=== PATIENT | male | born 1955 | race Caucasian/White ===

== ENCOUNTER 2016-12-12 14:03 | Emergency (ER) | payer OTHER ==
[~2016-12-12] VITALS: Ht 172.7 cm; Wt 72.0 kg
[~2016-12-12 14:03] MED LIST: ASPI325T PO; CARV6.25 PO; CLOP75 PO; FOLI1 PO; PROT40TA PO; THIA100T PO; ZOCO40TA PO
[2016-12-12 14:08] VITALS: BP 151/93; PULSE 89; RESP 18; TEMP 97.6; O2SAT 99
--- NOTE | 2016-12-12 15:09 | RADHPO ---
EXAM DATE/TIME: 12/12/2016 14:51 [facility] COMPARISON: No previous studies available for comparison. INDICATIONS : Patient jumped into a swimming pool that was too shallow and jammed his heel into the bottom of it. MEDICAL HISTORY : Peripheral vascular disease SURGICAL HISTORY : None. ENCOUNTER: Initial ACUITY: 4 - 6 days PAIN SCORE: 8/10 LOCATION: Left Lateral heel. FINDINGS: Three view examination of the left foot demonstrates no soft tissue swelling, dislocation, or fractur e. The tarsal bones appear intact. The interphalangeal and metatarsophalangeal joints are intact. The calcaneus is intact. Bony mineralization is normal. CONCLUSION: Unremarkable examination of the left foot. Boni Messer MD on December 12, 2016 at 15:06 Board Certified Radiologist. This report was verified electronically.
--- NOTE | 2016-12-12 15:27 | PD ---
HPI Chief Complaint: Injury Time Seen by Provider: 14:25 Travel History International Travel<30 days: No Contact w/Intl Traveler<30days: No Traveled to known affect area: No History of Present Illness HPI 61-year-old male presents to the emergency room for evaluation of left lateral heel pain after jumping into a pool 5 days ago. Patient states he jumped straight in and struck his foot on the bottom of the pool. He has had pain since. Pain has not worsened or improved over time. He has been applying ice for 15 minutes at a time every 2-3 hours and taking ibuprofen with mild relief in symptoms. Denies paresthesias. Denies back pain. He has been ambulatory since onset of symptoms but has to walk on his toes to avoid pain. PFSH Past Medical History Cancer: No Cardiovascular Problems: Yes (PAD) High Cholesterol: Yes Chest Pain: Yes Deep Vein Thrombosis: Yes Endocrine: No Genitourinary: No Immune Disorder: No Musculoskeletal: No Neurologic: No Psychiatric: No Reproductive: No Respiratory: Yes Tetanus Vaccination: > 5 Years Influenza Vaccination: No Past Surgical History Abdominal Surgery: Yes (APPENDECTOMY, HEMMOROIDECTOMY) Appendectomy: Yes Other Surgery: Yes (Hemorrhoidectomy ) Social History Alcohol Use: Yes (6-8 beers daily) Tobacco Use: Yes (1 PPD) Substance Use: No Allergies-Medications (Allergen,Severity, Reaction): Coded Allergies: Ceclor (Verified Allergy, Unknown, Doesn't remember , 12/12/16) Reported Meds & Prescriptions Reported Meds & Active Scripts Active No Active Prescriptions or Reported Medications Review of Systems Except as stated in HPI: all other systems reviewed are Neg Physical Exam Narrative GENERAL: Well-nourished, well-developed male in no acute distress. Afebrile. Ambulatory with a limp. SKIN: Warm and dry. No significant erythema or ecchymosis. HEAD: Normocephalic. EYES: No scleral icterus. No injection or drainage. NECK: Supple, trachea midline. No JVD or lymphadenopathy. CARDIOVASCULAR: Regular rate and rhythm without murmurs, gallops, or rubs. RESPIRATORY: Breath sounds equal bilaterally. No accessory muscle use. MUSCULOSKELETAL: No cyanosis. Mild edema of the left foot. Full range of motion of left foot. 1+ dorsalis pedis pulses. Less than 2 second capillary refill distally. Tenderness to palpation of the left lateral heel. No tenderness to palpation of the knee. BACK: Nontender without obvious deformity. No CVA tenderness. Data Data Last Documented VS Vital Signs Date Time Temp Pulse Resp B/P Pulse Ox O2 Delivery O2 Flow Rate FiO2 12/12/16 14:08 97.6 89 18 151/93 99 Orders Foot, Complete ([id number]) (12/12/16 ) [facility] Medical Decision Making Medical Screen Exam Complete: Yes Emergency Medical Condition: Yes Medical Record Reviewed: Yes Differential Diagnosis Contusion versus fracture versus sprain versus strain Narrative Course 61-year-old male presents to the emergency room for evaluation of left heel pain after jumping into a pool and hitting his foot on the bottom 5 days ago. Physical exam reveals mild edema of the left foot without erythema or ecchymosis. 1+ dorsalis pedis pulse. Patient denies paresthesias. No back pain or midline tenderness of the spine. X-ray shows no acute bony abnormality. Patient has been ambulatory since onset of symptoms. Likely deep contusion. Patient discharged with orthopedic instructions and told to follow up with a primary care physician/primary health organisation manager or return for worsening symptoms. He understands and agrees to plan. Diagnosis Primary Impression: Contusion of left heel Qualified Code: S90.32XA - Contusion of left heel, initial encounter Referrals: Yarn Skeins Examiner Primary Care Physician Patient Instructions: Foot Contusion (ED), General Instructions Additional Instructions: Rest and drink plenty of fluids. Take ibuprofen with food as directed, as needed for pain. Apply ice to the affected area for 20 minutes at a time, as needed for pain and swelling. Follow-up with a primary care physician. Return to the emergency room for worsening symptoms. Scripts No Active Prescriptions or Reported Meds Disposition: 01 DISCHARGE HOME Condition: Stable Keila Zimmerman December 12, 2016 15:27
== END 2016-12-12 15:40 | disposition home or self-care (01) ==
LOC: PHEFT 14:03
DX: S90.32XA Contusion of left foot, initial encounter (principal); E78.00 Pure hypercholesterolemia, unspecified; Z86.718 Personal history of other venous thrombosis and embolism; F17.210 Nicotine dependence, cigarettes, uncomplicated; W16.522A Jumping or diving into swimming pool striking bottom causing other injury, initial encounter; Y93.11 Activity, swimming; Y92.9 Unspecified place or not applicable; Y99.8 Other external cause status
CPT/HCPCS: 73630; 99283

== ENCOUNTER → 2017-03-05 | Outpatient (CLI) | payer OTHER ==
[~2017-03-05] MED LIST changes: +B COTAB3 PO; -CLOP75 PO; -FOLI1 PO; +FOLI1TAB6 PO; +PLAV75TA29 PO; -PROT40TA PO; +SIMV10TA PO; -THIA100T PO; +VITA100T54 PO; -ZOCO40TA PO
[2017-03-05 13:03] LABS: AUTOMATED NEUTROPHIL # 2.5 TH/MM3 (1.8-7.7); BASOPHIL # 0.1 TH/MM3 (0-0.2); BASOPHIL % 1.5 % (0.0-2.0); EOSINOPHIL # 0.1 TH/MM3 (0-0.4); EOSINOPHIL % 2.9 % (0.0-4.0); HEMATOCRIT 41.9 % (39.0-51.0); HEMO FLAGS DIFF FINAL; LYMPHOCYTE # 1.3 TH/MM3 (1.0-4.8); MEAN CELL VOLUME 104.8 FL (80.0-100.0); MEAN CORPUSCULAR HEMOGLOBIN 36.9 PG (27.0-34.0); MEAN CORPUSCULAR HGB CONC 35.2 % (32.0-36.0); MONO % 14.5 % (0.0-8.0); NEUT % 54.1 % (16.0-70.0); PLATELET COUNT 161 TH/MM3 (150-450); RED CELL DISTRIBUTION WIDTH 13.9 % (11.6-17.2); WHITE BLOOD COUNT 4.7 TH/MM3 (4.0-11.0)
[2017-03-05 13:41] LABS: ALKALINE PHOSPHATASE 89 U/L (45-117); ALT (GPT) 64 U/L (12-78); HDL CHOLESTEROL 57.5 MG/DL (40.0-60.0); LDL CHOLESTEROL 92 MG/DL (0-99); TOTAL BILIRUBIN ADULT 0.8 MG/DL (0.2-1.0)
[2017-03-05 13:47] LABS: ANION GAP 8 MEQ/L (5-15); AST (GOT) 107 U/L (15-37); BICARBONATE 24.6 MEQ/L (21.0-32.0); BLOOD UREA NITROGEN 7 MG/DL (7-18); CHLORIDE 94 MEQ/L (98-107); GLOMERULAR FILTRATION RATE 95 ML/MIN (>89); GLUCOSE,FASTING 75 MG/DL (74-99); POTASSIUM 4.3 MEQ/L (3.5-5.1); SODIUM (NA) 127 MEQ/L (136-145)
== END ==
LOC: PLAB 10:18
PROVIDERS: ATTEND Family Medicine
DX: E78.5 Hyperlipidemia, unspecified (principal); F10.10 Alcohol abuse, uncomplicated
CPT/HCPCS: 36415; 80053; 80061; 84443; 85025

== ENCOUNTER → 2017-03-10 | Outpatient (CLI) | payer OTHER ==
[~2017-03-10] MED LIST changes: +IOHEXOL 350 MG/ML 10 ML VIAL (for RAD DIAG) IV ONE
--- NOTE | 2017-03-10 10:44 | RADRPT ---
EXAM DATE/TIME: 03/10/2017 09:23 [facility] COMPARISON: CTA RUNOFF W 3D RECON, January 08, 2016, 13:12. INDICATIONS : Abdominal pain. MEDICAL HISTORY : Hypercholesterolemia. Deep venous thrombosis. Peripheral vascular disease. SURGICAL HISTORY : Appendectomy. Hemorrhoidectomy. ENCOUNTER: Initial ACUITY: 1 month PAIN SCORE: 0/10 LOCATION: Abdomen. MEASUREMENTS: LIVER: 14.5 cm length COMMON DUCT: 5 mm RIGHT KIDNEY: 11.3 x 5.1 x 4.9 cm LEFT KIDNEY: 10.4 x 6.7 x 5.5 cm SPLEEN: 10.3 cm length AORTA: 1.9cm maximal FINDINGS: LIVER: Mild increase echotexture without focal lesion or ductal dilatation. COMMON DUCT: No intraluminal mass or stone visualized. GALLBLADDER: Contains no stones, demonstrates no wall thickening or pericholecystic fluid. PANCREAS: Pancreas is not well-visualized due to bowel gas. Visualized portions are within normal limits. RIGHT KIDNEY: No hydronephrosis, stone or mass. LEFT KIDNEY: No hydronephrosis, stone or mass. SPLEEN: No focal lesion. AORTA: Non aneurysmal. There is severe atherosclerotic disease. IVC: Within normal limits. CONCLUSION: 1. No acute finding is identified to explain the abdominal pain. 2. Possible mild hepatic steatosis. 3. Severe atherosclerotic disease of the aorta. Boni Sylvester MD on March 10, 2017 at 10:40 Board Certified Radiologist. This report was verified electronically.
--- NOTE | 2017-03-10 14:38 | RADRPT ---
EXAM DATE/TIME: 03/10/2017 10:15 [facility] COMPARISON: CTA RUNOFF W 3D RECON, January 08, 2016, 13:12. INDICATIONS : Peripheral vascular disease. IV CONTRAST: 100 cc Omnipaque 350 (iohexol) IV RADIATION DOSE: 2.17 CTDIvol (mGy) MEDICAL HISTORY : Cardiovascular disease. SURGICAL HISTORY : None. ENCOUNTER: Initial ACUITY: 1 day PAIN SCALE: 5/10 LOCATION: Bilateral lower legs TECHNIQUE: Volumetric scanning was performed using a multi-row detector CT scanner. The data was post processed with a variety of visualization algorithms including full volume maximum intensity projection, multi -planar sliding thin slab reformation, curved planar reformation, and surface rendering techniques. Using automated exposure control and adjustment of the mA and/or kV according to patient size, radiat ion dose was kept as low as reasonably achievable to obtain optimal diagnostic quality images. DICO M format image data is available electronically for review and comparison. FINDINGS: AORTA: Diffuse atherosclerotic calcifications without significant flow-limiting stenosis or aneurysm. VISCERAL ARTERIES: Moderate stenosis at the celiac origin secondary to mixed plaque. Mild SMA origin stenosis. LATA appea rs occluded at the origin but reconstitutes to near the origin. Single grossly patent bilateral renal arteries. RIGHT LEG: INFLOW: Moderate stenosis of the right common iliac artery distally secondary to calcified plaque. Extra sanam c artery is patent. Redemonstration of occlusion of the right mid to distal common femoral artery. OUTFLOW: Reconstitution of the proximal profunda via collaterals. SFA is occluded throughout its course. There is reconstitution of the above-knee popliteal artery via profunda collaterals. The above-knee poplit eal artery is heavily calcified and likely focally occluded just above the level of the knee joint. B elow knee popliteal artery is calcified but patent. RUNOFF: There is three-vessel runoff with moderate calcified plaque involving the proximal trifurcation vesse ls. LEFT LEG: INFLOW: No significant iliac inflow stenosis. Internal iliac artery is occluded. Heavily calcified common fem oral artery with severe stenosis distally. OUTFLOW: Profunda is patent. Heavily calcified SFA with tandem moderate to severe stenoses in the proximal to mid thigh and occlusion in the distal thigh. Reconstitution of the above-knee popliteal artery via co llaterals. Tandem moderate stenoses of the above-knee popliteal artery. Below knee popliteal artery i s patent. RUNOFF: Three-vessel runoff to the foot with moderate calcified plaque involving the proximal trifurcation ve ssels. GENERAL FINDINGS: Visualized lung bases are clear. Evaluation of the abdominal viscera is limited due to arterial phase technique. Liver, spleen, adrenal glands, gallbladder, and pancreas are grossly unremarkable. Kidney s demonstrate symmetrical enhancement without evidence for radiopaque renal calculi or hydronephrosis . No significant renal mass. The bowel appears unremarkable without evidence for obstruction. No sign ificant free fluid or drainable fluid collection. Bladder is mildly distended but otherwise unremarkable. Prostate and seminal vesicles are within norm al limits. CONCLUSION: 1. Redemonstration of moderate distal right common iliac artery stenosis. Patient would benefit from inflow intervention. 2. 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 3. Redemonstration of severe distal left common femoral artery stenosis with diffusely diseased SFA o ccluded in the distal thigh with reconstitution of the left above-knee popliteal artery. 4. Three-vessel runoff with moderate proximal trifurcation disease bilaterally. Romaine Diehl MD on March 10, 2017 at 13:46 Board Certified Radiologist. This report was verified electronically.
== END ==
LOC: HRAD 08:52
PROVIDERS: ATTEND Family Medicine
DX: I73.9 Peripheral vascular disease, unspecified (principal)
CPT/HCPCS: 75635; 76700; Q9967

== ENCOUNTER → 2017-03-26 | Outpatient (CLI) | payer OTHER ==
[~2017-03-26] MED LIST changes: -IOHEXOL 350 MG/ML 10 ML VIAL (for RAD DIAG) IV ONE
--- NOTE | 2017-03-26 16:02 | ECHRPT ---
Indication: Cardiac murmur, unspecified CONCLUSIONS The left ventricular systolic function is low normal with an estimated ejection fraction in the rang e of 50- 55%. Mild concentric left ventricular hypertrophy. Normal left ventricular size. There are findings consistent with hypertrophic cardiomyopathy. Mild mitral valve regurgitation. There is trace tricuspid valve regurgitation. The estimated pulmonary arterial pressure is 19 mmHg. BP: / HR: Rhythm: Sinus MEASUREMENTS (Male / Female) Normal Values Technical Quality:Fair 2D ECHO LV Diastolic Diameter PLAX 4.2 cm 4.2 - 5.9 / 3.9 - 5.3 cm LV Systolic Diameter PLAX 3.3 cm IVS Diastolic Thickness 1.3 cm 0.6 - 1.0 / 0.6 - 0.9 cm LVPW Diastolic Thickness 1.0 cm 0.6 - 1.0 / 0.6 - 0.9 cm LV Relative Wall Thickness 0.5 LVOT Diameter 2.2 cm M-MODE Aortic Root Diameter MM 3.1 cm LA Systolic Diameter MM 3.1 cm LA Ao Ratio MM 1.0 AV Cusp Separation MM 1.6 cm DOPPLER AV Peak Velocity 202.0 cm/s AV Peak Gradient 16.3 mmHg AI Peak Velocity 416.0 cm/s AI Peak Gradient 69.2 mmHg AI Pressure Half Time 448.7 ms LVOT Peak Velocity 138.0 cm/s LVOT Peak Gradient 7.6 mmHg AV Area Cont Eq pk 2.6 cm MR Peak Velocity 536.0 cm/s MR Peak Gradient 114.9 mmHg Mitral E Point Velocity 207.0 cm/s Mitral A Point Velocity 174.0 cm/s Mitral E to A Ratio 1.2 LV E' Lateral Velocity 6.0 cm/s Mitral E to LV E' Lateral Ratio 34.3 LV E' Septal Velocity 5.5 cm/s Mitral E to LV E' Septal Ratio 37.6 TR Peak Velocity 186.0 cm/s TR Peak Gradient 13.8 mmHg PV Peak Velocity 89.6 cm/s PV Peak Gradient 3.2 mmHg FINDINGS LEFT VENTRICLE The left ventricular systolic function is low normal with an estimated ejection fraction in the rang e of 50- 55%. Mild concentric left ventricular hypertrophy. Normal left ventricular size. There are findings consistent with hypertrophic cardiomyopathy. MITRAL VALVE Mild mitral valve regurgitation. TRICUSPID VALVE There is trace tricuspid valve regurgitation. The estimated pulmonary arterial pressure is 19 mmHg. Linden Palacios MD (Electronically Signed) Final Date:26 March 2017 16:01
== END ==
LOC: HECH 08:46
PROVIDERS: ATTEND Nurse Practitioner Family
DX: R01.1 Cardiac murmur, unspecified (principal)
CPT/HCPCS: 93306

== ENCOUNTER → 2017-04-17 | Outpatient (CLI) | payer OTHER ==
[2017-04-17 10:45] LABS: HEMATOCRIT 36.9 % (39.0-51.0); MEAN CELL VOLUME 104.8 FL (80.0-100.0); MEAN CORPUSCULAR HEMOGLOBIN 37.5 PG (27.0-34.0); MEAN CORPUSCULAR HGB CONC 35.8 % (32.0-36.0); PLATELET COUNT 186 TH/MM3 (150-450); RED BLOOD COUNT 3.53 MIL/MM3 (4.50-5.90); RED CELL DISTRIBUTION WIDTH 13.2 % (11.6-17.2); REVIEW FLAG FINAL; WHITE BLOOD COUNT 4.6 TH/MM3 (4.0-11.0)
[2017-04-17 10:48] LABS: BLOOD, URINE NEG (NEG); COMMENT (UR) CULT NOT INDICATED; CULTURE IF INDICATED CULT NOT INDICATED; GLUCOSE,URINE NEG (NEG); KETONE, URINE NEG (NEG); MUCUS URINE FEW /lpf (OCC); NITRITE,URINE NEG (NEG); PH, URINE 6.5 (5.0-8.5); URINE COLOR YELLOW (YELLW/STRAW)
[2017-04-17 11:00] LABS: BICARBONATE 26.8 MEQ/L (21.0-32.0); POTASSIUM 4.1 MEQ/L (3.5-5.1)
--- NOTE | 2017-04-17 12:55 | RADRPT ---
EXAM DATE/TIME: 04/17/2017 10:54 [facility] COMPARISON: CT PULMONARY ANGIOGRAM, February 01, 2016, 9:54. CHEST SINGLE AP, January 31, 2016, 13:45. INDICATIONS : Evaluate for pneumonia, pneumothorax or communicable disease. Pre-op for Angiogram. MEDICAL HISTORY : Hypertension. Smoker. SURGICAL HISTORY : None. ENCOUNTER: Initial ACUITY: 1 day PAIN SCORE: 0/10 LOCATION: Bilateral chest FINDINGS: The lungs are clear without infiltrate, nodule, or mass. There is no appreciable pleural effusion fo r technique. Heart and mediastinum are unremarkable. Nipple shadows are seen bilaterally. CONCLUSION: No acute cardiopulmonary disease. Rosette Hart MD on April 17, 2017 at 12:53 Board Certified Radiologist. This report was verified electronically.
--- NOTE | 2017-04-22 22:09 | EKG ---
Date Performed: 04/17/2017 Time Performed: 10:37:59 PTAGE: 62 years EKG: SINUS BRADYCARDIA POSSIBLE LEFT ATRIAL ENLARGEMENT BORDERLINE ECG NO PREVIOUS TRACING Compared to the previous tracing rate slower DOCTOR: Umberto Coronel Interpretating Date/Time 04/22/2017 22:08:41
== END ==
LOC: CPRE 09:48
PROVIDERS: ATTEND Surgery
DX: Z01.810 Encounter for preprocedural cardiovascular examination (principal); Z01.811 Encounter for preprocedural respiratory examination; Z01.812 Encounter for preprocedural laboratory examination; I73.9 Peripheral vascular disease, unspecified; R94.31 Abnormal electrocardiogram [ECG] [EKG]
CPT/HCPCS: 36415; 71020; 80048; 81001; 85027; 85610; 93005

== ENCOUNTER 2017-04-21 10:00 | Inpatient (IN) | payer OTHER ==
[~2017-04-21] VITALS: Ht 172.7 cm; Wt 68.5 kg
[~2017-04-21 10:00] MED LIST changes: -B COTAB3 PO
[2017-05-11] VITALS (11 sets, daily range): BP systolic 134–197; BP diastolic 71–81; PULSE 65–89; RESP 18–20; TEMP 97.7–98.3; O2SAT 91–96
[2017-05-11] MEDS ORDERED: POVIDONE IODINE 5% (ANTISEPSIS KIT) 4 APPLICATIONS EACH NARE PRN (06:30)
[2017-05-11] MEDS ORDERED: METOPROLOL TARTRATE 25 MG TAB PO PRN (06:30)
[2017-05-11] MEDS ORDERED: SODIUM CHLORID 0.9% 500 ML IV PRN (06:30)
[2017-05-11] MEDS ORDERED: INSULIN HUMAN REGULAR 1,000 UNITS/10 ML VIAL SQ PRN (06:30)
[2017-05-11] MEDS ORDERED: LACTATED RINGER'S 1000 ML IV PRN (06:30)
[2017-05-11] MEDS ORDERED: CHLORHEXIDINE GLUCONATE 2 % 1 PACK (2 CLOTHS) TOPICAL PRN (06:30)
--- NOTE | 2017-05-11 06:39 | PD.VS.PN ---
Pre-operative Note Pre-operative diagnosis: PAD, L LE claudication Planned procedure: LEFT groin reconstruction, angiogram and endovascular intervention of LEFT LE Interval History: Pt has been feeling well since I saw him in clinic. Specifically, no F/C/N/V or other change in medical condition that would delay surgery Labs: Hct 37 plt 186 INR 1.0 cr 0.8 Blood: T&S Imaging: CTA reviewed; LE angio to be done in OR Orders: NPO Vanc 1g IV OCTOR (ceclor allergy) Post-operative destination: PACU then CPCU Operative site marked: Yes Consent: Informed consent has been obtained from Avinash Powell. I have explained the procedure in detail and discussed the risks, benefits, and potential complications. All questions have been answered. Luan Smith MD May 11, 2017 06:39
[2017-05-11] MEDS ORDERED: CARVEDILOL 6.25 MG TAB PO SCH (07:00)
[2017-05-11] MEDS ORDERED: ACETAMINOPHEN 1000 MG/100 ML 100 ML IV ONE (07:21)
[2017-05-11] MEDS ORDERED: DEXMEDETOMIDINE HCL 200 MCG/2 ML VIAL ONE (07:22)
[2017-05-11] MEDS ORDERED: BUPIVACAINE HCL PF 0.5% 30 ML VIAL ONE (08:30)
[2017-05-11] MEDS ORDERED: THROMBIN (TOPICAL) 20,000 UNIT SPRAY KIT ONE (08:30)
[2017-05-11] MEDS ORDERED: HEPARIN-NS/PF INJ 500 ML ONE (08:30)
[2017-05-11] MEDS ORDERED: VANCOMYCIN HCL 1000 MG VIAL ONE (08:30)
[2017-05-11] MEDS ORDERED: PROTAMINE SULFATE 50 MG/5 ML VIAL ONE (08:31)
[2017-05-11] MEDS ORDERED: HEPARIN SODIUM - IV 10,000 UNITS/10 ML VIAL ONE (08:31)
--- NOTE | 2017-05-11 09:12 | HHI.PR ---
Immediate Post Op Note Procedure Date: May 11, 2017 Pre Op Diagnosis: PAD, L LE claudication Post Op Diagnosis: PAD, L LE claudication Surgeon: Luna Smith Marketing Manager(s): Caroline Owens Procedure: L GENERATOR ASSEMBLER TEA w patch angioplasty Findings: high grade calcific stenosis L GENERATOR ASSEMBLER Additional Information: + PT Doppler signal at conclusion of case Complications: none Specimen(s) removed: L GENERATOR ASSEMBLER plaque - not for path Estimated blood loss: 75mL Anesthesia: General Drains: None Fluids: 2350mL IVF Urinary Output (mLs): 950 Patient to: PACU Patient Condition: Good Implant/Devices: SEE IMPLANT LOG (if applicable) Date/Time of Procedure: SEE SURGICAL CARE RECORD Luan Smith MD May 11, 2017 09:12
[2017-05-11] MEDS ORDERED: *morphine SULFATE 8 MG/ML PERIprocedure ONLY ONE (10:40)
[2017-05-11] MEDS ORDERED: DO NOT ADM ANY ANTICOAGULANT DRUGS PRN (10:45)
[2017-05-11] MEDS ORDERED: SODIUM CHLOR 0.9% 250 ML INJ 250 ML IV ONE (12:00)
[2017-05-11] MEDS ORDERED: NEOSTIGMINE 3 MG/3 ML SYR IV ONE (12:00)
[2017-05-11] MEDS ORDERED: LIDOCAINE HCL 1% PF 5 ML AMPULE OTHER ONE (12:00)
[2017-05-11] MEDS ORDERED: ePHEDrine/NS 25 MG/5 ML SYR IV ONE (12:00)
[2017-05-11] MEDS ORDERED: ROCURONIUM INJ 50 MG/5 ML SYRINGE IV PUSH ONE (12:00)
[2017-05-11] MEDS ORDERED: PHENYLEPH/NS 1000 MCG/10 ML SYR IV ONE (12:00)
[2017-05-11] MEDS ORDERED: PROPOFOL 200 MG/20 ML AMP IV ONE (12:00)
[2017-05-11] MEDS ORDERED: GLYCOPYRROLATE 1 MG/5 ML SYRINGE IV PUSH ONE (12:00)
[2017-05-11] MEDS ORDERED: NORMOSOL R INJ 2,000 ML IV ONE (12:00)
--- NOTE | 2017-05-11 13:55 | PD.VS.PN ---
Subjective POD #: 0 Procedure(s): L LAST REMODELER REPAIRER TEA w patch angioplasty Subjective/Hospital Course Pt w/o complaints Provena wound vac in place (L groin) w/o hematoma or swelling LE warm w/ motor intact Objective Vitals/I&O Date Time Temp Pulse Resp B/P (MAP) Pulse Ox O2 Delivery O2 Flow Rate FiO2 05/11/17 10:45 15 05/11/17 10:45 70 15 123/59 (80) 94 Nasal Cannula 2 05/11/17 10:30 72 15 117/60 (79) 93 Nasal Cannula 2 05/11/17 10:15 74 15 115/61 (79) 92 Nasal Cannula 2 05/11/17 10:00 77 15 109/53 (71) 100 Nasal Cannula 3 05/11/17 09:50 98.3 75 20 102/60 (74) 99 Nasal Cannula 3 05/11/17 06:41 98.1 97 18 207/93 (131) 98 05/11/17 05/11/17 05/11/17 07:00 15:00 23:00 Intake Total 2350 ml Output Total 1025 ml Balance 1325 ml Exam: GENERAL: A&OX3,NAD,GCS15 Warm and dry R/L + DP/PT heard via Doppler LE warm w/ motor intact Provena wound vac intact to L groin w/o swelling or hematoma Assessment and Plan Assessment: (1) PVD (peripheral vascular disease) Status: Acute Plan Pt s/p L LAST REMODELER REPAIRER TEA w patch angioplasty Doing well Pain controlled Plan Pt admitted Continue pain control Vidhya TORRES [facility] Discharge Planning 4-5 days Vidhya Paul May 11, 2017 13:55
[2017-05-11] MEDS: ONDANSETRON HCL 4 MG/2 ML VIAL IV PUSH PRN (19:37)
[2017-05-11] MEDS: CARVEDILOL 6.25 MG TAB PO SCH (19:49)
[2017-05-11] MEDS: ATORVASTATIN 40 MG TAB PO SCH (20:54)
[2017-05-11] MEDS: DOCUSATE SODIUM 100 MG CAP PO SCH (20:54)
[2017-05-12] VITALS (25 sets, daily range): BP systolic 132–164; BP diastolic 59–83; PULSE 64–108; RESP 18–22; TEMP 97.4–98.2; O2SAT 92–98
[2017-05-12 03:12] LABS: HEMATOCRIT 35.3 % (39.0-51.0); MEAN CELL VOLUME 104.6 FL (80.0-100.0); MEAN CORPUSCULAR HEMOGLOBIN 37.9 PG (27.0-34.0); PLATELET COUNT 132 TH/MM3 (150-450); RED BLOOD COUNT 3.37 MIL/MM3 (4.50-5.90); RED CELL DISTRIBUTION WIDTH 12.9 % (11.6-17.2); WHITE BLOOD COUNT 8.3 TH/MM3 (4.0-11.0)
[2017-05-12 03:17] LABS: MEAN CORPUSCULAR HGB CONC 36.3 % (32.0-36.0); REVIEW FLAG FINAL
[2017-05-12 03:33] LABS: BICARBONATE 29.9 MEQ/L (21.0-32.0); POTASSIUM 3.9 MEQ/L (3.5-5.1)
[2017-05-12] MEDS: MORPHINE SULFATE 4 MG/ML INJ IV PUSH PRN ×4 (05:24→22:07)
[2017-05-12] MEDS: HYDROmorphone HCL 2 MG TAB PO PRN ×2 (08:03→14:14)
[2017-05-12] MEDS: DOCUSATE SODIUM 100 MG CAP PO SCH ×2 (08:05→20:29)
[2017-05-12] MEDS: ASPIRIN 81 MG CHEW TAB PO SCH (08:05)
[2017-05-12] MEDS: THIAMINE HCL 100 MG TAB PO SCH (08:05)
[2017-05-12] MEDS: ENOXAPARIN SODIUM 30 MG/0.3 ML SYRINGE SQ SCH (08:06)
[2017-05-12] MEDS: FOLIC ACID 1 MG TAB PO SCH (08:06)
[2017-05-12] MEDS: CARVEDILOL 6.25 MG TAB PO SCH ×2 (08:06→20:29)
--- NOTE | 2017-05-12 09:07 | MP ---
cc: LUAN SMITH MD DATE OF SURGERY 05/11/2017 PREOPERATIVE DIAGNOSIS Peripheral arterial occlusive disease, left lower extremity claudication. POSTOPERATIVE DIAGNOSIS Peripheral arterial occlusive disease, left lower extremity claudication. PROCEDURE Left common femoral artery endarterectomy and patch angioplasty. MEDICATIONS Luan Smith MD ANESTHESIA General INDICATIONS Mr. Powell is a 61-year gentleman with bilateral lower extremity claudication, left worse than right. He was taken to the operating room for groin reconstruction. DESCRIPTION OF THE PROCEDURE Informed consent obtained from the patient. He was taken to the operating room, placed supine on the operating table and appropriate time-out was taken to ensure the patient's identity, operative site and planned procedure. Administration of one gram of vancomycin was initiated prior to the skin incision and will be discontinued after a single preoperative dose. Vancomycin was chosen because of the patient's penicillin derivative allergy. Everyone in the room agreed with the time-out and we proceeded. He was prepped from his nipples to his toes. A vertical incision made in the patient's left groin, carried down through the subcutaneous tissues with electrocautery. The external iliac artery, common femoral artery, superficial femoral artery and deep femoris artery were all dissected free. The patient was systemically heparinized. Proximal control of the external iliac artery, distal control of the proximal, superficial, femoral and profunda femoris arteries were obtained with profunda clamps. A longitudinal arteriotomy was made with an 11 blade, extended with Nowata scissors. The artery was endarterectomized without difficulty extending down to the superficial femoral artery. Bovine pericardial patch was brought up on the field and sewn on using a running 5-0 Prolene suture. At the completion, it was flushed and made hemostatic. There was a nice pulse in the profunda and SFA and a Doppler signal in the foot. The wound was irrigated. The heparin reversed with protamine and the wound was closed with 2-0 Polysorb, 3-0 Polysorb and 4-0 Monocryl. Sponge and needle counts at the end of the case. I was present, scrubbed and performed the entire procedure. MD MEIR Brian/MARE /8:36 PM 8:59 AM
--- NOTE | 2017-05-12 10:14 | PD.VS.PN ---
Subjective POD #: 1 Procedure(s): L COPIER AND PRINTER FIELD TECHNICIAN TEA w patch angioplasty Subjective/Hospital Course [age]febrile 62/M Pt ambulates w/ PT Pt c/o L groin incisional pain Provena wound vac in place (L groin) w/o hematoma or swelling LE warm w/ motor intact Objective Vitals/I&O Date Time Temp Pulse Resp B/P (MAP) Pulse Ox O2 Delivery O2 Flow Rate FiO2 05/12/17 09:37 20 05/12/17 07:00 68 05/12/17 07:00 97.4 72 22 151/67 (95) 98 05/12/17 06:01 70 05/12/17 05:47 81 05/12/17 04:18 81 05/12/17 03:42 98.1 79 18 160/66 (97) 96 05/12/17 03:42 73 05/12/17 02:03 70 05/12/17 01:58 69 05/12/17 00:05 67 05/11/17 23:08 71 05/11/17 23:08 97.9 76 20 167/72 (103) 94 05/11/17 22:12 68 05/11/17 21:32 71 05/11/17 20:20 67 05/11/17 19:55 89 05/11/17 19:55 98.3 86 18 197/81 (119) 95 05/11/17 18:00 74 05/11/17 17:00 70 05/11/17 16:00 74 05/11/17 15:03 97.7 65 19 134/71 (92) 96 05/11/17 15:00 79 05/11/17 14:25 88 91 05/11/17 13:45 97.6 68 16 134/66 (88) 96 Room Air 05/11/17 13:00 69 16 136/65 (88) 96 Room Air 05/11/17 12:00 66 16 128/62 (84) 98 Nasal Cannula 2 05/11/17 11:00 97.6 75 16 120/60 (80) 95 Nasal Cannula 2 05/11/17 10:45 15 05/11/17 10:45 70 15 123/59 (80) 94 Nasal Cannula 2 05/11/17 10:30 72 15 117/60 (79) 93 Nasal Cannula 2 05/11/17 10:15 74 15 115/61 (79) 92 Nasal Cannula 2 05/12/17 05/12/17 05/12/17 07:00 15:00 23:00 Intake Total 720 ml Output Total 425 ml Balance 295 ml Exam: GENERAL: A&OX3,GCS15,NAD SKIN: Warm and dry LE warm w/ motor intact Provena wound vac in place (L groin) w/o hematoma or swelling CARDIOVASCULAR: Regular rate and rhythm without murmurs, gallops, or rubs. RESPIRATORY: Bilat audible expiratory wheezing noted/ No accessory muscle use. GASTROINTESTINAL: Abdomen soft, non-tender, nondistended. MUSCULOSKELETAL: No cyanosis, or edema. R DP/PT with phasic signals L biphasic DP/PT Laboratory Laboratory Tests Test 05/12/17 02:43 White Blood Count 8.3 Red Blood Count 3.37 Hemoglobin 12.8 Hematocrit 35.3 Mean Corpuscular Volume 104.6 Mean Corpuscular Hemoglobin 37.9 Mean Corpuscular Hemoglobin Concent 36.3 Red Cell Distribution Width 12.9 Platelet Count 132 Mean Platelet Volume 7.1 Blood Urea Nitrogen 5 Creatinine 0.78 Random Glucose 102 Calcium Level 7.6 Sodium Level 132 Potassium Level 3.9 Chloride Level 96 Carbon Dioxide Level 29.9 Anion Gap 6 Estimat Glomerular Filtration Rate 101 Assessment and Plan Assessment: (1) PVD (peripheral vascular disease) Status: Acute Plan Pt s/p L COPIER AND PRINTER FIELD TECHNICIAN TEA w patch angioplasty, POD 1 Doing well Pain controlled Plan D/C [place]onan D/D MIVF Continue pain control PT/OOB PRN neb tx ordered Vidhya TORRES [facility] [phone] Discharge Planning 2-3 days Vidhya Paul May 12, 2017 10:13
[2017-05-12] MEDS: ONDANSETRON HCL 4 MG/2 ML VIAL IV PUSH PRN (20:26)
[2017-05-12] MEDS: ATORVASTATIN 40 MG TAB PO SCH (20:28)
[2017-05-13] VITALS (26 sets, daily range): BP systolic 124–180; BP diastolic 58–79; PULSE 67–107; RESP 18–20; TEMP 97.1–98.4; O2SAT 93–100
--- NOTE | 2017-05-13 06:40 | PD.VS.PN ---
Subjective POD #: 2 Procedure(s): L DIRECT CARE PROVIDER TEA w patch angioplasty Subjective/Hospital Course Pt with nausea and emesis overnight no abdominal pain except lying down, but reportedly had this pre-operatively groin pain controlled got OOB on his own good UOP Objective Vitals/I&O Date Time Temp Pulse Resp B/P (MAP) Pulse Ox O2 Delivery O2 Flow Rate FiO2 05/13/17 05:10 86 05/13/17 04:10 85 05/13/17 03:40 97.9 92 18 153/73 (99) 93 05/13/17 03:40 87 05/13/17 02:29 92 05/13/17 01:23 107 05/13/17 00:07 95 05/12/17 23:33 98.0 101 18 164/83 (110) 93 05/12/17 23:32 97 05/12/17 22:00 108 05/12/17 21:00 94 05/12/17 20:20 88 05/12/17 19:20 98.2 107 20 160/81 (107) 92 05/12/17 19:20 78 05/12/17 18:09 19 05/12/17 18:00 94 05/12/17 17:00 72 05/12/17 16:00 80 05/12/17 15:14 20 05/12/17 15:00 97.8 82 20 142/65 (90) 97 05/12/17 15:00 75 05/12/17 14:00 68 05/12/17 13:00 70 05/12/17 12:00 73 05/12/17 11:00 85 05/12/17 11:00 78 20 132/59 (83) 97 05/12/17 10:00 64 05/12/17 09:00 78 05/12/17 08:00 76 05/12/17 07:00 68 05/12/17 07:00 97.4 72 22 151/67 (95) 98 05/13/17 05/13/17 05/13/17 07:00 15:00 23:00 Intake Total 240 ml Output Total 550 ml Balance -310 ml Exam: abdomen tympanetic, distended but nontender L groin VAC in place, no hematoma Assessment and Plan Assessment: (1) PVD (peripheral vascular disease) Status: Acute Plan Pt s/p L DIRECT CARE PROVIDER TEA w patch angioplasty, POD 1 Pain controlled, persistent nausea 1. Likely post-op ileus but will check KUB, BMP, LFTs 2. Phenergan prn as Zofran not working well 3. Liq as tolerated 4. OOB ad mckenzie Discharge Planning 2-3 days, when able to tolerate po better Luan Smith MD May 13, 2017 06:40
[2017-05-13] MEDS: THIAMINE HCL 100 MG TAB PO SCH (08:10)
[2017-05-13] MEDS: CLOPIDOGREL 75 MG TAB PO SCH (08:10)
[2017-05-13] MEDS: DOCUSATE SODIUM 100 MG CAP PO SCH ×2 (08:10→20:29)
[2017-05-13] MEDS: ASPIRIN 81 MG CHEW TAB PO SCH (08:10)
[2017-05-13] MEDS: CARVEDILOL 6.25 MG TAB PO SCH ×2 (08:10→20:28)
[2017-05-13] MEDS: FOLIC ACID 1 MG TAB PO SCH (08:10)
[2017-05-13] MEDS: ENOXAPARIN SODIUM 30 MG/0.3 ML SYRINGE SQ SCH (08:11)
[2017-05-13] MEDS: PROMETHAZINE HCL 25 MG TAB PO PRN ×3 (08:24→23:07)
--- NOTE | 2017-05-13 08:32 | RADRPT ---
EXAM DATE/TIME: 05/13/2017 07:58 [place] COMPARISON: No previous studies available for comparison. INDICATIONS : Rule out ileus. MEDICAL HISTORY : Hypercholesterolemia. Deep venous thrombosis. Peripheral vascular disease SURGICAL HISTORY : Appendectomy. Hemorrhoidectomy ENCOUNTER: Initial ACUITY: 1 day PAIN SCORE: 7/10 LOCATION: Bilateral Abdomen FINDINGS: Supine view of the abdomen was performed. The abdominal bowel gas pattern is normal. No abnormal ma sses, calcifications, or organomegaly is seen. There is multilevel degenerative change throughout th e spine. CONCLUSION: 1. No evidence of obstruction. Landon Escudero MD on May 13, 2017 at 8:30 Board Certified Radiologist. This report was verified electronically.
[2017-05-13] MEDS: RESP: ALBUTEROL 2.5 MG/IPRATROPIUM 0.5 MG NEB (PRN) NEB (08:36)
[2017-05-13] MEDS: MORPHINE SULFATE 4 MG/ML INJ IV PUSH PRN ×3 (09:53→19:38)
[2017-05-13] MEDS: HYDROmorphone HCL 2 MG TAB PO PRN ×3 (12:31→23:06)
[2017-05-13 14:35] LABS: INDIRECT BILIRUBIN 0.7 MG/DL (0.0-0.8); TOTAL BILIRUBIN ADULT 1.3 MG/DL (0.2-1.0)
--- NOTE | 2017-05-13 14:42 | PD.VS.PN ---
Subjective Subjective/Hospital Course Pt s/p unwitnessed fall Pt reported he was transferring from chair to bed and lost his balance and slid from the edge of the bed to the floor Pt denies weakness/Dizziness/CP/SOB NO LOC noted Pt stated he did not hit his head Pt w/o complaints Objective Vitals/I&O Date Time Temp Pulse Resp B/P (MAP) Pulse Ox O2 Delivery O2 Flow Rate FiO2 05/13/17 14:05 70 05/13/17 14:00 18 05/13/17 13:30 68 05/13/17 13:30 97.9 75 19 124/58 (80) 98 05/13/17 12:00 76 05/13/17 11:00 80 05/13/17 11:00 97.1 78 20 159/70 (99) 96 05/13/17 10:04 107 05/13/17 10:00 19 05/13/17 09:54 19 05/13/17 09:00 94 05/13/17 08:00 89 05/13/17 07:15 98.1 87 20 166/77 (106) 100 05/13/17 07:00 90 05/13/17 06:44 96 05/13/17 05:10 86 05/13/17 04:10 85 05/13/17 03:40 97.9 92 18 153/73 (99) 93 05/13/17 03:40 87 05/13/17 02:29 92 05/13/17 01:23 107 05/13/17 00:07 95 05/12/17 23:33 98.0 101 18 164/83 (110) 93 05/12/17 23:32 97 05/12/17 22:00 108 05/12/17 21:00 94 05/12/17 20:20 88 05/12/17 19:20 98.2 107 20 160/81 (107) 92 05/12/17 19:20 78 05/12/17 18:00 94 05/12/17 17:00 72 05/12/17 16:00 80 05/12/17 15:00 97.8 82 20 142/65 (90) 97 05/12/17 15:00 75 05/13/17 05/13/17 05/13/17 07:00 15:00 23:00 Intake Total 240 ml Output Total 550 ml Balance -310 ml Physical Exam GENERAL: A&OX3,GCS15,NAD SKIN: Warm and dry L groin w/ provena wound vac intact-No hematoma/swelling CARDIOVASCULAR: +S1,S2 RESPIRATORY: BS CTA/No accessory muscle use. GASTROINTESTINAL: Abdomen with improved distention since am/+ BS Biphasic R/L DP/PT LE warm w/ motor intact Pt w/o pain to back/hips Pt denies pain Laboratory Laboratory Tests Test 05/13/17 13:15 Imaging Last 48 hours Impressions Abdomen X-Ray 05/13/17 0000 Signed Impressions: Service Date/Time: Saturday, May 13, 2017 07:58 - CONCLUSION: 1. No evidence of obstruction. Landon Escudero MD Assessment and Plan Assessment: (1) PVD (peripheral vascular disease) Status: Acute Plan Pt s/p L DANCE HALL HOSTESS TEA w patch angioplasty, POD 1 Pt s/p unwitnessed fall NO LOC/dizziness/CP/SOB/Pain Pt w/o complaints No musculoskeletal/neurological deficits upon assessment Plan Pt w/o complaints post fall Continue to monitor Pt was instructed to call for assistance when transferring Pt w/ improved nausea/abdominal distention Vidhya TORRES [facility]/[employer] [phone] Discharge Planning 2-3 days, when able to tolerate po better Vidhya Paul May 13, 2017 14:42
[2017-05-13] MEDS: ATORVASTATIN 40 MG TAB PO SCH (20:28)
[2017-05-14] VITALS (28 sets, daily range): BP systolic 138–182; BP diastolic 63–81; PULSE 64–89; RESP 18–22; TEMP 97.7–98.4; O2SAT 95–99
[2017-05-14] MEDS: RESP: ALBUTEROL 2.5 MG/IPRATROPIUM 0.5 MG NEB (PRN) NEB (08:37)
[2017-05-14] MEDS: HYDROmorphone HCL 2 MG TAB PO PRN ×3 (09:25→20:49)
[2017-05-14] MEDS: CLOPIDOGREL 75 MG TAB PO SCH (09:26)
[2017-05-14] MEDS: FOLIC ACID 1 MG TAB PO SCH (09:26)
[2017-05-14] MEDS: ASPIRIN 81 MG CHEW TAB PO SCH (09:26)
[2017-05-14] MEDS: ENOXAPARIN SODIUM 30 MG/0.3 ML SYRINGE SQ SCH (09:26)
[2017-05-14] MEDS: THIAMINE HCL 100 MG TAB PO SCH (09:27)
[2017-05-14] MEDS: CARVEDILOL 6.25 MG TAB PO SCH ×2 (09:27→20:49)
[2017-05-14] MEDS: DOCUSATE SODIUM 100 MG CAP PO SCH ×2 (09:27→20:49)
--- NOTE | 2017-05-14 10:15 | PD.VS.PN ---
Subjective POD #: 3 Procedure(s): L INSULATION BOARD COATER OPERATOR TEA w patch angioplasty Subjective/Hospital Course Pt in bed alert in nad GCS 15 + flatulence Abdomen distended Pt denies nausea/vomiting/abdominal persaud Pain controlled Provena wound vac to L groin intact w/o swelling/hematoma Objective Vitals/I&O Date Time Temp Pulse Resp B/P (MAP) Pulse Ox O2 Delivery O2 Flow Rate FiO2 05/14/17 09:31 83 05/14/17 08:21 97.9 80 20 157/70 (99) 99 05/14/17 08:21 75 05/14/17 07:22 87 05/14/17 06:07 76 05/14/17 05:09 78 05/14/17 04:23 74 05/14/17 03:27 98.4 81 18 138/66 (90) 95 05/14/17 03:26 79 05/14/17 02:17 75 05/14/17 01:02 81 05/14/17 00:07 76 05/14/17 00:07 17 05/13/17 23:52 98.4 91 18 150/73 (98) 97 05/13/17 23:52 83 05/13/17 22:09 83 05/13/17 21:00 67 05/13/17 20:31 18 05/13/17 20:00 76 05/13/17 19:46 98.4 88 18 180/79 (112) 97 05/13/17 19:30 78 05/13/17 18:01 78 05/13/17 17:00 75 05/13/17 16:00 71 05/13/17 15:00 85 05/13/17 15:00 97.9 77 19 150/68 (95) 98 05/13/17 14:05 70 05/13/17 13:30 68 05/13/17 13:30 97.9 75 19 124/58 (80) 98 05/13/17 12:00 76 05/13/17 11:00 80 05/13/17 11:00 97.1 78 20 159/70 (99) 96 05/14/17 05/14/17 05/14/17 07:00 15:00 23:00 Intake Total 240 ml Output Total 200 ml Balance 40 ml Exam: SKIN: Warm and dry L groin w/ provena wound vac intact-No hematoma/swelling CARDIOVASCULAR: +S1,S2 RESPIRATORY: Upper lobes clear/ lower lobes with expiratory wheezes/No accessory muscle use. GASTROINTESTINAL: Abdomen with slight distention-tympanic /+ BS/Non tender Biphasic R/L DP/PT LE warm w/ motor intact Pt w/o pain to back/hips Pt denies pain Laboratory Laboratory Tests Test 05/13/17 13:15 Blood Urea Nitrogen 8 Creatinine 1.05 Random Glucose 121 Total Protein 7.5 Albumin 3.1 Calcium Level 8.5 Alkaline Phosphatase 77 Aspartate Amino Transf (AST/SGOT) 36 Alanine Aminotransferase (ALT/SGPT) 24 Total Bilirubin 1.3 Direct Bilirubin 0.6 Sodium Level 129 Potassium Level 4.0 Chloride Level 92 Carbon Dioxide Level 28.0 Anion Gap 9 Estimat Glomerular Filtration Rate 71 Indirect Bilirubin 0.7 Assessment and Plan Assessment: (1) PVD (peripheral vascular disease) Status: Acute Plan Pt s/p L INSULATION BOARD COATER OPERATOR TEA w patch angioplasty, POD 3 No musculoskeletal/neurological deficits upon assessment Pt doing well this am, no reports of LE discomfort/abdominal pain/nausea/ vomiting Plan Ordered Gas X for symptom relief Continue/encourage PT/OOB/ambulation Right groin wound vac to be removed tomorrow am Pt was instructed to call for assistance when transferring D/C Planning Vidhya TORRES [facility] [phone] Discharge Planning Potentially tomorrow afternoon if able to tolerate po better Vidhya Paul May 14, 2017 10:15
[2017-05-14] MEDS ORDERED: SIMETHICONE 80 MG CHEWABLE TAB CHEW ONE (11:00)
[2017-05-14] MEDS: ATORVASTATIN 40 MG TAB PO SCH (20:50)
[2017-05-15] VITALS (22 sets, daily range): BP systolic 150–194; BP diastolic 67–79; PULSE 58–85; RESP 18–20; TEMP 97.5–98.1; O2SAT 85–98
[2017-05-15] MEDS: HYDROmorphone HCL 2 MG TAB PO PRN ×3 (01:00→09:07)
[2017-05-15] MEDS: CARVEDILOL 6.25 MG TAB PO SCH (08:45)
[2017-05-15] MEDS: CLOPIDOGREL 75 MG TAB PO SCH (08:45)
[2017-05-15] MEDS: ASPIRIN 81 MG CHEW TAB PO SCH (08:45)
[2017-05-15] MEDS: THIAMINE HCL 100 MG TAB PO SCH (08:45)
[2017-05-15] MEDS: FOLIC ACID 1 MG TAB PO SCH (08:45)
[2017-05-15] MEDS: DOCUSATE SODIUM 100 MG CAP PO SCH (08:45)
[2017-05-15] MEDS: ENOXAPARIN SODIUM 30 MG/0.3 ML SYRINGE SQ SCH (08:46)
[2017-05-15] MEDS ORDERED: SIMETHICONE 80 MG CHEWABLE TAB CHEW ONE (11:00)
--- NOTE | 2017-05-15 17:31 | PD.VS.DC ---
Discharge Summary Admission Date: May 11, 2017 at 06:02 Discharge Date: May 15, 2017 Admission Diagnosis: (1) PVD (peripheral vascular disease) Discharge Diagnosis: (1) PVD (peripheral vascular disease) ICD Codes: I73.9 - Peripheral vascular disease, unspecified Diagnosis: Principal Status: Acute Brief History from admission 62 yo male w/ L > R LE claudication. Procedure(s): L WHITE SUGAR PAN TANK OPERATOR TEA w patch angioplasty Significant Findings Laboratory Tests Test 05/13/17 13:15 Random Glucose 121 MG/DL (74-106) Albumin 3.1 GM/DL (3.4-5.0) Total Bilirubin 1.3 MG/DL (0.2-1.0) Direct Bilirubin 0.6 MG/DL (0.0-0.2) Sodium Level 129 MEQ/L (136-145) Chloride Level 92 MEQ/L (98-107) Estimat Glomerular Filtration Rate 71 ML/MIN (>89) Hospital Course: Pt was admitted post-operatively. He had abdominal distension that was nonobstructive and resolved within a day. He was ambulating and his groin wound looked good at d/c. Discharge Condition: Good Discharge Disposition: Discharge Home Any questions or concerns: Call [facility] Heart and Vascular Surgery at [facility] [phone] Luan Smith MD May 15, 2017 17:31
--- NOTE | 2017-05-15 17:32 | PD.VS.DC ---
Discharge Summary Admission Date: May 11, 2017 at 06:02 Discharge Date: May 15, 2017 Admission Diagnosis: (1) PVD (peripheral vascular disease) Discharge Diagnosis: (1) PVD (peripheral vascular disease) ICD Codes: I73.9 - Peripheral vascular disease, unspecified Status: Acute Brief History from admission Hx of worsening L LE claudication Procedure(s): L SLIDE MACHINE TENDER TEA w patch angioplasty Significant Findings Laboratory Tests Test 05/13/17 13:15 Random Glucose 121 MG/DL (74-106) Albumin 3.1 GM/DL (3.4-5.0) Total Bilirubin 1.3 MG/DL (0.2-1.0) Direct Bilirubin 0.6 MG/DL (0.0-0.2) Sodium Level 129 MEQ/L (136-145) Chloride Level 92 MEQ/L (98-107) Estimat Glomerular Filtration Rate 71 ML/MIN (>89) Hospital Course: Hx of worsening L LE claudication Pt s/p L SLIDE MACHINE TENDER TEA w patch angioplasty Pt w/o complications Pt d/c to home will f/u in 2w Allergies Coded Allergies Type Severity Reaction Last Updated Verified cefaclor Allergy Unknown Doesn't remember 04/10/17 No Recent Impressions Abdomen X-Ray 05/13/17 0000 Signed Impressions: Service Date/Time: Saturday, May 13, 2017 07:58 - CONCLUSION: 1. No evidence of obstruction. Landon Escudero MD 05/13/17 05/13/17 05/14/17 05/14/17 05/15/17 05/15/17 06:00 18:00 06:00 18:00 06:00 18:00 Intake Total 240 ml 930 ml 240 ml 720 ml 240 ml Output Total 550 ml 150 ml 200 ml 250 ml 350 ml Balance -310 ml 780 ml 40 ml 470 ml -110 ml Intake Oral 240 ml 930 ml 240 ml 720 ml 240 ml Output Urine Total 300 ml 150 ml 200 ml 250 ml 350 ml Emesis 250 ml Laboratory Tests Test 05/13/17 13:15 Blood Urea Nitrogen 8 MG/DL Creatinine 1.05 MG/DL Random Glucose 121 MG/DL Total Protein 7.5 GM/DL Albumin 3.1 GM/DL Calcium Level 8.5 MG/DL Alkaline Phosphatase 77 U/L Aspartate Amino Transf (AST/SGOT) 36 U/L Alanine Aminotransferase (ALT/SGPT) 24 U/L Total Bilirubin 1.3 MG/DL Direct Bilirubin 0.6 MG/DL Sodium Level 129 MEQ/L Potassium Level 4.0 MEQ/L Chloride Level 92 MEQ/L Carbon Dioxide Level 28.0 MEQ/L Anion Gap 9 MEQ/L Estimat Glomerular Filtration Rate 71 ML/MIN Indirect Bilirubin 0.7 MG/DL Orders Procedure Category Date Status Time Abdomen, Kub Only RADDIAG 05/13/17 Resulted Basic Metabolic Panel LAB 05/13/17 Complete (Bmp) 06:36 Hepatic Functional LAB 05/13/17 Complete Panel 06:36 Promethazine MED 05/13/17 In Process (Phenergan) 06:45 Simethicone Chew MED 05/14/17 Complete (Mylicon Chew) 11:00 Simethicone Chew MED 05/15/17 Complete (Mylicon Chew) 11:00 Attending Discharge DISCHARGE 05/15/17 Transmitted Order Vital Signs Date Time Temp Pulse Resp B/P (MAP) Pulse Ox O2 Delivery O2 Flow Rate FiO2 05/15/17 15:30 97.8 74 18 194/79 (117) 98 05/15/17 13:01 66 05/15/17 12:01 70 05/15/17 11:15 98.1 69 18 150/67 (94) 97 05/15/17 11:00 63 05/15/17 10:00 62 05/15/17 09:00 76 05/15/17 08:30 97.5 85 18 162/73 (102) 85 05/15/17 08:00 60 05/15/17 07:00 58 05/15/17 06:09 72 05/15/17 05:00 70 05/15/17 04:06 67 05/15/17 04:00 97.9 67 20 164/74 (104) 95 05/15/17 03:00 67 05/15/17 02:02 66 05/15/17 01:00 71 05/15/17 00:00 65 05/15/17 00:00 97.8 75 20 167/76 (106) 95 05/14/17 23:00 75 05/14/17 22:00 72 05/14/17 21:00 74 05/14/17 20:00 98.1 85 20 150/70 (96) 95 05/14/17 20:00 82 05/14/17 19:00 85 05/14/17 18:08 85 05/14/17 17:37 68 05/14/17 17:10 141/63 (89) 05/14/17 16:30 97.7 79 22 182/81 (114) 97 05/14/17 16:21 77 05/14/17 15:27 75 05/14/17 14:14 76 05/14/17 13:08 83 05/14/17 12:04 66 05/14/17 11:58 97.9 79 20 151/67 (95) 98 05/14/17 11:10 64 05/14/17 10:05 89 05/14/17 09:31 83 05/14/17 08:21 97.9 80 20 157/70 (99) 99 05/14/17 08:21 75 05/14/17 07:22 87 05/14/17 06:07 76 05/14/17 05:09 78 05/14/17 04:23 74 05/14/17 03:27 98.4 81 18 138/66 (90) 95 05/14/17 03:26 79 05/14/17 02:17 75 05/14/17 01:02 81 05/14/17 00:07 76 05/14/17 00:07 17 05/13/17 23:52 98.4 91 18 150/73 (98) 97 05/13/17 23:52 83 05/13/17 22:09 83 05/13/17 21:00 67 05/13/17 20:31 18 05/13/17 20:00 76 05/13/17 19:46 98.4 88 18 180/79 (112) 97 05/13/17 19:30 78 05/13/17 18:01 78 05/13/17 17:00 75 05/13/17 16:00 71 05/13/17 15:00 85 05/13/17 15:00 97.9 77 19 150/68 (95) 98 05/13/17 14:05 70 05/13/17 13:30 68 05/13/17 13:30 97.9 75 19 124/58 (80) 98 05/13/17 12:00 76 05/13/17 11:00 80 05/13/17 11:00 97.1 78 20 159/70 (99) 96 05/13/17 10:04 107 05/13/17 09:54 19 05/13/17 09:00 94 05/13/17 08:00 89 05/13/17 07:15 98.1 87 20 166/77 (106) 100 05/13/17 07:00 90 05/13/17 06:44 96 05/13/17 05:10 86 05/13/17 04:10 85 05/13/17 03:40 97.9 92 18 153/73 (99) 93 05/13/17 03:40 87 05/13/17 02:29 92 05/13/17 01:23 107 05/13/17 00:07 95 05/12/17 23:33 98.0 101 18 164/83 (110) 93 05/12/17 23:32 97 05/12/17 22:00 108 05/12/17 21:00 94 05/12/17 20:20 88 05/12/17 19:20 98.2 107 20 160/81 (107) 92 05/12/17 19:20 78 05/12/17 18:00 94 Discharge Condition: Good Discharge Disposition: Discharge Home Discharge Instructions: Leave incision to Left groin open to air Call the office to report any new onset redness,drainage,swelling F/U in 2W with an TRACY May shower tomorrow am NO tub baths until incision is fully healed Daily walking regimen recommended (as tolerated) Vidhya TORRES [facility]/[place] [phone] Any questions or concerns: Call [facility] Heart and Vascular Surgery at [facility] [phone] Vidhya Paul May 15, 2017 17:32
== END 2017-05-15 18:55 | disposition home or self-care (01) | DRG 254 ==
LOC: HSDI 05-11 06:02 → HCPC 05-11 14:10
PROVIDERS: ADMIT Surgery; ATTEND Surgery
PROC: 04UL0KZ Supplement Left Femoral Artery with Nonautologous Tissue Substitute, Open Approach (ICD-10-PCS; 2017-05-11)
PROC: 04CL0ZZ Extirpation of Matter from Left Femoral Artery, Open Approach (ICD-10-PCS; principal; 2017-05-11 07:32)
DX: I70.213 Atherosclerosis of native arteries of extremities with intermittent claudication, bilateral legs (principal); E78.5 Hyperlipidemia, unspecified; F17.210 Nicotine dependence, cigarettes, uncomplicated; Z86.718 Personal history of other venous thrombosis and embolism; W19.XXXA Unspecified fall, initial encounter
CPT/HCPCS: 74000; 80048; 80076; 85027; 86850; 86900; 86901; 94150; 94640; 94664; C1768; J0131; J1644; J1650; J2270; J2370; J2405; J2710; J2720; J3010; J3370; J7050; J7120; Q0169

== ENCOUNTER 2017-06-22 10:08 | Day surgery (SDC) | payer OTHER ==
[~2017-06-22] VITALS: Ht 172.7 cm; Wt 72.6 kg
[~2017-06-22 10:08] MED LIST changes: +ASPI-183 PO; -ASPI325T PO
[2017-06-22] MEDS ORDERED: IOHEXOL 350 MG/ML 100 ML BTL (for Cath Lab) OTHER ONE (10:09)
[2017-06-22 10:53] VITALS: BP 186/83; PULSE 74; RESP 18; TEMP 97.8; O2SAT 96
[2017-06-22] MEDS ORDERED: SODIUM BICARBONATE 100 MEQ in D5W 1000 ML IV SCH (11:00)
[2017-06-22 11:22] LABS: AUTOMATED NEUTROPHIL # 4.5 TH/MM3 (1.8-7.7); BASOPHIL # 0.1 TH/MM3 (0-0.2); BASOPHIL % 1.8 % (0.0-2.0); EOSINOPHIL # 0.1 TH/MM3 (0-0.4); EOSINOPHIL % 1.2 % (0.0-4.0); HEMATOCRIT 35.3 % (39.0-51.0); LYMPH % 20.4 % (9.0-44.0); LYMPHOCYTE # 1.4 TH/MM3 (1.0-4.8); MEAN CORPUSCULAR HEMOGLOBIN 37.9 PG (27.0-34.0); MONO % 11.9 % (0.0-8.0); NEUT % 64.7 % (16.0-70.0); PLATELET COUNT 208 TH/MM3 (150-450); RED BLOOD COUNT 3.36 MIL/MM3 (4.50-5.90); RED CELL DISTRIBUTION WIDTH 13.7 % (11.6-17.2)
--- NOTE | 2017-06-22 11:23 | PD.VS.PN ---
Pre-operative Note Pre-operative diagnosis: PAD, L>R LE claudication Planned procedure: Aortogram w/ L LE angiogram and possible intervention Interval History: Pt has L>R leg claudication but no rest pain, no tissue loss. no other change in medical history that would preclude OR. Labs: Laboratory Results Test 06/22/17 10:47 Blood: none needed Imaging: will make Orders: NPO Post-operative destination: DOCU Operative site marked: Yes Consent: Informed consent has been obtained from Avinash Powell. I have explained the procedure in detail and discussed the risks, benefits, and potential complications. All questions have been answered. Luan Smith MD Jun 22, 2017 11:23
[2017-06-22 11:39] LABS: HEMO FLAGS AUTO DIFF; MEAN CORPUSCULAR HGB CONC 36.1 % (32.0-36.0)
[2017-06-22] MEDS ORDERED: HEPARIN-NS/PF INJ 1,000 ML ONE (11:55)
[2017-06-22] MEDS ORDERED: MIDAZOLAM HCL 2 MG/2 ML VIAL ONE ×2 (11:56→12:08)
[2017-06-22] MEDS ORDERED: HEPARIN SODIUM - IV 10,000 UNITS/10 ML VIAL ONE (12:20)
[2017-06-22 12:24] LABS: BICARBONATE 27.1 MEQ/L (21.0-32.0); POTASSIUM 4.3 MEQ/L (3.5-5.1)
[2017-06-22 12:36] LABS: SCAN/DIFF AUTO DIFF CONFIRMED
--- NOTE | 2017-06-22 13:18 | HHI.PR ---
Immediate Post Op Note Procedure Date: Jun 22, 2017 Pre Op Diagnosis: B LE claudication Post Op Diagnosis: same Surgeon: Luan Smith Animal Shelter Supervisor(s): none Procedure: 1. Aortogram w/ B LE angiogram 2. L SFA orbital atherectomy and CRYSTALLOGRAPHER/stent ([id number]) 3. R BUILDING MAINTENANCE CUSTODIAN angioseal Findings: 1. SFA occlusion, successful atherectomy and CRYSTALLOGRAPHER/stent 2. R distal BUILDING MAINTENANCE CUSTODIAN occlusion and SFA occlusion - will need R groin reconstruction and angiogram/endo intervention Complications: none Estimated blood loss: 10mL Anesthesia: MAC Drains: None Patient to: Other (DOCU) Patient Condition: Good Implant/Devices: SEE IMPLANT LOG (if applicable) Date/Time of Procedure: SEE SURGICAL CARE RECORD Luan Smith MD Jun 22, 2017 13:18
--- NOTE | 2017-06-22 13:24 | CATHPROC ---
[facility] HIS Report Study Information Study Number Admission Scheduled Start Study Start [id number] Jun 22 2017 10:08AM 06/22/2017 Jun 22 2017 11:39AM [place] Service Cath Endovascular Study Admit Source Facility Department Other [facility] - Attending Pathologist Physician and Clinical Staff Initial MD Smith, Luan Tapper Operator Mildred Dennis,RN Recorder Shola Mera,RT(R) Scrub Pancho Yusuf,RT(R) Procedures Performed Procedure Location (Site) Vessel Name Abdominal Angiogram Abd Aorta (A3) Aorta Periph stent SFA (left) Femoral Art SPORTS MEDICINE SPECIALIST SFA (left) Femoral Art Wire insertion Fem Art (right) Femoral Art Equipment Time Dressing Machine Operator Description Size Mfg Part Number Used/Scraped [id number] 12:11 ANGIO-DYNAMICS OMNI FLUSH 65CM CATHETER FR 4 Used *[id number] 12:13 ANGIO-DYNAMICS OMNI FLUSH 65CM CATHETER FR 5 Used *[id number] DBP- CARDIOVASCULAR CATHETER, STEALTH CLASSIC 12:39 [id number] Used SYSTEMS INC. 1.50MM *[id number] CARDIOVASCULAR VPR-[id number] 12:35 WIRE, FIRM (VIPER) 335 Used SYSTEMS INC. *[id number] INTRODUCER SET, 12:11 COOK INC. FR 5 [id number] *[id number] Used MICROPUNCTURE, STIFFENED CXI-4.0-35-135- 12:22 COOK/NURY CATHETER, FR4 CXI SUPPORT FR 4 Used P-NS-0 *[id number] SHEATH, FR6 MARK 1 FLEXOR [id number] 12:22 COOK/NURY FR 6 Used 55CM *[id number] WIRE, GUIDE APPROACH SUPERVISOR TUMBLERS [id number] 12:23 COOK/NURY 300CM Used MICROWIRE *[id number] WIRE, ACEVEDO CURVED GUIDE 12:22 COOK/NURY 260CM [id number] Used 260CM WIRE, STORQ STANDARD MOD J [id number] 12:22 CORDIS/ NURY 300CM Used 300CM *[id number] 12:27 DAIG/[facility]. [facility] MEDICAL ANGIOSEAL, FR6 VIP FR 6 Used *[id number] ENDOVASCULAR LZL33-40-185- 13:01 STENT, EVERFLEX 6 X 200 120CM 6 X 200 Used COMPANY 120 BALLOON, ADMIRAL EXTREME 5 [id number] 12:49 [employer]EC [employer] 130CM Used X 300 130CM *[id number] BALLOON, ADMIRAL EXTREME 5 X [id number] 13:03 [employer] TECHNOLOGIES 130CM Used 200 130CM *[id number] 12:11 MEDLINE IND[employer] PACK, CCL CUSTOM * Used *[id number] 12:11 FOCUS Trainr MEDICAL PRESSURE TUBING 48" 48" [id number] Used PSI-6F- 12:27 FOCUS Trainr MEDICAL SHEATH, FR6.5 PRELUDE 11CM FR 6.5 038ACT Used *[id number] 12:11 NAMIC TUBING, HIGH PRESSURE 20" 20" Used *[id number] 12:11 NYCOMED OMNIPAQUE, 300 MG, 150ML 150ML [id number] Used 12:11 NYCOMED OMNIPAQUE, 300 MG, 50ML 50ML [id number] Used [id number] 12:11 [employer] BLANKET,WARM AIR CCL * Used *[id number] 12:12 TERUMO MEDICAL SHEATH, FR5 TERUMO (10CM) FR 5 Used *[id number] 12:17 TERUMO MEDICAL/NURY CATHETER, FR5 ANGLED 100CM FR 5 [id number] *[id number] Used WIRE, ANGLED GLIDE .035 [id number] 12:11 TERUMO MEDICAL/NURY 260CM Used 260CM *[id number] Equipment Model, Serial, Lot Number and Expiration Data Description Model Number Serial Number Lot Number Expiration Date ANGIOSEAL, FR6 VIP [id number] 03-09-2018 CATHETER, FR4 CXI SUPPORT [id number] 04-20-2020 SHEATH, FR6 MARK 1 FLEXOR [id number] 02-05-2020 55CM STENT, EVERFLEX 6 X 200 120CM [id number] 09-05-2019 WIRE, GUIDE APPROACH SUPERVISOR TUMBLERS [id number] 08-21-2021 MICROWIRE WIRE, CURTIS CURVED GUIDE [id number] 05-26-2022 260CM Medication Medication Total Dose (Bolus/Oral) Medication Total Dosage/Unit 1% XYLOCAINE 10 mL FENTANYL 150 mcg HEPARIN 8000 units PLAVIX 600 mg VERSED 4 mg Medications (Bolus/Oral) Medication Time Given Dosage/Unit Administered By Reason 06/22/2017 12:09:39 1% XYLOCAINE 10 mL Luan Smith PM Patient arrived on 10 mL 1% XYLOCAINE given by Luan Smith in Right Groin via Subcutaneous. Ordere d by Luan Smith. 06/22/2017 12:19:34 VERSED 2 mg Mildred Dennis PM 2 mg VERSED given in lab by Mildred Dennis RN via Peripheral IV. Ordered by Luan Smith. 06/22/2017 12:20:56 FENTANYL 50 mcg Mildred Dennis PM 50 mcg FENTANYL given in lab by Mildred Dennis RN via Peripheral IV. Ordered by Luan Smith. 06/22/2017 12:21:24 HEPARIN 5000 units Mildred Dennis PM Patient arrived on 5000 units HEPARIN given by Mildred Dennis RN in Left Antecubital via Peripheral IV. Ordered by Luan Smith. 06/22/2017 12:22:42 VERSED 1 mg Mildred Dennis PM 1 mg VERSED given in lab by Mildred Dennis RN in Left Antecubital via Peripheral IV. Ordered by Luan Horta. 06/22/2017 12:23:55 FENTANYL 50 mcg Mildred Dennis PM 50 mcg FENTANYL given in lab by Mildred Dennis RN via Peripheral IV. Ordered by Luan Smith. 06/22/2017 12:24:08 HEPARIN 3000 units Mildred Dennis PM Patient arrived on 3000 units HEPARIN given by Mildred Dennis RN via Peripheral IV. Ordered by Luan Pathak. 06/22/2017 12:45:15 VERSED 1 mg Mildred Dennis PM Patient arrived on 1 mg VERSED given by Mildred Dennis RN via Peripheral IV. Ordered by Ej Smith 06/22/2017 12:46:35 FENTANYL 50 mcg Mildred Dennis PM Patient arrived on 50 mcg FENTANYL given by Mildred Dennis RN via Peripheral IV. Ordered by Luan Smith. PLAVIX 06/22/2017 1:20:00 PM 600 mg Mildred Dennis 600 mg PLAVIX given in lab by Mildred Dennis RN via Oral. Ordered by Luan Smith. Medication (Drip) Medication Time Given Dosage/Unit Concentration/Unit Diluent (ml) Solution CLINDAMYCIN 06/22/2017 1:06:30 PM 900 mg 900 mg CLINDAMYCIN given in lab by Mildred Dennis RN. Ordered by Luan Smith. 06/22/2017 12:04:42 IV Solutions 0 mL (IV) 500 NaCl .9 PM Patient arrived on IV Solutions given by Luan Smith in Left Antecubital via Peripheral IV. Pump/D rip Flow = 20 ml/hr using NaCl .9. Ordered by Luan Smith. SODIUM BICARBONATE 06/22/2017 12:05:12 18.75 mL/hr 150 1000 NaCl .9 DRIP PM Patient arrived on 18.75 mL/hr SODIUM BICARBONATE DRIP given by Luan Smith in Left Antecubital vi a Peripheral IV. Pump/Drip Flow = 125 ml/hr using NaCl .9 with a concentration of 150 in 1000 ml. Ordered by Luan Smith. Initial Case Assessment Cardiovascular HR Rhythm NIBP Chest Pain 85 sr 165/79 0 Edema Present Skin color Skin None Normal Warm Dry Circulatory - Right Pulses Femoral 3 Scale (0,1,2,3,4,d) Scale (0,1,2,3,4,d) Neurological State Oriented to time-place- Alert Moves all extremities person Respiration - General Respiration Rate SpO2 (%) O2 (lpm) (B/min) 18 100 0 Chronological Log Time Study Chronological Log 11:56:29 Patient arrived via Bed. 11:56:30 Patient Name, D.O.B, / Armband Verified By R.N. 11:56:31 Consent signed by the physician and the patient and verified by the Attending Pathologist staff. 11:56:32 Pre-op and post- op instructions given; patient acknowledges understanding of instructions. Vitals capture started with the following parameters, Patient=Adult, Interval=3 min, Initial Pr vexkwi=515 mmHg, 12:02:52 Deflation Rate=5 mmHg, Cuff placed on Right Arm 12:03:01 Patient has been NPO for More than 6Hrs. 12:03:03 Skin Breakdown-left groin surgical wound 12:03:28 HR=83 bpm, TFMH=570/83 mmhg, SpO2=99.0 %, Resp=17 B/min, Ford=2 12:03:42 A # 20 IV was noted in the Antecubital (left). Grade = 0 Patient arrived on IV Solutions given by Luan Smith in Left Antecubital via Peripheral IV. Pump/Drip Flow = 20 ml/hr 12:04:42 using NaCl .9. Ordered by Luan Smith. Patient arrived on 18.75 mL/hr SODIUM BICARBONATE DRIP given by Luan Smith in Left Antecubi roderick via Peripheral 12:05:12 IV. Pump/Drip Flow = 125 ml/hr using NaCl .9 with a concentration of 150 in 1000 ml. Ordered by Luan Smith. 12:05:39 History and physical on the chart or being dictated. Assessment: Initial Case, HR=85 BPM, Rhythm=sr, EDAD=858/79 mmhg, Chest Pain=0, Edema=None, Col or=Normal, Skin = Warm, Dry 12:05:41 Right Pulses: Femoral=3 Neurological: State=Alert, Ox3, BARROSO Respiration: Resp=18 B/min, GeU2=933 %, O2=0 lpm 12:05:44 Reference ECG taken 12:06:36 Right groin prepped with 2% chlorhexidine, and draped after a 3 min. waiting time. 12:07:07 HR=84 bpm, VFWG=303/79 mmhg, SpO2=95.0 %, Resp=21 B/min, Ford=2 Time Out. Correct patient, correct procedure, correct physician, power injector loaded with shan lomax with surgical team 12:09:01 present. Time Out Concurred by MD and individual staff in procedure. Loaded by Mariely Dennis rn, ve rified by Pancho Yusuf. 12:09:34 HR=81 bpm, JCYM=855/74 mmhg, SpO2=91.0 %, Resp=23 B/min, Ford=2 12:09:37 Case Start Patient arrived on 10 mL 1% XYLOCAINE given by Luan Smith in Right Groin via Subcutaneous. Ordered by Luis, 12:09:39 uLan. 12:10:18 Access site was Right Femoral Artery. A INTRODUCER SET, MICROPUNCTURE, STIFFENED FR 5 was advanced into the Fem Art (right) using the 12:11:09 Percutaneous technique. A SHEATH, FR5 TERUMO (10CM) FR 5 was exchanged in the Fem Art (right). This was necessary in or luis to 12:11:29 accomodate a larger catheter. A OMNI FLUSH 65CM CATHETER FR 5 was advanced over a wire. OMNIPAQUE, 300 MG, 150ML 150ML was us ed for 12:12:21 injections. 12:12:30 HR=75 bpm, DZAO=463/66 mmhg, SpO2=95.0 %, Resp=16 B/min, Ford=2 12:15:19 Through a OMNI FLUSH 65CM CATHETER FR 5, The Abdominal Aorta was injected with 10 cc's of c ontrast. 12:15:27 HR=74 bpm, YYFM=455/83 mmhg, XlG7=576.0 %, Resp=12 B/min, Ford=2 12:15:35 Through a OMNI FLUSH 65CM CATHETER FR 5, The Abdominal Aorta was injected with 10 cc's of c ontrast. 12:16:05 A WIRE, ANGLED GLIDE .035 260CM 260CM was inserted via Fem Art (right). 12:16:40 Catheter was removed A CATHETER, FR5 ANGLED 100CM FR 5 was advanced over a wire. OMNIPAQUE, 300 MG, 150ML 150ML was used for 12:16:44 injections. 12:17:28 Wire removed 12:18:54 Manual Injections down left leg through 5 lebanese glide catheter. 12:19:10 HR=81 bpm, BEQP=337/74 mmhg, SpO2=98.0 %, Resp=22 B/min, Ford=2 12:19:34 2 mg VERSED given in lab by Mildred Dennis RN via Peripheral IV. Ordered by Ray Smith 12:20:56 50 mcg FENTANYL given in lab by Mildred Dennis, KARAN via Peripheral IV. Ordered by Giselle Smith. Patient arrived on 5000 units HEPARIN given by Mildred Dennis RN in Left Antecubital via Nury pheral IV. Ordered by 12:21:24 Luan Smith. 12:21:31 HR=81 bpm, YZMF=845/74 mmhg, SpO2=98.0 %, Resp=23 B/min, Ford=2 12:22:42 1 mg VERSED given in lab by Mildred Dennis, KARAN in Left Antecubital via Peripheral IV. Orde red by Luan Smith. 12:22:50 A WIRE, STORQ STANDARD MOD J 300CM 300CM was inserted via Fem Art (right). A SHEATH, FR6 MARK 1 FLEXOR 55CM FR 6 was exchanged in the Fem Art (right). This was necessary in order to 12:23:05 accomodate a larger catheter. 12:23:55 50 mcg FENTANYL given in lab by Mildred Dennis RN via Peripheral IV. Ordered by Giselle Smith. 12:24:08 Patient arrived on 3000 units HEPARIN given by Mildred Dennis RN via Peripheral IV. Order ed by Luan Smith. 12:24:31 HR=80 bpm, JXGD=748/73 mmhg, SpO2=99.0 %, Resp=21 B/min, Ford=2 A CATHETER, FR4 CXI SUPPORT FR 4 was advanced over a wire. OMNIPAQUE, 300 MG, 150ML 150ML was u sed for 12:25:52 injections. 12:27:14 The previous wire was exchanged for a WIRE, GUIDE APPROACH SUPERVISOR TUMBLERS MICROWIRE 300CM. 12:27:32 HR=77 bpm, BOQA=635/73 mmhg, SpO2=97.0 %, Resp=21 B/min, Ford=2 12:30:32 HR=74 bpm, UQDX=862/63 mmhg, SpO2=98.0 %, Resp=14 B/min, Ford=2 12:33:30 HR=76 bpm, LNLU=512/67 mmhg, SpO2=98.0 %, Resp=17 B/min, Ford=2 12:34:22 The previous wire was exchanged for a WIRE, FIRM (VIPER) 335. 12:35:08 Catheter was removed 12:36:30 HR=77 bpm, QZQC=852/68 mmhg, SpO2=99.0 %, Resp=18 B/min, Ford=2 12:39:13 An CATHETER, STEALTH CLASSIC 1.50MM catheter was inserted into the SFA (left). 12:39:28 HR=76 bpm, QHLI=769/68 mmhg, SpO2=99.0 %, Resp=12 B/min, Ford=2 12:39:39 1.5mm CSI catheter in use in left SFA/POP 12:43:10 HR=84 bpm, RBHR=867/73 mmhg, LbP2=947.0 %, Resp=14 B/min, Ford=2 12:45:15 Patient arrived on 1 mg VERSED given by Mildred Dennis RN via Peripheral IV. Ordered by Luan Salomon. 12:46:14 HR=85 bpm, CODZ=816/87 mmhg, DpG3=007.0 %, Resp=17 B/min 12:46:35 Patient arrived on 50 mcg FENTANYL given by Mildred Dennis, KARAN via Peripheral IV. Ordered by Luan Smith. 12:47:23 Catheter was removed 12:47:47 A BALLOON, ADMIRAL EXTREME 5 X 300 130CM 130CM was inserted over WIRE, FIRM (nParioER) 335 via the SFA (left). 12:48:37 HR=82 bpm, PEVN=352/88 mmhg, VeG3=417.0 %, Resp=13 B/min, Ford=2 12:49:47 In the SFA (left) a BALLOON, ADMIRAL EXTREME 5 X 300 130CM 130CM was inflated to 6 atms for 120 seconds. 12:51:42 HR=80 bpm, YOEK=231/76 mmhg, SpO2=94.0 %, Resp=16 B/min, Ford=2 12:52:50 In the SFA (left) a BALLOON, ADMIRAL EXTREME 5 X 300 130CM 130CM was inflated to 6 atms for 180 seconds. 12:54:38 HR=79 bpm, EPJC=278/69 mmhg, SpO2=92.0 %, Resp=15 B/min, Ford=2 12:57:36 HR=80 bpm, OPYE=209/70 mmhg, SpO2=94.0 %, Resp=15 B/min, Ford=2 12:59:51 In the SFA (left) a BALLOON, ADMIRAL EXTREME 5 X 300 130CM 130CM was inflated to 6 atms for 180 seconds. 12:59:54 Balloon Removed. 13:00:36 HR=77 bpm, CUBM=386/74 mmhg, SpO2=95.0 %, Resp=12 B/min, Ford=2 13:01:03 A STENT, EVERFLEX 6 X 200 120CM 6 X 200 was advanced through a catheter over a WIRE, FIRM ( VIPER) 335. A STENT, EVERFLEX 6 X 200 120CM 6 X 200 was deployed at ~YENIFER~ atmospheres for ~SECONDS~ seconds in the SFA 13:02:29 (left). Self Expanding stent deployed. 13:02:53 Delivery device removed 13:03:04 A BALLOON, ADMIRAL EXTREME 5 X 200 130CM 130CM was inserted over WIRE, FIRM (VIPER) 335 via the SFA (left). 13:03:33 In the SFA (left) a BALLOON, ADMIRAL EXTREME 5 X 200 130CM 130CM was inflated to 8 atms for 15 seconds. 13:03:39 HR=78 bpm, QDOQ=730/67 mmhg, SpO2=95.0 %, Resp=14 B/min, Ford=2 13:05:26 Balloon Removed. A SHEATH, FR6.5 PRELUDE 11CM FR 6.5 was exchanged in the Fem Art (right). This was necessary in order to achieve 13:06:19 vascular hemostasis. 13:06:30 900 mg CLINDAMYCIN given in lab by Mildred Dennis RN. Ordered by Luan Smith. 13:06:57 Manual injections down right leg through 6 lebanese sheath right fem. artery 13:07:20 HR=83 bpm, NNVS=843/89 mmhg, SpO2=96.0 %, Resp=6 B/min, Ford=2 13:08:13 Activated Clotting Time Drawn 13:09:39 HR=56 bpm, KRST=982/94 mmhg, SpO2=95.0 %, Resp=26 B/min, Ford=2 13:11:07 ANGIOSEAL, FR6 VIP FR 6 placement in the Fem Art (right) 13:13:18 HR=81 bpm, LYXY=732/81 mmhg, SpO2=98.0 %, Resp=20 B/min, Ford=2 13:15:04 Catheter(s) removed without difficulty 13:15:08 Case End 13:15:10 Sterile dressing applied to site 13:15:11 No case complications noted. 13:15:13 Cine recording checked. 13:15:17 Bedside Report will be given. 13:15:20 Contrast Scanned 13:15:40 HR=75 bpm, VBFS=627/77 mmhg, SpO2=91.0 %, Resp=16 B/min, Ford=2 13:18:42 Vitals capture stopped. 13:20:00 600 mg PLAVIX given in lab by Mildred Dennis RN via Oral. Ordered by Luan Smith. 13:21:54 Patient moved to stretcher End Study - Contrast Media Used In Study Contrast Total Opened (mL) Total Used (mL) Total Wasted (mL) Omnipaque 105 105 0 End Study - Radiation Exposure Fluoro Time (minutes) 22.4 End Study - Patient Disposition Complications Transferred To No Telemetry Bed
[2017-06-22] MEDS ORDERED: CLOPIDOGREL 75 MG TAB PO ONE (13:30)
[2017-06-22] MEDS ORDERED: MIDAZOLAM HCL 2 MG/2 ML VIAL IV ONE ×3 (13:45→14:00)
[2017-06-22] MEDS ORDERED: CLINDAMYCIN INJ 900 MG in SODIUM CHLORIDE 0.9% INJ 100 ML IV ONE (14:00)
[2017-06-22] MEDS ORDERED: CLOPIDOGREL 300 MG TAB PO ONE (14:00)
[2017-06-22] MEDS ORDERED: HEPARIN SODIUM - IV 10,000 UNITS/10 ML VIAL IV ONE ×2 (14:00)
--- NOTE | 2017-06-23 08:11 | MP ---
cc: DARIUSZ SMITH MD DATE OF SURGERY 06/22/2017 PREOPERATIVE DIAGNOSIS Bilateral lower exam claudication POSTOPERATIVE DIAGNOSIS Bilateral lower exam claudication PROCEDURE 1. Aortogram and bilateral lower extremity angiograms 2. Left SFA orbital atherectomy. 3. Left SFA angioplasty and stent with a 5 x 300, 6 x 200 stent. 4. Right common femoral artery Angio-Seal. ATTENDING SURGEON Dariusz Smith MD ANESTHESIA Local with sedation INDICATION Mr. Powell is a 62-year gentleman with bilateral lower extremity claudication. He has failed exercise therapy and has had a left groin reconstruction in the past. He is taken to the operating room for angiographic evaluation and potential treatment. There is no prior cath based imaging available for my review. DESCRIPTION OF THE PROCEDURE Informed consent was obtained from the patient. He was taken to the operating room, placed supine on the operating table and an appropriate time-out was taken to ensure the patient's identity, operative site and planned procedure. The administration of 900 mg of Clindamycin was completed prior to stent implantation and everyone in the room agreed with the time-out and we proceeded. His bilateral groins were prepped and draped. The right groin was anesthetized with 1% lidocaine. A 21 gauge micropuncture needle was used to access the right common femoral artery. This was exchanged using Seldinger technique with a micropuncture sheath through which a 0.035 Glidewire was introduced and the micropuncture sheath was exchanged for a 5-Angolan sheath. A VCF catheter was placed over the wire into the sheath and the aortogram and pelvic arteriograms obtained. The Glidewire was introduced and navigated down to the left common femoral artery. The VCF catheter was advanced over this and a left lower extremity arteriogram was obtained. The patient was systemically heparinized with 5000 units of IV heparin and approximately 20 minutes later 3000 additional units were administered. A STORQ wire was advanced into the SFA and the VCF and 5-Angolan sheath removed and a 6-Angolan 55 cm Bahman sheath was introduced and a CXI catheter was placed over the wire into the sheath and the CXI and STORQ were navigated down to the mid SFA. The STORQ was exchanged for a OUTBOARD MOTOR ASSEMBLER and we attempted to cross the occlusion with a OUTBOARD MOTOR ASSEMBLER wire, but were unsuccessful. We were able to reach a subintimal plane using a Glidewire and using the Glidewire and CXI catheter, we were able to navigate into the distal SFA true lumen in the popliteal artery and sac. The catheter was advanced over this and an angiogram was obtained which confirmed a true lumen access. A Viper wire was then introduced and the entire SFA was atherectomized using an oval atherectomy device and post-dilated with a 5-mm balloon. At the completion, angiogram showed a residual stenosis distally and this was treated with a 6 x 200 stent which was postdilated to 5 mm. The completion angiogram showed excellent result without any recoil or extravasation. No flow-limiting dissection and no embolic complications. The wire, catheter, and sheath were removed and a short 6-Angolan sheath was introduced and a right lower extremity arteriograms was obtained through the sheath. The wire was reintroduced and the sheath was removed and the groin was closed with Angio-Seal. The were no complications. I was present and scrubbed for the entire procedure. INTERPRETATION The patient has a patent infrarenal aorta, patent common iliac arteries, a very diminutive left hypogastric artery and a patent left external artery. The right hypogastric artery is patent as is the common iliac and external iliac arteries. The left common femoral artery is patent. The profunda are patent. The SFA has diffuse disease, with an occlusion at the distal SFA and popliteal reconstitution with three-vessel runoff. After atherectomy, angioplasty there is a residual stenosis distally and what appears to be a flow-limiting dissection that was treated effectively with a self-expanding stent. After stent and stent deployment, there is no flow-limiting dissection. 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 The SFA reconstitutes via profunda collaterals and the distal SFA. The popliteal artery is patent. MD MEIR Brian/MARE /4:05 PM /8:05 AM
[2017-06-23] MEDS ORDERED: CLOPIDOGREL 75 MG TAB PO SCH (09:00)
== END 2017-06-22 16:19 | disposition home or self-care (01) ==
LOC: HDOC 10:08 → HDIC 10:09 → HDOC 16:19
PROVIDERS: ATTEND Surgery
DX: I73.9 Peripheral vascular disease, unspecified (principal); Z01.818 Encounter for other preprocedural examination
CPT/HCPCS: 37227; 75625; 75716; 80048; 85025; 99152; 99153; C1714; C1725; C1751; C1760; C1769; C1876; C1887; C1893; G0269; J1644; J2250; J3010; J7070; Q9967

== ENCOUNTER 2017-12-23 19:34 | Inpatient (IN) | payer OTHER ==
[2017-12-23] VITALS (17 sets, daily range): BP systolic 81–178; BP diastolic 41–101; PULSE 50–110; RESP 14–26; TEMP 95–97.3; O2SAT 89–100
[~2017-12-23] VITALS: Ht 182.9 cm; Wt 82.1 kg
[~2017-12-23 19:34] MED LIST changes: -FOLI1TAB6 PO
[2017-12-23] MEDS: DOPamine 800 MG/500 ML INJ 500 ML IV PRN (19:48)
[2017-12-23] MEDS ORDERED: PROPOFOL 1000 MG/100 ML INJ 100 ML IV PRN (20:00)
[2017-12-23] MEDS ORDERED: VANCOMYCIN INJ 1,000 MG in SODIUM CHLOR 0.9% 250 ML INJ 250 ML IV ONE (20:00)
[2017-12-23] MEDS ORDERED: PIPERACIL-TAZO 4.5 GM PREMIX 100 ML IV ONE (20:00)
--- NOTE | 2017-12-23 20:02 | PD ---
HPI . resp distress failure Chief Complaint: Respiratory Distress Time Seen by Provider: 19:49 Travel History International Travel<30 days: No Contact w/Intl Traveler<30days: No Traveled to known affect area: No History of Present Illness HPI pt is in Resp distress on arrival to ER pt call to EMS for SOB and then he rapidly declined on EMS transport he is being bagged and he is awake but not speaking . Pt is not focusing but eyes open and staring straight ahead and no response to sternal rub, Immediately intubated and he has brief asystole then CPR started and then EPI , and 2 HCO3 and heart regained spontaneous rhythm -->US bedside shows contractility and bp rebounds to 167 SBP and 100% Saturation on 100% intubated .. Pt HPI and ROS unable to obtain due to critical unresponsive state PFSH Past Medical History Heart Rhythm Problems: No Cancer: No Cardiovascular Problems: Yes (PAD, HEART CATH NO STENT) High Cholesterol: Yes Chest Pain: No Congestive Heart Failure: No Diabetes: No Deep Vein Thrombosis: Yes Endocrine: No Gastrointestinal Disorders: No Glaucoma: No Genitourinary: No Hepatitis: No Hiatal Hernia: No Hypertension: Yes Immune Disorder: No Musculoskeletal: No Neurologic: No Psychiatric: No Reproductive: No Respiratory: No Integumentary: No Thyroid Disease: No Past Surgical History Abdominal Surgery: Yes (APPENDECTOMY, HEMMOROIDECTOMY) Appendectomy: Yes Body Medical Devices: NONE Other Surgery: Yes (Hemorrhoidectomy ) Social History Alcohol Use: Yes (6-8 beers daily) Tobacco Use: Yes (1 PPD) Substance Use: No Allergies-Medications (Allergen,Severity, Reaction): Coded Allergies: cefaclor (Unverified Allergy, Unknown, Doesn't remember , 04/10/17) Reported Meds & Prescriptions Reported Meds & Active Scripts Active Coreg (Carvedilol) 6.25 Mg Tab 6.25 Mg PO BID Vitamin B-1 (Thiamine HCl) 100 Mg Tab 100 Mg PO DAILY Simvastatin 10 Mg Tab 10 Mg PO DAILY Aspirin 325 Mg Tab 325 Mg PO DAILY Plavix (Clopidogrel Bisulfate) 75 Mg Tab 75 Mg PO DAILY Review of Systems ROS Limitations: Clinical Condition, Unresponsive Physical Exam Narrative GENERAL: Patient is obtunded staring but unresponsive eyes are open however does not react to sternal rub SKIN: He is ashen cool skin severely diaphoretic HEAD: Atraumatic. Normocephalic. EYES: Pupils equal and round. No scleral icterus. No injection or drainage. Pupils equal staring straight ahead ENT: No nasal bleeding or discharge. Mucous membranes pink and moist. Poor dentition NECK: Trachea midline. No JVD. No obvious JVD CARDIOVASCULAR: Regular rate and rhythm. Bradycardic to asystole cardiac arrest then Epi bicarb and return of spontaneous Cardiac activty and normal BP RESPIRATORY:. Patient in obvious respiratory distress. Patient has BVM is trying to aerate him however he is desaturating , appears to be in severe respiratory distress on arrival resp failure to cardiac arrest brief 1 minute , then cpr and epi HCO3 and retuen of HR GASTROINTESTINAL: Abdomen soft, non-tender, nondistended. Hepatic and splenic margins not palpable. MUSCULOSKELETAL: Extremities without clubbing, cyanosis, or edema. No obvious deformities. NEUROLOGICAL: Obtunded unresponsive however his eyes are open. No obvious focal deficit Data Data Last Documented VS Orders Orders Complete Blood Count With Diff (12/23/17 19:49) Comprehensive Metabolic Panel (12/23/17 19:49) Ckmb (Isoenzyme) Profile (12/23/17 19:49) Lipase (12/23/17 19:49) Urinalysis - C+S If Indicated (12/23/17 19:49) Chest, Single Ap (12/23/17 19:49) Drug Screen, Random Urine (12/23/17 19:49) Alcohol (Ethanol) (12/23/17 19:49) Salicylates (Aspirin) (12/23/17 19:49) Tylenol (Acetaminophen) (12/23/17 19:49) Vancomycin Inj (Vancomycin Inj) (12/23/17 20:00) Piperacil-Tazo 4.5 Gm Premix (Zosyn 4.5 (12/23/17 20:00) Urinary Catheter Management LETITIA.Q8H (12/23/17 19:50) Propofol 1000 Mg/100 Ml Inj (Diprivan 10 (12/23/17 20:00) Lactic Acid (12/23/17 19:57) Restraints Non-Violent LETITIA.Q3H (12/23/17 20:17) Insert Ng Tube (12/23/17 20:17) Dopamine 800 Mg/500 Ml Inj (Dopamine 800 (12/23/17 20:30) Terbutaline Inj (Brethine Inj) (12/23/17 20:30) B-Type Natriuretic Peptide (12/23/17 20:22) Troponin I (12/23/17 20:05) Fentanyl Drip (Fentanyl Drip) (12/23/17 20:45) Midazolam 50 Mg/50 Ml Inj (Versed Inj) (12/23/17 21:00) Sodium Chlor 0.9% 1000 Ml Inj (Ns 1000 M (12/23/17 21:15) Sodium Chlor 0.9% 1000 Ml Inj (Ns 1000 M (12/23/17 21:15) Sodium Chlor 0.9% 1000 Ml Inj (Ns 1000 M (12/23/17 21:15) Arterial Blood Gas (Abg) (12/23/17 ) Ct Brain W/O Iv Contrast(Rout) (12/23/17 ) Blood Culture (12/23/17 21:21) Sputum Culture And Gram Stain (12/23/17 21:21) Legionella Urinary Antigen (12/23/17 21:21) Urinary Catheter Management LETITIA.Q8H (12/23/17 21:21) Pneumococcal Urinary Antigen (12/23/17 21:21) Fentanyl Drip (Fentanyl Drip) (12/23/17 21:25) Midazolam 50 Mg/50 Ml Inj (Versed Inj) (12/23/17 21:26) Electrocardiogram (12/23/17 20:09) Chest, Single Ap (12/23/17 ) Coag Profile (12/23/17 21:58) CKMB (12/23/17 21:15) CKMB% (12/23/17 21:15) Troponin I (12/24/17 03:00) Troponin I (12/24/17 09:00) Troponin I (12/24/17 15:00) Furosemide Inj (Lasix Inj) (12/23/17 22:15) Furosemide Inj (Lasix Inj) (12/23/17 22:15) Admit Order (Ed Use Only) (12/23/17 23:08) Labs Laboratory Tests Test 12/23/17 20:00 12/23/17 20:05 12/23/17 21:15 12/23/17 21:37 Urine Color YELLOW Urine Turbidity HAZY Urine pH 5.5 Urine Specific Cecil 1.019 Urine Protein 30 mg/dL Urine Glucose (UA) NEG mg/dL Urine Ketones NEG mg/dL Urine Occult Blood MOD Urine Nitrite NEG Urine Bilirubin NEG Urine Urobilinogen 2.0 MG/DL Urine Leukocyte Esterase TRACE Urine RBC 30 /hpf Urine WBC 3 /hpf Urine Bacteria OCC /hpf Urine Hyaline Casts 2 /lpf Urine Mucus FEW /lpf Microscopic Urinalysis Comment CULT NOT INDICATED Urine Opiates Screen NEG Urine Barbiturates Screen NEG Urine Amphetamines Screen NEG Urine Benzodiazepines Screen NEG Urine Cocaine Screen NEG Urine Cannabinoids Screen NEG B-Type Natriuretic Peptide 370 PG/ML White Blood Count 12.3 TH/MM3 Red Blood Count 3.03 MIL/MM3 Hemoglobin 11.3 GM/DL Hematocrit 31.9 % Mean Corpuscular Volume 105.5 FL Mean Corpuscular Hemoglobin 37.2 PG Mean Corpuscular Hemoglobin Concent 35.3 % Red Cell Distribution Width 13.3 % Platelet Count 162 TH/MM3 Mean Platelet Volume 8.0 FL Neutrophils (%) (Auto) 83.8 % Lymphocytes (%) (Auto) 10.0 % Monocytes (%) (Auto) 4.3 % Eosinophils (%) (Auto) 1.1 % Basophils (%) (Auto) 0.8 % Neutrophils # (Auto) 10.3 TH/MM3 Lymphocytes # (Auto) 1.2 TH/MM3 Monocytes # (Auto) 0.5 TH/MM3 Eosinophils # (Auto) 0.1 TH/MM3 Basophils # (Auto) 0.1 TH/MM3 CBC Comment DIFF FINAL Differential Comment Blood Urea Nitrogen 6 MG/DL Creatinine 0.80 MG/DL Random Glucose 143 MG/DL Total Protein 5.3 GM/DL Albumin 2.3 GM/DL Calcium Level 6.5 MG/DL Alkaline Phosphatase 59 U/L Aspartate Amino Transf (AST/SGOT) 101 U/L Alanine Aminotransferase (ALT/SGPT) 34 U/L Total Bilirubin 1.3 MG/DL Sodium Level 131 MEQ/L Potassium Level 5.1 MEQ/L Chloride Level 100 MEQ/L Carbon Dioxide Level 18.7 MEQ/L Anion Gap 12 MEQ/L Estimat Glomerular Filtration Rate 98 ML/MIN Lactic Acid Level 3.4 mmol/L Protein Corrected Calcium 7.4 MG/DL Total Creatine Kinase 117 U/L Creatine Kinase MB 2.0 NG/ML Troponin I 0.09 NG/ML Lipase 26 U/L Salicylates Level LESS THAN 1.7 MG/DL Acetaminophen Level LESS THAN 2.0 MCG/ML Ethyl Alcohol Level LESS THAN 3 MG/DL Blood Gas Puncture Site RT RADIAL Blood Gas Patient Temperature 98.6 Blood Gas HCO3 21 mmol/L Blood Gas Base Excess -7.1 mmol/L Blood Gas Oxygen Saturation 74 % Arterial Blood pH 7.15 Arterial Blood Partial Pressure CO2 62 mmHg Arterial Blood Partial Pressure O2 58 mmHG Arterial Blood Oxygen Content 12.4 Vol % Arterial Blood Carboxyhemoglobin 1.5 % Arterial Blood Methemoglobin 0.7 % Blood Gas Hemoglobin 11.9 G/DL Oxygen Delivery Device VENTILATOR Blood Gas Ventilator Setting VAC/18/550/+10 Blood Gas Inspired Oxygen 100 % Test 12/23/17 22:44 Troponin I 0.11 NG/ML MDM Medical Decision Making Medical Screen Exam Complete: Yes Emergency Medical Condition: Yes Medical Record Reviewed: Yes Differential Diagnosis Differential diagnosis includes pneumonia versus PE versus CHF versus COPD versus tension pneumothorax patient comes in rapid deteriorating respiratory distress Narrative Course On arrival patient is being BVM by the paramedics who say that he was short of breath on arrival and then became unresponsive and he is deciding the R BVM and oxygenate him he is unresponsive yet his eyes are open when I sternal rub him he sat is unable to be detected we immediately set up to intubate him and RSI is used 802 patient is a brief episode where from the anoxia he has a brief asystole epi to bicarbs he returns to sinus rhythm BP is 167 systolic O2 sat is 100% he is on the ventilator empiric antibiotics are given Zosyn and Vanco a liter fluid lactic acid is sent as well as H&H chest x-ray shows a right infiltrate admitted to the ICU critical care time 30 minutes, I suspect he has had an [place] that leads to pump failure and flash pulmonary edema , but his BP is so low that I need to fluid resusitate with NS boluses , He is intubated by this MD and after fluid resusitation he needs Lasix to move urine throught his renal system as he has put out no urine even after 3 liters. Then he is desuatrating inspite of pressure support on the ventilator and PEEP of 10. He has a leak and it seems that the cuff on ET tube is broken , I reintubate him and then he has a good seal and saturation returns to 100% and he is sedated and paralyzed to help his lungs not resists the ventilator as he is in severe respiratory failure. Admit Dr Drummond ICU Critical Care Narrative Critical care of this patient is 60 minutes of critical care time Procedures Procedure Narrative Intubation RSI and direct visualization of cords with first attmpt passing of tube, placed on vent with PEEP of 5 and 100% fio2 16 BPM then switched to pressure support. RE-intubation due to leak of ET cuff fractured,, Propofol 50 mg and vecuronium 10 mg given and ET 8.0 passed without complications direct visualization and now pt saturation at 100% Diagnosis Primary Impression: Respiratory arrest Additional Impression: Cardiac arrest Admitting Information Admitting Physician Requests: Admit Sergio Rocha MD December 23, 2017 20:02
[2017-12-23] MEDS ORDERED: TERBUTALINE INJ 1 MG/ML AMP SQ PRN ×2 (20:30→23:30)
--- NOTE | 2017-12-23 20:34 | RADRPT ---
EXAM DATE/TIME: 12/23/2017 19:56 [facility] COMPARISON: CHEST SINGLE AP, January 31, 2016, 13:45. INDICATIONS : Post intubation. MEDICAL HISTORY : None. SURGICAL HISTORY : None. ENCOUNTER: Initial ACUITY: 1 day PAIN SCORE: Non-responsive. LOCATION: Bilateral chest FINDINGS: The ET tube tip is seen at the thoracic inlet at the level of the clavicles 10 cm above the brittanie. T he NG tube tip is in the distal esophagus. The heart size is normal. The lungs are show diffuse mixed interstitial and alveolar density. There is a mild right pleural effusion. CONCLUSION: 1. ET tube and some high position at the thoracic inlet region 10 cm above the brittanie. 2. NG tube tip at the distal esophagus. This should be advanced. 3. Diffuse consolidation likely related to edema. 4. Mild right pleural effusion. Boni Obregon MD on December 23, 2017 at 20:30 Board Certified Radiologist. This report was verified electronically.
[2017-12-23 20:42] LABS: BACTERIA, URINE OCC /hpf; BILIRUBIN, URINE NEG (NEG); BLOOD, URINE MOD (NEG); GLUCOSE,URINE NEG (NEG); HYALINE CAST, URINE 2 /lpf (RARE); KETONE, URINE NEG (NEG); MUCUS URINE FEW /lpf (OCC); NITRITE,URINE NEG (NEG); PH, URINE 5.5 (5.0-8.5); URINE COLOR YELLOW (YELLW/STRAW); URINE LEUKOCYTE ESTERASE TRACE (NEG)
[2017-12-23] MEDS ORDERED: fentaNYL DRIP 250 ML IV PRN (20:45)
[2017-12-23] MEDS ORDERED: SODIUM CHLOR 0.9% 1000 ML INJ 1,000 ML IV ONE ×3 (21:15)
[2017-12-23] MEDS ORDERED: fentaNYL DRIP 250 ML ONE (21:25)
[2017-12-23] MEDS ORDERED: MIDAZOLAM 50 MG/50 ML INJ 50 ML IV ONE (21:26)
[2017-12-23 21:29] LABS: AUTOMATED NEUTROPHIL # 10.3 TH/MM3 (1.8-7.7); BASOPHIL # 0.1 TH/MM3 (0-0.2); BASOPHIL % 0.8 % (0.0-2.0); EOSINOPHIL # 0.1 TH/MM3 (0-0.4); EOSINOPHIL % 1.1 % (0.0-4.0); HEMATOCRIT 31.9 % (39.0-51.0); HEMOGLOBIN 11.3 GM/DL (13.0-17.0); LYMPHOCYTE # 1.2 TH/MM3 (1.0-4.8); MEAN CELL VOLUME 105.5 FL (80.0-100.0); MEAN CORPUSCULAR HEMOGLOBIN 37.2 PG (27.0-34.0); MEAN CORPUSCULAR HGB CONC 35.3 % (32.0-36.0); MONO % 4.3 % (0.0-8.0); MONOCYTE # 0.5 TH/MM3 (0-0.9); NEUT % 83.8 % (16.0-70.0); PLATELET COUNT 162 TH/MM3 (150-450); RED BLOOD COUNT 3.03 MIL/MM3 (4.50-5.90); RED CELL DISTRIBUTION WIDTH 13.3 % (11.6-17.2); WHITE BLOOD COUNT 12.3 TH/MM3 (4.0-11.0)
[2017-12-23] MEDS: MIDAZOLAM 50 MG/50 ML INJ 50 ML IV PRN (21:36)
[2017-12-23 21:54] LABS: ACETAMINOPHEN LESS THAN 2.0 MCG/ML (10.0-30.0); ALBUMIN 2.3 GM/DL (3.4-5.0); ALKALINE PHOSPHATASE 59 U/L (45-117); ALT (GPT) 34 U/L (12-78); AST (GOT) 101 U/L (15-37); BICARBONATE 18.7 MEQ/L (21.0-32.0); BLOOD UREA NITROGEN 6 MG/DL (7-18); CALCIUM 6.5 MG/DL (8.5-10.1); CHLORIDE 100 MEQ/L (98-107); GLOMERULAR FILTRATION RATE 98 ML/MIN (>89); GLUCOSE,RANDOM 143 MG/DL (74-106); SODIUM (NA) 131 MEQ/L (136-145); TOTAL BILIRUBIN ADULT 1.3 MG/DL (0.2-1.0); TOTAL PROTEIN 5.3 GM/DL (6.4-8.2); TROPONIN I 0.09 NG/ML (0.02-0.05)
[2017-12-23 21:59] LABS: CALCIUM-PROTEIN CORRECTED 7.4 MG/DL (8.5-10.1)
[2017-12-23] MEDS ORDERED: FUROSEMIDE 20 MG/2 ML VIAL IV PUSH ONE ×2 (22:15)
--- NOTE | 2017-12-23 22:28 | RADRPT ---
EXAM DATE/TIME: 12/23/2017 22:04 [facility] COMPARISON: CHEST SINGLE AP, December 23, 2017, 19:56. INDICATIONS : Post procedure. MEDICAL HISTORY : None. SURGICAL HISTORY : None. ENCOUNTER: Initial ACUITY: 1 day PAIN SCORE: Non-responsive. LOCATION: Bilateral chest FINDINGS: The ET tube is at the thoracic inlet region 10 cm from the brittanie. The NG tube tip is directed off th e inferior aspect of the image. The GE junction was not included on the image. The NG tube has been a dvanced since the prior chest x-ray. The heart size is normal. No pneumothorax is seen. No central line is seen. There is increased densit y seen throughout the lungs especially the bases. This is accentuated secondary to the expiratory anna ure of the image. CONCLUSION: 1. No pneumothorax is seen. 2. Diffuse consolidation likely related to edema. Increased density at the lung bases is accentuated secondary to the expiratory nature of the image. 3. The NG tube has been advanced. The tip was not included on the image. Boni Obregon MD on December 23, 2017 at 22:23 Board Certified Radiologist. This report was verified electronically.
[2017-12-23] MEDS ORDERED: NOREPINEPHRINE-DEXTROSE DRIP 250 ML IV PRN (23:30)
[2017-12-23] MEDS ORDERED: CALCIUM CHLORIDE INJ 1 GM in SODIUM CHLORIDE 0.9% INJ 100 ML IV ONE (23:30)
[2017-12-23] MEDS ORDERED: ETOMIDATE 20 MG/10 ML VIAL IV PUSH ONE (23:45)
[2017-12-23] MEDS ORDERED: VECURONIUM BROMIDE 10 MG VIAL IV PUSH ONE (23:45)
[2017-12-23] MEDS ORDERED: SUCCINYLCHOLINE CHLORIDE 100 MG/5 ML SYRINGE IV PUSH ONE ×2 (23:45)
[2017-12-23] MEDS ORDERED: PROPOFOL 1000 MG/100 ML BTL IV ONE (23:45)
[2017-12-23] MEDS ORDERED: NOREPINEPHRINE 4 MG/4 ML AMP ONE (23:47)
--- NOTE | 2017-12-23 23:57 | PD.PROCEDR ---
Procedure Note Procedure DATE: 12/23/17 CENTRAL LINE PLACEMENT: Right internal jugular vein. INDICATION: Central venous access CONSENT Procedure was performed emergently as patient is in profound shock and in need of central venous access. DESCRIPTION OF THE PROCEDURE The patient was placed in supine position, mild Trendelenburg. The skin was cleansed with Chloraprep 4. Additional barrier precautions included large sterile drape, sterile gloves, sterile gown, face mask, and hat. 1 % lidocaine was used for local anesthesia. Under direct ultrasound guidance and on single attempt, the vein was accessed with an introducer needle. The guide wire was advanced and the tract was dilated. The wire was kinked during dilation and so placed angiocath and then removed wire and placed a new wire which was confirmed to be in IJ by ultrasound. The tract was dilated. Using Seldinger technique a 7 [place]ian 20 cm antimicrobial coated triple-lumen catheter was advanced to a depth of 17 centimeters. The guide wire was removed. All ports had good return of dark venous blood and flushed easily with saline. The central line was secured with 2.0 silk as a Stat-lock would not remain in place due to diaphoresis. A sterile dressing with antibiotic disc was applied. ESTIMATED BLOOD LOSS: Minimal COMPLICATIONS: No apparent complications. STAT chest x-ray is pending. Germania Drummond MD December 23, 2017 23:57
[2017-12-24] VITALS (29 sets, daily range): BP systolic 94–147; BP diastolic 54–74; PULSE 77–112; RESP 16–17; TEMP 94.6–98.9; O2SAT 92–100
[2017-12-24] MEDS ORDERED: MIDAZOLAM HCL 2 MG/2 ML VIAL IV PUSH PRN
[2017-12-24] MEDS ORDERED: LACTULOSE SYRUP 20 GM/30 ML CUP PO PRN
[2017-12-24] MEDS ORDERED: METOCLOPRAMIDE HCL 10 MG/2 ML VIAL IV PUSH PRN
[2017-12-24] MEDS ORDERED: NURSING INFORMATION XX SCH
[2017-12-24] MEDS ORDERED: SENNOSIDES 8.6 MG TAB PO PRN
[2017-12-24] MEDS ORDERED: MAGNESIUM HYDROXIDE SUSP 30 ML CUP PO PRN
[2017-12-24] MEDS ORDERED: RESP: ALBUTEROL 2.5 MG/3 ML NEB (PRN) INH
[2017-12-24] MEDS ORDERED: SODIUM CHLORIDE 0.9% FLUSH 10 ML FLUSH IV FLUSH PRN
[2017-12-24] MEDS ORDERED: RESP: ALBUTEROL 2.5 MG/IPRATROPIUM 0.5 MG NEB (PRN) INH
[2017-12-24] MEDS ORDERED: ACETAMINOPHEN 325 MG TAB PO PRN
[2017-12-24] MEDS ORDERED: CHLORHEXIDINE GLUCONATE 2 % 1 PACK (2 CLOTHS) TOP PRN
[2017-12-24] MEDS ORDERED: BISACODYL 10 MG SUPP RECTAL PRN
--- NOTE | 2017-12-24 00:04 | RADRPT ---
EXAM DATE/TIME: 12/23/2017 23:37 [facility] COMPARISON: CHEST SINGLE AP, December 23, 2017, 22:04. INDICATIONS : Re-intubation and right internal jugular central line placement. MEDICAL HISTORY : None. SURGICAL HISTORY : None. ENCOUNTER: Subsequent ACUITY: 1 day PAIN SCORE: Non-responsive. LOCATION: Bilateral chest FINDINGS: A single portal frontal view of the chest shows an endotracheal tube with the tip 3 cm proximal to ca ksenia. Right internal joint range central venous line with the tip in the region of the superior vena cava. No pneumothorax. Bilateral predominant basilar pulmonary infiltrates with small effusions. Slig htly more pronounced on the right. Heart is normal in size. CONCLUSION: 1. Endotracheal tube and central line in good position without pneumothorax. 2. Largely unchanged bilateral pleural effusions and bibasilar infiltrates. Raji Matos Jr., MD on December 24, 2017 at 0:01 Board Certified Radiologist. This report was verified electronically.
[2017-12-24] MEDS ORDERED: Vancomycin Consult Pharmacy 1 EA OTHER SCH (00:15)
--- NOTE | 2017-12-24 00:49 | HHI.HP ---
[facility] Service Critical Care Medicine Primary Care Physician Sheyla Mayer MD Admission Diagnosis Resp failure CHF Diagnosis: Travel History International Travel<30 Days: No Contact w/Intl Traveler <30 Da: No Traveled to Known Affected Are: No History of Present Illness Patient is unable to provide history because he is intubated. History was obtained by discussion with his daughter and information relayed by the emergency department physician. 62-year-old male with past medical history of hypertension, hyperlipidemia, peripheral arterial disease, daily alcohol use, tobacco abuse. Patient's daughter states that for the last 1-1/2 weeks he has been complaining of orthopnea and has had difficulty sleeping at night because of this; waking up with severe SOB. She states he is also intermittently complained of non- pleuritic left-sided chest pain which he attributed to the fact that he had fallen on his left side a couple of weeks ago. He has had a lot of coughing but to her knowledge it has been nonproductive. He has had generalized weakness over the last couple of days and this morning he was "out of it". He has not been aware of any fever. He has had contact with his grandson who tested positive for influenza A 3 days ago on 12/21. This evening he was in the bathroom and his daughter heard him groaning and seemed to be in respiratory distress and indicated that she needed to call [facility]AC. He was initially responsive but upon arrival to the ED he was unresponsive, staring straight ahead, being bagged by EVAC.. He became bradycardic. He underwent RSI with etomidate and succinylcholine and was intubated. During intubation he went into asystole. He was given epinephrine 1 mg and 2 amps of sodium bicarbonate in addition to CPR. His heart rate then came up into the 160s. He was started on dopamine due to hypotension and is currently running at 20 mcg/kg/ min. ABG demonstrated acute hypercapnic and hypoxic respiratory failure with pH 7.15/PCO2 of 62/PaO2 of 58/bicarb 21. Chest x-ray demonstrates bibasilar opacities. White blood cell count is 12. He is hypothermic. He received empiric vancomycin and Zosyn in the emergency department and Lasix 40 mg IV. He was started on propofol and fentanyl drips. Propofol was subsequently discontinued and he was started on a Versed drip and given vecuronium to facilitate vent synchrony and oxygenation.. Initial post intubation chest x-ray demonstrated ET tube and NG tube in high position. These were reportedly advanced but remained in high position.. Patient then had notable cuff leak and sats were in the 70s. He was reintubated by the emergency department physician. I have placed right IJ central venous line. Follow-up chest x-ray demonstrates satisfactory position of endotracheal tube and right IJ. The OG has been removed and will be replaced. Noonan has been placed but he has been anuric for the last 3.5 hours in the ED. Review of Systems ROS Limitations: Intubated, Altered Mental Status Past Family Social History Allergies: Coded Allergies: cefaclor (Unverified Allergy, Unknown, Doesn't remember , 04/10/17) Past Medical History Hypertension Hyperlipidemia Peripheral arterial disease Alcohol abuse Tobacco abuse Hemorrhoids Past Surgical History Hemorrhoidectomy Appendectomy Aortogram and bilateral lower extremity angiogram 06/22/17, Left SFA atherectomy, Left SFA angioplasty and stent (Dr. Smith) Reported Medications Plavix 75 mg p.o. daily Simvastatin 10 mg p.o. daily Coreg 6.25 mill grams p.o. twice daily Aspirin 325 mill grams p.o. daily Thiamine 100 mill grams p.o. daily Family History No family history of PE/DVT Father of stroke at age 66. Daughter reports no family history of coronary artery disease Social History Drinks 6-8 beers daily since he was a teenager Smokes 2 packs of cigarettes per day since he was a teenager No IV drug use or illicit drug use He is not . His sister and daughter are present in the ED waiting room. He has 1 adult daughter. Reportedly he has no advanced directives Physical Exam Vital Signs Vital Signs Date Time Temp Pulse Resp B/P (MAP) Pulse Ox O2 Delivery O2 Flow Rate FiO2 12/24/17 00:22 106 16 115/54 (74) 96 Ventilator 100 12/24/17 00:01 108 16 94/66 (75) 96 Ventilator 100 12/23/17 23:31 98 16 91/56 (68) 89 Ventilator 100 12/23/17 23:25 102 16 99/57 (71) 90 Ventilator 100 12/23/17 23:16 104 16 113/58 (76) 89 Ventilator 100 12/23/17 23:11 105 16 91/58 (69) 91 Ventilator 100 12/23/17 23:00 95.0 110 16 89/57 (68) 90 Ventilator 100 18 22:52 105 18 84/52 (63) 90 Ventilator 100 18 22:40 100 18 21:56 101 26 90/41 (57) 89 Ventilator 100 18 21:52 103 26 121/49 (73) 94 Ventilator 100 18 21:45 100 /18 21:40 70 19 113/51 (71) 94 Ventilator 100 18 21:23 80 22 156/82 (106) 89 Ventilator 100 12/23/17 20:51 96.8 104 18 100/58 (72) 100 Ventilator 18 20:45 88 18 93/59 (70) 98 Ventilator 100 18 20:40 104 16 129/68 (88) 100 Ventilator 100 12/23/17 20:30 97.3 94 19 81/51 (61) 100 Ventilator 100 12/23/17 20:28 107 69/40 18 20:06 95.4 98 19 172/101 (124) 100 Ventilator 100 12/23/17 19:59 100 18 19:51 98 18 164/72 (102) 100 15.00 12/23/17 19:48 112 164/72 12/23/17 19:41 93 100 18 19:41 50 14 178/74 (108) Physical Exam GENERAL: Ill appearing male who is orotracheally intubated with ashen appearance and diaphoresis. SKIN: Peripherally cool, diaphoretic. HEAD: Atraumatic. Normocephalic. EYES: Pupils are round, 5 mm and nonreactive. ENT: No nasal bleeding or discharge. Mucous membranes pink and moist. NECK: Trachea midline. No JVD. CARDIOVASCULAR: Tachycardic, regular, sinus tachycardia with rate in the 110s in the ED. 3 out of 6 systolic murmur left apex. RESPIRATORY: Orotracheally intubated, coarse breath sounds bilaterally, diminished bibasilar, rales left base. No wheeze per GASTROINTESTINAL: Abdomen soft, non-tender, nondistended. Bowel sounds hypoactive. : Noonan in place with minimal light padmaja in the tubing only. MUSCULOSKELETAL: Extremities without clubbing, cyanosis. No peripheral edema. No palpable cords. NEUROLOGICAL:He has received vecuronium prior to my evaluation. Pupils appeared fixed and dilated, No eye opening, no cough, no gag, no motor response. He was later reevaluated after recovery from paralytic. He has facial grimace. Pupil still appear dilated but are sluggishly reactive and he has +corneal reflexes, + cough, + gag, and is withdrawing bilateral upper extremities to central and peripheral noxious stimuli. No clonus. He requires ongoing sedation due to hypoxemia and vent dyssynchrony. Laboratory Laboratory Tests Test 12/23/17 20:00 12/23/17 20:05 12/23/17 21:15 12/23/17 21:37 Urine Color YELLOW Urine Turbidity HAZY Urine pH 5.5 Urine Specific [place] 1.019 Urine Protein 30 Urine Glucose (UA) NEG Urine Ketones NEG Urine Occult Blood MOD Urine Nitrite NEG Urine Bilirubin NEG Urine Urobilinogen 2.0 Urine Leukocyte Esterase TRACE Urine RBC 30 Urine WBC 3 Urine Bacteria OCC Urine Hyaline Casts 2 Urine Mucus FEW Microscopic Urinalysis Comment CULT NOT INDICATED Urine Opiates Screen NEG Urine Barbiturates Screen NEG Urine Amphetamines Screen NEG Urine Benzodiazepines Screen NEG Urine Cocaine Screen NEG Urine Cannabinoids Screen NEG B-Type Natriuretic Peptide 370 White Blood Count 12.3 Red Blood Count 3.03 Hemoglobin 11.3 Hematocrit 31.9 Mean Corpuscular Volume 105.5 Mean Corpuscular Hemoglobin 37.2 Mean Corpuscular Hemoglobin Concent 35.3 Red Cell Distribution Width 13.3 Platelet Count 162 Mean Platelet Volume 8.0 Neutrophils (%) (Auto) 83.8 Lymphocytes (%) (Auto) 10.0 Monocytes (%) (Auto) 4.3 Eosinophils (%) (Auto) 1.1 Basophils (%) (Auto) 0.8 Neutrophils # (Auto) 10.3 Lymphocytes # (Auto) 1.2 Monocytes # (Auto) 0.5 Eosinophils # (Auto) 0.1 Basophils # (Auto) 0.1 CBC Comment DIFF FINAL Differential Comment Blood Urea Nitrogen 6 Creatinine 0.80 Random Glucose 143 Total Protein 5.3 Albumin 2.3 Calcium Level 6.5 Alkaline Phosphatase 59 Aspartate Amino Transf (AST/SGOT) 101 Alanine Aminotransferase (ALT/SGPT) 34 Total Bilirubin 1.3 Sodium Level 131 Potassium Level 5.1 Chloride Level 100 Carbon Dioxide Level 18.7 Anion Gap 12 Estimat Glomerular Filtration Rate 98 Lactic Acid Level 3.4 Protein Corrected Calcium 7.4 Total Creatine Kinase 117 Creatine Kinase MB 2.0 Troponin I 0.09 Lipase 26 Salicylates Level LESS THAN 1.7 Acetaminophen Level LESS THAN 2.0 Ethyl Alcohol Level LESS THAN 3 Blood Gas Puncture Site RT RADIAL Blood Gas Patient Temperature 98.6 Blood Gas HCO3 21 Blood Gas Base Excess -7.1 Blood Gas Oxygen Saturation 74 Arterial Blood pH 7.15 Arterial Blood Partial Pressure CO2 62 Arterial Blood Partial Pressure O2 58 Arterial Blood Oxygen Content 12.4 Arterial Blood Carboxyhemoglobin 1.5 Arterial Blood Methemoglobin 0.7 Blood Gas Hemoglobin 11.9 Oxygen Delivery Device VENTILATOR Blood Gas Ventilator Setting VAC/18/550/+10 Blood Gas Inspired Oxygen 100 Test 12/23/17 22:44 Troponin I 0.11 Date/Time Source Procedure Growth Status 12/23/17 22:22 Blood Peripheral Aerobic Blood Culture Pending Received 12/23/17 22:22 Blood Peripheral Anaerobic Blood Culture Pending Received 12/23/17 23:36 Sputum Endotracheal Gram Stain Pending Received 12/23/17 23:36 Sputum Endotracheal Sputum Culture Pending Received 12/23/17 20:00 Urine Catheterized Urine Legionella Antigen Pending Received 12/23/17 20:00 Urine Catheterized Urine Streptococcus pneumoniae Antigen (M Pending Received Result Diagram: 12/23/17211412/23/172114 Septic Shock Reassessment Septic shock perfusion: reassessment completed Caprini VTE Risk Assessment Caprini VTE Risk Assessment: Mod/High Risk (score >= 2) Caprini Risk Assessment Model Point Value = 1 Point Value = 2 Point Value = 3 Point Value = 5 Age 41-60 Minor surgery BMI > 25 kg/m2 Swollen legs Varicose veins or History of unexplained or recurrent spontaneous Oral contraceptives or hormone replacement Sepsis (< 1 month) Serious lung disease, including pneumonia (< 1 month) Abnormal pulmonary function Acute myocardial infarction Congestive heart failure (< 1 month) History of inflammatory bowel disease Medical patient at bed rest Age 61-74 Arthroscopic surgery Major open surgery (> 45 min) Laparoscopic surgery (> 45 min) Malignancy Confined to bed (> 72 hours) Immobilizing plaster cast Central venous access Age >= 75 History of VTE Family history of VTE Factor V Leiden Prothrombin [id number] Lupus anticoagulant Anticardiolipin antibodies Elevated serum homocysteine Heparin-induced thrombocytopenia Other congenital or acquired thrombophilia Stroke (< 1 month) Elective arthroplasty Hip, pelvis, or leg fracture Acute spinal cord injury (< 1 month) Prophylaxis Regimen Total Risk Factor Score Risk Level Prophylaxis Regimen 0-1 Low Early ambulation 2 Moderate Order ONE of the following: *Sequential Compression Device (SCD) *Heparin 5000 units SQ BID 3-4 Higher Order ONE of the following medications: *Heparin 5000 units SQ TID *Enoxaparin/Lovenox 40 mg SQ daily (WT < 150 kg, CrCl > 30 mL/min) *Enoxaparin/Lovenox 30 mg SQ daily (WT < 150 kg, CrCl > 10-29 mL/min) *Enoxaparin/Lovenox 30 mg SQ BID (WT < 150 kg, CrCl > 30 mL/min) AND/OR *Sequential Compression Device (SCD) 5 or more Highest Order ONE of the following medications: *Heparin 5000 units SQ TID (Preferred with Epidurals) *Enoxaparin/Lovenox 40 mg SQ daily (WT < 150 kg, CrCl > 30 mL/min) *Enoxaparin/Lovenox 30 mg SQ daily (WT < 150 kg, CrCl > 10-29 mL/min) *Enoxaparin/Lovenox 30 mg SQ BID (WT < 150 kg, CrCl > 30 mL/min) AND *Sequential Compression Device (SCD) Assessment and Plan Problem List: (1) Asystole ICD Code: I46.9 - Cardiac arrest, cause unspecified Status: Acute (2) NSTEMI (non-ST elevated myocardial infarction) ICD Code: I21.4 - Non-ST elevation (NSTEMI) myocardial infarction Status: Acute (3) Respiratory failure with hypoxia and hypercapnia ICD Code: J96.91 - Respiratory failure, unspecified with hypoxia; J96.92 - Respiratory failure, unspecified with hypercapnia Status: Acute (4) Pleural effusion ICD Code: J90 - Pleural effusion, not elsewhere classified Status: Acute (5) Tobacco abuse ICD Code: Z72.0 - Tobacco use Status: Chronic (6) ETOH abuse ICD Code: F10.10 - Alcohol abuse, uncomplicated Status: Chronic (7) Pulmonary edema ICD Code: J81.1 - Chronic pulmonary edema Status: Acute (8) Shock ICD Code: R57.9 - Shock, unspecified Status: Acute (9) Macrocytic anemia ICD Code: D53.9 - Nutritional anemia, unspecified (10) Hypocalcemia ICD Code: E83.51 - Hypocalcemia (11) Lactic acid acidosis ICD Code: E87.2 - Acidosis Assessment and Plan NEURO: Acute encephalopathy Initially neuro assessment challenging because patient was requiring high level of sedation and then paralytic for vent synchrony and oxygenation. CT brain obtained and showed no acute abnormality. He is hypercapnic which may also contribute to mental status change. Follow-up neurologic assessment was improved and he was moving all extremities and had intact brainstem reflexes. Based on neurologic improvement and ongoing resuscitation of profound shock with possible septic component, do not feel that induced therapeutic hypothermia is in his best interest. EtOH abuse Fentanyl and Versed for sedation, transition off versed and to propofol when hemodynamics will allow. Monitor for evidence of EtOH withdrawal Thiamine/folic acid/mvi supplementation. RESP: Acute hypoxemic and hypercapnic respiratory failure Bilateral pleural effusion now s/p R pigtail chest tube. Pulmonary edema COPD Tobacco abuse Required reintubation in the ED due to cuff leak, appears ETT was in high position despite efforts to reposition. F/u CXR and CT confirms satisfactory ETT position. Changed to Pressure control ventilation with PEEP 12 to facilitate recruitment in setting of profound hypoxemia. Drain R pleural effusion in effort to ameliorate hypoxemia. CXR with what appears to be pulmonary edema, cardiogenic vs noncardiogenic. Broad spectrum antibiotics and tamiflu as per below given known exposure to Influenza A. 8 Macanese chest tube placed in R pleural space with 1300 straw colored pleural fluid return with pleural fluid studies and cultures sent. Oxygenation now improving and FIO2 weaned from 100% to 50%. Duoneb q4 hours. Albuterol q2 hours prn wheezing. CV: NSTEMI Asystolic cardiac arrest Shock Essential HTN at baseline Peripheral arterial disease Hyperlipidemia Suspected asystolic cardiac arrest was secondary to respiratory etiology with respiratory acidemia. Limited bedside Echo performed on dopamine 20 mcg/kg/min demonstrates decompressed RV. The LVEF grossly appears ~45%-50% with decreased contractility of apex ?Takotsubo. Received 3 L NS bolus in the ED and then Lasix but remained anuric with poor peripheral perfusion. CVP is 8 with PEEP of 12 and collapsed RV so appears patient needs volume resuscitation. Given additional 1 L NS bolus and then will remain on MIVF at 50/hr. Follow lactic acid for clearance. On dopamine 20 mcg/ kg/min, will transition to levophed to maintain MAP >65. Stress dose hydrocortisone, add vasopressin if needed. EKG sinus rhythm 95, hyperacute T waves in V3 and V4 with ST dep V4-V5. Followup EKG. Troponin 0.09, followed serial troponins. ASA 300 mg pr, continue plavix 75 daily. Heparin drip ordered after CT brain reported negative and R chest tube inserted. Troponin continued uptrend to 25. Cardiology consulted. Echo 03/26/17 - EF 50-55%, mild LVH, finding c/w hypertrophic cardiomyopathy. Stress 02/01/16 suspected mild inferior lateral ischemia. Cardiac catheterization 02/01/16 - normal coronaries. 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 GI: NPO Insert OGT and place to LIWS FEN/RENAL: NICKO...definition based on Oliguria Oliguric upon arrival. Noonan in place, monitor I/O and electrolytes. Now lactic acid cleared and he is making some urine. Hypocalcemia Received calcium chloride 1 gram IV. Check serum phos and magnesium. ID: Possible Viral vs Atypical pneumonia Known exposure to close household contact with confirmed Influenza A. Will check Influenza screen but would empirically treat with Tamiflu 75 po bid now ( adjust if needed based on followup renal function) Will cover for superimposed bacterial pneumonia with Zosyn, vancomycin and levaquin. Send blood culture, sputum culture, urine Legionella antigen, urine pneumococcal antigen. HEME: Chronic macrocytic anemia likely secondary to EtOH abuse. Vitamin supplementation as per above. Monitor CBC ENDO: Acute stress hyperglycemia Monitor bedside glucose every 6 hours. Administer low-dose insulin sliding scale as indicated. Hydrocortisone 50 mg IV every 6 hours as per above. PROPH: Heparin drip will provide DVT prophylaxis. Famotidine 10 mg IV q12 hours for stress ulcer prophylaxis. ACCESS: RIJ CVL placed 12/23 #2. Left radial art line placed 12/24 #1 I updated patient's daughter, Andra Sow and his sister in the ED. Later contacted daughter for consent for chest tube and provided further update regarding CT brain and chest. Patient reportedly has no living will. He is not . He has 1 adult daughter, Andra who is willing to serve as his healthcare proxy. Patient is currently not capacitated for medical decision- making. Andra states that he is full code. Patient is critically ill with profound hypoxemia and shock requiring resuscitation, vasopressor management and titration, ventilator management and pigtail chest tube to facilitate oxygenation. He is critically ill and at high risk for further decompensation or . Critical care time 90 minutes exclusive of separately billable procedures. Germania Drummond MD December 24, 2017 00:49
[2017-12-24] MEDS: LEVOFLOXACIN 750 MG PREMIX INJ 150 ML IV SCH (01:00)
[2017-12-24] MEDS: OSELTAMIVIR PHOSPHATE 30 MG/5 ML ORAL SYRINGE OG-TUBE SCH ×2 (01:00→22:13)
--- NOTE | 2017-12-24 01:18 | RADRPT ---
EXAM DATE/TIME: 12/24/2017 00:39 [facility] COMPARISON: No previous studies available for comparison. INDICATIONS : Altered mental status. Patient found unresponsive. RADIATION DOSE: 66.34 CTDIvol (mGy) MEDICAL HISTORY : Hypertension. Deep venous thrombosis. SURGICAL HISTORY : None. ENCOUNTER: Initial ACUITY: 1 day PAIN SCALE: Non-responsive LOCATION: cranial TECHNIQUE: Multiple contiguous axial images were obtained of the head. Using automated exposure control and adj ustment of the mA and/or kV according to patient size, radiation dose was kept as low as reasonably a chievable to obtain optimal diagnostic quality images. DICOM format image data is available electro nically for review and comparison. FINDINGS: CEREBRUM: The ventricles are normal for age. No evidence of midline shift, mass lesion, hemorrhage or acute in farction. No extra-axial fluid collections are seen. POSTERIOR FOSSA: The cerebellum and brainstem are intact. The 4th ventricle is midline. The cerebellopontine angle i s unremarkable. EXTRACRANIAL: The visualized portion of the orbits is intact. SKULL: The calvaria is intact. No evidence of skull fracture. CONCLUSION: No acute disease. Raji Matos Jr., MD on December 24, 2017 at 1:14 Board Certified Radiologist. This report was verified electronically.
--- NOTE | 2017-12-24 01:20 | RADRPT ---
EXAM DATE/TIME: 12/24/2017 00:39 [facility] COMPARISON: No previous studies available for comparison. INDICATIONS : Respiratory distress. RADIATION DOSE: 14.70 CTDIvol (mGy) MEDICAL HISTORY : Hypertension. Deep venous thrombosis. SURGICAL HISTORY : None. ENCOUNTER: Initial ACUITY: 1 day PAIN SCALE: Non-responsive LOCATION: chest TECHNIQUE: Volumetric scanning of the chest was performed. Using automated exposure control and adjustment of t he mA and/or kV according to patient size, radiation dose was kept as low as reasonably achievable to obtain optimal diagnostic quality images. DICOM format image data is available electronically for r eview and comparison. Follow-up recommendations for detected pulmonary nodules are based at a minimum on nodule size and pa tient risk factors according to Fleischner Society Guidelines. FINDINGS: LUNGS: Passive atelectasis involving the lower lobes bilaterally. Diffuse bilateral pulmonary consolidations throughout both lungs. PLEURAE: Bilateral medium sized pleural effusions posteriorly layering. MEDIASTINUM: The heart is normal in size. Tiny pericardial effusion. Coronary artery atherosclerotic calcification s. AXILLAE: Within normal limits. No lymphadenopathy. MUSCULOSKELETAL: Within normal limits for patient age. MISCELLANEOUS: The visualized upper abdominal organs demonstrate no acute abnormality. CONCLUSION: 1. Moderate-sized bilateral pleural effusions. 2. Diffuse bilateral pulmonary infiltrates. This may relate to pulmonary edema. 3. Coronary artery atherosclerotic calcifications. Raji Matos Jr., MD on December 24, 2017 at 1:15 Board Certified Radiologist. This report was verified electronically.
[2017-12-24] MEDS ORDERED: ASPIRIN 300 MG SUPP RECTAL ONE (01:45)
[2017-12-24 02:20] LABS: INTERNATIONAL NORMALIZED RATIO 1.2 RATIO; PROTHROMBIN TIME - PATIENT 12.2 SEC (9.8-11.6)
[2017-12-24] MEDS: VANCOMYCIN INJ 1,500 MG in SODIUM CHLORID 0.9% 500 ML INJ 500 ML IV SCH ×2 (03:00→15:59)
--- NOTE | 2017-12-24 03:38 | PD.PROCEDR ---
Procedure Note Procedure DATE: 12/24/17 PROCEDURE: Left radial arterial catheter placement INDICATION: Shock DETAILS OF PROCEDURE The patient was placed in supine position. Angel test was performed and demonstrated satisfactory collateral perfusion. The skin was cleansed with Chloraprep x3. Additional barrier precautions included sterile towel, sterile gloves, sterile gown, face mask, and hat. Under direct ultrasound guidnce and on the first attempt, the artery was accessed with an Arrow radial artery catheter kit.. The guide wire was advanced. Using Seldinger technique 20 gauge arterial catheter was advanced over the wire. The needle and guide wire were removed. The catheter was connected to a transducer line and flushed with saline. The video monitor displayed normal arterial wave forms. The catheter was secured with 2-0 silk. A sterile dressing with antibiotic disc was applied. ESTIMATED BLOOD LOSS: minimal COMPLICATIONS: None Germania Drummond MD December 24, 2017 03:38
[2017-12-24] MEDS: RESP: ALBUTEROL 2.5 MG/IPRATROPIUM 0.5 MG NEB (SCH) NEB ×5 (04:00→19:31)
[2017-12-24] MEDS: CHLORHEXIDINE GLUCONATE 2 % 1 PACK (2 CLOTHS) TOP SCH (04:00)
[2017-12-24 04:31] LABS: AUTOMATED NEUTROPHIL # 11.2 TH/MM3 (1.8-7.7); BASOPHIL # 0.1 TH/MM3 (0-0.2); BASOPHIL % 0.4 % (0.0-2.0); EOSINOPHIL % 0.2 % (0.0-4.0); HEMATOCRIT 34.5 % (39.0-51.0); HEMOGLOBIN 12.6 GM/DL (13.0-17.0); LYMPH % 6.5 % (9.0-44.0); LYMPHOCYTE # 0.9 TH/MM3 (1.0-4.8); MEAN CELL VOLUME 103.4 FL (80.0-100.0); MEAN CORPUSCULAR HEMOGLOBIN 37.9 PG (27.0-34.0); MEAN PLATELET VOLUME 7.6 FL (7.0-11.0); MONO % 8.6 % (0.0-8.0); MONOCYTE # 1.1 TH/MM3 (0-0.9); NEUT % 84.3 % (16.0-70.0); PLATELET COUNT 161 TH/MM3 (150-450); RED BLOOD COUNT 3.34 MIL/MM3 (4.50-5.90); RED CELL DISTRIBUTION WIDTH 13.3 % (11.6-17.2); WHITE BLOOD COUNT 13.3 TH/MM3 (4.0-11.0)
[2017-12-24 04:36] LABS: MEAN CORPUSCULAR HGB CONC 36.6 % (32.0-36.0)
[2017-12-24] MEDS ORDERED: SODIUM CHLOR 0.9% 1000 ML INJ 1,000 ML IV ONE (04:45)
[2017-12-24 04:48] LABS: ALBUMIN 2.8 GM/DL (3.4-5.0); BICARBONATE 22.9 MEQ/L (21.0-32.0); CALCIUM 7.1 MG/DL (8.5-10.1); CALCIUM-PROTEIN CORRECTED 7.6 MG/DL (8.5-10.1); CREATININE 0.96 MG/DL (0.60-1.30); TOTAL BILIRUBIN ADULT 1.5 MG/DL (0.2-1.0); TOTAL PROTEIN 6.1 GM/DL (6.4-8.2)
[2017-12-24] MEDS ORDERED: CALCIUM CHLORIDE 10% SOLN 1 GRAM/10 ML SYR IV ONE (05:00)
[2017-12-24] MEDS ORDERED: SODIUM BICARBONATE 8.4% INJ 50 MEQ/50 ML SYR IV ONE (05:00)
[2017-12-24] MEDS ORDERED: DOPamine 800 MG/500 ML INJ 500 ML IV ONE (05:00)
[2017-12-24] MEDS ORDERED: EPINEPHrine HCL (1:10,000) 1 MG/10 ML SYRINGE IV ONE (05:00)
[2017-12-24] MEDS ORDERED: HEPARIN SODIUM - IV 10,000 UNITS/10 ML VIAL IV ONE (05:15)
--- NOTE | 2017-12-24 05:16 | PD.PROCEDR ---
Procedure Note Procedure Procedure: Right pigtail chest tube placement Indication: R pleural effusion and severe hypoxia Details of procedure: Informed consent was obtained from the patient's daughter after discussion of risks, benefits, alternatives. The patient was positioned upright.. The lateral chest wall was cleaned with ChloraPrep twice. Regional sterile drapes were applied. 1% lidocaine was used for local anesthesia and injected into the subcutaneous and deep muscle tissues. Ultrasound was used to visualize pleural fluid and an introducer needle was advanced above ~8th rib and straw colored pleural fluid was aspirated. Wire was advanced. A 2 mm skin incision was made with a scalpel blade. The 8 Uzbek pleural catheter was advanced over wire. The wire was removed. There was return of straw colored pleural fluid and 20 cc was collected for pleural studies. The chest tube was secured with 2.0 silk suture and then Stay-fix. The chest tube was connected to a Pleur-evac drainage system with intermittent 1+ air leak. There was return of 1100 of straw colored output from chest tube. Estimated blood loss: <5 mL. Complications: None. Stat chest x-ray demonstrates no PTX. Germania Drummond MD December 24, 2017 05:16
--- NOTE | 2017-12-24 05:29 | RADRPT ---
EXAM DATE/TIME: 12/24/2017 04:51 [facility] COMPARISON: CHEST SINGLE AP, December 23, 2017, 23:37. INDICATIONS : Chest tube placement, right. MEDICAL HISTORY : None. SURGICAL HISTORY : None. ENCOUNTER: Subsequent ACUITY: 2 days PAIN SCORE: Non-responsive. LOCATION: Right chest FINDINGS: There is been interval placement of a subpulmonic chest tube on the right. No effusion seen on the cu rrent study. Improving bilateral pulmonary infiltrates which are predominantly in the bases. Heart is at the upper limits of normal in terms of size. Tip of the endotracheal tube 3 cm from the brittanie. T ip of the nasogastric tube in the lower thoracic esophagus. Right-sided central line. No pneumothorax . CONCLUSION: 1. Placement of a subpulmonic chest tube on the right without residual effusion. 2. Improving bilateral pulmonary infiltrates. Raji Matos Jr., MD on December 24, 2017 at 5:27 Board Certified Radiologist. This report was verified electronically.
[2017-12-24] MEDS: DOPamine 800 MG/500 ML INJ 500 ML IV PRN (06:33)
[2017-12-24 06:34] LABS: TOTAL PROTEIN,PLEURAL FLUID 2.8 GM/DL
[2017-12-24] MEDS: VASOPRESSIN INJ 40 UNITS in DEXTROSE 5% IN WATER 100ML INJ 98 ML IV SCH ×4 (06:45→21:04)
[2017-12-24] MEDS: HYDROCORTISONE SOD SUCCINATE 100 MG VIAL IV PUSH SCH ×3 (06:45→17:54)
[2017-12-24 07:00] LABS: PLEURAL FLUID HISTIOCYTES 3 %; PLEURAL FLUID LYMPHS 63 %; PLEURAL FLUID MONOS 16 %; PLEURAL FLUID POLYS (SEGS) 18 %; PLEURAL FLUID RBC 1854 /MM3 (0-0); PLEURAL FLUID WBC 416 /MM3 (0-10)
[2017-12-24] MEDS: PIPERACIL-TAZO 4.5 GM PREMIX 100 ML IV SCH ×3 (08:00→20:28)
[2017-12-24] MEDS: CHLORHEXIDINE 0.12% (ORAL KIT) 15 ML CUP MT SCH ×2 (08:00→20:30)
[2017-12-24] MEDS: NOREPINEPHRINE-DEXTROSE DRIP 250 ML IV PRN ×2 (08:30→22:43)
[2017-12-24] MEDS: FAMOTIDINE 20 MG/2 ML VIAL IV PUSH SCH ×2 (09:00→20:29)
[2017-12-24] MEDS: SODIUM CHLORIDE 0.9% FLUSH 10 ML FLUSH IV FLUSH SCH ×2 (09:00→20:29)
[2017-12-24] MEDS: MULTIVITAMIN TAB OG-TUBE SCH (09:00)
[2017-12-24] MEDS: DOCUSATE SODIUM 50 MG/SENNA 8.6 MG TAB PO SCH ×2 (09:00→20:29)
[2017-12-24] MEDS: THIAMINE INJ 100 MG in SODIUM CHLORIDE 0.9% INJ 100 ML IV SCH (09:00)
[2017-12-24] MEDS ORDERED: GLUCAGON 1 MG/ML VIAL OTHER PRN (09:15)
[2017-12-24] MEDS ORDERED: DEXTROSE 50% IN WATER 50 ML VIAL(D50) IV PUSH PRN (09:15)
[2017-12-24] MEDS: INSULIN ASPART SUPPLEMENTAL SCALE SQ SCH ×3 (09:15→18:44)
--- NOTE | 2017-12-24 10:34 | MB ---
cc: Dominick Wilson MD DATE: 12/24/2017 REASON FOR CONSULTATION: Non-ST elevation myocardial infarction, congestive heart failure, respiratory failure, cardiac arrest. HISTORY OF PRESENT ILLNESS: History is currently unobtainable from the patient who is intubated and sedated. History is obtained from medical records, as well as his family members, who are at bedside. He is a 62-year-old white male with a history of peripheral vascular disease, coronary artery disease, hypertension, hyperlipidemia, who, for the past few days, has been having intermittent episodes of left-sided chest discomfort, particularly at night. In the last few days, he has also had progressively worsening shortness of breath, orthopnea, paroxysmal nocturnal dyspnea. On the evening of admission, the patient was in severe respiratory distress and asked his granddaughter to call emergency services. On arrival, he was initially responsive but became unresponsive, necessitating intubation. During intubation, he developed asystole, responsive to epinephrine. Since that time, he has had troubles with hypotension, necessitating dopamine pressor support. Chest x-rays and chest CT suggest significant pulmonary edema, and he is status post right chest tube placement for drainage of the right pleural effusion. PAST MEDICAL HISTORY: 1. Peripheral vascular disease, status post left common femoral endarterectomy and patch angioplasty, 05/12/2017, status post left superficial femoral artery orbital atherectomy and stent, 06/22/2017. 2. Coronary artery disease with cardiac catheterization, 02/04/2016, showing normal left main, 30% mid LAD, 60% proximal left circumflex, 40% mid left circumflex, 50% proximal first obtuse marginal, totally occluded but collateralized proximal right coronary. Ejection fraction at that time was normal. 3. Hyperlipidemia. 4. Hypertension. PAST SURGICAL HISTORY: 1. Hemorrhoidectomy. 2. Appendectomy. 3. Left common femoral endarterectomy, 05/12/2017. CARDIAC MEDICATIONS AT HOME: Coreg 6.25 mg b.i.d., simvastatin 10 mg at bedtime, Plavix 75 mg daily, aspirin 325 mg daily. ALLERGIES: CECLOR. FAMILY HISTORY: Noncontributory. Apparently, the patient's father sustained a stroke at age 66. SOCIAL HISTORY: The patient smokes about 2 packs of cigarettes per day. He also drinks up to 8 beers per day. REVIEW OF SYSTEMS: Currently unobtainable. PHYSICAL EXAMINATION: VITAL SIGNS: Blood pressure 124/66 with a pulse of 95, respirations 18. GENERAL: He is a well-developed, well-nourished white male, currently intubated and sedated. NECK: Jugular venous pressure is hard to assess. Carotid pulses are 2+ bilaterally without definite bruit. CHEST: Reveals clear lung mccormick anteriorly. CARDIAC: He has a regular rhythm and rate with a grade I-II/ systolic ejection murmur heard at the right upper sternal. The S2 heart sound is normal. No gallop is audible. ABDOMEN: He has a soft abdomen. Bowel sounds are present. There is no definite hepatosplenomegaly. EXTREMITIES: Reveals no clubbing, cyanosis or edema. LABORATORY AND DIAGNOSTIC DATA: EKG from 12/23/2017, shows sinus rhythm, nonspecific intraventricular conduction delay, nonspecific inferior ST and T-wave abnormalities. Chest CT shows diffuse bilateral pulmonary infiltrates and moderate sized bilateral pleural effusions. Laboratory data includes potassium 3.6, BUN 9, creatinine 0.96. Troponin 25.5. AST 244, ALT 55. INR 1.2. WBC 13.3, hemoglobin 12.6, platelets 161. IMPRESSION: Acute non-ST elevation myocardial infarction, acute respiratory failure due to congestive heart failure in this 62-year-old white male with a history of peripheral vascular disease, coronary artery disease, hypertension, tobacco and alcohol abuse. At this time, he remains on mechanical ventilation. The patient also has had difficulties with hypotension, necessitating pressor support. Echocardiogram is pending. The patient is status post right chest tube placement with effective drainage of his right pleural effusion. RECOMMENDATIONS: 1. Await his 2D echo. 2. Continue ventilatory and pressor support. 3. Eventually, after extubation and stabilization of his pulmonary status, recommend cardiac catheterization. 4. Heparin drip and continue aspirin/Plavix. MD HUSSAIN Rajan/EVELIN , 10:10 AM , 10:33 AM [facility]
[2017-12-24] MEDS: HEPARIN-D5W 25,000 U/250 ML 250 ML IV PRN (10:44)
[2017-12-24 11:01] LABS: HEMATOCRIT 34.5 % (39.0-51.0); HEMOGLOBIN 12.6 GM/DL (13.0-17.0); MEAN CORPUSCULAR HEMOGLOBIN 37.9 PG (27.0-34.0); MEAN PLATELET VOLUME 7.5 FL (7.0-11.0); PLATELET COUNT 163 TH/MM3 (150-450); RED BLOOD COUNT 3.32 MIL/MM3 (4.50-5.90); RED CELL DISTRIBUTION WIDTH 13.4 % (11.6-17.2); WHITE BLOOD COUNT 13.2 TH/MM3 (4.0-11.0)
[2017-12-24 11:02] LABS: MEAN CORPUSCULAR HGB CONC 36.4 % (32.0-36.0)
[2017-12-24 11:12] LABS: INTERNATIONAL NORMALIZED RATIO 1.2 RATIO; PROTHROMBIN TIME - PATIENT 11.7 SEC (9.8-11.6)
[2017-12-24] MEDS: MIDAZOLAM 50 MG/50 ML INJ 50 ML IV PRN (11:18)
[2017-12-24] MEDS: SODIUM CHLOR 0.9% 1000 ML INJ 1,000 ML IV SCH (11:19)
[2017-12-24 11:31] LABS: LACTIC ACID SEPSIS PROTOCOL 2.1 mmol/L (0.4-2.0)
[2017-12-24 11:40] LABS: MAGNESIUM 1.5 MG/DL (1.5-2.5); PHOSPHORUS 2.8 MG/DL (2.5-4.9)
--- NOTE | 2017-12-24 12:35 | HHI.CCPN ---
Subjective Remarks/Hospital Course Patient is unable to provide history because he is intubated. History was obtained by discussion with his daughter and information relayed by the emergency department physician. 62-year-old male with past medical history of hypertension, hyperlipidemia, peripheral arterial disease, daily alcohol use, tobacco abuse. Patient's daughter states that for the last 1-1/2 weeks he has been complaining of orthopnea and has had difficulty sleeping at night because of this; waking up with severe SOB. She states he is also intermittently complained of non- pleuritic left-sided chest pain which he attributed to the fact that he had fallen on his left side a couple of weeks ago. He has had a lot of coughing but to her knowledge it has been nonproductive. He has had generalized weakness over the last couple of days and this morning he was "out of it". He has not been aware of any fever. He has had contact with his grandson who tested positive for influenza A 3 days ago on 12/21. This evening he was in the bathroom and his daughter heard him groaning and seemed to be in respiratory distress and indicated that she needed to call [facility]. He was initially responsive but upon arrival to the ED he was unresponsive, staring straight ahead, being bagged by [facility].. He became bradycardic. He underwent RSI with etomidate and succinylcholine and was intubated. During intubation he went into asystole. He was given epinephrine 1 mg and 2 amps of sodium bicarbonate in addition to CPR. His heart rate then came up into the 160s. He was started on dopamine due to hypotension and is currently running at 20 mcg/kg/ min. ABG demonstrated acute hypercapnic and hypoxic respiratory failure with pH 7.15/PCO2 of 62/PaO2 of 58/bicarb 21. Chest x-ray demonstrates bibasilar opacities. White blood cell count is 12. He is hypothermic. He received empiric vancomycin and Zosyn in the emergency department and Lasix 40 mg IV. He was started on propofol and fentanyl drips. Propofol was subsequently discontinued and he was started on a Versed drip and given vecuronium to facilitate vent synchrony and oxygenation.. Initial post intubation chest x-ray demonstrated ET tube and NG tube in high position. These were reportedly advanced but remained in high position.. Patient then had notable cuff leak and sats were in the 70s. He was reintubated by the emergency department physician. I have placed right IJ central venous line. Follow-up chest x-ray demonstrates satisfactory position of endotracheal tube and right IJ. The OG has been removed and will be replaced. Noonan has been placed but he has been anuric for the last 3.5 hours in the ED. SUBJ 12/24: Patient reevaluated multiple times as he remains critical on multiple pressors. Currently on Levophed at 12 mcg/min, dopamine at 10 mcg/kg/ min and vasopressin at 0.04 units. FiO2 currently at 60% with PEEP of 12 I will attempt weaning PEEP due to persistent hypotension. IV heparin started for troponin elevation to 25.5. Aspirin 81 mg daily started. Cardiology consulted. I will also start Flowtrack monitoring and maintenance IV fluids. Starting to make some urine Objective Vital Signs Date Time Temp Pulse Resp B/P (MAP) Pulse Ox O2 Delivery O2 Flow Rate FiO2 12/24/17 11:26 93 65 12/24/17 08:30 97 122/66 12/24/17 07:00 97.9 17 12/24/17 00:22 Ventilator 12/23/17 19:51 15.00 Intake and Output 12/24/17 12/24/17 12/25/17 08:00 16:00 00:00 Intake Total 1658 ml Output Total 1850 ml Balance -192 ml Result Diagram: 12/24/17 1030 12/24/17 0330 Other Results Microbiology Date/Time Source Procedure Growth Status 12/24/17 04:50 Nasal Aspirate Influenza Types A,B Antigen (VIOLET) - Final NEGATIVE FOR FLU A AND B ANTIGEN.... Complete 12/23/17 20:00 Urine Catheterized Urine Legionella Antigen - Final PRESUMPTIVE NEGATIVE FOR LEGIONELLA P... Complete 12/23/17 20:00 Urine Catheterized Urine Streptococcus pneumoniae Antigen (M - Final PRESUMPTIVE NEGATIVE FOR STREPTOCOCCU... Complete Laboratory Tests Test 12/23/17 21:37 12/24/17 00:20 12/24/17 07:06 Blood Gas Puncture Site RT RADIAL RT BRACHIAL ART LINE Blood Gas Patient Temperature 98.6 98.6 98.6 Blood Gas HCO3 21 mmol/L (22-26) 22 mmol/L (22-26) 22 mmol/L (22-26) Blood Gas Base Excess -7.1 mmol/L (-2-2) -4.8 mmol/L (-2-2) -2.7 mmol/L (-2-2) Blood Gas Oxygen Saturation 74 % (90-100) 85 % (90-100) 86 % (90-100) Arterial Blood pH 7.15 (7.380-7.420) 7.23 (7.380-7.420) 7.37 (7.380-7.420) Arterial Blood Partial Pressure CO2 62 mmHg (38-42) 53 mmHg (38-42) 39 mmHg (38-42) Arterial Blood Partial Pressure O2 58 mmHG (61-120) 67 mmHG (61-120) 61 mmHg (61-120) Arterial Blood Oxygen Content 12.4 Vol % (12.0-20.0) 16.1 Vol % (12.0-20.0) 14.8 Vol % (12.0-20.0) Arterial Blood Carboxyhemoglobin 1.5 % (0-4) 1.5 % (0-4) 1.4 % (0-4) Arterial Blood Methemoglobin 0.7 % (0-2) 0.6 % (0-2) 1.3 % (0-2) Blood Gas Hemoglobin 11.9 G/DL (12.0-16.0) 13.5 G/DL (12.0-16.0) 12.2 G/DL (12.0-16.0) Oxygen Delivery Device VENTILATOR VENT VENTILATOR Blood Gas Ventilator Setting VAC/18/550/+10 PC/AC PC/AC IP22/RATE16 Blood Gas Inspired Oxygen 100 % 100 % 60 % Objective Remarks GENERAL: Ill appearing male who is orotracheally intubated critically ill on 3 pressors SKIN: Peripherally cool, diaphoretic. HEAD: Atraumatic. Normocephalic. EYES: Pupils are round, 5 mm ENT: No nasal bleeding or discharge. orotracheally intubated NECK: Trachea midline. No JVD. CARDIOVASCULAR: Tachycardic, regular, sinus tachycardia with rate in the 110s in the ED. 3 out of 6 systolic murmur left apex. Currently on Levophed, dopamine and vasopressin RESPIRATORY: Orotracheally intubated, coarse breath sounds bilaterally, diminished bibasilar, rales left base. No wheeze per GASTROINTESTINAL: Abdomen soft, non-tender, nondistended. Bowel sounds hypoactive. : Noonan in place with minimal light padmaja in the tubing only. MUSCULOSKELETAL: Extremities without clubbing, cyanosis. NEUROLOGICAL: Pupil still appear dilated but are sluggishly reactive and he has +corneal reflexes, + cough, + gag, He requires ongoing sedation due to hypoxemia and vent dyssynchrony. On sedation hold patient does open eyes moves all extremities do not follow commands A/P Problem List: (1) Asystole ICD Code: I46.9 - Cardiac arrest, cause unspecified Status: Acute (2) NSTEMI (non-ST elevated myocardial infarction) ICD Code: I21.4 - Non-ST elevation (NSTEMI) myocardial infarction Status: Acute (3) Respiratory failure with hypoxia and hypercapnia ICD Code: J96.91 - Respiratory failure, unspecified with hypoxia; J96.92 - Respiratory failure, unspecified with hypercapnia Status: Acute (4) Pleural effusion ICD Code: J90 - Pleural effusion, not elsewhere classified Status: Acute (5) Tobacco abuse ICD Code: Z72.0 - Tobacco use Status: Chronic (6) ETOH abuse ICD Code: F10.10 - Alcohol abuse, uncomplicated Status: Chronic (7) Pulmonary edema ICD Code: J81.1 - Chronic pulmonary edema Status: Acute (8) Shock ICD Code: R57.9 - Shock, unspecified Status: Acute (9) Macrocytic anemia ICD Code: D53.9 - Nutritional anemia, unspecified (10) Hypocalcemia ICD Code: E83.51 - Hypocalcemia (11) Lactic acid acidosis ICD Code: E87.2 - Acidosis Assessment and Plan NEURO: Acute encephalopathy On sedation hold patient moves all extremities opens eyes did not follow commands Deemed not a candidate for induced therapeutic hypothermia due to neuro improvement, and severe hemodynamic instability EtOH abuse Fentanyl and Versed for sedation, wean as tolerated Monitor for evidence of EtOH withdrawal Thiamine/folic acid/mvi supplementation. RESP: Acute hypoxemic and hypercapnic respiratory failure Bilateral pleural effusion s/p R pigtail chest tube. Pulmonary edema COPD Tobacco abuse Required reintubation in the ED due to cuff leak, appears ETT was in high position despite efforts to reposition. F/u CXR and CT confirms satisfactory ETT position. Changed to Pressure control ventilation with PEEP 12 to facilitate recruitment in setting of profound hypoxemia, wean PEEP to 10. CXR with what appears to be pulmonary edema, cardiogenic vs noncardiogenic. Broad spectrum antibiotics and tamiflu as per below given known exposure to Influenza A. 8 [place] chest tube placed in R pleural space with 1300 straw colored pleural fluid return with pleural fluid studies and cultures sent. Oxygenation improved from admission now at 60% PEEP of 12 wean PEEP to 10. Duoneb q4 hours. Albuterol q2 hours prn wheezing. CV: NSTEMI Asystolic cardiac arrest Cardiogenic shock Essential HTN at baseline Peripheral arterial disease Hyperlipidemia Asystolic cardiac arrest could be secondary to respiratory acidosis, versus non- ST elevation MS Limited bedside Echo performed by Dr. Drummond on dopamine 20 mcg/kg/min demonstrates decompressed RV. The LVEF grossly appears ~45%-50% with decreased contractility of apex Received 3 L NS bolus in the ED and then Lasix but remained anuric with poor peripheral perfusion. CVP is 8 with PEEP of 12 and collapsed RV so appears patient needs volume resuscitation. Given additional 1 L NS bolus and then will remain on MIVF at 50/hr. Follow lactic acid for clearance. On dopamine 10 mcg/kg/min, Levophed 12 mcg/min, vasopressin 0.04 international units to maintain MAP >65. Stress dose hydrocortisone EKG sinus rhythm 95, hyperacute T waves in V3 and V4 with ST dep V4-V5. Followup EKG did not show any ST elevations. Troponin 0.09, followed serial troponins, elevated to 25.5 ASA 81 mg daily, continue plavix 75 daily. Heparin drip started after r chest tube inserted. Cardiology consulted. Echo 03/26/17 - EF 50-55%, mild LVH, finding c/w hypertrophic cardiomyopathy. Stress 02/01/16 suspected mild inferior lateral ischemia. Cardiac catheterization 02/01/16 - normal coronaries. 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 GI: NPO Insert OGT and place to LIWS Start tube feeds once hemodynamically more stable FEN/RENAL: NICKO Oliguric upon arrival. Noonan in place, monitor I/O and electrolytes. Now lactic acid cleared and he is making some urine. Hypocalcemia Received calcium chloride 1 gram IV. Follow serial labs ID: Possible Viral vs Atypical pneumonia Known exposure to close household contact with confirmed Influenza A. Influenza screen negative but continue Tamiflu 75 po bid now (adjust if needed based on followup renal function) Cover for superimposed bacterial pneumonia with Zosyn, vancomycin and Levaquin. F/U blood culture, sputum culture, urine Legionella antigen, urine pneumococcal antigen. HEME: Chronic macrocytic anemia likely secondary to EtOH abuse. Vitamin supplementation as per above. Monitor CBC ENDO: Acute stress hyperglycemia Monitor bedside glucose every 6 hours. Administer low-dose insulin sliding scale as indicated. Hydrocortisone 50 mg IV every 6 hours as per above. PROPH: Heparin drip will provide DVT prophylaxis. Famotidine 10 mg IV q12 hours for stress ulcer prophylaxis. ACCESS: RIJ CVL placed 12/23 #2. Left radial art line placed 12/[address] #[address] Drummond updated patient's daughter, Andra Sow and his sister in the ED. Later contacted daughter for consent for chest tube and provided further update regarding CT brain and chest. Patient reportedly has no living will. He is not . He has 1 adult daughter, Andra who is willing to serve as his healthcare proxy. Patient is currently not capacitated for medical decision -making. Andra states that he is full code. I have again updated patient's daughter, Andra Sow and his sister Kaylyn again at the bedside Patient is critically ill with profound hypoxemia and shock requiring resuscitation, vasopressor management and titration, ventilator management`. He is critically ill and at high risk for further decompensation or . Additional critical care time 38 minutes exclusive of separately billable procedures. Tiffany Plata MD December 24, 2017 12:35
--- NOTE | 2017-12-24 16:37 | ECHRPT ---
Indication: sob CONCLUSIONS Normal left ventricular size. No definite wall motion abnormalities. Wall thickness is normal. The left ventricular systolic function is low normal with an estimated ejection fraction of 50%. Moderate mitral valve regurgitation. Possible diastolic doming of the anterior mitral leaflet with no Doppler evidence for significant mitral stenosis. Mild aortic valve regurgitation. There is mild tricuspid valve regurgitation. The estimated pulmonary arterial pressure is 45 mmHg. BP: 122 / 66 HR: 97 Rhythm: MEASUREMENTS (Male / Female) Normal Values Technical Quality:Good 2D ECHO LV Diastolic Diameter PLAX 5.3 cm 4.2 - 5.9 / 3.9 - 5.3 cm LV Systolic Diameter PLAX 3.9 cm IVS Diastolic Thickness 0.8 cm 0.6 - 1.0 / 0.6 - 0.9 cm LVPW Diastolic Thickness 1.1 cm 0.6 - 1.0 / 0.6 - 0.9 cm LV Relative Wall Thickness 0.4 RV Internal Dim ED PLAX 2.1 cm M-MODE Aortic Root Diameter MM 3.0 cm LA Systolic Diameter MM 4.0 cm LA Ao Ratio MM 1.3 AV Cusp Separation MM 1.3 cm DOPPLER AI Peak Velocity 357.5 cm/s AI Peak Gradient 51.1 mmHg AI Pressure Half Time 248.5 ms MV Peak Velocity 273.0 cm/s MV Peak Gradient 29.8 mmHg MV Mean Velocity 166.0 cm/s MV Mean Gradient 13.0 mmHg MV Area PHT 2.2 cm TR Peak Velocity 297.0 cm/s TR Peak Gradient 35.3 mmHg Right Atrial Pressure 10.0 mmHg Pulmonary Artery Systolic Pressu 45.3 mmHg Right Ventricular Systolic Press 45.3 mmHg FINDINGS LEFT VENTRICLE Normal left ventricular size. No definite wall motion abnormalities. Wall thickness is normal. The left ventricular systolic function is low normal with an estimated ejection fraction of 50%. RIGHT VENTRICLE Normal right ventricular size and systolic function. LEFT ATRIUM The left atrial size is normal. RIGHT ATRIUM The right atrial size is normal. ATRIAL SEPTUM Normal atrial septal thickness without atrial level shunting by limited color doppler interrogation. AORTA The aortic root and proximal ascending aorta are not well visualized. MITRAL VALVE Moderate mitral valve regurgitation. Possible diastolic doming of the anterior mitral leaflet with no Doppler evidence for significant mitral stenosis. AORTIC VALVE Mild aortic valve regurgitation. TRICUSPID VALVE There is mild tricuspid valve regurgitation. The estimated pulmonary arterial pressure is 45 mmHg. PULMONARY VALVE No pulmonary valve regurgitation or stenosis. VESSELS The inferior vena cava is dilated. PERICARDIUM No pericardial effusion. Dominick Wilson MD (Electronically Signed) Final Date:24 Dec 2017 16:36
[2017-12-24] MEDS: ASPIRIN 81 MG CHEW TAB CHEW SCH (17:54)
[2017-12-24] MEDS: CLOPIDOGREL 75 MG TAB PO SCH (17:54)
[2017-12-24] MEDS: FOLIC ACID 1 MG TAB OG-TUBE SCH (17:54)
[2017-12-24 18:13] LABS: TROPONIN I GREATER THAN 40.00 NG/ML (0.02-0.05)
[2017-12-24] MEDS ORDERED: PROPOFOL 1000 MG/100 ML INJ 100 ML IV PRN (21:30)
[2017-12-25] VITALS (18 sets, daily range): BP systolic 100–164; BP diastolic 51–101; PULSE 70–116; RESP 14–22; TEMP 98.9–99.5; O2SAT 92–100
[2017-12-25] MEDS: HYDROCORTISONE SOD SUCCINATE 100 MG VIAL IV PUSH SCH ×5 (00:06→23:53)
[2017-12-25] MEDS: INSULIN ASPART SUPPLEMENTAL SCALE SQ SCH ×5 (00:08→23:54)
[2017-12-25] MEDS: LEVOFLOXACIN 750 MG PREMIX INJ 150 ML IV SCH ×2 (00:08→23:55)
[2017-12-25] MEDS: RESP: ALBUTEROL 2.5 MG/IPRATROPIUM 0.5 MG NEB (SCH) NEB ×6 (00:33→20:05)
[2017-12-25] MEDS: PIPERACIL-TAZO 4.5 GM PREMIX 100 ML IV SCH ×4 (01:27→21:08)
[2017-12-25] MEDS ORDERED: PHARMACY ORDERED LAB ONE (02:45)
[2017-12-25] MEDS: VANCOMYCIN INJ 1,500 MG in SODIUM CHLORID 0.9% 500 ML INJ 500 ML IV SCH (02:56)
[2017-12-25] MEDS: SODIUM CHLOR 0.9% 1000 ML INJ 1,000 ML IV SCH ×2 (03:56→22:36)
[2017-12-25] MEDS: CHLORHEXIDINE GLUCONATE 2 % 1 PACK (2 CLOTHS) TOP SCH (04:00)
[2017-12-25] MEDS: DOPamine 800 MG/500 ML INJ 500 ML IV PRN (04:55)
[2017-12-25 05:18] LABS: AUTOMATED NEUTROPHIL # 14.1 TH/MM3 (1.8-7.7); BASOPHIL % 0.2 % (0.0-2.0); HEMATOCRIT 32.5 % (39.0-51.0); LYMPHOCYTE # 0.5 TH/MM3 (1.0-4.8); MEAN CELL VOLUME 103.2 FL (80.0-100.0); MEAN CORPUSCULAR HEMOGLOBIN 38.1 PG (27.0-34.0); MEAN PLATELET VOLUME 8.1 FL (7.0-11.0); MONO % 9.6 % (0.0-8.0); MONOCYTE # 1.6 TH/MM3 (0-0.9); NEUT % 87.2 % (16.0-70.0); PLATELET COUNT 139 TH/MM3 (150-450); RED BLOOD COUNT 3.15 MIL/MM3 (4.50-5.90); RED CELL DISTRIBUTION WIDTH 13.5 % (11.6-17.2); WHITE BLOOD COUNT 16.2 TH/MM3 (4.0-11.0)
[2017-12-25 05:28] LABS: MEAN CORPUSCULAR HGB CONC 36.9 % (32.0-36.0)
[2017-12-25] MEDS: fentaNYL DRIP 250 ML IV PRN ×2 (05:42→15:50)
[2017-12-25] MEDS: NOREPINEPHRINE-DEXTROSE DRIP 250 ML IV PRN ×2 (05:44→14:09)
[2017-12-25 05:45] LABS: ALBUMIN 2.3 GM/DL (3.4-5.0); BICARBONATE 19.8 MEQ/L (21.0-32.0); CALCIUM 7.4 MG/DL (8.5-10.1); CREATININE 2.05 MG/DL (0.60-1.30); MAGNESIUM 1.7 MG/DL (1.5-2.5)
[2017-12-25 05:50] LABS: CALCIUM-PROTEIN CORRECTED 8.1 MG/DL (8.5-10.1); PHOSPHORUS 3.5 MG/DL (2.5-4.9); TOTAL BILIRUBIN ADULT 1.4 MG/DL (0.2-1.0); TOTAL PROTEIN 5.9 GM/DL (6.4-8.2)
[2017-12-25] MEDS: THIAMINE INJ 100 MG in SODIUM CHLORIDE 0.9% INJ 100 ML IV SCH (07:54)
[2017-12-25] MEDS: OSELTAMIVIR PHOSPHATE 30 MG/5 ML ORAL SYRINGE OG-TUBE SCH ×2 (07:54→21:07)
[2017-12-25] MEDS: CLOPIDOGREL 75 MG TAB PO SCH (07:55)
[2017-12-25] MEDS: FAMOTIDINE 20 MG/2 ML VIAL IV PUSH SCH ×2 (07:55→21:05)
[2017-12-25] MEDS: ASPIRIN 81 MG CHEW TAB CHEW SCH (07:55)
[2017-12-25] MEDS: MULTIVITAMIN TAB OG-TUBE SCH (07:55)
[2017-12-25] MEDS: FOLIC ACID 1 MG TAB OG-TUBE SCH (07:55)
[2017-12-25] MEDS: DOCUSATE SODIUM 50 MG/SENNA 8.6 MG TAB PO SCH ×2 (07:55→21:00)
[2017-12-25] MEDS: CHLORHEXIDINE 0.12% (ORAL KIT) 15 ML CUP MT SCH ×2 (07:56→20:00)
[2017-12-25] MEDS: SODIUM CHLORIDE 0.9% FLUSH 10 ML FLUSH IV FLUSH SCH ×2 (07:56→21:05)
--- NOTE | 2017-12-25 08:18 | PD.CARD.PN ---
Subjective Subjective Remarks Intubated. Sedated. Objective Medications Item Value Date Time Aspirin 81 mg 12/24/17 1230 (Aspirin Chew) DAILY/CHEW 12/25/17 0755 Clopidogrel 75 mg 12/24/17 0915 Bisulfate DAILY/PO 12/25/17 0755 (Plavix) Norepinephrine 250 ml @ 7.5 mls/hr 12/24/17 0630 Bitartrate TITRATE PRN/IV 12/25/17 0544 Heparin Sodium/ 250 ml @ 9 mls/hr 12/24/17 0515 Dextrose TITRATE PRN/IV 12/24/17 1044 Vasopressin 40 100 ml @ 6 mls/hr 12/23/17 2329 units/Dextrose .[id number]/IV 12/24/17 2104 Dopamine HCl/ 500 ml @ 0 mls/hr 12/23/17 2030 Dextrose TITRATE PRN/IV 12/25/17 0455 Current Medications Medications (Trade) Dose Ordered Sig/Ghada Route Start Time Stop Time Status Last Admin Dopamine HCl/ Dextrose 500 ml @ 0 mls/hr TITRATE PRN IV 12/23/17 20:30 12/25/17 04:55 (Brethine Inj) 1 mg UNSCH PRN SQ 12/23/17 23:30 Vasopressin 40 units/Dextrose 100 ml @ 6 mls/hr [id number] IV 12/23/17 23:29 12/24/17 21:04 (SoluCORTEF INJ) 50 mg Q6HR IV PUSH 12/24/17 00:00 12/25/17 05:38 (NS Flush) 2 ml UNSCH PRN IV FLUSH 12/24/17 00:00 (NS Flush) 2 ml BID IV FLUSH 12/24/17 09:00 12/25/17 07:56 (Tylenol) 650 mg Q6H PRN PO 12/24/17 00:00 (fentaNYL INJ) 50 mcg Q1H PRN IV PUSH 12/24/17 00:00 (Pepcid Inj) 10 mg Q12HR IV PUSH 12/24/17 09:00 12/25/17 07:55 (Versed Inj) 2 mg Q15M PRN IV PUSH 12/24/17 00:00 (Reglan Inj) 5 mg Q6H PRN IV PUSH 12/24/17 00:00 (Albuterol Neb) 2.5 mg Q2HR NEB PRN INH 12/24/17 00:00 ([facility] [place] [facility]) 1 [id number] XX 12/24/17 00:00 (Chlorhexidine 2% Cloth) 3 pack Taper DAILY@04 TOP 12/24/17 04:00 12/20/18 03:59 12/25/17 04:00 (Chlorhexidine 2% Cloth) 3 pack UNSCH PRN TOP 12/24/17 00:00 (Nury-Colace) 1 tab BID PO 12/24/17 09:00 12/25/17 07:55 (Milk Of Magnesia Liq) 30 ml Q12H PRN PO 12/24/17 00:00 (Senokot) 17.2 mg Q12H PRN PO 12/24/17 00:00 (Dulcolax Supp) 10 mg DAILY PRN RECTAL 12/24/17 00:00 (Lactulose Liq) 30 ml DAILY PRN PO 12/24/17 00:00 Levofloxacin/ Dextrose 150 ml @ 100 mls/hr Q24H IV 12/24/17 01:00 12/25/17 00:08 Pharmacy Profile Note 0 ml @ 0 mls/hr UNSCH OTHER 12/24/17 00:15 Piperacillin Sod/ Tazobactam Sod 100 ml @ 200 mls/hr Q6H IV 12/24/17 02:00 12/25/17 07:55 Thiamine HCl 100 mg/Sodium Chloride 101 ml @ 101 mls/hr DAILY IV 12/24/17 09:00 12/25/17 07:54 (Peridex 0.12% Liq) 15 ml BID@08,20 MT 12/24/17 08:00 12/25/17 07:56 Vancomycin HCl 1500 mg/Sodium Chloride 515 ml @ 250 mls/hr Q12H IV 12/24/17 03:00 12/25/17 02:56 (Tamiflu Liq) 75 mg BID OG-TUBE 12/24/17 01:00 12/25/17 07:54 (Folate) 1 mg DAILY OG-TUBE 12/24/17 09:00 12/25/17 07:55 (Theragran) 1 tab DAILY OG-TUBE 12/24/17 09:00 12/25/17 07:55 (Duoneb Neb) 1 ampule Q4HR NEB NEB 12/24/17 04:00 12/25/17 07:21 Heparin Sodium/ Dextrose 250 ml @ 9 mls/hr TITRATE PRN IV 12/24/17 05:15 12/24/17 10:44 Norepinephrine Bitartrate 250 ml @ 7.5 mls/hr TITRATE PRN IV 12/24/17 06:30 12/25/17 05:44 Sodium Chloride 1,000 ml @ 50 mls/hr Q20H IV 12/24/17 07:30 12/25/17 03:56 (D50w (Vial) Inj) 50 ml UNSCH PRN IV PUSH 12/24/17 09:15 (Glucagon Inj) 1 mg UNSCH PRN OTHER 12/24/17 09:15 (NovoLOG SUPPLEMENTAL SCALE) 1 Q6HR SQ 12/24/17 09:15 12/25/17 00:08 (Plavix) 75 mg DAILY PO 12/24/17 09:15 12/25/17 07:55 (Aspirin Chew) 81 mg DAILY CHEW 12/24/17 12:30 12/25/17 07:55 Fentanyl Citrate 250 ml @ 5 mls/hr TITRATE PRN IV 12/24/17 21:30 12/25/17 05:42 Midazolam HCl 50 ml @ 2 mls/hr TITRATE PRN IV 12/24/17 21:30 Propofol 100 ml @ 2.4 mls/hr TITRATE PRN IV 12/24/17 21:30 Vital Signs / I&O Vital Signs Date Time Temp Pulse Resp B/P (MAP) Pulse Ox O2 Delivery O2 Flow Rate FiO2 12/25/17 07:21 99 80 12/25/17 06:15 109 136/77 12/25/17 06:15 109 136/77 12/25/17 06:15 109 128/68 12/25/17 06:00 107 12/25/17 06:00 96 154/72 (99) 12/25/17 05:44 103 133/73 12/25/17 04:55 100 147/84 12/25/17 04:00 116 12/25/17 04:00 93 12/25/17 04:00 70 12/25/17 04:00 98.9 116 22 142/101 (115) 100 157/77 (103) 12/25/17 03:23 98 80 5/18/18 02:00 93 5/18/18 00:34 94 80 5/18/18 00:00 70 5/18/18 00:00 94 5/18/18 00:00 99.3 94 14 150/74 94 164/76 5/17/18 23:15 100 161/79 517/18 22:43 101 151/70 517/18 22:00 77 17/18 21:24 92 80 17/18 21:04 96 145/70 517/18 21:03 96 145/69 17/18 20:00 97 17/18 20:00 98.9 97 16 147/68 (94) 92 135/71 (92) 12/24/18 20:00 97 135/71 17/18 20:00 70 17/18 19:28 92 70 17/18 18:00 96 137/66 (89) 17/18 18:00 96 112/70 17/18 18:00 94 17/18 16:17 94 70 17/18 16:00 60 17/18 16:00 95 12/24/18 15:00 100.6 96 16 141/66 (91) 95 128/62 (84) 17/18 14:00 95 17/18 12:00 60 17/18 12:00 95 17/18 11:26 93 65 517/18 11:00 98.8 97 140/66 (90) 92 106/64 (78) 12/24/18 10:00 95 17/18 08:30 97 122/66 517/18 08:13 96 124/66 (85) I/O 517/18 5/17/18 5/17/18 5/18/18 5/18/18 5/18/18 07:00 15:00 23:00 07:00 15:00 23:00 Intake Total 1658 ml 2250 ml 3013.8 ml Output Total 1850 ml 850 ml 500 ml Balance -192 ml 1400 ml 2513.8 ml Intake IV Total 1658 ml 2050 ml 2813.8 ml Other 200 ml 200 ml Output Urine Total 600 ml 400 ml 250 ml Chest Tube Drainage Total 1250 ml 450 ml 250 ml # Bowel Movements 0 Physical Exam GENERAL: Well developed, well nourished. Intubated. Sedated. HEENT: Jugular venous pressure is normal. CHEST: Lungs clear to auscultation anteriorly. CARDIAC: Regular rate and rhythm without S3, S4. II/ holosystolic murmur apex. ABDOMEN: Soft, nontender, no hepatosplenomegaly. Bowel sounds present. EXTREMITIES: No clubbing, cyanosis, or edema. Laboratory Laboratory Tests Test 12/24/17 10:30 12/24/17 15:44 12/24/17 17:45 12/25/17 00:00 White Blood Count 13.2 TH/MM3 Red Blood Count 3.32 MIL/MM3 Hemoglobin 12.6 GM/DL Hematocrit 34.5 % Mean Corpuscular Volume 104.0 FL Mean Corpuscular Hemoglobin 37.9 PG Mean Corpuscular Hemoglobin Concent 36.4 % Red Cell Distribution Width 13.4 % Platelet Count 163 TH/MM3 Mean Platelet Volume 7.5 FL Prothrombin Time 11.7 SEC Prothromb Time International Ratio 1.2 RATIO Activated Partial Thromboplast Time 25.9 SEC 78.7 SEC 57.0 SEC Lactic Acid Level 2.1 mmol/L 3.2 mmol/L Phosphorus Level 2.8 MG/DL Magnesium Level 1.5 MG/DL Ammonia 40 MCMOL/L Troponin I GREATER THAN 40.00 NG/ML GREATER THAN 40.00 NG/ML Lactate Dehydrogenase 1163 U/L Test 12/25/17 02:30 12/25/17 04:00 12/25/17 06:00 Vancomycin Level Trough 30.3 MCG/ML White Blood Count 16.2 TH/MM3 Red Blood Count 3.15 MIL/MM3 Hemoglobin 12.0 GM/DL Hematocrit 32.5 % Mean Corpuscular Volume 103.2 FL Mean Corpuscular Hemoglobin 38.1 PG Mean Corpuscular Hemoglobin Concent 36.9 % Red Cell Distribution Width 13.5 % Platelet Count 139 TH/MM3 Mean Platelet Volume 8.1 FL Neutrophils (%) (Auto) 87.2 % Lymphocytes (%) (Auto) 3.0 % Monocytes (%) (Auto) 9.6 % Eosinophils (%) (Auto) 0.0 % Basophils (%) (Auto) 0.2 % Neutrophils # (Auto) 14.1 TH/MM3 Lymphocytes # (Auto) 0.5 TH/MM3 Monocytes # (Auto) 1.6 TH/MM3 Eosinophils # (Auto) 0.0 TH/MM3 Basophils # (Auto) 0.0 TH/MM3 CBC Comment AUTO DIFF Blood Urea Nitrogen 18 MG/DL Creatinine 2.05 MG/DL Random Glucose 140 MG/DL Total Protein 5.9 GM/DL Albumin 2.3 GM/DL Calcium Level 7.4 MG/DL Phosphorus Level 3.5 MG/DL Magnesium Level 1.7 MG/DL Alkaline Phosphatase 54 U/L Aspartate Amino Transf (AST/SGOT) 571 U/L Alanine Aminotransferase (ALT/SGPT) 85 U/L Total Bilirubin 1.4 MG/DL Sodium Level 129 MEQ/L Potassium Level 4.3 MEQ/L Chloride Level 98 MEQ/L Carbon Dioxide Level 19.8 MEQ/L Anion Gap 11 MEQ/L Estimat Glomerular Filtration Rate 33 ML/MIN Protein Corrected Calcium 8.1 MG/DL Activated Partial Thromboplast Time 56.5 SEC Assessment and Plan Problem List: (1) NSTEMI (non-ST elevated myocardial infarction) ICD Codes: I21.4 - Non-ST elevation (NSTEMI) myocardial infarction Status: Acute Plan: Ongoing hypotension, necessitating pressor support. Suspect hypotension more noncardiac in etiology. EF low normal, ~50%, by echo. Cardiac enzymes consistent with NSTEMI. Creatinine increased this morning. REC continue aspirin, Plavix, heparin drip continue to try weaning ventilatory and pressor support cath once respiratory status stable, infections mostly cleared, and creatinine at baseline check lipid profile Dr. Carr to see PRN over the weekend Code Status full code Dominick Wilson MD December 25, 2017 08:18
[2017-12-25 08:29] LABS: BANDS 5 % (0-6); LYMPHOCYTES 4 % (9-44); MONOCYTES 4 % (0-8); MYELOCYTES 1 % (0-0); NEUTROPHIL # MANUAL DIFF 14.9 TH/MM3 (1.8-7.7); POLYS (SEG NEUTROPHILS) 86 % (16-70)
[2017-12-25 08:32] LABS: SPHEROCYTES OCC (NORMAL)
[2017-12-25] MEDS: MIDAZOLAM 50 MG/50 ML INJ 50 ML IV PRN ×2 (10:02→16:40)
--- NOTE | 2017-12-25 11:51 | EKG ---
Date Performed: 12/24/2017 Time Performed: 05:03:08 PTAGE: 62 years EKG: Sinus tachycardia. Possible inferior infarct - age undetermined Lateral ST-T changes are no nspecific Abnormal ECG NO PREVIOUS TRACING DOCTOR: Chris Haynes Interpretating Date/Time 12/25/2017 11:48:12
--- NOTE | 2017-12-25 11:58 | EKG ---
Date Performed: 12/23/2017 Time Performed: 20:09:25 PTAGE: 62 years EKG: Sinus rhythm NONSPECIFIC ST & T-WAVE ABNORMALITY BORDERLINE ECG PREVIOUS TRACING : 04/17/2017 10.37 DOCTOR: Chris Haynes Interpretating Date/Time 12/25/2017 11:51:34
[2017-12-25] MEDS: VASOPRESSIN INJ 40 UNITS in DEXTROSE 5% IN WATER 100ML INJ 98 ML IV SCH ×2 (15:50)
--- NOTE | 2017-12-25 16:51 | HHI.CCPN ---
Subjective Remarks/Hospital Course Patient is unable to provide history because he is intubated. History was obtained by discussion with his daughter and information relayed by the emergency department physician. 62-year-old male with past medical history of hypertension, hyperlipidemia, peripheral arterial disease, daily alcohol use, tobacco abuse. Patient's daughter states that for the last 1-1/2 weeks he has been complaining of orthopnea and has had difficulty sleeping at night because of this; waking up with severe SOB. She states he is also intermittently complained of non- pleuritic left-sided chest pain which he attributed to the fact that he had fallen on his left side a couple of weeks ago. He has had a lot of coughing but to her knowledge it has been nonproductive. He has had generalized weakness over the last couple of days and this morning he was "out of it". He has not been aware of any fever. He has had contact with his grandson who tested positive for influenza A 3 days ago on 12/21. This evening he was in the bathroom and his daughter heard him groaning and seemed to be in respiratory distress and indicated that she needed to call [facility]. He was initially responsive but upon arrival to the ED he was unresponsive, staring straight ahead, being bagged by EVAC.. He became bradycardic. He underwent RSI with etomidate and succinylcholine and was intubated. During intubation he went into asystole. He was given epinephrine 1 mg and 2 amps of sodium bicarbonate in addition to CPR. His heart rate then came up into the 160s. He was started on dopamine due to hypotension and is currently running at 20 mcg/kg/ min. ABG demonstrated acute hypercapnic and hypoxic respiratory failure with pH 7.15/PCO2 of 62/PaO2 of 58/bicarb 21. Chest x-ray demonstrates bibasilar opacities. White blood cell count is 12. He is hypothermic. He received empiric vancomycin and Zosyn in the emergency department and Lasix 40 mg IV. He was started on propofol and fentanyl drips. Propofol was subsequently discontinued and he was started on a Versed drip and given vecuronium to facilitate vent synchrony and oxygenation.. Initial post intubation chest x-ray demonstrated ET tube and NG tube in high position. These were reportedly advanced but remained in high position.. Patient then had notable cuff leak and sats were in the 70s. He was reintubated by the emergency department physician. I have placed right IJ central venous line. Follow-up chest x-ray demonstrates satisfactory position of endotracheal tube and right IJ. The OG has been removed and will be replaced. Noonan has been placed but he has been anuric for the last 3.5 hours in the ED. SUBJECTIVE: 12/24: Patient reevaluated multiple times as he remains critical on multiple pressors. Currently on Levophed at 12 mcg/min, dopamine at 10 mcg/kg/min and vasopressin at 0.04 units. FiO2 currently at 60% with PEEP of 12 I will attempt weaning PEEP due to persistent hypotension. IV heparin started for troponin elevation to 25.5. Aspirin 81 mg daily started. Cardiology consulted. I will also start Flowtrack monitoring and maintenance IV fluids. Starting to make some urine. 12/25: Afebrile .urine output slightly increased, however creatinine continues to increase. Nephrology consulted, renal ultrasound pending. The patient continues on vasopressor support, 30 at output trending 3.5, cardiac index 1.7. Patient continues to have persistent leukocytosis blood cultures negative growth today ID has been consulted.PEEP continues at 10 okay to maintain O2 saturation of 92% Objective Vital Signs Date Time Temp Pulse Resp B/P (MAP) Pulse Ox O2 Delivery O2 Flow Rate FiO2 12/25/17 16:39 70 89/44 12/25/17 16:00 80 12/25/17 15:00 92 12/25/17 12:00 99.5 16 12/24/17 00:22 Ventilator 12/23/17 19:51 15.00 Intake and Output 12/25/17 12/25/17 12/26/17 08:00 16:00 00:00 Intake Total 3013.8 ml 813 ml 42 ml Output Total 500 ml Balance 2513.8 ml 813 ml 42 ml Result Diagram: 12/25/17 0400 12/25/17 0400 Other Results Microbiology Date/Time Source Procedure Growth Status 12/24/17 04:50 Nasal Aspirate Influenza Types A,B Antigen (VIOLET) - Final NEGATIVE FOR FLU A AND B ANTIGEN.... Complete 12/23/17 23:36 Sputum Endotracheal Gram Stain - Final Complete 12/23/17 23:36 Sputum Endotracheal Sputum Culture - Final HEAVY GROWTH NORMAL RESPIRATORY DUNCAN Complete 12/23/17 20:00 Urine Catheterized Urine Legionella Antigen - Final PRESUMPTIVE NEGATIVE FOR LEGIONELLA P... Complete 12/23/17 20:00 Urine Catheterized Urine Streptococcus pneumoniae Antigen (M - Final PRESUMPTIVE NEGATIVE FOR STREPTOCOCCU... Complete Objective Remarks GENERAL: Ill appearing male who is orotracheally intubated critically ill on 3 pressors SKIN: Peripherally cool, diaphoretic. HEAD: Atraumatic. Normocephalic. EYES: Pupils are round, 5 mm ENT: No nasal bleeding or discharge. orotracheally intubated NECK: Trachea midline. No JVD. CARDIOVASCULAR: Tachycardic, regular, sinus tachycardia with rate in the 110s in the ED. 3 out of 6 systolic murmur left apex. Currently on Levophed, dopamine and vasopressin RESPIRATORY: Orotracheally intubated, coarse breath sounds bilaterally, diminished bibasilar, rales left base. No wheeze per GASTROINTESTINAL: Abdomen soft, non-tender, nondistended. Bowel sounds hypoactive. : Noonan in place with minimal light padmaja in the tubing only. MUSCULOSKELETAL: Extremities without clubbing, cyanosis. NEUROLOGICAL: Pupil still appear dilated but are sluggishly reactive and he has +corneal reflexes, + cough, + gag, He requires ongoing sedation due to hypoxemia and vent dyssynchrony. On sedation hold patient does open eyes moves all extremities do not follow commands A/P Problem List: (1) Asystole ICD Code: I46.9 - Cardiac arrest, cause unspecified Status: Acute (2) NSTEMI (non-ST elevated myocardial infarction) ICD Code: I21.4 - Non-ST elevation (NSTEMI) myocardial infarction Status: Acute (3) Respiratory failure with hypoxia and hypercapnia ICD Code: J96.91 - Respiratory failure, unspecified with hypoxia; J96.92 - Respiratory failure, unspecified with hypercapnia Status: Acute (4) Pleural effusion ICD Code: J90 - Pleural effusion, not elsewhere classified Status: Acute (5) Tobacco abuse ICD Code: Z72.0 - Tobacco use Status: Chronic (6) ETOH abuse ICD Code: F10.10 - Alcohol abuse, uncomplicated Status: Chronic (7) Pulmonary edema ICD Code: J81.1 - Chronic pulmonary edema Status: Acute (8) Shock ICD Code: R57.9 - Shock, unspecified Status: Acute (9) Macrocytic anemia ICD Code: D53.9 - Nutritional anemia, unspecified (10) Hypocalcemia ICD Code: E83.51 - Hypocalcemia (11) Lactic acid acidosis ICD Code: E87.2 - Acidosis Assessment and Plan NEURO: Acute encephalopathy On sedation hold patient moves all extremities opens eyes did not follow commands Deemed not a candidate for induced therapeutic hypothermia due to neuro improvement, and severe hemodynamic instability EtOH abuse Fentanyl and Versed for sedation, wean as tolerated Monitor for evidence of EtOH withdrawal Thiamine/folic acid/mvi supplementation Seizure precautions RESP: Acute hypoxemic and hypercapnic respiratory failure Bilateral pleural effusion s/p R pigtail chest tube. Pulmonary edema COPD Tobacco abuse Changed to Pressure control ventilation with PEEP 12 to facilitate recruitment in setting of profound hypoxemia, weaned PEEP to 10 on 12/25 CXR with what appears to be pulmonary edema, cardiogenic vs noncardiogenic. Broad spectrum antibiotics and tamiflu as per below given known exposure to Influenza A. 8 [place] chest tube placed in R pleural space with 1300 straw colored pleural fluid return with pleural fluid studies and cultures sent. Oxygenation improved from admission now at 75% PEEP of 12 wean PEEP to 10. Duoneb q4 hours. Albuterol q2 hours prn wheezing. Ventilator bundle CV: NSTEMI Asystolic cardiac arrest Cardiogenic shock Essential HTN at baseline Peripheral arterial disease Hyperlipidemia Asystolic cardiac arrest could be secondary to respiratory acidosis, versus non- ST elevation MA Limited bedside Echo performed by Dr. Drummond on dopamine 20 mcg/kg/min demonstrates decompressed RV. The LVEF grossly appears ~45%-50% with decreased contractility of apex Received 3 L NS bolus in the ED and then Lasix but remained anuric with poor peripheral perfusion. CVP is 8 with PEEP of 12 and collapsed RV so appears patient needs volume resuscitation. Given additional 1 L NS bolus and then will remain on MIVF at 50/hr. Follow lactic acid for clearance. On dopamine 10 mcg/kg/min, Levophed 12 mcg/min, vasopressin 0.04 international units to maintain MAP >65. Stress dose hydrocortisone EKG sinus rhythm 95, hyperacute T waves in V3 and V4 with ST dep V4-V5. Followup EKG did not show any ST elevations. Troponin 0.09, followed serial troponins, elevated to 25.5 ASA 81 mg daily, continue plavix 75 daily. Heparin drip started after r chest tube inserted. Cardiology consulted. Echo 03/26/17 - EF 50-55%, mild LVH, finding c/w hypertrophic cardiomyopathy. Stress 02/01/16 suspected mild inferior lateral ischemia. Cardiac catheterization 02/01/16 - normal coronaries. Prior cath by Dr Coronel, daughter states he is not followed by vascular nurse outpatient Hemodynamically significant PE appears unlikely and risk of IV contrast is significant at this time in the setting of anuria. GI: NPO OGT continue LIWS Start tube feeds once hemodynamically more stable, and less vasopressor support FEN/RENAL: NICKO Oliguric upon arrival. Noonan in place, monitor I/O and electrolytes. Now lactic acid cleared and he is making some urine. Hypocalcemia Received calcium chloride 1 gram IV. Follow serial labs ID: Possible Viral vs Atypical pneumonia Known exposure to close household contact with confirmed Influenza A. Influenza screen negative but continue Tamiflu 75 po bid now (adjust if needed based on followup renal function) Cover for superimposed bacterial pneumonia with Zosyn, vancomycin and Levaquin. F/U blood culture, sputum culture, urine Legionella antigen, urine pneumococcal antigen. Consult ID-appreciate recommendations HEME: Chronic macrocytic anemia likely secondary to EtOH abuse. Vitamin supplementation as per above. Monitor CBC ENDO: Acute stress hyperglycemia Monitor bedside glucose every 6 hours. Administer low-dose insulin sliding scale as indicated. Hydrocortisone 50 mg IV every 6 hours as per above. PROPH: Heparin drip will provide DVT prophylaxis. Famotidine 10 mg IV q12 hours for stress ulcer prophylaxis. ACCESS: RIJ CVL placed 12/23 #3. Left radial art line placed 12/24 #2 Patient is critically ill with profound hypoxemia and shock requiring resuscitation, vasopressor management and titration, ventilator management`. He is critically ill and at high risk for further decompensation or . my billing statement This patient remains critically ill with one or more organ systems which are or may become a threat to life. I have spent in excess of 31 minutes discontinuously in the care and management of this patient. This time is exclusive of procedures, and includes, but is not limited to, evaluation of the patient, review of the medical record, discussions with family, consultants, nursing staff, or respiratory therapy, and documentation in the medical record. Physician Elisabeth Felton MD December 25, 2017 16:51
--- NOTE | 2017-12-25 18:13 | RADRPT ---
EXAM DATE/TIME: 12/25/2017 17:32 [facility] COMPARISON: CT THORAX W/O CONTRAST, December 24, 2017, 0:39. INDICATIONS : Increased BUN/Creatnine. MEDICAL HISTORY : Hypertension. Hypercholesterolemia. Claudication. Hyperlipidemia. Deep vein thrombosis. SURGICAL HISTORY : Appendectomy. Hemmoroidectomy. ENCOUNTER: Initial ACUITY: 1 day PAIN SCORE: Nonresponsive. LOCATION: Bilateral flank MEASUREMENTS: RIGHT KIDNEY: 9.4 x 4.9 x 4.3 cm LEFT KIDNEY: 10.3 x 4.6 x 5.5 cm FINDINGS: RIGHT KIDNEY: Renal cortex is normal in thickness and echotexture. No hydronephrosis, stone, or mass. LEFT KIDNEY: Renal cortex is normal in thickness and echotexture. No hydronephrosis, stone, or mass. BLADDER: The bladder is decompressed by a Noonan catheter. CONCLUSION: Negative renal ultrasound examination. Boni Obregon MD on December 25, 2017 at 18:10 Board Certified Radiologist. This report was verified electronically.
[2017-12-25] MEDS: HEPARIN-D5W 25,000 U/250 ML 250 ML IV PRN (18:27)
[2017-12-26] VITALS (21 sets, daily range): BP systolic 87–124; BP diastolic 48–79; PULSE 69–98; RESP 16; TEMP 98.1; O2SAT 93–100
[2017-12-26] MEDS: RESP: ALBUTEROL 2.5 MG/IPRATROPIUM 0.5 MG NEB (SCH) NEB ×7 (00:13→23:42)
[2017-12-26] MEDS: PIPERACIL-TAZO 4.5 GM PREMIX 100 ML IV SCH ×3 (01:10→13:48)
[2017-12-26] MEDS: VASOPRESSIN INJ 40 UNITS in DEXTROSE 5% IN WATER 100ML INJ 98 ML IV SCH ×4 (01:29→10:59)
[2017-12-26] MEDS: fentaNYL DRIP 250 ML IV PRN ×2 (01:29→12:01)
[2017-12-26 03:14] LABS: AUTOMATED NEUTROPHIL # 12.7 TH/MM3 (1.8-7.7); BASOPHIL # 0.1 TH/MM3 (0-0.2); BASOPHIL % 0.5 % (0.0-2.0); HEMATOCRIT 30.8 % (39.0-51.0); HEMOGLOBIN 11.2 GM/DL (13.0-17.0); LYMPHOCYTE # 0.4 TH/MM3 (1.0-4.8); MEAN CELL VOLUME 103.3 FL (80.0-100.0); MEAN CORPUSCULAR HEMOGLOBIN 37.5 PG (27.0-34.0); MEAN PLATELET VOLUME 8.1 FL (7.0-11.0); MONO % 9.5 % (0.0-8.0); MONOCYTE # 1.4 TH/MM3 (0-0.9); PLATELET COUNT 115 TH/MM3 (150-450); RED BLOOD COUNT 2.98 MIL/MM3 (4.50-5.90); RED CELL DISTRIBUTION WIDTH 13.3 % (11.6-17.2); WHITE BLOOD COUNT 14.6 TH/MM3 (4.0-11.0)
--- NOTE | 2017-12-26 03:21 | RADRPT ---
EXAM DATE/TIME: 12/26/2017 02:56 [facility] COMPARISON: CHEST SINGLE AP, December 24, 2017, 4:51. INDICATIONS : Shortness of breath, possible pulmonary disease. MEDICAL HISTORY : Hypertension. Hypercholesterolemia. Hyperlipidemia DVT SURGICAL HISTORY : Hemorrhoidectomy. Appendectomy. ENCOUNTER: Subsequent ACUITY: 4 - 6 days PAIN SCORE: Non-responsive. LOCATION: Bilateral chest FINDINGS: Endotracheal tube in good position. NG enters stomach. Right central line in superior vena cava. Smal l caliber right chest tube without pneumothorax. Bilateral mostly basilar airspace disease, left grea ter than right. CONCLUSION: 1. Left basilar airspace disease slightly increased from December 24. Small caliber right chest tube witho ut pneumothorax. Endotracheal tube and nasogastric tube and right central line in good position. Rian Mccarty MD on December 26, 2017 at 3:18 Board Certified Radiologist. This report was verified electronically.
[2017-12-26 03:25] LABS: MEAN CORPUSCULAR HGB CONC 36.3 % (32.0-36.0)
[2017-12-26 03:57] LABS: ALBUMIN 2.1 GM/DL (3.4-5.0); BICARBONATE 17.6 MEQ/L (21.0-32.0); CALCIUM 7.2 MG/DL (8.5-10.1); CALCIUM-PROTEIN CORRECTED 7.9 MG/DL (8.5-10.1); CHOLESTEROL/ HDL RATIO 2.99 RATIO; CREATININE 2.64 MG/DL (0.60-1.30); HDL CHOLESTEROL 29.4 MG/DL (40.0-60.0); MAGNESIUM 1.6 MG/DL (1.5-2.5); PHOSPHORUS 3.5 MG/DL (2.5-4.9); RANDOM VANCOMYCIN 34.6 COMMENT; TOTAL BILIRUBIN ADULT 1.2 MG/DL (0.2-1.0); TOTAL PROTEIN 5.8 GM/DL (6.4-8.2)
[2017-12-26] MEDS: CHLORHEXIDINE GLUCONATE 2 % 1 PACK (2 CLOTHS) TOP SCH (04:00)
[2017-12-26] MEDS: MIDAZOLAM 50 MG/50 ML INJ 50 ML IV PRN ×2 (04:09→19:07)
[2017-12-26] MEDS: INSULIN ASPART SUPPLEMENTAL SCALE SQ SCH ×3 (05:47→18:00)
[2017-12-26] MEDS: HYDROCORTISONE SOD SUCCINATE 100 MG VIAL IV PUSH SCH ×4 (05:50→23:59)
[2017-12-26] MEDS: THIAMINE INJ 100 MG in SODIUM CHLORIDE 0.9% INJ 100 ML IV SCH (08:26)
[2017-12-26] MEDS: MULTIVITAMIN TAB OG-TUBE SCH (08:26)
[2017-12-26] MEDS: OSELTAMIVIR PHOSPHATE 30 MG/5 ML ORAL SYRINGE OG-TUBE SCH ×2 (08:26→21:29)
[2017-12-26] MEDS: DOCUSATE SODIUM 50 MG/SENNA 8.6 MG TAB PO SCH ×2 (08:26→21:26)
[2017-12-26] MEDS: ASPIRIN 81 MG CHEW TAB CHEW SCH (08:26)
[2017-12-26] MEDS: CLOPIDOGREL 75 MG TAB PO SCH (08:26)
[2017-12-26] MEDS: FOLIC ACID 1 MG TAB OG-TUBE SCH (08:27)
[2017-12-26] MEDS: SODIUM CHLORIDE 0.9% FLUSH 10 ML FLUSH IV FLUSH SCH ×2 (08:27→21:30)
[2017-12-26] MEDS: CHLORHEXIDINE 0.12% (ORAL KIT) 15 ML CUP MT SCH ×2 (08:28→21:29)
[2017-12-26] MEDS: FAMOTIDINE 20 MG/2 ML VIAL IV PUSH SCH (08:30)
--- NOTE | 2017-12-26 12:24 | MB ---
cc: Faustino Pete MD DATE: 12/26/2017 REASON FOR CONSULTATION: Acute renal failure management. HISTORY OF PRESENT ILLNESS: This is a 62-year-old male with a history of hypertension, dyslipidemia, peripheral arterial disease and heavy alcohol use. The patient apparently presented after he had left-sided chest pains and confusion. He was apparently found to be in respiratory distress with EVAC. He came to the hospital here and was intubated and developed an asystole cardiac event. He was resuscitated and the patient remains intubated at this time on multiple pressors. He is being followed with critical care. The patient overnight has had ongoing pressor support with some ongoing urine output with 600 mL of urine output in the last 24 hours. Regarding his renal function, his creatinine was 0.8 on admission and over the last 2 days, the creatinine was elevated from 2.0 to 2.6 now. At this time, the patient remains intubated on multiple pressors in the ICU. He is being treated for possible infection with Zosyn as well as vancomycin with a white count of 14.6. Nephrology was consulted for further evaluation of renal failure. REVIEW OF SYSTEMS: Unobtainable, as the patient is intubated and sedated. PAST MEDICAL HISTORY: Includes hypertension, dyslipidemia, PAD, alcohol abuse, tobacco use, and hemorrhoids. ALLERGIES: INCLUDE CEFACLOR ALLERGY. PAST SURGICAL HISTORY: Includes hemorrhoidectomy, appendectomy, aortogram and bilateral lower extremity angiogram with left SFA arthrectomy and left SFA angioplasty and stent. MEDICATIONS AT HOME: 1. Included Plavix. 2. Simvastatin. 3. Coreg. 4. Aspirin 5. Thiamine. FAMILY HISTORY: No family history of PE or DVT. Father at age 66 with a CVA. SOCIAL HISTORY: The patient apparently drinks 6-8 beers daily, smokes 2 packs of cigarettes per day. No IV use of drugs. The patient lived at home prior to admission. PHYSICAL EXAMINATION: GENERAL: At the time of evaluation, the patient is intubated. NECK: Soft, supple. CARDIAC: Regular rate and rhythm. PULMONARY: Lungs with decreased breath sounds at bases. Coarse rhonchi. ABDOMEN: Soft, nontender, and nondistended. EXTREMITIES: No edema. Cool extremities peripherally. LABORATORY FINDINGS: White count 14.6, hemoglobin 11.2, hematocrit 30.8 with a platelet count of 115. Sodium 129, potassium 3.6, chloride 97, bicarbonate 17.6, BUN 27, creatinine 2.6, glucose of 134. Urinalysis with 30 protein, moderate occult blood, trace leukocyte esterase, 2 hyaline cast. No urinary eosinophils noted. ASSESSMENT AND PLAN: 1. Acute kidney injury. The patient had a creatinine of 0.8 at time of admission. This is risen to a level of 2.6 now. He has made 600 mL of urine output over the last 24 hours. At this point, the patient has apparent acute kidney injury with possible acute tubular necrosis secondary to cardiac arrest and asystole. He continues on pressor support at this time. I recommend to wean pressors as tolerated. Continue with aggressive medical management. No indication for any hemodialysis at this point as it is encouraging that he is making some urine output. Continue to closely monitor. We will check fractional excretion of sodium to assess for any acute tubular necrosis versus prerenal component. At this time, continue with supportive care. Closely monitor. The patient is on maintenance fluids at 50 mL per hour otherwise. 2. Acidosis. The patient with bicarbonate level of 17. The patient is currently on normal saline at 50 mL per hour. We will change this to sodium bicarbonate drip at 50 mL per hour. Continue to closely monitor volume status at this point. 3. Hyponatremia. The patient has serum sodium level of 129. This is slightly decreased from normal secondary to volume overload in the setting of sepsis and cardiac resuscitation. Continue to closely monitor at this time. 4. History of heavy alcohol abuse. Continue to closely monitor. The patient is on sedation. Monitor for any withdrawals. 5. Respiratory failure. The patient remains intubated at this point. Follow with critical care team. No need for any diuretics at this point; however, may consider future diuresis as the patient further stabilizes as needed. 6. Hypocalcemia. This was corrected and given IV calcium. Continue to closely monitor. 7. Cardiac arrest and non-ST elevation myocardial infarction. The patient is being followed up with cardiology. Consideration is for cardiac catheterization when stable. Of note, avoid any contrast for now as possible in setting of NICKO. MD PAULINE ParnellP/JERSEY , 11:37 AM , 12:23 PM RADHA
[2017-12-26] MEDS: SODIUM BICARBONATE 8.4% INJ 150 MEQ in DEXTROSE 5% IN WATE 1000ML INJ 1,000 ML IV SCH ×2 (13:48)
--- NOTE | 2017-12-26 13:57 | HHI.CCPN ---
Subjective Remarks/Hospital Course Patient is unable to provide history because he is intubated. History was obtained by discussion with his daughter and information relayed by the emergency department physician. 62-year-old male with past medical history of hypertension, hyperlipidemia, peripheral arterial disease, daily alcohol use, tobacco abuse. Patient's daughter states that for the last 1-1/2 weeks he has been complaining of orthopnea and has had difficulty sleeping at night because of this; waking up with severe SOB. She states he is also intermittently complained of non- pleuritic left-sided chest pain which he attributed to the fact that he had fallen on his left side a couple of weeks ago. He has had a lot of coughing but to her knowledge it has been nonproductive. He has had generalized weakness over the last couple of days and this morning he was "out of it". He has not been aware of any fever. He has had contact with his grandson who tested positive for influenza A 3 days ago on 12/21. This evening he was in the bathroom and his daughter heard him groaning and seemed to be in respiratory distress and indicated that she needed to call EVAC. He was initially responsive but upon arrival to the ED he was unresponsive, staring straight ahead, being bagged by EVAC.. He became bradycardic. He underwent RSI with etomidate and succinylcholine and was intubated. During intubation he went into asystole. He was given epinephrine 1 mg and 2 amps of sodium bicarbonate in addition to CPR. His heart rate then came up into the 160s. He was started on dopamine due to hypotension and is currently running at 20 mcg/kg/ min. ABG demonstrated acute hypercapnic and hypoxic respiratory failure with pH 7.15/PCO2 of 62/PaO2 of 58/bicarb 21. Chest x-ray demonstrates bibasilar opacities. White blood cell count is 12. He is hypothermic. He received empiric vancomycin and Zosyn in the emergency department and Lasix 40 mg IV. He was started on propofol and fentanyl drips. Propofol was subsequently discontinued and he was started on a Versed drip and given vecuronium to facilitate vent synchrony and oxygenation.. Initial post intubation chest x-ray demonstrated ET tube and NG tube in high position. These were reportedly advanced but remained in high position.. Patient then had notable cuff leak and sats were in the 70s. He was reintubated by the emergency department physician. I have placed right IJ central venous line. Follow-up chest x-ray demonstrates satisfactory position of endotracheal tube and right IJ. The OG has been removed and will be replaced. Noonan has been placed but he has been anuric for the last 3.5 hours in the ED. SUBJECTIVE: 12/24: Patient reevaluated multiple times as he remains critical on multiple pressors. Currently on Levophed at 12 mcg/min, dopamine at 10 mcg/kg/min and vasopressin at 0.04 units. FiO2 currently at 60% with PEEP of 12 I will attempt weaning PEEP due to persistent hypotension. IV heparin started for troponin elevation to 25.5. Aspirin 81 mg daily started. Cardiology consulted. I will also start Flowtrack monitoring and maintenance IV fluids. Starting to make some urine. 12/25: Afebrile urine output slightly increased, however creatinine continues to increase. Nephrology consulted, renal ultrasound pending. The patient continues on vasopressor support, 30 at output trending 3.5, cardiac index 1.7. Patient continues to have persistent leukocytosis blood cultures negative growth today ID has been consulted.PEEP continues at 10 okay to maintain O2 saturation of 92% 12/26: The patient has been weaned off levo fed currently remains on dopamine and vasopressin. Nephrology following no plans for dialysis at this time. WBC downtrending Objective Vital Signs Date Time Temp Pulse Resp B/P (MAP) Pulse Ox O2 Delivery O2 Flow Rate FiO2 12/26/17 12:17 100 55 12/26/17 10:59 84 97/60 12/26/17 04:00 97.5 16 12/24/17 00:22 Ventilator 12/23/17 19:51 15.00 Intake and Output 12/26/17 12/26/17 12/27/17 08:00 16:00 00:00 Intake Total 550 ml 299 ml Output Total 610 ml Balance -60 ml 299 ml Result Diagram: 12/26/17 0300 12/26/17 0300 Other Results Microbiology Date/Time Source Procedure Growth Status 12/24/17 04:50 Nasal Aspirate Influenza Types A,B Antigen (VIOLET) - Final NEGATIVE FOR FLU A AND B ANTIGEN.... Complete 12/23/17 23:36 Sputum Endotracheal Gram Stain - Final Complete 12/23/17 23:36 Sputum Endotracheal Sputum Culture - Final HEAVY GROWTH NORMAL RESPIRATORY DUNCAN Complete 12/23/17 20:00 Urine Catheterized Urine Legionella Antigen - Final PRESUMPTIVE NEGATIVE FOR LEGIONELLA P... Complete 12/23/17 20:00 Urine Catheterized Urine Streptococcus pneumoniae Antigen (M - Final PRESUMPTIVE NEGATIVE FOR STREPTOCOCCU... Complete Imaging Last Impressions Chest X-Ray 12/26/17 0600 Signed Impressions: Service Date/Time: Tuesday, December 26, 2017 02:56 - CONCLUSION: 1. Left basilar airspace disease slightly increased from December 24. Small caliber right chest tube without pneumothorax. Endotracheal tube and nasogastric tube and right central line in good position. Rian Mccarty MD Renal Ultrasound 12/25/17 0000 Signed Impressions: Service Date/Time: Monday, December 25, 2017 17:32 - CONCLUSION: Negative renal ultrasound examination. Boni Obregon MD Head CT 12/23/17 0000 Signed Impressions: Service Date/Time: December 00:39 - CONCLUSION: No acute disease. Raji Matos Jr., MD Chest CT 12/23/17 0000 Signed Impressions: Service Date/Time: December 00:39 - CONCLUSION: 1. Moderate-sized bilateral pleural effusions. 2. Diffuse bilateral pulmonary infiltrates. This may relate to pulmonary edema. 3. Coronary artery atherosclerotic calcifications. Raji Matos Jr., MD Objective Remarks GENERAL: Ill appearing male who is orotracheally intubated critically ill on 2 vasopressors SKIN: Peripherally cool, diaphoretic. HEAD: Atraumatic. Normocephalic. EYES: Pupils are round, 5 mm ENT: No nasal bleeding or discharge. orotracheally intubated NECK: Trachea midline. No JVD. CARDIOVASCULAR: Tachycardic, regular, sinus tachycardia with rate in the 110s in the ED. 3 out of 6 systolic murmur left apex. Currently on Levophed, dopamine and vasopressin RESPIRATORY: Orotracheally intubated, coarse breath sounds bilaterally, diminished bibasilar, rales left base. No wheeze per GASTROINTESTINAL: Abdomen soft, non-tender, nondistended. Bowel sounds hypoactive. : Noonan in place with minimal light padmaja in the tubing only. MUSCULOSKELETAL: Extremities without clubbing, cyanosis. NEUROLOGICAL: Pupil still appear dilated but are sluggishly reactive and he has +corneal reflexes, + cough, + gag, He requires ongoing sedation due to hypoxemia and vent dyssynchrony. On sedation hold patient does open eyes moves all extremities does not follow commands A/P Problem List: (1) Asystole ICD Code: I46.9 - Cardiac arrest, cause unspecified Status: Acute (2) NSTEMI (non-ST elevated myocardial infarction) ICD Code: I21.4 - Non-ST elevation (NSTEMI) myocardial infarction Status: Acute (3) Respiratory failure with hypoxia and hypercapnia ICD Code: J96.91 - Respiratory failure, unspecified with hypoxia; J96.92 - Respiratory failure, unspecified with hypercapnia Status: Acute (4) Pleural effusion ICD Code: J90 - Pleural effusion, not elsewhere classified Status: Acute (5) Tobacco abuse ICD Code: Z72.0 - Tobacco use Status: Chronic (6) ETOH abuse ICD Code: F10.10 - Alcohol abuse, uncomplicated Status: Chronic (7) Pulmonary edema ICD Code: J81.1 - Chronic pulmonary edema Status: Acute (8) Shock ICD Code: R57.9 - Shock, unspecified Status: Acute (9) Macrocytic anemia ICD Code: D53.9 - Nutritional anemia, unspecified (10) Hypocalcemia ICD Code: E83.51 - Hypocalcemia (11) Lactic acid acidosis ICD Code: E87.2 - Acidosis Assessment and Plan NEURO: Acute encephalopathy On sedation hold patient moves all extremities opens eyes did not follow commands Deemed not a candidate for induced therapeutic hypothermia due to neuro improvement, and severe hemodynamic instability EtOH abuse Fentanyl and Versed for sedation, wean as tolerated Monitor for evidence of EtOH withdrawal Thiamine/folic acid/mvi supplementation Seizure precautions RESP: Acute hypoxemic and hypercapnic respiratory failure Bilateral pleural effusion s/p R pigtail chest tube. Pulmonary edema COPD Tobacco abuse Changed to Pressure control ventilation with PEEP 12 to facilitate recruitment in setting of profound hypoxemia, weaned PEEP to 10 on 12/25 CXR with what appears to be pulmonary edema, cardiogenic vs noncardiogenic. Broad spectrum antibiotics and tamiflu as per below given known exposure to Influenza A. 8 Estonian chest tube placed in R pleural space Oxygenation improved from admission now at 75% PEEP of 12 wean PEEP to 10. Duoneb q4 hours. Albuterol q2 hours prn wheezing. Ventilator bundle CV: NSTEMI Asystolic cardiac arrest Cardiogenic shock Essential HTN at baseline Peripheral arterial disease Hyperlipidemia Asystolic cardiac arrest could be secondary to respiratory acidosis, versus non- ST elevation VT Limited bedside Echo performed by Dr. Drummond on dopamine 20 mcg/kg/min demonstrates decompressed RV. The LVEF grossly appears ~45%-50% with decreased contractility of apex Received 3 L NS bolus in the ED and then Lasix but remained anuric with poor peripheral perfusion. CVP is 8 with PEEP of 12 and collapsed RV so appears patient needs volume resuscitation. Given additional 1 L NS bolus and then will remain on MIVF at 50/hr. Follow lactic acid for clearance. On dopamine 10 mcg/kg/min, Levophed 12 mcg/min, vasopressin 0.04 international units to maintain MAP >65. Stress dose hydrocortisone EKG sinus rhythm 95, hyperacute T waves in V3 and V4 with ST dep V4-V5. Followup EKG did not show any ST elevations. Troponin 0.09, followed serial troponins, elevated to 25.5 ASA 81 mg daily, continue plavix 75 daily. Heparin drip started after r chest tube inserted. Cardiology consulted. Echo 03/26/17 - EF 50-55%, mild LVH, finding c/w hypertrophic cardiomyopathy. Stress 02/01/16 suspected mild inferior lateral ischemia. Cardiac catheterization 02/01/16 - normal coronaries. Prior cath by Dr Coronel, daughter states he is not followed by veterinary medical officer outpatient Hemodynamically significant PE appears unlikely and risk of IV contrast is significant at this time in the setting of anuria. GI: NPO OGT continue LIWS Dietary consult to initiate tube feeds FEN/RENAL: NICKO Oliguric upon arrival. Noonan in place, monitor I/O and electrolytes. Now lactic acid cleared and he is making some urine. Hypocalcemia Received calcium chloride 1 gram IV. Follow serial labs ID: Possible Viral vs Atypical pneumonia Known exposure to close household contact with confirmed Influenza A. Influenza screen negative but continue Tamiflu 75 po bid now (adjust if needed based on followup renal function) Cover for superimposed bacterial pneumonia with Zosyn, vancomycin and Levaquin. F/U blood culture, sputum culture, urine Legionella antigen, urine pneumococcal antigen. Consult ID-following HEME: Chronic macrocytic anemia likely secondary to EtOH abuse. Vitamin supplementation as per above. Monitor CBC ENDO: Acute stress hyperglycemia Monitor bedside glucose every 6 hours. Administer low-dose insulin sliding scale as indicated. Hydrocortisone 50 mg IV every 6 hours as per above. PROPH: Heparin drip will provide DVT prophylaxis. Famotidine 10 mg IV q12 hours for stress ulcer prophylaxis. ACCESS: RIJ CVL placed 12/23 #4. Left radial art line placed 12/24 #3 Patient is critically ill with profound hypoxemia and shock requiring resuscitation, vasopressor management and titration, ventilator management`. He is critically ill and at high risk for further decompensation or . my billing statement This patient remains critically ill with one or more organ systems which are or may become a threat to life. I have spent in excess of 30 minutes discontinuously in the care and management of this patient. This time is exclusive of procedures, and includes, but is not limited to, evaluation of the patient, review of the medical record, discussions with family, consultants, nursing staff, or respiratory therapy, and documentation in the medical record. Physician Elisabeth Felton MD December 26, 2017 13:57
[2017-12-26] MEDS: DOPamine 800 MG/500 ML INJ 500 ML IV PRN (14:54)
--- NOTE | 2017-12-26 18:03 | RADRPT ---
EXAM DATE/TIME: 12/26/2017 17:45 [facility] COMPARISON: CHEST SINGLE AP, December 26, 2017, 2:56. INDICATIONS : Respiratory distress. MEDICAL HISTORY : Hypertension. Hypercholesterolemia. Hyperlipidemia DVT SURGICAL HISTORY : Appendectomy. ENCOUNTER: Subsequent ACUITY: 1 week PAIN SCORE: Non-responsive. LOCATION: Bilateral chest FINDINGS: A single view of the chest demonstrates cardiomegaly. Bilateral airspace disease greater in the left lung. Cardiomegaly. Endotracheal tube, nasogastric tube and right jugular central line stable positio n. Osseous structures are intact. CONCLUSION: Worsening airspace disease predominantly in the left lung. Dominic Murphy MD on December 26, 2017 at 18:00 Board Certified Radiologist. This report was verified electronically.
[2017-12-26 19:27] LABS: CREATININE, RANDOM URINE 100.8 MG/DL
[2017-12-26] MEDS ORDERED: PIPERACIL-TAZO 3.375 GM PREMIX 50 ML IV SCH (20:00)
--- NOTE | 2017-12-26 20:42 | PD.ID.CON ---
History of Present Illness Service ID Consult Requested By Dr Trejo Reason for Consult leukocytosis Primary Care Physician Sheyla Mayer MD Diagnoses: History of Present Illness Patient is unable to provide history because he is intubated. History was obtained from chart review 62 male with history of hypertension, hyperlipidemia, peripheral arterial disease, daily alcohol use, tobacco abuse. Presented 3 days ago sp cardiac arres For the last 1-1/2 weeks he has been complaining of orthopnea and has had difficulty sleeping at night because of this; waking up with severe SOB, non- pleuritic left-sided chest pain and non productive cough, generalized weakness Sick contact with his grandson who tested positive for influenza A 3 days ago on 12/21. He deterioratea and [facility] was called. Pt was intubated in field . an went into cardiac arest during intubation Successfully rescucitated W/u showed leukocytosis, hypothermia on presentation, later briefly low grade fever Flu negative, so is leg/pneumococcal antigens, sputum with nl resp kristen, BC NGTD S/p CT p[lacement, negative clx Weaned down, but still remains on rpessors Remains on vent On broad spectrum abx Nephrology following no plans for dialysis at this time. WBC downtrending Worsening remal fnx. Review of Systems ROS Limitations: Clinical Condition, Intubated, Altered Mental Status, Unresponsive Past Family Social History Allergies: Coded Allergies: cefaclor (Unverified Allergy, Unknown, Doesn't remember , 04/10/17) Past Medical History Hypertension Hyperlipidemia Peripheral arterial disease Alcohol abuse Tobacco abuse Hemorrhoids Past Surgical History Hemorrhoidectomy Appendectomy Aortogram and bilateral lower extremity angiogram 06/22/17, Left SFA atherectomy, Left SFA angioplasty and stent (Dr. Smith) Active Ordered Medications Medications where reviewed in EMR Antibiotics Include: levaquine zosyn vancomycin - stopped . Level is 34 today tamiflyu Family History No family history of PE/DVT Father of stroke at age 66. Daughter reports no family history of coronary artery disease Social History Drinks 6-8 beers daily since he was a teenager Smokes 2 packs of cigarettes per day since he was a teenager No IV drug use or illicit drug use He is not . His sister and daughter are present in the ED waiting room. He has 1 adult daughter. Reportedly he has no advanced directives Physical Exam Vital Signs Vital Signs Date Time Temp Pulse Resp B/P (MAP) Pulse Ox O2 Delivery O2 Flow Rate FiO2 12/26/17 20:12 95 55 12/26/17 18:12 95 55 12/26/17 18:00 95 117/79 (92) 105/69 (81) 12/26/17 18:00 95 12/26/17 17:41 98 55 12/26/17 16:00 90 12/26/17 16:00 94 12/26/17 16:00 97.3 94 16 124/74 (91) 99 115/72 (86) 12/26/17 14:54 95 110/69 12/26/17 14:00 82 12/26/17 12:17 100 55 12/26/17 12:00 86 12/26/17 12:00 97.7 86 16 87/60 (69) 100 92/62 (72) 12/26/17 12:00 90 12/26/17 10:59 84 97/60 12/26/17 10:00 83 12/26/17 08:47 84 99/63 12/26/17 08:00 90 12/26/17 08:00 85 12/26/17 08:00 98.2 86 16 105/74 (84) 98 91/61 (71) 12/26/17 07:56 99 65 12/26/17 06:00 84 95/58 (70) 110/67 (81) 12/26/17 06:00 82 12/26/17 04:00 97.5 85 16 110/67 (81) 98 97/58 (71) 12/26/17 04:00 90 12/26/17 04:00 84 12/26/17 03:55 99 90 12/26/17 03:26 84 107/59 12/26/17 02:50 95 100 12/26/17 02:00 98 12/26/17 01:53 66 77/41 12/26/17 01:45 71 114/53 12/26/17 00:13 93 60 12/26/17 00:00 70 12/26/17 00:00 98.1 69 16 103/48 (66) 98 89/55 (66) 12/26/17 00:00 80 12/25/17 22:00 70 12/25/17 21:40 67 95/54 12/25/17 20:45 71 108/54 Physical Exam CONSTITUTIONAL/GENERAL: This is an adequately nourished patient, in no apparent distress. TUBES/LINES/DRAINS: SKIN: No jaundice, rashes, or lesions. Skin temperature appropriate. Not diaphoretic. HEAD: Atraumatic. Normocephalic. EYES: Pupils equal and round and reactive. Extraocular motions intact. No scleral icterus. No injection or drainage. Fundi not examined. ENT: Hearing not assessed. Nose without bleeding or purulent drainage. Throat without visible erythema, exudates, masses, or lesions. NECK: Trachea midline. Supple, nontender. No palpable thyroid enlargement or nodularity. CARDIOVASCULAR: Regular rate and rhythm without murmurs, gallops, or rubs. No JVD. Peripheral pulses BUE symmetric. Pedal pulses non palpable, but dopplerable RESPIRATORY/CHEST: Symmetric, unlabored respirations. Clear to auscultation. Breath sounds equal bilaterally. No wheezes, rales, or rhonchi. CT in place R side with serosan drainage GASTROINTESTINAL: Abdomen soft, non-tender, nondistended. No hepato-splenomegaly , or palpable masses. No guarding. Bowel sounds present. GENITOURINARY: Without palpable bladder distension. Noonan catheter in place. MUSCULOSKELETAL: Extremities without clubbing, Feet with prominent cyanosis,cold to touch. Refill delayed but present No edema. No joint tenderness or effusion noted. No calf tenderness. + feet mottling LYMPHATICS: No palpable cervical or supraclavicular adenopathy. NEUROLOGICAL:sedfated. Unreposnsivce PSYCHIATRIC: unable to assess Laboratory Laboratory Tests Test 12/26/17 03:00 12/26/17 16:40 White Blood Count 14.6 Red Blood Count 2.98 Hemoglobin 11.2 Hematocrit 30.8 Mean Corpuscular Volume 103.3 Mean Corpuscular Hemoglobin 37.5 Mean Corpuscular Hemoglobin Concent 36.3 Red Cell Distribution Width 13.3 Platelet Count 115 Mean Platelet Volume 8.1 Neutrophils (%) (Auto) 87.0 Lymphocytes (%) (Auto) 3.0 Monocytes (%) (Auto) 9.5 Eosinophils (%) (Auto) 0.0 Basophils (%) (Auto) 0.5 Neutrophils # (Auto) 12.7 Lymphocytes # (Auto) 0.4 Monocytes # (Auto) 1.4 Eosinophils # (Auto) 0.0 Basophils # (Auto) 0.1 CBC Comment AUTO DIFF Differential Comment AUTO DIFF CONFIRMED Platelet Estimate LOW Platelet Morphology Comment NORMAL Activated Partial Thromboplast Time 48.8 Blood Urea Nitrogen 27 Creatinine 2.64 Random Glucose 134 Total Protein 5.8 Albumin 2.1 Calcium Level 7.2 Phosphorus Level 3.5 Magnesium Level 1.6 Alkaline Phosphatase 44 Aspartate Amino Transf (AST/SGOT) 251 Alanine Aminotransferase (ALT/SGPT) 63 Total Bilirubin 1.2 Sodium Level 129 Potassium Level 3.6 Chloride Level 97 Carbon Dioxide Level 17.6 Anion Gap 14 Estimat Glomerular Filtration Rate 25 Lactic Acid Level 2.7 Protein Corrected Calcium 7.9 Triglycerides Level 72 Cholesterol Level 88 LDL Cholesterol 44 HDL Cholesterol 29.4 Cholesterol/HDL Ratio 2.99 Random Vancomycin Level 34.6 Urine Random Creatinine 100.8 Urine Random Sodium 8 Date/Time Source Procedure Growth Status 12/23/17 22:22 Blood Peripheral Aerobic Blood Culture - Preliminary NO GROWTH IN 3 DAYS Resulted 12/23/17 22:22 Blood Peripheral Anaerobic Blood Culture - Preliminary NO GROWTH IN 3 DAYS Resulted 12/24/17 05:00 Fluid Pleural Fluid Fungal Smear - Final NO FUNGAL ELEMENTS SEEN. Resulted 12/24/17 05:00 Fluid Pleural Fluid Fungal Culture Pending Resulted 12/24/17 04:50 Nasal Aspirate Influenza Types A,B Antigen (VIOLET) - Final NEGATIVE FOR FLU A AND B ANTIGEN.... Complete 12/23/17 20:00 Urine Catheterized Urine Legionella Antigen - Final PRESUMPTIVE NEGATIVE FOR LEGIONELLA P... Complete 12/23/17 20:00 Urine Catheterized Urine Streptococcus pneumoniae Antigen (M - Final PRESUMPTIVE NEGATIVE FOR STREPTOCOCCU... Complete Result Diagram: 12/26/17 0300 12/26/17 0300 Imaging Last Impressions Chest X-Ray 12/26/17 0600 Signed Impressions: Service Date/Time: Tuesday, December 26, 2017 02:56 - CONCLUSION: 1. Left basilar airspace disease slightly increased from December 24. Small caliber right chest tube without pneumothorax. Endotracheal tube and nasogastric tube and right central line in good position. Rian Mccarty MD Renal Ultrasound 12/25/17 0000 Signed Impressions: Service Date/Time: Monday, December 25, 2017 17:32 - CONCLUSION: Negative renal ultrasound examination. Boni Obregon MD Head CT 12/23/17 0000 Signed Impressions: Service Date/Time: December 00:39 - CONCLUSION: No acute disease. Raji Matos Jr., MD Chest CT 12/23/17 0000 Signed Impressions: Service Date/Time: December 00:39 - CONCLUSION: 1. Moderate-sized bilateral pleural effusions. 2. Diffuse bilateral pulmonary infiltrates. This may relate to pulmonary edema. 3. Coronary artery atherosclerotic calcifications. Raji Matos Jr., MD Assessment and Plan Assessment and Plan B/L PNA, clx negative confirmed known flu exposure R pleural effusion sp CT placement Sp cardiac arrest Hemodynaically unstable, on pressors Acute VDRF Leukocytosis: improving - probaly 2/2 PNA ARF -Adjust abx REC's: cont zosyn dc vanco change levaquine to azithro resp panel cont tamifl=u Discussed Condition With Payton Mcclendon MD December 26, 2017 20:42
[2017-12-26] MEDS: FAMOTIDINE 20 MG TAB PO SCH (21:26)
[2017-12-26] MEDS: AZITHROMYCIN INJ 500 MG in SODIUM CHLOR 0.9% 250 ML INJ 250 ML IV SCH (21:57)
[2017-12-26] MEDS: PIPERACIL-TAZO 2.25 GM PREMIX 50 ML IV SCH (21:58)
[2017-12-27] VITALS (23 sets, daily range): BP systolic 91–130; BP diastolic 55–85; PULSE 91–105; RESP 13–18; TEMP 98.4–98.7; O2SAT 92–97
[2017-12-27] MEDS: PIPERACIL-TAZO 2.25 GM PREMIX 50 ML IV SCH ×4 (03:34→21:07)
[2017-12-27] MEDS: CHLORHEXIDINE GLUCONATE 2 % 1 PACK (2 CLOTHS) TOP SCH (03:35)
[2017-12-27] MEDS: RESP: ALBUTEROL 2.5 MG/IPRATROPIUM 0.5 MG NEB (SCH) NEB ×5 (04:00→19:54)
[2017-12-27] MEDS: fentaNYL DRIP 250 ML IV PRN ×2 (04:45→22:18)
[2017-12-27 05:01] LABS: BICARBONATE 19.3 MEQ/L (21.0-32.0); CALCIUM 6.7 MG/DL (8.5-10.1); CREATININE 3.1 MG/DL (0.60-1.30); MAGNESIUM 1.8 MG/DL (1.5-2.5); PHOSPHORUS 6.6 MG/DL (2.5-4.9); RANDOM VANCOMYCIN 23.4 COMMENT; TOTAL PROTEIN 5.9 GM/DL (6.4-8.2)
[2017-12-27] MEDS: HYDROCORTISONE SOD SUCCINATE 100 MG VIAL IV PUSH SCH ×4 (05:04→23:38)
[2017-12-27] MEDS: INSULIN ASPART SUPPLEMENTAL SCALE SQ SCH ×5 (06:00→23:37)
[2017-12-27] MEDS: VASOPRESSIN INJ 40 UNITS in DEXTROSE 5% IN WATER 100ML INJ 98 ML IV SCH ×2 (06:08)
[2017-12-27 06:36] LABS: CALCIUM-PROTEIN CORRECTED 7.3 MG/DL (8.5-10.1)
[2017-12-27 06:37] LABS: AUTOMATED NEUTROPHIL # 14.1 TH/MM3 (1.8-7.7); BASOPHIL % 0.1 % (0.0-2.0); HEMATOCRIT 31.4 % (39.0-51.0); HEMOGLOBIN 11.2 GM/DL (13.0-17.0); LYMPH % 1.9 % (9.0-44.0); LYMPHOCYTE # 0.3 TH/MM3 (1.0-4.8); MEAN CELL VOLUME 104.8 FL (80.0-100.0); MEAN CORPUSCULAR HEMOGLOBIN 37.4 PG (27.0-34.0); MEAN CORPUSCULAR HGB CONC 35.7 % (32.0-36.0); MEAN PLATELET VOLUME 8.2 FL (7.0-11.0); MONOCYTE # 1.3 TH/MM3 (0-0.9); PLATELET COUNT 138 TH/MM3 (150-450); RED BLOOD COUNT 2.99 MIL/MM3 (4.50-5.90); RED CELL DISTRIBUTION WIDTH 13.2 % (11.6-17.2); WHITE BLOOD COUNT 15.7 TH/MM3 (4.0-11.0)
[2017-12-27] MEDS: CHLORHEXIDINE 0.12% (ORAL KIT) 15 ML CUP MT SCH ×2 (08:31→20:41)
[2017-12-27] MEDS: DOCUSATE SODIUM 50 MG/SENNA 8.6 MG TAB PO SCH ×2 (08:31→20:42)
[2017-12-27] MEDS: FAMOTIDINE 20 MG TAB PO SCH ×2 (08:31→20:42)
[2017-12-27] MEDS: MULTIVITAMIN TAB OG-TUBE SCH (08:31)
[2017-12-27] MEDS: CLOPIDOGREL 75 MG TAB PO SCH (08:31)
[2017-12-27] MEDS: SODIUM CHLORIDE 0.9% FLUSH 10 ML FLUSH IV FLUSH SCH ×2 (08:31→21:04)
[2017-12-27] MEDS: ASPIRIN 81 MG CHEW TAB CHEW SCH (08:31)
[2017-12-27] MEDS: THIAMINE INJ 100 MG in SODIUM CHLORIDE 0.9% INJ 100 ML IV SCH (08:31)
[2017-12-27] MEDS: OSELTAMIVIR PHOSPHATE 30 MG/5 ML ORAL SYRINGE OG-TUBE SCH ×2 (08:47→20:42)
[2017-12-27] MEDS: FOLIC ACID 1 MG TAB OG-TUBE SCH (08:47)
[2017-12-27] MEDS: DOPamine 800 MG/500 ML INJ 500 ML IV PRN (09:10)
[2017-12-27] MEDS: HEPARIN-D5W 25,000 U/250 ML 250 ML IV PRN (09:12)
--- NOTE | 2017-12-27 11:34 | HHI.NPPN ---
Subjective Additional Remarks Remains intubated, sedated Objective Data Data Vital Signs Date Time Temp Pulse Resp B/P (MAP) Pulse Ox O2 Delivery O2 Flow Rate FiO2 12/27/17 09:10 100 94/56 12/27/17 07:53 93 65 12/27/17 06:08 103 100/60 12/27/17 06:00 102 12/27/17 06:00 104 117/75 (89) 100/60 (73) 12/27/17 04:09 97 65 12/27/17 04:00 65 12/27/17 04:00 103 12/27/17 04:00 98.5 103 13 117/75 (89) 96 100/62 (75) 12/27/17 02:00 105 12/27/17 00:00 65 12/27/17 00:00 104 12/27/17 00:00 98.4 104 16 130/85 (100) 96 109/70 (83) 12/26/17 23:42 94 65 12/26/17 23:00 111 74/58 12/26/17 22:45 104 67/50 12/26/17 22:30 102 86/65 12/26/17 22:00 92 12/26/17 20:12 95 55 12/26/17 20:00 86 12/26/17 20:00 98.1 86 16 111/56 (74) 95 96/65 (75) 12/26/17 20:00 55 12/26/17 18:12 95 55 12/26/17 18:00 95 117/79 (92) 105/69 (81) 12/26/17 18:00 95 12/26/17 17:41 98 55 12/26/17 16:00 90 12/26/17 16:00 94 12/26/17 16:00 97.3 94 16 124/74 (91) 99 115/72 (86) 12/26/17 14:54 95 110/69 12/26/17 14:00 82 12/26/17 12:17 100 55 12/26/17 12:00 86 12/26/17 12:00 97.7 86 16 87/60 (69) 100 92/62 (72) 12/26/17 12:00 90 -: 12/27/17 0410 12/27/17 0410 Physical Exam General Appearance: No Acute Distress Neck Neck Exam: Neck Supple Pulmonary Resp Exam: Decreased Bases, Diminished Breath Sounds Cardiology CV Exam: Regular Gastrointestinal/Abdomen GI Exam: Soft, Non-Tender Genitourinary Exam: Clear Urine Musculoskeletal MS Exam: Joints Intact Integumentary Skin Exam: Dry, Intact, Cool Neurologic Neuro Exam: Sedated Assessment/Plan Problem List: (1) NICKO (acute kidney injury) ICD Codes: N17.9 - Acute kidney failure, unspecified Plan: Creatinine of 0.8 at time of admission. History of etoh abuse and tobacco use. NICKO with apparent ATN post cardiac arrest and asystole. Continues on pressors. Creatinine 2.6 -3.1 today 500cc UOP/ 24 hours No need for HD at this point, K+ 4.3 However if little improvement in the next 24-48 hours, may require HD. FeNa 0.2% - likely pre-renal appearance due to pressors and vasoconstriction. Continues with IVFs - will increase IVFs to 75cc/hour. Continue to closely monitor UOP and volume status 500cc UOP/24 hours - continue to monitor. (2) NSTEMI (non-ST elevated myocardial infarction) ICD Codes: I21.4 - Non-ST elevation (NSTEMI) myocardial infarction Status: Acute Plan: Cardiac arrest and non-ST elevation myocardial infarction. The patient is being followed up with cardiology. Consideration is for cardiac catheterization when stable. Of note, avoid any contrast for now as possible in setting of NICKO. (3) Respiratory failure with hypoxia and hypercapnia ICD Codes: J96.91 - Respiratory failure, unspecified with hypoxia; J96.92 - Respiratory failure, unspecified with hypercapnia Status: Acute Plan: The patient remains intubated at this point Follow with critical care team. (4) Metabolic acidosis ICD Codes: E87.2 - Acidosis Plan: will continue with HCO3 in IVFs - improving Faustino Pete MD December 27, 2017 11:34
[2017-12-27] MEDS: SODIUM BICARBONATE 8.4% INJ 150 MEQ in DEXTROSE 5% IN WATE 1000ML INJ 1,000 ML IV SCH ×2 (13:16)
[2017-12-27] MEDS: MIDAZOLAM 50 MG/50 ML INJ 50 ML IV PRN (13:21)
--- NOTE | 2017-12-27 14:26 | HHI.IDPN ---
Subjective Subjective Remarks not doing well hypothermic, on bear hugger sedated intubated Antibiotics azithro zosyn vbanco - stoppped Allergies: Coded Allergies: cefaclor (Unverified Allergy, Unknown, Doesn't remember , 04/10/17) Objective . Vital Signs Date Time Temp Pulse Resp B/P (MAP) Pulse Ox O2 Delivery O2 Flow Rate FiO2 12/27/17 12:33 93 60 12/27/17 09:10 100 94/56 12/27/17 07:53 93 65 12/27/17 06:08 103 100/60 12/27/17 06:00 102 12/27/17 06:00 104 117/75 (89) 100/60 (73) 12/27/17 04:09 97 65 12/27/17 04:00 65 12/27/17 04:00 103 12/27/17 04:00 98.5 103 13 117/75 (89) 96 100/62 (75) 12/27/17 02:00 105 12/27/17 00:00 65 12/27/17 00:00 104 12/27/17 00:00 98.4 104 16 130/85 (100) 96 109/70 (83) 12/26/17 23:42 94 65 12/26/17 23:00 111 74/58 12/26/17 22:45 104 67/50 12/26/17 22:30 102 86/65 12/26/17 22:00 92 12/26/17 20:12 95 55 12/26/17 20:00 86 12/26/17 20:00 98.1 86 16 111/56 (74) 95 96/65 (75) 12/26/17 20:00 55 12/26/17 18:12 95 55 12/26/17 18:00 95 117/79 (92) 105/69 (81) 12/26/17 18:00 95 12/26/17 17:41 98 55 12/26/17 16:00 90 12/26/17 16:00 94 12/26/17 16:00 97.3 94 16 124/74 (91) 99 115/72 (86) 12/26/17 14:54 95 110/69 . Laboratory Tests Test 12/26/17 03:00 12/27/17 04:10 White Blood Count 14.6 TH/MM3 15.7 TH/MM3 Red Blood Count 2.98 MIL/MM3 2.99 MIL/MM3 Hemoglobin 11.2 GM/DL 11.2 GM/DL Hematocrit 30.8 % 31.4 % Mean Corpuscular Volume 103.3 FL 104.8 FL Mean Corpuscular Hemoglobin 37.5 PG 37.4 PG Mean Corpuscular Hemoglobin Concent 36.3 % 35.7 % Red Cell Distribution Width 13.3 % 13.2 % Platelet Count 115 TH/MM3 138 TH/MM3 Mean Platelet Volume 8.1 FL 8.2 FL Neutrophils (%) (Auto) 87.0 % 90.0 % Lymphocytes (%) (Auto) 3.0 % 1.9 % Monocytes (%) (Auto) 9.5 % 8.0 % Eosinophils (%) (Auto) 0.0 % 0.0 % Basophils (%) (Auto) 0.5 % 0.1 % Neutrophils # (Auto) 12.7 TH/MM3 14.1 TH/MM3 Lymphocytes # (Auto) 0.4 TH/MM3 0.3 TH/MM3 Monocytes # (Auto) 1.4 TH/MM3 1.3 TH/MM3 Eosinophils # (Auto) 0.0 TH/MM3 0.0 TH/MM3 Basophils # (Auto) 0.1 TH/MM3 0.0 TH/MM3 CBC Comment AUTO DIFF AUTO DIFF Differential Comment AUTO DIFF CONFIRMED AUTO DIFF CONFIRMED Platelet Estimate LOW Platelet Morphology Comment NORMAL Laboratory Tests Test 12/26/17 03:00 12/27/17 04:10 Blood Urea Nitrogen 27 MG/DL 39 MG/DL Creatinine 2.64 MG/DL 3.10 MG/DL Random Glucose 134 MG/DL 133 MG/DL Total Protein 5.8 GM/DL 5.9 GM/DL Albumin 2.1 GM/DL 2.0 GM/DL Calcium Level 7.2 MG/DL 6.7 MG/DL Phosphorus Level 3.5 MG/DL 6.6 MG/DL Magnesium Level 1.6 MG/DL 1.8 MG/DL Alkaline Phosphatase 44 U/L 48 U/L Aspartate Amino Transf (AST/SGOT) 251 U/L 137 U/L Alanine Aminotransferase (ALT/SGPT) 63 U/L 59 U/L Total Bilirubin 1.2 MG/DL 1.0 MG/DL Sodium Level 129 MEQ/L 127 MEQ/L Potassium Level 3.6 MEQ/L 4.3 MEQ/L Chloride Level 97 MEQ/L 92 MEQ/L Carbon Dioxide Level 17.6 MEQ/L 19.3 MEQ/L Anion Gap 14 MEQ/L 16 MEQ/L Estimat Glomerular Filtration Rate 25 ML/MIN 20 ML/MIN Lactic Acid Level 2.7 mmol/L 1.4 mmol/L Protein Corrected Calcium 7.9 MG/DL 7.3 MG/DL Triglycerides Level 72 MG/DL Cholesterol Level 88 MG/DL LDL Cholesterol 44 MG/DL HDL Cholesterol 29.4 MG/DL Cholesterol/HDL Ratio 2.99 RATIO B-Type Natriuretic Peptide 1223 PG/ML Imaging Last Impressions Chest X-Ray 12/26/17 0600 Signed Impressions: Service Date/Time: Tuesday, December 26, 2017 02:56 - CONCLUSION: 1. Left basilar airspace disease slightly increased from December 24. Small caliber right chest tube without pneumothorax. Endotracheal tube and nasogastric tube and right central line in good position. Rian Mccarty MD Renal Ultrasound 12/25/17 0000 Signed Impressions: Service Date/Time: Monday, December 25, 2017 17:32 - CONCLUSION: Negative renal ultrasound examination. Boni Obregon MD Head CT 12/23/17 0000 Signed Impressions: Service Date/Time: December 00:39 - CONCLUSION: No acute disease. Raji Matos Jr., MD Chest CT 12/23/17 0000 Signed Impressions: Service Date/Time: December 00:39 - CONCLUSION: 1. Moderate-sized bilateral pleural effusions. 2. Diffuse bilateral pulmonary infiltrates. This may relate to pulmonary edema. 3. Coronary artery atherosclerotic calcifications. Raji Matos Jr., MD Physical Exam CONSTITUTIONAL/GENERAL: This is an adequately nourished patient, in no apparent distress. TUBES/LINES/DRAINS: SKIN: No jaundice, rashes, or lesions. Skin temperature appropriate. Not diaphoretic. EYES: Pupils equal and round and reactive. Extraocular motions intact. No scleral icterus. No injection or drainage. Fundi not examined. CARDIOVASCULAR: Regular rate and rhythm without murmurs, gallops, or rubs. No JVD. Peripheral pulses BUE symmetric. Pedal pulses non palpable, but dopplerable RESPIRATORY/CHEST: Symmetric, unlabored respirations. Clear to auscultation. Breath sounds equal bilaterally. No wheezes, rales, or rhonchi. CT in place R side with serosan drainage GASTROINTESTINAL: Abdomen soft, non-tender, nondistended. No hepato-splenomegaly , or palpable masses. No guarding. Bowel sounds present. GENITOURINARY: Without palpable bladder distension. Noonan catheter in place. MUSCULOSKELETAL: Extremities without clubbing, Feet with prominent cyanosis,cold to touch. Refill delayed but present No edema. No joint tenderness or effusion noted. No calf tenderness. + feet mottling LYMPHATICS: No palpable cervical or supraclavicular adenopathy. NEUROLOGICAL: Unreposnsivce PSYCHIATRIC: unable to assess Assessment & Plan Remarks B/L PNA, clx negative confirmed known flu exposure, resp panel negative R pleural effusion sp CT placement Sp cardiac arrest Hemodynaically unstable, on pressors Acute VDRF Leukocytosis: improving - probaly 2/2 PNA ARF -Adjust abx REC's: cont zosyn cont azithro rTSH dc tamifl=u after 5 days completed Payton Quintero MD December 27, 2017 14:26
[2017-12-27] MEDS ORDERED: FUROSEMIDE 100 MG/10 ML VIAL IV PUSH ONE (17:45)
[2017-12-27] MEDS: FUROSEMIDE INJ 100 MG in SODIUM CHLORIDE 0.9% INJ 90 ML IV SCH ×2 (18:28→23:29)
--- NOTE | 2017-12-27 18:52 | HHI.CCPN ---
Subjective Remarks/Hospital Course Patient is unable to provide history because he is intubated. History was obtained by discussion with his daughter and information relayed by the emergency department physician. 62-year-old male with past medical history of hypertension, hyperlipidemia, peripheral arterial disease, daily alcohol use, tobacco abuse. Patient's daughter states that for the last 1-1/2 weeks he has been complaining of orthopnea and has had difficulty sleeping at night because of this; waking up with severe SOB. She states he is also intermittently complained of non- pleuritic left-sided chest pain which he attributed to the fact that he had fallen on his left side a couple of weeks ago. He has had a lot of coughing but to her knowledge it has been nonproductive. He has had generalized weakness over the last couple of days and this morning he was "out of it". He has not been aware of any fever. He has had contact with his grandson who tested positive for influenza A 3 days ago on 12/21. This evening he was in the bathroom and his daughter heard him groaning and seemed to be in respiratory distress and indicated that she needed to call [facility]. He was initially responsive but upon arrival to the ED he was unresponsive, staring straight ahead, being bagged by [facility].. He became bradycardic. He underwent RSI with etomidate and succinylcholine and was intubated. During intubation he went into asystole. He was given epinephrine 1 mg and 2 amps of sodium bicarbonate in addition to CPR. His heart rate then came up into the 160s. He was started on dopamine due to hypotension and is currently running at 20 mcg/kg/ min. ABG demonstrated acute hypercapnic and hypoxic respiratory failure with pH 7.15/PCO2 of 62/PaO2 of 58/bicarb 21. Chest x-ray demonstrates bibasilar opacities. White blood cell count is 12. He is hypothermic. He received empiric vancomycin and Zosyn in the emergency department and Lasix 40 mg IV. He was started on propofol and fentanyl drips. Propofol was subsequently discontinued and he was started on a Versed drip and given vecuronium to facilitate vent synchrony and oxygenation.. Initial post intubation chest x-ray demonstrated ET tube and NG tube in high position. These were reportedly advanced but remained in high position.. Patient then had notable cuff leak and sats were in the 70s. He was reintubated by the emergency department physician. I have placed right IJ central venous line. Follow-up chest x-ray demonstrates satisfactory position of endotracheal tube and right IJ. The OG has been removed and will be replaced. Noonan has been placed but he has been anuric for the last 3.5 hours in the ED. SUBJECTIVE: 12/24: Patient reevaluated multiple times as he remains critical on multiple pressors. Currently on Levophed at 12 mcg/min, dopamine at 10 mcg/kg/min and vasopressin at 0.04 units. FiO2 currently at 60% with PEEP of 12 I will attempt weaning PEEP due to persistent hypotension. IV heparin started for troponin elevation to 25.5. Aspirin 81 mg daily started. Cardiology consulted. I will also start Flowtrack monitoring and maintenance IV fluids. Starting to make some urine. 12/25: Afebrile urine output slightly increased, however creatinine continues to increase. Nephrology consulted, renal ultrasound pending. The patient continues on vasopressor support, 30 at output trending 3.5, cardiac index 1.7. Patient continues to have persistent leukocytosis blood cultures negative growth today ID has been consulted.PEEP continues at 10 okay to maintain O2 saturation of 92% 12/26: The patient has been weaned off levo fed currently remains on dopamine and vasopressin. Nephrology following no plans for dialysis at this time. WBC downtrending 12/27: encephalopathy persists. NICKO persists. severely volume overloaded with elevated BNP. on vasopressors. left chest with pleural effusion, largest area ~ 3cm around 6th intercostal space. fio2 remains elevated. Objective Vital Signs Date Time Temp Pulse Resp B/P (MAP) Pulse Ox O2 Delivery O2 Flow Rate FiO2 12/27/17 18:00 96 103/65 (78) 108/62 (77) 12/27/17 16:00 60 12/27/17 16:00 98.1 18 93 12/24/17 00:22 Ventilator 12/23/17 19:51 15.00 Intake and Output 12/27/17 12/27/17 12/28/17 08:00 16:00 00:00 Intake Total 1605 ml 293 ml Output Total 450 ml 850 ml Balance 1155 ml -557 ml Result Diagram: 12/27/17 0410 12/27/17 0410 Imaging Last Impressions Chest X-Ray 12/26/17 0600 Signed Impressions: Service Date/Time: Tuesday, December 26, 2017 02:56 - CONCLUSION: 1. Left basilar airspace disease slightly increased from December 24. Small caliber right chest tube without pneumothorax. Endotracheal tube and nasogastric tube and right central line in good position. Rian Mccarty MD Renal Ultrasound 12/25/17 0000 Signed Impressions: Service Date/Time: Monday, December 25, 2017 17:32 - CONCLUSION: Negative renal ultrasound examination. Boni Obregon MD Head CT 12/23/17 0000 Signed Impressions: Service Date/Time: December 00:39 - CONCLUSION: No acute disease. Raji Matos Jr., MD Chest CT 12/23/17 0000 Signed Impressions: Service Date/Time: December 00:39 - CONCLUSION: 1. Moderate-sized bilateral pleural effusions. 2. Diffuse bilateral pulmonary infiltrates. This may relate to pulmonary edema. 3. Coronary artery atherosclerotic calcifications. Raji Matos Jr., MD Objective Remarks GENERAL: Ill appearing male who is orotracheally intubated critically ill on vasopressors SKIN: Peripherally cool, diaphoretic. HEAD: Atraumatic. Normocephalic. EYES: Pupils are round, 5 mm ENT: No nasal bleeding or discharge. orotracheally intubated NECK: Trachea midline. No JVD. CARDIOVASCULAR: Tachycardic, regular, sinus tachycardia. RESPIRATORY: Orotracheally intubated, coarse breath sounds bilaterally. left chest tube with serous output, to suction. fio2 60% GASTROINTESTINAL: Abdomen soft, non-tender, nondistended. : Noonan in place with minimal light padmaja in the tubing only. MUSCULOSKELETAL: Extremities without clubbing, cyanosis. NEUROLOGICAL: Pupil still appear dilated but are sluggishly reactive and he has +corneal reflexes, + cough, + gag, He requires ongoing sedation due to hypoxemia and vent dyssynchrony. On sedation hold patient does open eyes moves all extremities does not follow commands A/P Problem List: (1) Asystole ICD Code: I46.9 - Cardiac arrest, cause unspecified Status: Acute (2) NSTEMI (non-ST elevated myocardial infarction) ICD Code: I21.4 - Non-ST elevation (NSTEMI) myocardial infarction Status: Acute (3) Respiratory failure with hypoxia and hypercapnia ICD Code: J96.91 - Respiratory failure, unspecified with hypoxia; J96.92 - Respiratory failure, unspecified with hypercapnia Status: Acute (4) Pleural effusion ICD Code: J90 - Pleural effusion, not elsewhere classified Status: Acute (5) Tobacco abuse ICD Code: Z72.0 - Tobacco use Status: Chronic (6) ETOH abuse ICD Code: F10.10 - Alcohol abuse, uncomplicated Status: Chronic (7) Pulmonary edema ICD Code: J81.1 - Chronic pulmonary edema Status: Acute (8) Shock ICD Code: R57.9 - Shock, unspecified Status: Acute (9) Macrocytic anemia ICD Code: D53.9 - Nutritional anemia, unspecified (10) Hypocalcemia ICD Code: E83.51 - Hypocalcemia (11) Lactic acid acidosis ICD Code: E87.2 - Acidosis Assessment and Plan Assessment: 62yM s/p PEA arrest with ongoing encephalopathy, hypoxic respiratory failure, NICKO, and acute CHF (systolic) exacerbation. will likely need pigtail chest tube on left in addition given persistent respiratory failure. also volume overloaded with severely elevated BNP. hold heparin and plan for pigtail tomorrow. start forced diuresis despite NICKO for severe CHF exacerbation. remains critically ill- unlikely to have favorable outcome. family wishes aggressive goals. NEURO: Acute Hypoxic Ischemic Encephalopathy On sedation hold patient moves all extremities opens eyes did not follow commands Deemed not a candidate for induced therapeutic hypothermia due to neuro improvement, and severe hemodynamic instability EtOH abuse Fentanyl and Versed for sedation, wean as tolerated Monitor for evidence of EtOH withdrawal Thiamine/folic acid/mvi supplementation Seizure precautions RESP: Acute hypoxemic and hypercapnic respiratory failure Bilateral pleural effusion s/p R pigtail chest tube. Pulmonary edema COPD Tobacco abuse hold SBTs given persistent hypoxemia. CXR with what appears to be pulmonary edema, cardiogenic. Broad spectrum antibiotics and tamiflu as per below given known exposure to Influenza A: d/c tamiflu given > 5 days of therapy. 8 Amharic chest tube placed in R pleural space Duoneb q4 hours. Albuterol q2 hours prn wheezing. Ventilator bundle CV: NSTEMI Asystolic cardiac arrest Cardiogenic shock Essential HTN at baseline Peripheral arterial disease Hyperlipidemia Asystolic cardiac arrest could be secondary to respiratory acidosis, versus non- ST elevation SD Limited bedside Echo performed by Dr. Drummond on dopamine 20 mcg/kg/min demonstrates decompressed RV. The LVEF grossly appears ~45%-50% with decreased contractility of apex Received 3 L NS bolus in the ED and then Lasix but remained anuric with poor peripheral perfusion. CVP is 8 with PEEP of 12 and collapsed RV so appears patient needs volume resuscitation. Given additional 1 L NS bolus and then will remain on MIVF at 50/hr. Follow lactic acid for clearance. On dopamine 10 mcg/kg/min, Levophed 12 mcg/min, vasopressin 0.04 international units to maintain MAP >65. Stress dose hydrocortisone EKG sinus rhythm 95, hyperacute T waves in V3 and V4 with ST dep V4-V5. Followup EKG did not show any ST elevations. Troponin 0.09, followed serial troponins, elevated to 25.5 ASA 81 mg daily, continue plavix 75 daily. Heparin drip started after r chest tube inserted. Cardiology consulted. Echo 03/26/17 - EF 50-55%, mild LVH, finding c/w hypertrophic cardiomyopathy. Stress 02/01/16 suspected mild inferior lateral ischemia. Cardiac catheterization 02/01/16 - normal coronaries. 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 GI: tube feeds FEN/RENAL: NICKO Oliguric upon arrival. Noonan in place, monitor I/O and electrolytes. Now lactic acid cleared and he is making some urine. NICKO persists. Hypocalcemia Received calcium chloride 1 gram IV. Follow serial labs Severe acute intravascular volume overload Acute CHF Exacerbation, systolic type start lasix drip (100mg bolus, 20mg/hr) serial bmps. ID: Possible Viral vs Atypical pneumonia Known exposure to close household contact with confirmed Influenza A. Influenza screen negative. finished full 5 day course of tamiflu. Cover for superimposed bacterial pneumonia with Zosyn, vancomycin and Levaquin. F/U blood culture, sputum culture, urine Legionella antigen, urine pneumococcal antigen. Consult ID-following HEME: Chronic macrocytic anemia likely secondary to EtOH abuse. Vitamin supplementation as per above. Monitor CBC ENDO: Acute stress hyperglycemia Monitor bedside glucose every 6 hours. Administer low-dose insulin sliding scale as indicated. Hydrocortisone 50 mg IV every 6 hours as per above. PROPH: Heparin drip will provide DVT prophylaxis. Famotidine 10 mg IV q12 hours for stress ulcer prophylaxis. ACCESS: RIJ CVL placed 12/23 #5. Left radial art line placed 12/24 #4 Patient is critically ill with profound hypoxemia and shock requiring resuscitation, vasopressor management and titration, ventilator management`. He is critically ill and at high risk for further decompensation or . my billing statement This patient remains critically ill with one or more organ systems which are or may become a threat to life. I have spent in excess of 39 minutes discontinuously in the care and management of this patient. This time is exclusive of procedures, and includes, but is not limited to, evaluation of the patient, review of the medical record, discussions with family, consultants, nursing staff, or respiratory therapy, and documentation in the medical record. Russ Faust MD December 27, 2017 18:52
[2017-12-27 20:07] LABS: BICARBONATE 21.8 MEQ/L (21.0-32.0); CREATININE 3.68 MG/DL (0.60-1.30); MAGNESIUM 1.9 MG/DL (1.5-2.5)
[2017-12-27 20:25] LABS: CALCIUM-PROTEIN CORRECTED 7.6 MG/DL (8.5-10.1); TOTAL PROTEIN 5.9 GM/DL (6.4-8.2)
[2017-12-27] MEDS: AZITHROMYCIN INJ 500 MG in SODIUM CHLOR 0.9% 250 ML INJ 250 ML IV SCH (21:07)
[2017-12-27] MEDS: MAGNESIUM SULFATE 1 GM PREMIX 100 ML IV SCH ×2 (22:19→23:23)
[2017-12-28] VITALS (21 sets, daily range): BP systolic 87–124; BP diastolic 47–76; PULSE 78–101; RESP 16–25; TEMP 95.9–100.1; O2SAT 90–100
[2017-12-28] MEDS: RESP: ALBUTEROL 2.5 MG/IPRATROPIUM 0.5 MG NEB (SCH) NEB ×7 (00:08→23:49)
[2017-12-28 00:36] LABS: BICARBONATE 21.8 MEQ/L (21.0-32.0); CREATININE 3.68 MG/DL (0.60-1.30); MAGNESIUM 2.7 MG/DL (1.5-2.5)
[2017-12-28] MEDS ORDERED: POTASSIUM CHLORIDE 30 MEQ/NS 100 ML IV-CENTRAL ONE ×4 (01:00→07:00)
[2017-12-28] MEDS ORDERED: LEVOFLOXACIN 750 MG PREMIX INJ 150 ML IV SCH (01:00)
[2017-12-28 01:02] LABS: CALCIUM-PROTEIN CORRECTED 7.8 MG/DL (8.5-10.1); TOTAL PROTEIN 5.6 GM/DL (6.4-8.2)
[2017-12-28] MEDS: VASOPRESSIN INJ 40 UNITS in DEXTROSE 5% IN WATER 100ML INJ 98 ML IV SCH ×4 (01:28→20:39)
[2017-12-28] MEDS: FUROSEMIDE INJ 100 MG in SODIUM CHLORIDE 0.9% INJ 90 ML IV SCH ×4 (03:39→20:40)
[2017-12-28] MEDS: PIPERACIL-TAZO 2.25 GM PREMIX 50 ML IV SCH ×4 (03:41→20:35)
[2017-12-28] MEDS: DOPamine 800 MG/500 ML INJ 500 ML IV PRN ×2 (03:42→22:14)
[2017-12-28] MEDS: CHLORHEXIDINE GLUCONATE 2 % 1 PACK (2 CLOTHS) TOP SCH (04:00)
[2017-12-28] MEDS: HYDROCORTISONE SOD SUCCINATE 100 MG VIAL IV PUSH SCH ×3 (05:36→16:19)
[2017-12-28] MEDS: INSULIN ASPART SUPPLEMENTAL SCALE SQ SCH ×3 (05:46→18:00)
[2017-12-28 06:08] LABS: AUTOMATED NEUTROPHIL # 8.8 TH/MM3 (1.8-7.7); BASOPHIL % 0.2 % (0.0-2.0); HEMATOCRIT 27.9 % (39.0-51.0); HEMOGLOBIN 10.3 GM/DL (13.0-17.0); LYMPH % 2.9 % (9.0-44.0); LYMPHOCYTE # 0.3 TH/MM3 (1.0-4.8); MEAN CELL VOLUME 102.3 FL (80.0-100.0); MEAN CORPUSCULAR HEMOGLOBIN 37.8 PG (27.0-34.0); MONO % 13.6 % (0.0-8.0); MONOCYTE # 1.4 TH/MM3 (0-0.9); NEUT % 83.3 % (16.0-70.0); PLATELET COUNT 116 TH/MM3 (150-450); RED BLOOD COUNT 2.73 MIL/MM3 (4.50-5.90); RED CELL DISTRIBUTION WIDTH 13.3 % (11.6-17.2); WHITE BLOOD COUNT 10.6 TH/MM3 (4.0-11.0)
[2017-12-28 06:10] LABS: MEAN CORPUSCULAR HGB CONC 36.9 % (32.0-36.0)
[2017-12-28 06:36] LABS: BICARBONATE 22.7 MEQ/L (21.0-32.0); CALCIUM 6.9 MG/DL (8.5-10.1); CREATININE 3.75 MG/DL (0.60-1.30); MAGNESIUM 2.5 MG/DL (1.5-2.5)
[2017-12-28 06:50] LABS: CALCIUM-PROTEIN CORRECTED 7.7 MG/DL (8.5-10.1); TOTAL PROTEIN 5.5 GM/DL (6.4-8.2)
[2017-12-28] MEDS: CHLORHEXIDINE 0.12% (ORAL KIT) 15 ML CUP MT SCH ×2 (08:00→20:00)
[2017-12-28] MEDS: MULTIVITAMIN TAB OG-TUBE SCH (08:19)
[2017-12-28] MEDS: THIAMINE INJ 100 MG in SODIUM CHLORIDE 0.9% INJ 100 ML IV SCH (08:19)
[2017-12-28] MEDS: DOCUSATE SODIUM 50 MG/SENNA 8.6 MG TAB PO SCH ×2 (08:19→20:35)
[2017-12-28] MEDS: FAMOTIDINE 20 MG TAB PO SCH ×2 (08:19→20:35)
[2017-12-28] MEDS: ASPIRIN 81 MG CHEW TAB CHEW SCH (08:20)
[2017-12-28] MEDS: CLOPIDOGREL 75 MG TAB PO SCH (08:20)
[2017-12-28] MEDS: SODIUM CHLORIDE 0.9% FLUSH 10 ML FLUSH IV FLUSH SCH ×2 (08:20→20:35)
[2017-12-28] MEDS: SODIUM BICARBONATE 8.4% INJ 150 MEQ in DEXTROSE 5% IN WATE 1000ML INJ 1,000 ML IV SCH ×4 (08:39→21:43)
[2017-12-28] MEDS: FOLIC ACID 1 MG TAB OG-TUBE SCH (08:39)
[2017-12-28] MEDS: OSELTAMIVIR PHOSPHATE 30 MG/5 ML ORAL SYRINGE OG-TUBE SCH ×2 (08:41→20:35)
[2017-12-28] MEDS ORDERED: FUROSEMIDE 40 MG/4 ML VIAL IV PUSH ONE (08:45)
[2017-12-28] MEDS ORDERED: CHLOROTHIAZIDE SOD 500 MG VIAL IV ONE (08:45)
[2017-12-28] MEDS: ALBUMIN 25% INJ 100 ML IV SCH ×3 (09:27→22:14)
--- NOTE | 2017-12-28 09:36 | HHI.CCPN ---
Subjective Remarks/Hospital Course Patient is unable to provide history because he is intubated. History was obtained by discussion with his daughter and information relayed by the emergency department physician. 62-year-old male with past medical history of hypertension, hyperlipidemia, peripheral arterial disease, daily alcohol use, tobacco abuse. Patient's daughter states that for the last 1-1/2 weeks he has been complaining of orthopnea and has had difficulty sleeping at night because of this; waking up with severe SOB. She states he is also intermittently complained of non- pleuritic left-sided chest pain which he attributed to the fact that he had fallen on his left side a couple of weeks ago. He has had a lot of coughing but to her knowledge it has been nonproductive. He has had generalized weakness over the last couple of days and this morning he was "out of it". He has not been aware of any fever. He has had contact with his grandson who tested positive for influenza A 3 days ago on 12/21. This evening he was in the bathroom and his daughter heard him groaning and seemed to be in respiratory distress and indicated that she needed to call EVAC. He was initially responsive but upon arrival to the ED he was unresponsive, staring straight ahead, being bagged by EVAC.. He became bradycardic. He underwent RSI with etomidate and succinylcholine and was intubated. During intubation he went into asystole. He was given epinephrine 1 mg and 2 amps of sodium bicarbonate in addition to CPR. His heart rate then came up into the 160s. He was started on dopamine due to hypotension and is currently running at 20 mcg/kg/ min. ABG demonstrated acute hypercapnic and hypoxic respiratory failure with pH 7.15/PCO2 of 62/PaO2 of 58/bicarb 21. Chest x-ray demonstrates bibasilar opacities. White blood cell count is 12. He is hypothermic. He received empiric vancomycin and Zosyn in the emergency department and Lasix 40 mg IV. He was started on propofol and fentanyl drips. Propofol was subsequently discontinued and he was started on a Versed drip and given vecuronium to facilitate vent synchrony and oxygenation.. Initial post intubation chest x-ray demonstrated ET tube and NG tube in high position. These were reportedly advanced but remained in high position.. Patient then had notable cuff leak and sats were in the 70s. He was reintubated by the emergency department physician. I have placed right IJ central venous line. Follow-up chest x-ray demonstrates satisfactory position of endotracheal tube and right IJ. The OG has been removed and will be replaced. Noonan has been placed but he has been anuric for the last 3.5 hours in the ED. SUBJECTIVE: 12/24: Patient reevaluated multiple times as he remains critical on multiple pressors. Currently on Levophed at 12 mcg/min, dopamine at 10 mcg/kg/min and vasopressin at 0.04 units. FiO2 currently at 60% with PEEP of 12 I will attempt weaning PEEP due to persistent hypotension. IV heparin started for troponin elevation to 25.5. Aspirin 81 mg daily started. Cardiology consulted. I will also start Flowtrack monitoring and maintenance IV fluids. Starting to make some urine. 12/25: Afebrile urine output slightly increased, however creatinine continues to increase. Nephrology consulted, renal ultrasound pending. The patient continues on vasopressor support, 30 at output trending 3.5, cardiac index 1.7. Patient continues to have persistent leukocytosis blood cultures negative growth today ID has been consulted.PEEP continues at 10 okay to maintain O2 saturation of 92% 12/26: The patient has been weaned off levo fed currently remains on dopamine and vasopressin. Nephrology following no plans for dialysis at this time. WBC downtrending 12/27: encephalopathy persists. NICKO persists. severely volume overloaded with elevated BNP. on vasopressors. left chest with pleural effusion, largest area ~ 3cm around 6th intercostal space. fio2 remains elevated. 12/28: no meaningful diuresis with aggressive diuretic attempts. organ failure persists. encephalopathy persists. high fio2 persists. heparin on hold for left chest tube today. Objective Vital Signs Date Time Temp Pulse Resp B/P (MAP) Pulse Ox O2 Delivery O2 Flow Rate FiO2 12/28/17 07:39 95 70 12/28/17 06:00 101 12/28/17 06:00 103/73 (83) 119/58 (78) 12/28/17 04:00 98.5 16 Intake and Output 12/28/17 12/28/17 12/29/17 08:00 16:00 00:00 Intake Total 2066 ml Output Total 965 ml Balance 1101 ml Result Diagram: 12/28/17 0543 12/28/17 0543 Imaging Last Impressions Chest X-Ray 12/26/17 0600 Signed Impressions: Service Date/Time: Tuesday, December 26, 2017 02:56 - CONCLUSION: 1. Left basilar airspace disease slightly increased from December 24. Small caliber right chest tube without pneumothorax. Endotracheal tube and nasogastric tube and right central line in good position. Rian Mccarty MD Renal Ultrasound 12/25/17 0000 Signed Impressions: Service Date/Time: Monday, December 25, 2017 17:32 - CONCLUSION: Negative renal ultrasound examination. Boni Obregon MD Head CT 12/23/17 0000 Signed Impressions: Service Date/Time: , December 24, 2017 00:39 - CONCLUSION: No acute disease. Raji Matos Jr., MD Chest CT 12/23/17 0000 Signed Impressions: Service Date/Time: December 00:39 - CONCLUSION: 1. Moderate-sized bilateral pleural effusions. 2. Diffuse bilateral pulmonary infiltrates. This may relate to pulmonary edema. 3. Coronary artery atherosclerotic calcifications. Raji Matos Jr., MD Objective Remarks GENERAL: Ill appearing male who is orotracheally intubated critically ill on vasopressors SKIN: Peripherally cool, diaphoretic. HEAD: Atraumatic. Normocephalic. EYES: Pupils are round, 5 mm ENT: No nasal bleeding or discharge. orotracheally intubated NECK: Trachea midline. No JVD. CARDIOVASCULAR: Tachycardic, regular, sinus tachycardia. RESPIRATORY: Orotracheally intubated, coarse breath sounds bilaterally. left chest tube with serous output, to suction. fio2 60% GASTROINTESTINAL: Abdomen soft, non-tender, nondistended. : Noonan in place with minimal light padamja in the tubing only. MUSCULOSKELETAL: Extremities without clubbing, cyanosis. NEUROLOGICAL: Pupil still appear dilated but are sluggishly reactive and he has +corneal reflexes, + cough, + gag, He requires ongoing sedation due to hypoxemia and vent dyssynchrony. On sedation hold patient does open eyes moves all extremities does not follow commands A/P Problem List: (1) Asystole ICD Code: I46.9 - Cardiac arrest, cause unspecified Status: Acute (2) NSTEMI (non-ST elevated myocardial infarction) ICD Code: I21.4 - Non-ST elevation (NSTEMI) myocardial infarction Status: Acute (3) Respiratory failure with hypoxia and hypercapnia ICD Code: J96.91 - Respiratory failure, unspecified with hypoxia; J96.92 - Respiratory failure, unspecified with hypercapnia Status: Acute (4) Pleural effusion ICD Code: J90 - Pleural effusion, not elsewhere classified Status: Acute (5) Tobacco abuse ICD Code: Z72.0 - Tobacco use Status: Chronic (6) ETOH abuse ICD Code: F10.10 - Alcohol abuse, uncomplicated Status: Chronic (7) Pulmonary edema ICD Code: J81.1 - Chronic pulmonary edema Status: Acute (8) Shock ICD Code: R57.9 - Shock, unspecified Status: Acute (9) Macrocytic anemia ICD Code: D53.9 - Nutritional anemia, unspecified (10) Hypocalcemia ICD Code: E83.51 - Hypocalcemia (11) Lactic acid acidosis ICD Code: E87.2 - Acidosis Assessment and Plan Assessment: 62yM s/p PEA arrest with ongoing encephalopathy, hypoxic respiratory failure, NICKO, and acute CHF (systolic) exacerbation. place pigtail chest tube on left today to help with hypoxia, resp failure. remains volume overloaded with severely elevated BNP. continue attempts at forced diuresis despite NICKO for severe CHF exacerbation. remains critically ill- unlikely to have favorable outcome. family wishes aggressive goals. will ask palliative to help with family support and ongoing goals of care discussion. NEURO: Acute Hypoxic Ischemic Encephalopathy On sedation hold patient moves all extremities opens eyes did not follow commands Deemed not a candidate for induced therapeutic hypothermia due to neuro improvement, and severe hemodynamic instability EtOH abuse Fentanyl and Versed for sedation, wean as tolerated Monitor for evidence of EtOH withdrawal Thiamine/folic acid/mvi supplementation Seizure precautions RESP: Acute hypoxemic and hypercapnic respiratory failure Bilateral pleural effusion s/p R pigtail chest tube. Pulmonary edema COPD Tobacco abuse hold SBTs given persistent hypoxemia. CXR with what appears to be pulmonary edema, cardiogenic. Broad spectrum antibiotics and tamiflu as per below given known exposure to Influenza A: d/c tamiflu given > 5 days of therapy. 8 [place] chest tube placed in R pleural space: to suction. Duoneb q4 hours. Albuterol q2 hours prn wheezing. Ventilator bundle CV: NSTEMI Asystolic cardiac arrest Cardiogenic shock Essential HTN at baseline Peripheral arterial disease Hyperlipidemia Asystolic cardiac arrest could be secondary to respiratory acidosis, versus non- ST elevation ME Limited bedside Echo performed by Dr. Drummond on dopamine 20 mcg/kg/min demonstrates decompressed RV. The LVEF grossly appears ~45%-50% with decreased contractility of apex Received 3 L NS bolus in the ED and then Lasix but remained anuric with poor peripheral perfusion. CVP is 8 with PEEP of 12 and collapsed RV so appears patient needs volume resuscitation. Given additional 1 L NS bolus and then will remain on MIVF at 50/hr. Follow lactic acid for clearance. On dopamine 10 mcg/kg/min, Levophed 12 mcg/min, vasopressin 0.04 international units to maintain MAP >65. Stress dose hydrocortisone EKG sinus rhythm 95, hyperacute T waves in V3 and V4 with ST dep V4-V5. Followup EKG did not show any ST elevations. Troponin 0.09, followed serial troponins, elevated to 25.5 ASA 81 mg daily, continue plavix 75 daily. Heparin drip started after r chest tube inserted. Cardiology consulted. Echo 03/26/17 - EF 50-55%, mild LVH, finding c/w hypertrophic cardiomyopathy. Stress 02/01/16 suspected mild inferior lateral ischemia. Cardiac catheterization 02/01/16 - normal coronaries. 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 GI: tube feeds FEN/RENAL: NICKO- worsening. Oliguric upon arrival. Noonan in place, monitor I/O and electrolytes. Now lactic acid cleared and he is making some urine. NICKO persists. Hypocalcemia Received calcium chloride 1 gram IV. Follow serial labs Severe acute intravascular volume overload Acute CHF Exacerbation, systolic type continue lasix drip 20mg/hr. bolus 20mg iv x 1. add diuril 500mg iv x 1 start continuous albumin drip. serial bmps. ID: Possible Viral vs Atypical pneumonia Known exposure to close household contact with confirmed Influenza A. Influenza screen negative. finished full 5 day course of tamiflu. Cover for superimposed bacterial pneumonia with Zosyn, vancomycin and Levaquin. F/U blood culture, sputum culture, urine Legionella antigen, urine pneumococcal antigen. Consult ID-following HEME: Chronic macrocytic anemia likely secondary to EtOH abuse. Vitamin supplementation as per above. Monitor CBC ENDO: Acute stress hyperglycemia Monitor bedside glucose every 6 hours. Administer low-dose insulin sliding scale as indicated. Hydrocortisone 50 mg IV every 6 hours as per above. PROPH: Heparin drip will provide DVT prophylaxis. Famotidine 10 mg IV q12 hours for stress ulcer prophylaxis. ACCESS: RIJ CVL placed 12/23 #6. Left radial art line placed 12/24 #5 Patient is critically ill with profound hypoxemia and shock requiring resuscitation, vasopressor management and titration, ventilator management`. He is critically ill and at high risk for further decompensation or . my billing statement This patient remains critically ill with one or more organ systems which are or may become a threat to life. I have spent in excess of 32 minutes discontinuously in the care and management of this patient. This time is exclusive of procedures, and includes, but is not limited to, evaluation of the patient, review of the medical record, discussions with family, consultants, nursing staff, or respiratory therapy, and documentation in the medical record. Russ Faust MD December 28, 2017 09:36
--- NOTE | 2017-12-28 09:45 | HHI.NPPN ---
Subjective History of Present Illness This is a 62-year-old male with a history of hypertension, dyslipidemia, peripheral arterial disease and heavy alcohol use. The patient apparently presented after he had left-sided chest pains and confusion. He was apparently found to be in respiratory distress with EVAC. He came to the hospital here and was intubated and developed an asystole cardiac event. He was resuscitated and the patient remains intubated at this time on multiple pressors. He is being followed with critical care. The patient overnight has had ongoing pressor support with some ongoing urine output with 600 mL of urine output in the last 24 hours. Regarding his renal function, his creatinine was 0.8 on admission and over the last 2 days, the creatinine was elevated from 2.0 to 2.6 now. At this time, the patient remains intubated on multiple pressors in the ICU. He is being treated for possible infection with Zosyn as well as vancomycin with a white count of 14.6. Nephrology was consulted for further evaluation of renal failure. Additional Remarks Remains intubated. Creatinine slightly increased at 2.75. On vasopressin and dopamine. (Tatyana Montanez) Review of Systems General General Remarks Unable to do ROS as patient is intubated (Tatyana Montanez) Objective Data Data Vital Signs Date Time Temp Pulse Resp B/P (MAP) Pulse Ox O2 Delivery O2 Flow Rate FiO2 12/28/17 07:39 95 70 12/28/17 06:00 101 12/28/17 06:00 101 103/73 (83) 119/58 (78) 12/28/17 04:26 95 70 12/28/17 04:00 89 12/28/17 04:00 70 12/28/17 04:00 98.5 89 16 103/73 (83) 91 110/66 (81) 12/28/17 03:42 90 108/62 12/28/17 02:00 93 12/28/17 01:28 92 113/64 12/28/17 00:08 90 60 12/28/17 00:00 97.4 93 17 105/71 (82) 91 113/65 (81) 12/28/17 00:00 60 12/28/17 00:00 93 12/28/17 00:00 93 113/65 12/27/17 22:00 98 12/27/17 20:00 60 12/27/17 20:00 91 12/27/17 20:00 98.7 91 16 108/73 (85) 93 114/67 (83) 12/27/17 19:54 93 60 12/27/17 18:00 96 12/27/17 18:00 96 103/65 (78) 108/62 (77) 12/27/17 17:00 97 12/27/17 16:00 60 12/27/17 16:00 96 12/27/17 16:00 98.1 96 18 103/65 (78) 93 98/55 (69) 12/27/17 15:51 93 60 12/27/17 15:00 96 12/27/17 14:00 97 12/27/17 13:00 98 12/27/17 12:33 93 60 12/27/17 12:00 97.0 97 16 108/71 (83) 93 98/58 (71) 12/27/17 12:00 97 12/27/17 12:00 60 12/27/17 11:00 95 12/27/17 10:00 100 (Tatyana Montanez) -: 12/28/17 0543 12/28/17 0543 Imaging Last Impressions Chest X-Ray 12/26/17 0600 Signed Impressions: Service Date/Time: Tuesday, December 26, 2017 02:56 - CONCLUSION: 1. Left basilar airspace disease slightly increased from December 24. Small caliber right chest tube without pneumothorax. Endotracheal tube and nasogastric tube and right central line in good position. Rian Mccarty MD Renal Ultrasound 12/25/17 0000 Signed Impressions: Service Date/Time: Monday, December 25, 2017 17:32 - CONCLUSION: Negative renal ultrasound examination. Boni Obregon MD Head CT 12/23/17 0000 Signed Impressions: Service Date/Time: December 00:39 - CONCLUSION: No acute disease. Raji Matos Jr., MD Chest CT 12/23/17 0000 Signed Impressions: Service Date/Time: December 00:39 - CONCLUSION: 1. Moderate-sized bilateral pleural effusions. 2. Diffuse bilateral pulmonary infiltrates. This may relate to pulmonary edema. 3. Coronary artery atherosclerotic calcifications. Raji Matos Jr., MD (Tatyana Montanez) Physical Exam General Appearance: No Acute Distress (Tatyana Montanez) Neck Neck Exam: Neck Supple (Tatyana Montanez) Pulmonary Resp Exam: Decreased Bases, Diminished Breath Sounds (Tatyana MontanezP) Cardiology CV Exam: Regular (Tatyana MontanezP) Gastrointestinal/Abdomen GI Exam: Soft, Non-Tender (Tatyana MontanezP) Genitourinary Exam: Clear Urine (Tatyana MontanezP) Musculoskeletal MS Exam: Joints Intact (Tatyana Montanez) Integumentary Skin Exam: Dry, Intact, Cool (Tatyana Montanez) Extremeties Extremities Exam: Trace Edema (Tatyana Montanez) Neurologic Neuro Exam: Sedated (Tatyana Montanez) Assessment/Plan Problem List: (1) NICKO (acute kidney injury) ICD Codes: N17.9 - Acute kidney failure, unspecified Plan: Creatinine of 0.8 at time of admission. History of etoh abuse and tobacco use. NICKO with apparent ATN post cardiac arrest and asystole. FeNa 0.2% - likely pre-renal appearance due to pressors and vasoconstriction. Continues on vasopressin and dopamine Creatinine 3.68 ->3.75 today 1065cc UOP/ 24 hours No need for HD at this point, K+ 3.7 However if little improvement may require HD. Started on albumin every 8 hours per junior web designer 1 X dose of Diuril given per CC Continue Lasix gtt Continues with IVFs Continue to closely monitor UOP and volume status Avoid nephrotoxins (2) NSTEMI (non-ST elevated myocardial infarction) ICD Codes: I21.4 - Non-ST elevation (NSTEMI) myocardial infarction Status: Acute Plan: Cardiac arrest and non-ST elevation myocardial infarction. The patient is being followed up with cardiology. Consideration is for cardiac catheterization when stable. Of note, avoid any contrast for now as possible in setting of NICKO. (3) Respiratory failure with hypoxia and hypercapnia ICD Codes: J96.91 - Respiratory failure, unspecified with hypoxia; J96.92 - Respiratory failure, unspecified with hypercapnia Status: Acute Plan: The patient remains intubated at this point Follow with critical care team. (4) Metabolic acidosis ICD Codes: E87.2 - Acidosis Plan: will continue with HCO3 in IVFs - improving (Tatyana Montanez) Problem List: (1) NICKO (acute kidney injury) ICD Codes: N17.9 - Acute kidney failure, unspecified Plan: Creatinine of 0.8 at time of admission. History of etoh abuse and tobacco use. NICKO with apparent ATN post cardiac arrest and asystole. FeNa 0.2% - likely pre-renal appearance due to pressors and vasoconstriction. Continues on vasopressin and dopamine Creatinine 3.68 ->3.75 today 1065cc UOP/ 24 hours No need for HD at this point, K+ 3.7 However if little improvement may require HD. Started on albumin every 8 hours per junior web designer 1 X dose of Diuril given per CC Continue Lasix gtt Continues with IVFs Continue to closely monitor UOP and volume status Avoid nephrotoxins. Patient seen and examined, agree with above. Continue diuretics. Possible HD if no improvement. D/W the family at bed side. (2) NSTEMI (non-ST elevated myocardial infarction) ICD Codes: I21.4 - Non-ST elevation (NSTEMI) myocardial infarction Status: Acute Plan: Cardiac arrest and non-ST elevation myocardial infarction. The patient is being followed up with cardiology. Consideration is for cardiac catheterization when stable. Of note, avoid any contrast for now as possible in setting of NICKO. (3) Respiratory failure with hypoxia and hypercapnia ICD Codes: J96.91 - Respiratory failure, unspecified with hypoxia; J96.92 - Respiratory failure, unspecified with hypercapnia Status: Acute Plan: The patient remains intubated at this point Follow with critical care team. (4) Metabolic acidosis ICD Codes: E87.2 - Acidosis Plan: will continue with HCO3 in IVFs - improving (Crescencio Lloyd MD) Tatyana Montanez December 28, 2017 09:45 Crescencio Lloyd MD December 28, 2017 19:35
--- NOTE | 2017-12-28 11:12 | PD.CONS ---
Consult Service Palliative Care Consult Requested By Dr. Faust Primary Care Physician Sheyla Mayer MD Reason for Consultation a. To assist with evaluation and management of symptoms including: Dyspnea, pain b. To assist medical decision maker(s) with: better understanding of current medical conditions; weighing benefits/burdens of medical treatment options; making medical treatment decisions. HPI History of Present Illness This is a 62-year-old male with the past medical history of hypertension, hyperlipidemia, PAD, daily alcohol and tobacco abuse who was brought to the emergency room with severe shortness of breath. Per his daughter , he had been complaining of progressively worsening dyspnea, orthopnea and sporadic chest pain, primarily left sided, worsening with deep inspiration and movement, which occurred after he had fallen. It was thought that the chest pain was related to the trauma of the fall at the time. Upon arrival to the ED he was unresponsive, being bagged by EVAC. He subsequently became bradycardic and required intubation. During intubation he became asystolic and was given epinephrine 1 mg, bicarbonate 2 Amps and CPR. ROSC was achieved with return of the heart rate to the 160s and dopamine was initiated for hypotension. ABG demonstrated acute hypercapnic, hypoxic respiratory failure with pH 7.15/PCO2 62 /PaO2 58 and bicarb 21. Chest x-ray showed bibasilar opacities, white blood cell count was 12 and he received empiric vancomycin and Zosyn in the emergency department as well as 40 mg of IV Lasix. He was found to be hypothermic with a temperature of 95.4. Sedation was initiated and his oxygen saturation remained in the 70s. Chest x-ray indicated a high position of the ET tube and he was subsequently reintubated by the ED physician. Right IJ central venous line was placed and follow-up x-ray demonstrated satisfactory position of all lines. Noonan catheter was placed however the patient remained in uric while in the ED. Laboratory studies in the ED showed a negative UA, negative UDS, b-natruretic peptide 370, WBC 12.3, hemoglobin 11.3, hematocrit 31.9, platelets 162, sodium 131, potassium 5.1, BUN 6, creatinine 0.80, lactic acid 3.4, troponin. 0.09. Serial troponin draws showed increase from 0.09 to 0.11, 25.50, greater than 40 2 draws. Cardiology was consulted, 2D echocardiogram showed EF around 50%. Noted cardiac enzymes consistent with NSTEMI and recommended continuing aspirin Plavix and heparin drip. Cardiac catheterization recommended once respiratory status is stable and creatinine at baseline. He is seen at bedside with his sister, Kaylyn and his daughter, Andra. He remains intubated and sedated. Occasional spontaneous movement is seen. He continues to receive vasopressor support with both vasopressin and dopamine. Pending completion of cultures he remains on empiric antibiotics. Second chest tube was placed today on the left side for pleural effusion and immediately drained 2000 mL of clear serous fluid. He remains on 70% FiO2 on PRVC vent support. He is still hypothermic with core temp at 95.9 under a warming blanket. He is currently on an albumin drip at 12.5 mL an hour (75 g/24h). Nephrology is following and notes a continued increase in his creatinine to 3.75. No dialysis is planned at this time. Patient remains on a Lasix drip at 20 mg/H, sodium bicarbonate continuous drip, fentanyl and thiamine/folic acid per [facility] protocol. . Function/Cognitive Trajectory The patient lives with his daughter Andra who notes that over the last 2 weeks he has been more short of breath, more orthopneic with more frequent cough and more fatigue. He has been less active and complaining of generalized discomfort. He had a recent fall on his left side and complained of generalized pain in that area, felt to be related to the fall. . Review of Systems ROS Limitations: Clinical Condition, Intubated, Altered Mental Status (Patient is nonverbal and unable to provide their own ROS. 10 part ROS taken as best as possible from medical record and available family.) Constitutional: COMPLAINS OF: Fatigue, Generalized weakness Endocrine: DENIES: Heat/cold intolerance, Polydipsia, Polyuria, Polyphagia Eyes: DENIES: Blurred vision, Diplopia, Eye inflammation, Eye pain, Vision loss , Photosensitivity, Double Vision, Blind spots Ears, nose, mouth, throat: DENIES: Tinnitus, Hearing loss, Vertigo, Nasal discharge, Oral lesions, Throat pain, Hoarseness, Ear Pain, Running Nose, Epistaxis, Sinus Pain, Toothache, Odynophagia Respiratory: COMPLAINS OF: Cough, Shortness of breath, DENIES: Apneas, Snoring , Wheezing, Hemoptysis, Sputum production Cardiovascular: COMPLAINS OF: Chest pain (Left sided rib pain status post fall) , Orthopnea Gastrointestinal: DENIES: Abdominal pain, Black stools, Bloody stools, Constipation, Diarrhea, Nausea, Vomiting, Difficulty Swallowing, Anorexia, Dyspepsia or heartburn, Excessive gas, Bloating, Vomiting blood Genitourinary: DENIES: Sexual dysfunction, Urinary frequency, Urinary incontinence, Urgency, Hematuria, Dysuria, Nocturia, Penile Discharge, Testicular Pain, Testicular Swelling, Hesitancy, Dribbling, Decreased stream Musculoskeletal: DENIES: Joint pain, Muscle aches, Stiffness, Joint Swelling, Back pain, Neck pain, Decreased range of motion Integumentary: DENIES: Abnormal pigmentation, Nail changes, Pruritus, Rash, Nodules, Tumors, Excessive dryness, Non-healing sores Hematologic/Lymphatics: DENIES: Bruising, Lymphadenopathy, Prolonged bleed w/ proced, History of transfusions Immunologic/Allergic: DENIES: Eczema, Urticaria Neurologic: DENIES: Abnormal gait, Headache, Localized weakness, Paresthesias, Seizures, Speech Problems, Tremor, Poor Balance, Change in smell or taste Psychiatric: DENIES: Anxiety, Confusion, Mood changes, Depression, Hallucinations, Agitation, Suicidal Ideation, Homicidal Ideation, Delusions, Anhedonia Past Family Social History Coded Allergies: [email or web address] (Unverified Allergy, Unknown, Doesn't remember , 04/10/17) Past Medical History Hypertension Dyslipidemia Peripheral artery disease Alcohol abuse Tobacco abuse Hemorrhoids TIA 20 years ago . Past Surgical History Hemorrhoidectomy Appendectomy Aortogram and bilateral lower extremity angiogram with left SFA atherectomy and left SFA angioplasty/stent 06/22/2017 Left common femoral endarterectomy and patch angioplasty 05/12/2017 Cardiac catheterization 02/04/2016 showing normal left main, 30% mid LAD, 60% proximal left circumflex, 40% mid left circumflex, 50% proximal first obtuse marginal Occluded/collateralized proximal right coronary . Reported Medications Reported Meds & Active Scripts Active Coreg (Carvedilol) 6.25 Mg Tab 6.25 Mg PO BID Vitamin B-1 (Thiamine HCl) 100 Mg Tab 100 Mg PO DAILY Simvastatin 10 Mg Tab 10 Mg PO DAILY Aspirin 325 Mg Tab 325 Mg PO DAILY Plavix (Clopidogrel Bisulfate) 75 Mg Tab 75 Mg PO DAILY . Current Medications Medications (Trade) Dose Ordered Sig/Ghada Route Start Time Stop Time Status Last Admin Dopamine HCl/ Dextrose 500 ml @ 0 mls/hr TITRATE PRN IV 5/16/18 20:30 12/28/17 03:42 (Brethine Inj) 1 mg UNSCH PRN SQ 12/23/17 23:30 Vasopressin 40 units/Dextrose 100 ml @ 6 mls/hr [id number] IV 12/23/17 23:29 12/28/17 01:28 (SoluCORTEF INJ) 50 mg Q6HR IV PUSH 12/24/17 00:00 12/28/17 05:36 (NS Flush) 2 ml UNSCH PRN IV FLUSH 12/24/17 00:00 12/26/17 08:27 (NS Flush) 2 ml BID IV FLUSH 12/24/17 09:00 12/28/17 08:20 (Tylenol) 650 mg Q6H PRN PO 12/24/17 00:00 (fentaNYL INJ) 50 mcg Q1H PRN IV PUSH 12/24/17 00:00 (Versed Inj) 2 mg Q15M PRN IV PUSH 12/24/17 00:00 (Reglan Inj) 5 mg Q6H PRN IV PUSH 12/24/17 00:00 (Albuterol Neb) 2.5 mg Q2HR NEB PRN INH 12/24/17 00:00 ([facility] Information) 1 [id number] XX 12/24/17 00:00 (Chlorhexidine 2% Cloth) 3 pack Taper DAILY@04 TOP 12/24/17 04:00 12/20/18 03:59 12/28/17 04:00 (Chlorhexidine 2% Cloth) 3 pack UNSCH PRN TOP 12/24/17 00:00 (Unry-Colace) 1 tab BID PO 12/24/17 09:00 12/28/17 08:19 (Milk Of Magnesia Liq) 30 ml Q12H PRN PO 12/24/17 00:00 (Senokot) 17.2 mg Q12H PRN PO 12/24/17 00:00 (Dulcolax Supp) 10 mg DAILY PRN RECTAL 12/24/17 00:00 (Lactulose Liq) 30 ml DAILY PRN PO 12/24/17 00:00 Thiamine HCl 100 mg/Sodium Chloride 101 ml @ 101 mls/hr DAILY IV 12/24/17 09:00 12/28/17 08:19 (Peridex 0.12% Liq) 15 ml BID@08,20 MT 12/24/17 08:00 12/28/17 08:00 (Tamiflu Liq) 75 mg BID OG-TUBE 12/24/17 01:00 12/28/17 23:55 12/28/17 08:41 (Folate) 1 mg DAILY OG-TUBE 12/24/17 09:00 12/28/17 08:39 (Theragran) 1 tab DAILY OG-TUBE 12/24/17 09:00 12/28/17 08:19 Heparin Sodium/ Dextrose 250 ml @ 9 mls/hr TITRATE PRN IV 12/24/17 05:15 Future Hold 12/27/17 09:12 (D50w (Vial) Inj) 50 ml UNSCH PRN IV PUSH 12/24/17 09:15 (Glucagon Inj) 1 mg UNSCH PRN OTHER 12/24/17 09:15 (NovoLOG SUPPLEMENTAL SCALE) 1 Q6HR SQ 12/24/17 09:15 12/28/17 05:46 (Plavix) 75 mg DAILY PO 12/24/17 09:15 12/27/17 08:31 (Aspirin Chew) 81 mg DAILY CHEW 12/24/17 12:30 12/27/17 08:31 Fentanyl Citrate 250 ml @ 5 mls/hr TITRATE PRN IV 12/24/17 21:30 12/27/17 22:18 Propofol 100 ml @ 2.4 mls/hr TITRATE PRN IV 12/24/17 21:30 Sodium Bicarbonate 150 meq/Dextrose 1,150 ml @ 75 mls/hr [id number] IV 12/26/17 14:00 12/28/17 08:39 (Pepcid) 10 mg BID PO 12/26/17 21:00 12/28/17 08:19 Azithromycin 500 mg/Sodium Chloride 250 ml @ 250 mls/hr Q24H IV 12/26/17 22:00 12/27/17 21:07 Piperacillin Sod/ Tazobactam Sod 50 ml @ 100 mls/hr Q6H IV 12/26/17 22:00 12/28/17 10:49 (Duoneb Neb) 1 ampule Q4HR NEB NEB 12/27/17 20:00 12/28/17 07:39 Furosemide 100 mg/ Sodium Chloride 100 ml @ 20 mls/hr CONTINUOUS IV 12/27/17 17:30 12/28/17 08:19 Albumin Human 100 ml @ 12.5 mls/hr Q8H IV 12/28/17 09:00 12/28/17 09:27 . Family History Mother of lung cancer at age 55, father at age 68 of a cerebrovascular accident. Both were heavy smokers. He has 1 sister who is alive and well. . Substance Use Tobacco: Smoked up to 2 packs a day since a teenager. Estimated [id number] history. Alcohol: Drank 6-8 beers daily since a young man. Prescription med abuse: No history. Illicits: No history. . Psychosocial History He was born at [facility] and has lived in [place] all of his life. 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 He was an avid fisherman. Never in the service. He has 1 daughter, Andra , with whom he lives. . Spiritual/Cultural Factors Not an important concept to him, however the family has requested wire winding machine tender support for themselves. Living Will: Never completed Health Care Surrogate: Never completed Durable Power of Word Processor Technician: Never completed Date completed: Not completed. . Health Care Surrogate(s): None completed. . Documented care wishes: No living will completed. . Today's verbally stated goals: Patient intubated and unable to state goals. . Family/friends goals: Aggressive at this time. . Ethical and Legal Issues None noted. . Physical Exam Vital Signs Date Time Temp Pulse Resp B/P (MAP) Pulse Ox O2 Delivery O2 Flow Rate FiO2 12/28/17 07:39 95 70 12/28/17 06:00 101 12/28/17 06:00 101 103/73 (83) 119/58 (78) 12/28/17 04:26 95 70 12/28/17 04:00 89 12/28/17 04:00 70 12/28/17 04:00 98.5 89 16 103/73 (83) 91 110/66 (81) 12/28/17 03:42 90 108/62 12/28/17 02:00 93 12/28/17 01:28 92 113/64 12/28/17 00:08 90 60 12/28/17 00:00 97.4 93 17 105/71 (82) 91 113/65 (81) 12/28/17 00:00 60 12/28/17 00:00 93 12/28/17 00:00 93 113/65 12/27/17 22:00 98 12/27/17 20:00 60 12/27/17 20:00 91 12/27/17 20:00 98.7 91 16 108/73 (85) 93 114/67 (83) 12/27/17 19:54 93 60 12/27/17 18:00 96 12/27/17 18:00 96 103/65 (78) 108/62 (77) 12/27/17 17:00 97 12/27/17 16:00 60 12/27/17 16:00 96 12/27/17 16:00 98.1 96 18 103/65 (78) 93 98/55 (69) 12/27/17 15:51 93 60 12/27/17 15:00 96 12/27/17 14:00 97 12/27/17 13:00 98 12/27/17 12:33 93 60 12/27/17 12:00 97.0 97 16 108/71 (83) 93 98/58 (71) 12/27/17 12:00 97 12/27/17 12:00 60 12/27/17 11:00 95 Exam CONSTITUTIONAL/GENERAL: This is an adequately nourished patient, intubated, sedated, in no apparent distress. TUBES/LINES/DRAINS: Left radial art line, ETT, Noonan, NG tube to right nare RIJ CVL SKIN: No jaundice, rashes, or lesions. Ecchymoses on upper extremities. No wounds seen anteriorly. Skin temperature cool. Not diaphoretic. HEAD: Atraumatic. Normocephalic. EYES: Pupils equal and round and sluggishly reactive. No scleral icterus. No injection or drainage. Fundi not examined. ENT: Nose without bleeding or purulent drainage. NECK: Trachea midline. Supple, nontender. No palpable thyroid enlargement or nodularity. CARDIOVASCULAR: S1, S2, regular rate and rhythm with 2 out of 6 holosystolic murmur no rub no gallop RESPIRATORY/CHEST: Symmetric, unlabored respirations. Clear to auscultation, diminished bases with faint bibasilar crackles. GASTROINTESTINAL: Abdomen soft, nondistended. No hepato-splenomegaly, or palpable masses. No guarding. Bowel sounds present. GENITOURINARY: Without palpable bladder distension. Noonan catheter in place. MUSCULOSKELETAL: Extremities without clubbing, cyanosis, or edema. No joint tenderness or effusion noted. No mottling or clubbing. LYMPHATICS: No palpable cervical or supraclavicular adenopathy. NEUROLOGICAL: Intubated, sedated, occasional spontaneous movement seen. PSYCHIATRIC: Sedated. . Diagnostic Tests Laboratory Laboratory Tests Test 12/25/17 16:56 12/26/17 03:00 12/26/17 16:40 12/26/17 21:27 Urine Eosinophils NONE SEEN /HPF (NONE SEEN) NONE SEEN /HPF (NONE SEEN) White Blood Count 14.6 TH/MM3 (4.0-11.0) Red Blood Count 2.98 MIL/MM3 (4.50-5.90) Hemoglobin 11.2 GM/DL (13.0-17.0) Hematocrit 30.8 % (39.0-51.0) Mean Corpuscular Volume 103.3 FL (80.0-100.0) Mean Corpuscular Hemoglobin 37.5 PG (27.0-34.0) Mean Corpuscular Hemoglobin Concent 36.3 % (32.0-36.0) Red Cell Distribution Width 13.3 % (11.6-17.2) Platelet Count 115 TH/MM3 (150-450) Mean Platelet Volume 8.1 FL (7.0-11.0) Neutrophils (%) (Auto) 87.0 % (16.0-70.0) Lymphocytes (%) (Auto) 3.0 % (9.0-44.0) Monocytes (%) (Auto) 9.5 % (0.0-8.0) Eosinophils (%) (Auto) 0.0 % (0.0-4.0) Basophils (%) (Auto) 0.5 % (0.0-2.0) Neutrophils # (Auto) 12.7 TH/MM3 (1.8-7.7) Lymphocytes # (Auto) 0.4 TH/MM3 (1.0-4.8) Monocytes # (Auto) 1.4 TH/MM3 (0-0.9) Eosinophils # (Auto) 0.0 TH/MM3 (0-0.4) Basophils # (Auto) 0.1 TH/MM3 (0-0.2) CBC Comment AUTO DIFF Differential Comment AUTO DIFF CONFIRMED Platelet Estimate LOW (NORMAL) Platelet Morphology Comment NORMAL (NORMAL) Activated Partial Thromboplast Time 48.8 SEC (24.3-30.1) Blood Urea Nitrogen 27 MG/DL (7-18) Creatinine 2.64 MG/DL (0.60-1.30) Random Glucose 134 MG/DL (74-106) Total Protein 5.8 GM/DL (6.4-8.2) Albumin 2.1 GM/DL (3.4-5.0) Calcium Level 7.2 MG/DL (8.5-10.1) Phosphorus Level 3.5 MG/DL (2.5-4.9) Magnesium Level 1.6 MG/DL (1.5-2.5) Alkaline Phosphatase 44 U/L (45-117) Aspartate Amino Transf (AST/SGOT) 251 U/L (15-37) Alanine Aminotransferase (ALT/SGPT) 63 U/L (12-78) Total Bilirubin 1.2 MG/DL (0.2-1.0) Sodium Level 129 MEQ/L (136-145) Potassium Level 3.6 MEQ/L (3.5-5.1) Chloride Level 97 MEQ/L (98-107) Carbon Dioxide Level 17.6 MEQ/L (21.0-32.0) Anion Gap 14 MEQ/L (5-15) Estimat Glomerular Filtration Rate 25 ML/MIN (>89) Lactic Acid Level 2.7 mmol/L (0.4-2.0) Protein Corrected Calcium 7.9 MG/DL (8.5-10.1) Triglycerides Level 72 MG/DL (42-150) Cholesterol Level 88 MG/DL (120-200) LDL Cholesterol 44 MG/DL (0-99) HDL Cholesterol 29.4 MG/DL (40.0-60.0) Cholesterol/HDL Ratio 2.99 RATIO Random Vancomycin Level 34.6 COMMENT Urine Random Creatinine 100.8 MG/DL Urine Random Sodium 8 MEQ/L Test 12/27/17 03:40 12/27/17 04:10 12/27/17 19:27 12/27/17 23:51 Adenovirus (PCR) NOT DETECTED (NOT DETECT) Bordetella holmesii (PCR) NOT DETECTED (NOT DETECT) Bordetella pertussis DNA (PCR) NOT DETECTED (NOT DETECT) B. parapertussis/bronchi (PCR) NOT DETECTED (NOT DETECT) Human Metapneumovirus (PCR) NOT DETECTED (NOT DETECT) Influenza Type A (RT-PCR) NOT DETECTED (NOT DETECT) Influenza Type A (H1) (PCR) NOT DETECTED (NOT DETECT) Influenza Type A (H3) (PCR) NOT DETECTED (NOT DETECT) Influenza Type B (RT-PCR) NOT DETECTED (NOT DETECT) Parainfluenza Type 1 (PCR) NOT DETECTED (NOT DETECT) Parainfluenza Type 2 (PCR) NOT DETECTED (NOT DETECT) Parainfluenza Type 3 (PCR) NOT DETECTED (NOT DETECT) Parainfluenza Type 4 (PCR) NOT DETECTED (NOT DETECT) Resp Syncytial Virus Type A (PCR) NOT DETECTED (NOT DETECT) Resp Syncytial Virus Type B (PCR) NOT DETECTED (NOT DETECT) Rhinovirus (PCR) NOT DETECTED (NOT DETECT) White Blood Count 15.7 TH/MM3 (4.0-11.0) Red Blood Count 2.99 MIL/MM3 (4.50-5.90) Hemoglobin 11.2 GM/DL (13.0-17.0) Hematocrit 31.4 % (39.0-51.0) Mean Corpuscular Volume 104.8 FL (80.0-100.0) Mean Corpuscular Hemoglobin 37.4 PG (27.0-34.0) Mean Corpuscular Hemoglobin Concent 35.7 % (32.0-36.0) Red Cell Distribution Width 13.2 % (11.6-17.2) Platelet Count 138 TH/MM3 (150-450) Mean Platelet Volume 8.2 FL (7.0-11.0) Neutrophils (%) (Auto) 90.0 % (16.0-70.0) Lymphocytes (%) (Auto) 1.9 % (9.0-44.0) Monocytes (%) (Auto) 8.0 % (0.0-8.0) Eosinophils (%) (Auto) 0.0 % (0.0-4.0) Basophils (%) (Auto) 0.1 % (0.0-2.0) Neutrophils # (Auto) 14.1 TH/MM3 (1.8-7.7) Lymphocytes # (Auto) 0.3 TH/MM3 (1.0-4.8) Monocytes # (Auto) 1.3 TH/MM3 (0-0.9) Eosinophils # (Auto) 0.0 TH/MM3 (0-0.4) Basophils # (Auto) 0.0 TH/MM3 (0-0.2) CBC Comment AUTO DIFF Differential Comment AUTO DIFF CONFIRMED Activated Partial Thromboplast Time 46.2 SEC (24.3-30.1) Blood Urea Nitrogen 39 MG/DL (7-18) 51 MG/DL (7-18) 50 MG/DL (7-18) Creatinine 3.10 MG/DL (0.60-1.30) 3.68 MG/DL (0.60-1.30) 3.68 MG/DL (0.60-1.30) Random Glucose 133 MG/DL (74-106) 141 MG/DL (74-106) 173 MG/DL (74-106) Total Protein 5.9 GM/DL (6.4-8.2) 5.9 GM/DL (6.4-8.2) 5.6 GM/DL (6.4-8.2) Albumin 2.0 GM/DL (3.4-5.0) Calcium Level 6.7 MG/DL (8.5-10.1) 7.0 MG/DL (8.5-10.1) 7.0 MG/DL (8.5-10.1) Phosphorus Level 6.6 MG/DL (2.5-4.9) Magnesium Level 1.8 MG/DL (1.5-2.5) 1.9 MG/DL (1.5-2.5) 2.7 MG/DL (1.5-2.5) Alkaline Phosphatase 48 U/L (45-117) Aspartate Amino Transf (AST/SGOT) 137 U/L (15-37) Alanine Aminotransferase (ALT/SGPT) 59 U/L (12-78) Total Bilirubin 1.0 MG/DL (0.2-1.0) Sodium Level 127 MEQ/L (136-145) 127 MEQ/L (136-145) 128 MEQ/L (136-145) Potassium Level 4.3 MEQ/L (3.5-5.1) 4.0 MEQ/L (3.5-5.1) 3.7 MEQ/L (3.5-5.1) Chloride Level 92 MEQ/L (98-107) 92 MEQ/L (98-107) 90 MEQ/L (98-107) Carbon Dioxide Level 19.3 MEQ/L (21.0-32.0) 21.8 MEQ/L (21.0-32.0) 21.8 MEQ/L (21.0-32.0) Anion Gap 16 MEQ/L (5-15) 13 MEQ/L (5-15) 16 MEQ/L (5-15) Estimat Glomerular Filtration Rate 20 ML/MIN (>89) 17 ML/MIN (>89) 17 ML/MIN (>89) Lactic Acid Level 1.4 mmol/L (0.4-2.0) Protein Corrected Calcium 7.3 MG/DL (8.5-10.1) 7.6 MG/DL (8.5-10.1) 7.8 MG/DL (8.5-10.1) B-Type Natriuretic Peptide 1223 PG/ML (0-100) Thyroid Stimulating Hormone 3rd Gen 0.250 uIU/ML (0.358-3.740) Random Vancomycin Level 23.4 COMMENT Test 12/28/17 05:43 White Blood Count 10.6 TH/MM3 (4.0-11.0) Red Blood Count 2.73 MIL/MM3 (4.50-5.90) Hemoglobin 10.3 GM/DL (13.0-17.0) Hematocrit 27.9 % (39.0-51.0) Mean Corpuscular Volume 102.3 FL (80.0-100.0) Mean Corpuscular Hemoglobin 37.8 PG (27.0-34.0) Mean Corpuscular Hemoglobin Concent 36.9 % (32.0-36.0) Red Cell Distribution Width 13.3 % (11.6-17.2) Platelet Count 116 TH/MM3 (150-450) Mean Platelet Volume 8.0 FL (7.0-11.0) Neutrophils (%) (Auto) 83.3 % (16.0-70.0) Lymphocytes (%) (Auto) 2.9 % (9.0-44.0) Monocytes (%) (Auto) 13.6 % (0.0-8.0) Eosinophils (%) (Auto) 0.0 % (0.0-4.0) Basophils (%) (Auto) 0.2 % (0.0-2.0) Neutrophils # (Auto) 8.8 TH/MM3 (1.8-7.7) Lymphocytes # (Auto) 0.3 TH/MM3 (1.0-4.8) Monocytes # (Auto) 1.4 TH/MM3 (0-0.9) Eosinophils # (Auto) 0.0 TH/MM3 (0-0.4) Basophils # (Auto) 0.0 TH/MM3 (0-0.2) CBC Comment AUTO DIFF Differential Comment AUTO DIFF CONFIRMED Platelet Estimate LOW (NORMAL) Platelet Morphology Comment NORMAL (NORMAL) Basophilic Stippling FAINT (NORMAL) Activated Partial Thromboplast Time 26.1 SEC (24.3-30.1) Blood Urea Nitrogen 56 MG/DL (7-18) Creatinine 3.75 MG/DL (0.60-1.30) Random Glucose 152 MG/DL (74-106) Total Protein 5.5 GM/DL (6.4-8.2) Calcium Level 6.9 MG/DL (8.5-10.1) Magnesium Level 2.5 MG/DL (1.5-2.5) Sodium Level 129 MEQ/L (136-145) Potassium Level 3.7 MEQ/L (3.5-5.1) Chloride Level 91 MEQ/L (98-107) Carbon Dioxide Level 22.7 MEQ/L (21.0-32.0) Anion Gap 15 MEQ/L (5-15) Estimat Glomerular Filtration Rate 16 ML/MIN (>89) Protein Corrected Calcium 7.7 MG/DL (8.5-10.1) Phosphorus Level 7.0 MG/DL (2.5-4.9) Result Diagram: 12/28/17 0543 12/28/1743 Microbiology Microbiology Date/Time Source Procedure Growth Status 12/23/17 22:22 Blood Peripheral Aerobic Blood Culture - Final NO GROWTH IN 5 DAYS Complete 12/23/17 22:22 Blood Peripheral Anaerobic Blood Culture - Final NO GROWTH IN 5 DAYS Complete 12/24/17 05:00 Fluid Pleural Fluid Fungal Smear - Final NO FUNGAL ELEMENTS SEEN. Resulted 12/24/17 05:00 Fluid Pleural Fluid Fungal Culture Pending Resulted 12/24/17 04:50 Nasal Aspirate Influenza Types A,B Antigen (VIOLET) - Final NEGATIVE FOR FLU A AND B ANTIGEN.... Complete 12/23/17 20:00 Urine Catheterized Urine Legionella Antigen - Final PRESUMPTIVE NEGATIVE FOR LEGIONELLA P... Complete 12/23/17 20:00 Urine Catheterized Urine Streptococcus pneumoniae Antigen (M - Final PRESUMPTIVE NEGATIVE FOR STREPTOCOCCU... Complete Imaging Last Impressions Chest X-Ray 12/28/17 0000 Signed Impressions: Service Date/Time: Thursday, December 28, 2017 10:52 - CONCLUSION: 1. Bilateral chest tubes without pneumothorax. 2. Slight improvement of bilateral airspace disease. Dominic Murphy MD Renal Ultrasound 12/25/17 0000 Signed Impressions: Service Date/Time: Monday, December 25, 2017 17:32 - CONCLUSION: Negative renal ultrasound examination. Boni Obregon MD Head CT 12/23/17 0000 Signed Impressions: Service Date/Time: December 00:39 - CONCLUSION: No acute disease. Raji Matos Jr., MD Chest CT 12/23/17 0000 Signed Impressions: Service Date/Time: December 00:39 - CONCLUSION: 1. Moderate-sized bilateral pleural effusions. 2. Diffuse bilateral pulmonary infiltrates. This may relate to pulmonary edema. 3. Coronary artery atherosclerotic calcifications. Raji Matos Jr., MD Procedures 12/23: Right IJ central line placement 12/23: Field intubation by EVAC 12/23: Reintubation by ED physician 12/24: Left radial art line placement 12/24: Right pigtail chest tube placement 12/27: Left chest tube placement . Patient/Family Conference Present at Family Conference: Patient's daughter, Andra Almonte and sister, Kaylyn Carvajal were at bedside. Palliative care introduced with explanation of purpose and focus as well as below listed items. Contact information provided. Life review conducted with review of past medical, social, psychosocial and spiritual history. Clinical update given with explanation lab results, radiology results and specialist opinions and plans. Reviewed organ profile to include acute kidney injury and NSTEMI. Possible introduced upcoming decisions to include tracheostomy and PEG placement if unable to extubate. Plan to meet again tomorrow to review progress , clinical status and review any new questions. . Family Conference Location: Bedside Issues Discussed: * Palliative care role, purpose, approach * Additional medical, psychosocial, and spiritual history * Patients general health, functional status, and cognitive changes in the months leading up to the current hospitalization * Patient/family understanding of the current medical problems * Patient/family understanding of prognosis * Patients goals of care as best understood from advance directives and/or conversations and/or values * Current medical treatment options and benefits/burdens of those options * Likely scenarios comparing ongoing aggressive care with a transition to comfort measures only * Questions answered to the best of my ability * Palliative care contact information provided Assessment and Plan Disease Oriented Problem List: (1) PVD (peripheral vascular disease) (2) Cardiac arrest (3) NICKO (acute kidney injury) (4) Metabolic acidosis (5) NSTEMI (non-ST elevated myocardial infarction) (6) Respiratory failure with hypoxia and hypercapnia (7) Tobacco abuse (8) Pulmonary edema Symptom Scale: (1) Dyspnea and respiratory abnormalities 0-10 Scale: Unable to quantify (Mechanically ventilated, sedated) (2) Pain, generalized 0-10 Scale: Unable to quantify (Sedated) Pertinent Non-Medical Issues Psychosocial:He was born at [facility] and has lived in [place] all of his life. 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 He was an avid fisherman. Never in the service. He has 1 daughter, Andra, with whom he lives. 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 Legal:No noted issues. Ethical issues impacting care:No noted issues. . Important Contacts Daughter: Andra Newby Sister: Kaylyn Carvajal Brother: Jared Powell . Prognosis His prognosis is guarded. He has known coronary artery disease and appears to have had an NSTEMI. At this time no catheterization is planned due to his hemodynamic and respiratory instability, as well as his acute kidney injury. He also has a long history of tobacco abuse and may be difficult to extubate. Given his complex cardiovascular history, he is at significant risk for continued complications, decline and hospitalizations. . Code Status: Full Code Plan PLAN: Legal decision maker: At this time the patient is not capacitated for decision-making as he is intubated and sedated. He is not and has only one child, his daughter Andra, with whom he lives. Per [place] statutes, Andra would be the proxy decision-maker. She is both readily available and willing to serve in that capacity. She is being supported by her aunt, Kaylyn Carvajal, the patient's sister. Goals: Aggressive at this time. CODE STATUS: FULL CODE SYMPTOMS: * Dyspnea: He was both dyspneic and orthopneic at baseline, likely multifactorial to include his long history of tobacco use, compromised cardiac function and bilateral pleural effusions. He is currently mechanically ventilated on a high level FiO2 at 70%. He has bilateral chest tubes and due to his hemodynamic instability, no spontaneous breathing trials have been initiated at this time. His prognosis is guarded at this time. * Pain: He complained prior to coming in, primarily located in his left chest around the rib area that he struck when he fell recently. His daughter stated that he complained of some vague chest discomfort over the last 2 weeks. It is unclear whether this related to his recent fall or underlying cardiac disease. He is also at risk for pain from invasive lines, bedbound status and medical illness. He remains on a fentanyl drip for both pain management and sedation at this time. SUMMARY This is a 62-year-old male with a long history of tobacco and alcohol abuse with subsequent sequelae of and coronary artery disease and peripheral artery disease who presented with hypoxemic and hypercarbic respiratory failure , bilateral pleural effusions and an NSTEMI. His daughter is his decision maker and states that they had never discussed his wishes for advanced directives. She wishes to allow some time to evaluate the trajectory of his clinical course. He is at significant risk for continued complications and decline. Palliative care will continue to follow the patient during hospital course as condition evolves, to assist patient/decision-maker with understanding of their medical conditions, weighing benefits/burdens of treatment options, for clarification of goals of treatment. Additionally will assist with any symptoms of palliative concern. . Thank you for the opportunity to participate in the care of Mr. Powell. Attestation To help prompt me to consider important information that might be impacting today's encounter and assessment, information from prior notes written by myself or my colleagues may have been "brought forward" into today's note. My signature on this note, however, is an attestation that I personally performed the exam, history, and/or decision-making noted today, and, unless otherwise indicated, the interactions with patient, family, and staff as well as the review of records all occurred today. I also attest that the listed assessment and stated plan reflect my best clinical judgment today based on the combination of historical information, prior notes, and today's exam/ interactions. When time spent is documented, it refers only to time spent today by the signer, or if indicated, combined time spent today by collaborating physician/nurse practitioner. . Sharron Meza December 28, 2017 11:12 am
--- NOTE | 2017-12-28 12:07 | RADRPT ---
EXAM DATE/TIME: 12/28/2017 10:52 [facility] COMPARISON: CHEST SINGLE AP, December 26, 2017, 17:45. INDICATIONS : Chest tube placement, left. MEDICAL HISTORY : None. SURGICAL HISTORY : Intubation. ENCOUNTER: Subsequent ACUITY: 4 - 6 days PAIN SCORE: Non-responsive. LOCATION: Bilateral chest FINDINGS: A single view of the chest demonstrates slight improvement in bilateral airspace disease. Left-sided chest tube without pneumothorax. Endotracheal tube, nasogastric tube and right jugular central line i n stable position. Right-sided chest tube also seen without pneumothorax.. Osseous structures are in tact. CONCLUSION: 1. Bilateral chest tubes without pneumothorax. 2. Slight improvement of bilateral airspace disease. Dominic Murphy MD on December 28, 2017 at 12:05 Board Certified Radiologist. This report was verified electronically.
[2017-12-28 12:43] LABS: BICARBONATE 22.7 MEQ/L (21.0-32.0); CALCIUM 6.8 MG/DL (8.5-10.1); CREATININE 3.85 MG/DL (0.60-1.30); MAGNESIUM 2.5 MG/DL (1.5-2.5)
[2017-12-28 12:56] LABS: CALCIUM-PROTEIN CORRECTED 7.6 MG/DL (8.5-10.1); TOTAL PROTEIN 5.6 GM/DL (6.4-8.2)
[2017-12-28] MEDS: fentaNYL DRIP 250 ML IV PRN (14:14)
--- NOTE | 2017-12-28 14:58 | PD.CARD.PN ---
Subjective Subjective Remarks Intubated. Sedated. Objective Medications Item Value Date Time Aspirin 81 mg 12/24/17 1230 (Aspirin Chew) DAILY/CHEW 12/25/17 0755 Clopidogrel 75 mg 12/24/17 0915 Bisulfate DAILY/PO 12/25/17 0755 (Plavix) Norepinephrine 250 ml @ 7.5 mls/hr 12/24/17 0630 Bitartrate TITRATE PRN/IV 12/25/17 0544 Heparin Sodium/ 250 ml @ 9 mls/hr 12/24/17 0515 Dextrose TITRATE PRN/IV 12/24/17 1044 Vasopressin 40 100 ml @ 6 mls/hr 12/23/17 2329 units/Dextrose .[id number]/IV 12/24/17 2104 Dopamine HCl/ 500 ml @ 0 mls/hr 12/23/17 2030 Dextrose TITRATE PRN/IV 12/25/17 0455 Furosemide 100 mg/ 100 ml @ 20 mls/hr 12/27/17 1730 Sodium Chloride CONTINUOUS/IV 12/28/17 1345 Current Medications Medications (Trade) Dose Ordered Sig/Ghada Route Start Time Stop Time Status Last Admin Dopamine HCl/ Dextrose 500 ml @ 0 mls/hr TITRATE PRN IV 12/23/17 20:30 12/28/17 03:42 (Brethine Inj) 1 mg UNSCH PRN SQ 12/23/17 23:30 Vasopressin 40 units/Dextrose 100 ml @ 6 mls/hr [id number] IV 12/23/17 23:29 12/28/17 01:28 (SoluCORTEF INJ) 50 mg Q6HR IV PUSH 12/24/17 00:00 12/28/17 13:56 (NS Flush) 2 ml UNSCH PRN IV FLUSH 12/24/17 00:00 12/26/17 08:27 (NS Flush) 2 ml BID IV FLUSH 12/24/17 09:00 12/28/17 08:20 (Tylenol) 650 mg Q6H PRN PO 12/24/17 00:00 (fentaNYL INJ) 50 mcg Q1H PRN IV PUSH 12/24/17 00:00 (Versed Inj) 2 mg Q15M PRN IV PUSH 12/24/17 00:00 (Reglan Inj) 5 mg Q6H PRN IV PUSH 12/24/17 00:00 (Albuterol Neb) 2.5 mg Q2HR NEB PRN INH 12/24/17 00:00 ([facility]) 1 [id number] XX 12/24/17 00:00 (Chlorhexidine 2% Cloth) 3 pack Taper DAILY@04 TOP 12/24/17 04:00 12/20/18 03:59 12/28/17 04:00 (Chlorhexidine 2% Cloth) 3 pack UNSCH PRN TOP 12/24/17 00:00 (Nury-Colace) 1 tab BID PO 12/24/17 09:00 12/28/17 08:19 (Milk Of Magnesia Liq) 30 ml Q12H PRN PO 12/24/17 00:00 (Senokot) 17.2 mg Q12H PRN PO 12/24/17 00:00 (Dulcolax Supp) 10 mg DAILY PRN RECTAL 12/24/17 00:00 (Lactulose Liq) 30 ml DAILY PRN PO 12/24/17 00:00 Thiamine HCl 100 mg/Sodium Chloride 101 ml @ 101 mls/hr DAILY IV 12/24/17 09:00 12/28/17 08:19 (Peridex 0.12% Liq) 15 ml BID@08,20 MT 12/24/17 08:00 12/28/17 08:00 (Tamiflu Liq) 75 mg BID OG-TUBE 12/24/17 01:00 12/28/17 23:55 12/28/17 08:41 (Folate) 1 mg DAILY OG-TUBE 12/24/17 09:00 12/28/17 08:39 (Theragran) 1 tab DAILY OG-TUBE 12/24/17 09:00 12/28/17 08:19 Heparin Sodium/ Dextrose 250 ml @ 9 mls/hr TITRATE PRN IV 12/24/17 05:15 Future Hold 12/27/17 09:12 (D50w (Vial) Inj) 50 ml UNSCH PRN IV PUSH 12/24/17 09:15 (Glucagon Inj) 1 mg UNSCH PRN OTHER 12/24/17 09:15 (NovoLOG SUPPLEMENTAL SCALE) 1 Q6HR SQ 12/24/17 09:15 12/28/17 12:00 (Plavix) 75 mg DAILY PO 12/24/17 09:15 12/27/17 08:31 (Aspirin Chew) 81 mg DAILY CHEW 12/24/17 12:30 12/27/17 08:31 Fentanyl Citrate 250 ml @ 5 mls/hr TITRATE PRN IV 12/24/17 21:30 12/28/17 14:14 Propofol 100 ml @ 2.4 mls/hr TITRATE PRN IV 12/24/17 21:30 Sodium Bicarbonate 150 meq/Dextrose 1,150 ml @ 75 mls/hr [id number] IV 12/26/17 14:00 12/28/17 08:39 (Pepcid) 10 mg BID PO 12/26/17 21:00 12/28/17 08:19 Azithromycin 500 mg/Sodium Chloride 250 ml @ 250 mls/hr Q24H IV 12/26/17 22:00 12/27/17 21:07 Piperacillin Sod/ Tazobactam Sod 50 ml @ 100 mls/hr Q6H IV 12/26/17 22:00 12/28/17 10:49 (Duoneb Neb) 1 ampule Q4HR NEB NEB 12/27/17 20:00 12/28/17 12:00 Furosemide 100 mg/ Sodium Chloride 100 ml @ 20 mls/hr CONTINUOUS IV 12/27/17 17:30 12/28/17 13:45 Albumin Human 100 ml @ 12.5 mls/hr Q8H IV 12/28/17 09:00 12/28/17 09:27 Vital Signs / I&O Vital Signs Date Time Temp Pulse Resp B/P (MAP) Pulse Ox O2 Delivery O2 Flow Rate FiO2 12/28/17 12:31 98 70 12/28/17 12:00 95.9 91 16 117/74 (88) 100 104/53 (70) 12/28/17 12:00 91 12/28/17 12:00 70 12/28/17 10:00 98 12/28/17 08:00 78 12/28/17 08:00 96.0 78 18 87/59 (68) 95 95/47 (63) 12/28/17 08:00 70 12/28/17 07:39 95 70 12/28/17 06:00 101 12/28/17 06:00 101 103/73 (83) 119/58 (78) 5/21/18 04:26 95 70 12/28/17 04:00 89 12/28/17 04:00 70 12/28/17 04:00 98.5 89 16 103/73 (83) 91 110/66 (81) 12/28/17 03:42 90 108/62 12/28/17 02:00 93 12/28/17 01:28 92 113/64 12/28/17 00:08 90 60 12/28/17 00:00 97.4 93 17 105/71 (82) 91 113/65 (81) 12/28/17 00:00 60 12/28/17 00:00 93 12/28/17 00:00 93 113/65 12/27/17 22:00 98 12/27/17 20:00 60 12/27/17 20:00 91 12/27/17 20:00 98.7 91 16 108/73 (85) 93 114/67 (83) 12/27/17 19:54 93 60 12/27/17 18:00 96 12/27/17 18:00 96 103/65 (78) 108/62 (77) 12/27/17 17:00 97 12/27/17 16:00 60 12/27/17 16:00 96 12/27/17 16:00 98.1 96 18 103/65 (78) 93 98/55 (69) 12/27/17 15:51 93 60 12/27/17 15:00 96 I/O 12/27/17 12/27/17 12/27/17 12/28/17 12/28/17 12/28/17 07:00 15:00 23:00 07:00 15:00 23:00 Intake Total 1605 ml 843 ml 2366 ml 205 ml Output Total 450 ml 1180 ml 1010 ml Balance 1155 ml -337 ml 1356 ml 205 ml Intake IV Total 1575 ml 783 ml 2306 ml 205 ml Other 30 ml 60 ml 60 ml Output Urine Total 250 ml 680 ml 510 ml Gastric Drainage Total 50 ml 0 ml 100 ml Chest Tube Drainage Total 150 ml 500 ml 400 ml # Bowel Movements 0 0 Physical Exam GENERAL: Well developed, well nourished. Intubated. Sedated. HEENT: Jugular venous pressure is normal. CHEST: Lungs clear to auscultation anteriorly. CARDIAC: Regular rate and rhythm without S3, S4. II/ holosystolic murmur apex. ABDOMEN: Soft, nontender, no hepatosplenomegaly. Bowel sounds present. EXTREMITIES: SCD's in place. Laboratory Laboratory Tests Test 12/27/17 19:27 12/27/17 23:51 12/28/17 05:43 12/28/17 11:45 Blood Urea Nitrogen 51 MG/DL 50 MG/DL 56 MG/DL 58 MG/DL Creatinine 3.68 MG/DL 3.68 MG/DL 3.75 MG/DL 3.85 MG/DL Random Glucose 141 MG/DL 173 MG/DL 152 MG/DL 150 MG/DL Total Protein 5.9 GM/DL 5.6 GM/DL 5.5 GM/DL 5.6 GM/DL Calcium Level 7.0 MG/DL 7.0 MG/DL 6.9 MG/DL 6.8 MG/DL Magnesium Level 1.9 MG/DL 2.7 MG/DL 2.5 MG/DL 2.5 MG/DL Sodium Level 127 MEQ/L 128 MEQ/L 129 MEQ/L 129 MEQ/L Potassium Level 4.0 MEQ/L 3.7 MEQ/L 3.7 MEQ/L 3.8 MEQ/L Chloride Level 92 MEQ/L 90 MEQ/L 91 MEQ/L 90 MEQ/L Carbon Dioxide Level 21.8 MEQ/L 21.8 MEQ/L 22.7 MEQ/L 22.7 MEQ/L Anion Gap 13 MEQ/L 16 MEQ/L 15 MEQ/L 16 MEQ/L Estimat Glomerular Filtration Rate 17 ML/MIN 17 ML/MIN 16 ML/MIN 16 ML/MIN Protein Corrected Calcium 7.6 MG/DL 7.8 MG/DL 7.7 MG/DL 7.6 MG/DL White Blood Count 10.6 TH/MM3 Red Blood Count 2.73 MIL/MM3 Hemoglobin 10.3 GM/DL Hematocrit 27.9 % Mean Corpuscular Volume 102.3 FL Mean Corpuscular Hemoglobin 37.8 PG Mean Corpuscular Hemoglobin Concent 36.9 % Red Cell Distribution Width 13.3 % Platelet Count 116 TH/MM3 Mean Platelet Volume 8.0 FL Neutrophils (%) (Auto) 83.3 % Lymphocytes (%) (Auto) 2.9 % Monocytes (%) (Auto) 13.6 % Eosinophils (%) (Auto) 0.0 % Basophils (%) (Auto) 0.2 % Neutrophils # (Auto) 8.8 TH/MM3 Lymphocytes # (Auto) 0.3 TH/MM3 Monocytes # (Auto) 1.4 TH/MM3 Eosinophils # (Auto) 0.0 TH/MM3 Basophils # (Auto) 0.0 TH/MM3 CBC Comment AUTO DIFF Differential Comment AUTO DIFF CONFIRMED Platelet Estimate LOW Platelet Morphology Comment NORMAL Basophilic Stippling FAINT Activated Partial Thromboplast Time 26.1 SEC 28.4 SEC Phosphorus Level 7.0 MG/DL Imaging Last 24 hours Impressions Chest X-Ray 12/28/17 0000 Signed Impressions: Service Date/Time: Thursday, December 28, 2017 10:52 - CONCLUSION: 1. Bilateral chest tubes without pneumothorax. 2. Slight improvement of bilateral airspace disease. Dominic Murphy MD Assessment and Plan Problem List: (1) NSTEMI (non-ST elevated myocardial infarction) ICD Codes: I21.4 - Non-ST elevation (NSTEMI) myocardial infarction Status: Acute Plan: Remains critically ill. Now with worsening renal indices, declining urine output. Still requiring pressor support. EF low normal, ~50%, by echo. Cardiac enzymes consistent with NSTEMI. REC continue aspirin, Plavix, heparin drip (can stop in 2 days from cardiac standpoint) continue to try weaning ventilatory and pressor support patient not candidate for coronary angiography with high risk of dye- induced renal failure-->recommend medical therapy, if/when possible recommend beta roberto carlos therapy, oral nitrate will f/u periodically Code Status full code Dominick Wilson MD December 28, 2017 14:58
--- NOTE | 2017-12-28 17:04 | RADRPT ---
EXAM DATE/TIME: 12/28/2017 16:28 [facility] COMPARISON: No previous studies available for comparison. INDICATIONS : Distention. MEDICAL HISTORY : Hypertension. Hypercholesterolemia. DVT SURGICAL HISTORY : Appendectomy. ENCOUNTER: Initial ACUITY: 1 day PAIN SCORE: Non-responsive. LOCATION: Abdomen. FINDINGS: Nasogastric tube descends to the stomach. There is gas present occasional nondilated colon. No suspic ious calcific densities. Vascular calcifications are present. Prominent degenerative changes in the s pine. Lung base infiltrates there is a thoracostomy tube is present. CONCLUSION: NG tube in the stomach. Nonspecific gas pattern Boni Messer MD on December 28, 2017 at 17:01 Board Certified Radiologist. This report was verified electronically.
--- NOTE | 2017-12-28 17:16 | PD.PROCEDR ---
Procedure Note Procedure Percutaneous Pigtail Tube Thoracostomy Procedure Note Left 8 Indian pigtail chest tube Diagnosis: Left-sided pleural effusion Indications: Left-sided pleural effusion with associated hypoxic respiratory failure Consent: Obtained Anesthesia: None Description of the Procedure: The patient was placed in the supine position. The arm was abducted above the head and secured. The left lateral chest was prepped and draped sterilely to include the axilla and nipple. The largest area of effusion was located and marked under ultrasound guidance. This corresponded to approximately the sixth intercostal space. The 6th intercostal space was identified. A small incision was made using a #11 blade. At the mid- axillary line, a 8 Fr pigtail catheter with stylet and pencil point trochar introducer were inserted superior to the adjacent rib and the pigtail catheter was advanced over the trochar in a modified Seldinger Technique, easily and without resistance. The catheter was connected to a Pleur-o-vac and connected to [id number] suction. The catheter was sutured to the skin using a 3-0 silk sandal suture and an occlusive dressing was applied. There were no immediate complications noted. There was minimal EBL. The patient tolerated the procedure well. A Chest x-ray has been ordered. I personally performed the procedure. Russ Faust MD December 28, 2017 17:16
--- NOTE | 2017-12-28 19:16 | HHI.IDPN ---
Subjective Subjective Remarks not doing well hypothermic, on bear hugger sedated intubated NGT to suction Now has 2 CTs Antibiotics azithro zosyn vbanco - stoppped Allergies: Coded Allergies: cefaclor (Unverified Allergy, Unknown, Doesn't remember , 04/10/17) Objective . Vital Signs Date Time Temp Pulse Resp B/P (MAP) Pulse Ox O2 Delivery O2 Flow Rate FiO2 12/28/17 18:00 94 120/56 12/28/17 18:00 94 120/56 12/28/17 18:00 95 12/28/17 18:00 95 120/56 (77) 109/66 (80) 12/28/17 16:00 97 12/28/17 16:00 98.9 97 25 109/66 (80) 100 117/52 (73) 12/28/17 16:00 70 12/28/17 15:36 100 70 12/28/17 14:00 98 12/28/17 13:00 70 12/28/17 12:31 98 70 12/28/17 12:00 95.9 91 16 117/74 (88) 100 104/53 (70) 12/28/17 12:00 91 12/28/17 12:00 70 12/28/17 10:00 98 12/28/17 08:00 78 12/28/17 08:00 96.0 78 18 87/59 (68) 95 95/47 (63) 12/28/17 08:00 70 12/28/17 07:39 95 70 12/28/17 06:00 101 12/28/17 06:00 101 103/73 (83) 119/58 (78) 12/28/17 04:26 95 70 12/28/17 04:00 89 12/28/17 04:00 70 12/28/17 04:00 98.5 89 16 103/73 (83) 91 110/66 (81) 12/28/17 03:42 90 108/62 12/28/17 02:00 93 12/28/17 01:28 92 113/64 12/28/17 00:08 90 60 12/28/17 00:00 97.4 93 17 105/71 (82) 91 113/65 (81) 12/28/17 00:00 60 12/28/17 00:00 93 12/28/17 00:00 93 113/65 12/27/17 22:00 98 12/27/17 20:00 60 12/27/17 20:00 91 12/27/17 20:00 98.7 91 16 108/73 (85) 93 114/67 (83) 12/27/17 19:54 93 60 12/28/17 12/28/17 12/29/17 15:00 23:00 07:00 Intake Total 580 ml 1501 ml Output Total 877 ml 3540 ml Balance -297 ml -2039 ml Intake IV Total 580 ml 1441 ml Tube Irrigant 60 ml Output Urine Total 877 ml 400 ml Gastric Drainage Total 500 ml Chest Tube Drainage Total 2640 ml . Laboratory Tests Test 12/27/17 04:10 12/28/17 05:43 White Blood Count 15.7 TH/MM3 10.6 TH/MM3 Red Blood Count 2.99 MIL/MM3 2.73 MIL/MM3 Hemoglobin 11.2 GM/DL 10.3 GM/DL Hematocrit 31.4 % 27.9 % Mean Corpuscular Volume 104.8 FL 102.3 FL Mean Corpuscular Hemoglobin 37.4 PG 37.8 PG Mean Corpuscular Hemoglobin Concent 35.7 % 36.9 % Red Cell Distribution Width 13.2 % 13.3 % Platelet Count 138 TH/MM3 116 TH/MM3 Mean Platelet Volume 8.2 FL 8.0 FL Neutrophils (%) (Auto) 90.0 % 83.3 % Lymphocytes (%) (Auto) 1.9 % 2.9 % Monocytes (%) (Auto) 8.0 % 13.6 % Eosinophils (%) (Auto) 0.0 % 0.0 % Basophils (%) (Auto) 0.1 % 0.2 % Neutrophils # (Auto) 14.1 TH/MM3 8.8 TH/MM3 Lymphocytes # (Auto) 0.3 TH/MM3 0.3 TH/MM3 Monocytes # (Auto) 1.3 TH/MM3 1.4 TH/MM3 Eosinophils # (Auto) 0.0 TH/MM3 0.0 TH/MM3 Basophils # (Auto) 0.0 TH/MM3 0.0 TH/MM3 CBC Comment AUTO DIFF AUTO DIFF Differential Comment AUTO DIFF CONFIRMED AUTO DIFF CONFIRMED Platelet Estimate LOW Platelet Morphology Comment NORMAL Basophilic Stippling FAINT Laboratory Tests Test 12/27/17 04:10 12/27/17 19:27 12/27/17 23:51 12/28/17 05:43 Blood Urea Nitrogen 39 MG/DL 51 MG/DL 50 MG/DL 56 MG/DL Creatinine 3.10 MG/DL 3.68 MG/DL 3.68 MG/DL 3.75 MG/DL Random Glucose 133 MG/DL 141 MG/DL 173 MG/DL 152 MG/DL Total Protein 5.9 GM/DL 5.9 GM/DL 5.6 GM/DL 5.5 GM/DL Albumin 2.0 GM/DL Calcium Level 6.7 MG/DL 7.0 MG/DL 7.0 MG/DL 6.9 MG/DL Phosphorus Level 6.6 MG/DL 7.0 MG/DL Magnesium Level 1.8 MG/DL 1.9 MG/DL 2.7 MG/DL 2.5 MG/DL Alkaline Phosphatase 48 U/L Aspartate Amino Transf (AST/SGOT) 137 U/L Alanine Aminotransferase (ALT/SGPT) 59 U/L Total Bilirubin 1.0 MG/DL Sodium Level 127 MEQ/L 127 MEQ/L 128 MEQ/L 129 MEQ/L Potassium Level 4.3 MEQ/L 4.0 MEQ/L 3.7 MEQ/L 3.7 MEQ/L Chloride Level 92 MEQ/L 92 MEQ/L 90 MEQ/L 91 MEQ/L Carbon Dioxide Level 19.3 MEQ/L 21.8 MEQ/L 21.8 MEQ/L 22.7 MEQ/L Anion Gap 16 MEQ/L 13 MEQ/L 16 MEQ/L 15 MEQ/L Estimat Glomerular Filtration Rate 20 ML/MIN 17 ML/MIN 17 ML/MIN 16 ML/MIN Lactic Acid Level 1.4 mmol/L Protein Corrected Calcium 7.3 MG/DL 7.6 MG/DL 7.8 MG/DL 7.7 MG/DL B-Type Natriuretic Peptide 1223 PG/ML Thyroid Stimulating Hormone 3rd Gen 0.250 uIU/ML Test 12/28/17 11:45 Blood Urea Nitrogen 58 MG/DL Creatinine 3.85 MG/DL Random Glucose 150 MG/DL Total Protein 5.6 GM/DL Calcium Level 6.8 MG/DL Magnesium Level 2.5 MG/DL Sodium Level 129 MEQ/L Potassium Level 3.8 MEQ/L Chloride Level 90 MEQ/L Carbon Dioxide Level 22.7 MEQ/L Anion Gap 16 MEQ/L Estimat Glomerular Filtration Rate 16 ML/MIN Protein Corrected Calcium 7.6 MG/DL Microbiology Date/Time Source Procedure Growth Status 12/28/17 16:13 Blood Peripheral Aerobic Blood Culture Pending Received 12/28/17 16:13 Blood Peripheral Anaerobic Blood Culture Pending Received 12/28/17 15:52 Blood Peripheral Aerobic Blood Culture Pending Received 12/28/17 15:52 Blood Peripheral Anaerobic Blood Culture Pending Received 12/28/17 16:07 Sputum Endotracheal Gram Stain Pending Received 12/28/17 16:07 Sputum Endotracheal Sputum Culture Pending Received Imaging Last Imprev Last Impressions Chest X-Ray 12/28/17 0000 Signed Impressions: Service Date/Time: Thursday, December 28, 2017 10:52 - CONCLUSION: 1. Bilateral chest tubes without pneumothorax. 2. Slight improvement of bilateral airspace disease. Dominic Murphy MD Abdomen X-Ray 12/28/17 0000 Signed Impressions: Service Date/Time: Thursday, December 28, 2017 16:28 - CONCLUSION: NG tube in the stomach. Nonspecific gas pattern Boni Messer MD Renal Ultrasound 12/25/17 0000 Signed Impressions: Service Date/Time: Monday, December 25, 2017 17:32 - CONCLUSION: Negative renal ultrasound examination. Boni Obregon MD Head CT 12/23/17 0000 Signed Impressions: Service Date/Time: December 00:39 - CONCLUSION: No acute disease. Raji Matos Jr., MD Chest CT 12/23/17 0000 Signed Impressions: Service Date/Time: December 00:39 - CONCLUSION: 1. Moderate-sized bilateral pleural effusions. 2. Diffuse bilateral pulmonary infiltrates. This may relate to pulmonary edema. 3. Coronary artery atherosclerotic calcifications. Raji Matos Jr., MD Physical Exam CONSTITUTIONAL/GENERAL: This is an adequately nourished patient, in no apparent distress. TUBES/LINES/DRAINS: SKIN: No jaundice, rashes, or lesions. Skin temperature appropriate. Not diaphoretic. EYES: Pupils equal and round and reactive. Extraocular motions intact. No scleral icterus. No injection or drainage. Fundi not examined. CARDIOVASCULAR: Regular rate and rhythm without murmurs, gallops, or rubs. No JVD. Peripheral pulses BUE symmetric. Pedal pulses non palpable, but dopplerable RESPIRATORY/CHEST: Symmetric, unlabored respirations. Clear to auscultation. Breath sounds equal bilaterally. No wheezes, rales, or rhonchi. b/l CTs in place R side with serosan drainage, L with serous GASTROINTESTINAL: Abdomen soft, non-tender, nondistended. No hepato-splenomegaly , or palpable masses. No guarding. Bowel sounds present. GENITOURINARY: Without palpable bladder distension. Noonan catheter in place. MUSCULOSKELETAL: Extremities without clubbing, Feet with prominent cyanosis,cold to touch. Refill delayed but present No edema. No joint tenderness or effusion noted. No calf tenderness. + feet mottling LYMPHATICS: No palpable cervical or supraclavicular adenopathy. NEUROLOGICAL: Unreposnsivce PSYCHIATRIC: unable to assess Assessment & Plan Remarks B/L PNA, clx negative confirmed known flu exposure, resp panel negative R pleural effusion sp CT placement Sp cardiac arrest Hemodynaically unstable, on pressors Acute VDRF Leukocytosis: improving - probaly 2/2 PNA ARF -Adjust abx Hypothermia REC's: chk blood, sputum clx cont zosyn cont azithro dc tamiflu after 5 days completed Payton Quintero MD December 28, 2017 19:16
[2017-12-28 20:23] LABS: ALBUMIN 2.5 GM/DL (3.4-5.0); BICARBONATE 25.9 MEQ/L (21.0-32.0); CALCIUM 7.2 MG/DL (8.5-10.1); CREATININE 4.09 MG/DL (0.60-1.30); MAGNESIUM 2.5 MG/DL (1.5-2.5)
[2017-12-28 20:25] LABS: CALCIUM-PROTEIN CORRECTED 7.9 MG/DL (8.5-10.1); TOTAL BILIRUBIN ADULT 0.9 MG/DL (0.2-1.0); TOTAL PROTEIN 5.8 GM/DL (6.4-8.2)
[2017-12-28] MEDS: AZITHROMYCIN INJ 500 MG in SODIUM CHLOR 0.9% 250 ML INJ 250 ML IV SCH (20:35)
[2017-12-28] MEDS: POTASSIUM CHLOR 20 MEQ PREMIX 100 ML IV SCH (21:43)
[2017-12-29] VITALS (19 sets, daily range): BP systolic 95–121; BP diastolic 49–74; PULSE 95–115; RESP 16–22; TEMP 97.5–98.7; O2SAT 89–97
[2017-12-29] MEDS: POTASSIUM CHLOR 20 MEQ PREMIX 100 ML IV SCH ×3 (00:12→09:19)
[2017-12-29] MEDS: FUROSEMIDE INJ 100 MG in SODIUM CHLORIDE 0.9% INJ 90 ML IV SCH ×5 (00:36→21:55)
[2017-12-29] MEDS: HYDROCORTISONE SOD SUCCINATE 100 MG VIAL IV PUSH SCH ×5 (00:42→23:54)
[2017-12-29 01:20] LABS: BICARBONATE 26.7 MEQ/L (21.0-32.0); CALCIUM 7.1 MG/DL (8.5-10.1); CREATININE 4.06 MG/DL (0.60-1.30); MAGNESIUM 2.5 MG/DL (1.5-2.5)
[2017-12-29 01:58] LABS: CALCIUM-PROTEIN CORRECTED 7.8 MG/DL (8.5-10.1); TOTAL PROTEIN 5.7 GM/DL (6.4-8.2)
[2017-12-29] MEDS: RESP: ALBUTEROL 2.5 MG/IPRATROPIUM 0.5 MG NEB (SCH) NEB ×5 (03:28→19:29)
[2017-12-29] MEDS: PIPERACIL-TAZO 2.25 GM PREMIX 50 ML IV SCH ×3 (03:41→17:17)
[2017-12-29] MEDS: CHLORHEXIDINE GLUCONATE 2 % 1 PACK (2 CLOTHS) TOP SCH (03:41)
[2017-12-29 03:45] LABS: BICARBONATE 26.2 MEQ/L (21.0-32.0); CREATININE 4.1 MG/DL (0.60-1.30); MAGNESIUM 2.5 MG/DL (1.5-2.5)
[2017-12-29 04:32] LABS: CALCIUM-PROTEIN CORRECTED 7.8 MG/DL (8.5-10.1); TOTAL PROTEIN 5.6 GM/DL (6.4-8.2)
[2017-12-29] MEDS: fentaNYL DRIP 250 ML IV PRN ×2 (05:32→15:24)
[2017-12-29] MEDS: INSULIN ASPART SUPPLEMENTAL SCALE SQ SCH ×5 (05:36→23:56)
[2017-12-29] MEDS: HEPARIN-D5W 25,000 U/250 ML 250 ML IV PRN ×2 (05:36→17:49)
[2017-12-29] MEDS ORDERED: CALCIUM GLUCONATE INJ 2 GM in SODIUM CHLORIDE 0.9% INJ 100 ML IV ONE (06:00)
[2017-12-29] MEDS: CHLORHEXIDINE 0.12% (ORAL KIT) 15 ML CUP MT SCH ×2 (08:00→20:44)
[2017-12-29] MEDS: ALBUMIN 25% INJ 100 ML IV SCH ×4 (09:00→21:42)
[2017-12-29] MEDS: SODIUM CHLORIDE 0.9% FLUSH 10 ML FLUSH IV FLUSH SCH ×2 (09:00→20:44)
[2017-12-29] MEDS: THIAMINE INJ 100 MG in SODIUM CHLORIDE 0.9% INJ 100 ML IV SCH (09:19)
[2017-12-29] MEDS: FAMOTIDINE 20 MG TAB PO SCH ×2 (09:20→20:44)
[2017-12-29] MEDS: ASPIRIN 81 MG CHEW TAB CHEW SCH (09:20)
[2017-12-29] MEDS: FOLIC ACID 1 MG TAB OG-TUBE SCH (09:20)
[2017-12-29] MEDS: CLOPIDOGREL 75 MG TAB PO SCH (09:20)
[2017-12-29] MEDS: DOCUSATE SODIUM 50 MG/SENNA 8.6 MG TAB PO SCH ×2 (09:20→20:44)
[2017-12-29] MEDS: POTASSIUM CHLORIDE 20 MEQ CONTROLLED RELEASE TAB PO SCH ×2 (09:21→20:44)
[2017-12-29] MEDS: MULTIVITAMIN TAB OG-TUBE SCH (09:21)
--- NOTE | 2017-12-29 10:07 | RADRPT ---
EXAM DATE: 12/29/2017 9:55 AM EDT AGE/SEX: 62 years / Male INDICATIONS: RESPIRATORY DISTRESS. CLINICAL DATA: This is the patient's subsequent encounter. Patient reports that signs and symptoms h ave been present for 1 week and indicates a pain score of Nonresponsive. MEDICAL/SURGICAL HISTORY: Deep venous thrombosis. Peripheral vascular disease. Appendectomy. COMPARISON: [facility], CHEST SINGLE AP, 01/31/2016. . FINDINGS: There is an endotracheal tube which appears to be in good position. There is an NG tube in the stomach. There is a right-sided central line in place. There is no evidence of pneumothorax. The re is a right and left-sided chest tube in place. There are patchy interstitial and airspace infiltra lupe throughout both lung mccormick. The bony structures are grossly intact and stable. CONCLUSION: 1. There is diffuse bilateral interstitial and airspace patchy infiltrate throughout both lung field s. 2. No evidence of pneumothorax. Electronically signed by: Chad Swenson MD 12/29/2017 10:06 AM EDT
--- NOTE | 2017-12-29 10:32 | HHI.CCPN ---
Subjective Remarks/Hospital Course Patient is unable to provide history because he is intubated. History was obtained by discussion with his daughter and information relayed by the emergency department physician. 62-year-old male with past medical history of hypertension, hyperlipidemia, peripheral arterial disease, daily alcohol use, tobacco abuse. Patient's daughter states that for the last 1-1/2 weeks he has been complaining of orthopnea and has had difficulty sleeping at night because of this; waking up with severe SOB. She states he is also intermittently complained of non- pleuritic left-sided chest pain which he attributed to the fact that he had fallen on his left side a couple of weeks ago. He has had a lot of coughing but to her knowledge it has been nonproductive. He has had generalized weakness over the last couple of days and this morning he was "out of it". He has not been aware of any fever. He has had contact with his grandson who tested positive for influenza A 3 days ago on 12/21. This evening he was in the bathroom and his daughter heard him groaning and seemed to be in respiratory distress and indicated that she needed to call EVAC. He was initially responsive but upon arrival to the ED he was unresponsive, staring straight ahead, being bagged by EVAC.. He became bradycardic. He underwent RSI with etomidate and succinylcholine and was intubated. During intubation he went into asystole. He was given epinephrine 1 mg and 2 amps of sodium bicarbonate in addition to CPR. His heart rate then came up into the 160s. He was started on dopamine due to hypotension and is currently running at 20 mcg/kg/ min. ABG demonstrated acute hypercapnic and hypoxic respiratory failure with pH 7.15/PCO2 of 62/PaO2 of 58/bicarb 21. Chest x-ray demonstrates bibasilar opacities. White blood cell count is 12. He is hypothermic. He received empiric vancomycin and Zosyn in the emergency department and Lasix 40 mg IV. He was started on propofol and fentanyl drips. Propofol was subsequently discontinued and he was started on a Versed drip and given vecuronium to facilitate vent synchrony and oxygenation.. Initial post intubation chest x-ray demonstrated ET tube and NG tube in high position. These were reportedly advanced but remained in high position.. Patient then had notable cuff leak and sats were in the 70s. He was reintubated by the emergency department physician. I have placed right IJ central venous line. Follow-up chest x-ray demonstrates satisfactory position of endotracheal tube and right IJ. The OG has been removed and will be replaced. Noonan has been placed but he has been anuric for the last 3.5 hours in the ED. SUBJECTIVE: 12/24: Patient reevaluated multiple times as he remains critical on multiple pressors. Currently on Levophed at 12 mcg/min, dopamine at 10 mcg/kg/min and vasopressin at 0.04 units. FiO2 currently at 60% with PEEP of 12 I will attempt weaning PEEP due to persistent hypotension. IV heparin started for troponin elevation to 25.5. Aspirin 81 mg daily started. Cardiology consulted. I will also start Flowtrack monitoring and maintenance IV fluids. Starting to make some urine. 12/25: Afebrile urine output slightly increased, however creatinine continues to increase. Nephrology consulted, renal ultrasound pending. The patient continues on vasopressor support, 30 at output trending 3.5, cardiac index 1.7. Patient continues to have persistent leukocytosis blood cultures negative growth today ID has been consulted.PEEP continues at 10 okay to maintain O2 saturation of 92% 12/26: The patient has been weaned off levo fed currently remains on dopamine and vasopressin. Nephrology following no plans for dialysis at this time. WBC downtrending 12/27: encephalopathy persists. NICKO persists. severely volume overloaded with elevated BNP. on vasopressors. left chest with pleural effusion, largest area ~ 3cm around 6th intercostal space. fio2 remains elevated. 12/28: no meaningful diuresis with aggressive diuretic attempts. organ failure persists. encephalopathy persists. high fio2 persists. heparin on hold for left chest tube today. 12/29: Remains severely hypoxemic despite aggressive diuresis and bilateral chest tubes. Urine output 3 L on Lasix infusion and albumin infusion. Chest tube output 3.5 L in the last 24 hours from bilateral chest tubes. Despite all this patient remains severely hypoxemic currently PEEP at 15 FiO2 at 100% which gives a PO2 of 83. Discussed with Dr. Lloyd with increasing creatinine to 4.1 will start Hemodialysis today. Currently on vasopressin 0.04 U/min, dopamine 8 mcg/kg/min Objective Vital Signs Date Time Temp Pulse Resp B/P (MAP) Pulse Ox O2 Delivery O2 Flow Rate FiO2 12/29/17 07:42 92 75 12/29/17 06:00 102 12/29/17 06:00 120/56 (77) 109/66 (80) 12/29/17 04:00 97.3 16 Intake and Output 12/29/17 12/29/17 12/30/17 08:00 16:00 00:00 Intake Total 1877 ml Output Total 1850 ml Balance 27 ml Result Diagram: 12/28/17 0543 12/29/17 0300 Other Results Laboratory Tests Test 12/29/17 09:12 Blood Gas Puncture Site ART LINE Blood Gas Patient Temperature 98.6 Blood Gas HCO3 26 mmol/L (22-26) Blood Gas Base Excess 2.4 mmol/L (-2-2) Blood Gas Oxygen Saturation 92 % (90-100) Arterial Blood pH 7.46 (7.380-7.420) Arterial Blood Partial Pressure CO2 38 mmHg (38-42) Arterial Blood Partial Pressure O2 83 mmHg (61-120) Arterial Blood Oxygen Content 13.9 Vol % (12.0-20.0) Arterial Blood Carboxyhemoglobin 1.3 % (0-4) Arterial Blood Methemoglobin 1.3 % (0-2) Blood Gas Hemoglobin 10.7 G/DL (12.0-16.0) Oxygen Delivery Device VENTILATOR Blood Gas Ventilator Setting 16/[id number]/PEEP12 Blood Gas Inspired Oxygen 100 % Imaging Last Impressions Chest X-Ray 12/26/17 0600 Signed Impressions: Service Date/Time: Tuesday, December 26, 2017 02:56 - CONCLUSION: 1. Left basilar airspace disease slightly increased from December 24. Small caliber right chest tube without pneumothorax. Endotracheal tube and nasogastric tube and right central line in good position. Rian Mccarty MD Renal Ultrasound 12/25/17 0000 Signed Impressions: Service Date/Time: Monday, December 25, 2017 17:32 - CONCLUSION: Negative renal ultrasound examination. Boni Obregon MD Head CT 12/23/17 0000 Signed Impressions: Service Date/Time: December 00:39 - CONCLUSION: No acute disease. Raji Matos Jr., MD Chest CT 12/23/17 0000 Signed Impressions: Service Date/Time: December 00:39 - CONCLUSION: 1. Moderate-sized bilateral pleural effusions. 2. Diffuse bilateral pulmonary infiltrates. This may relate to pulmonary edema. 3. Coronary artery atherosclerotic calcifications. Raji Matos Jr., MD Objective Remarks GENERAL: Ill appearing male who is orotracheally intubated critically ill on vasopressors, 100% FiO2 SKIN: Peripherally cool, diaphoretic. HEAD: Atraumatic. Normocephalic. EYES: Pupils are round, 5 mm ENT: No nasal bleeding or discharge. orotracheally intubated NECK: Trachea midline. No JVD. CARDIOVASCULAR: Tachycardic, regular, sinus tachycardia. On vasopressin 0.04 U/ min. dopamine 8 mcg/kg/min RESPIRATORY: Orotracheally intubated, coarse breath sounds bilaterally. Bilateral chest tubes with total 3.5 L output. fio2 100% PEEP 15 GASTROINTESTINAL: Abdomen soft, non-tender, nondistended. : Noonan in place with minimal light padmaja in the tubing only. MUSCULOSKELETAL: Extremities without clubbing, cyanosis. NEUROLOGICAL: Pupils reactive and he has +corneal reflexes, He requires ongoing sedation due to hypoxemia and vent dyssynchrony, but he does wake up and follows commands weekly 4 Urinary Catheter: Yes Assessment to: Continue A/P Problem List: (1) Asystole ICD Code: I46.9 - Cardiac arrest, cause unspecified Status: Acute (2) NSTEMI (non-ST elevated myocardial infarction) ICD Code: I21.4 - Non-ST elevation (NSTEMI) myocardial infarction Status: Acute (3) Respiratory failure with hypoxia and hypercapnia ICD Code: J96.91 - Respiratory failure, unspecified with hypoxia; J96.92 - Respiratory failure, unspecified with hypercapnia Status: Acute (4) Pleural effusion ICD Code: J90 - Pleural effusion, not elsewhere classified Status: Acute (5) Tobacco abuse ICD Code: Z72.0 - Tobacco use Status: Chronic (6) ETOH abuse ICD Code: F10.10 - Alcohol abuse, uncomplicated Status: Chronic (7) Pulmonary edema ICD Code: J81.1 - Chronic pulmonary edema Status: Acute (8) Shock ICD Code: R57.9 - Shock, unspecified Status: Acute (9) Macrocytic anemia ICD Code: D53.9 - Nutritional anemia, unspecified (10) Hypocalcemia ICD Code: E83.51 - Hypocalcemia (11) Lactic acid acidosis ICD Code: E87.2 - Acidosis Assessment and Plan Assessment: 62yM s/p PEA arrest with ongoing encephalopathy, hypoxic respiratory failure, NICKO, and acute CHF (systolic) exacerbation. s/p bilateral chest tubes but with persistent hypoxia, resp failure. remains volume overloaded with severely elevated BNP. On forced diuresis despite NICKO for severe CHF exacerbation. D/W nephrology will start hemodialysis for fluid removal. Remains critically ill- prognosis guarded at this time due to multiorgan failure NEURO: Acute metabolic encephalopathy On sedation hold patient moves all extremities opens eyes and follows commands today EtOH abuse Fentanyl and Versed for sedation, wean as tolerated, may need continued sedation for ventilator synchrony Monitor for evidence of EtOH withdrawal Thiamine/folic acid/mvi supplementation Seizure precautions RESP: Acute hypoxemic and hypercapnic respiratory failure Bilateral pleural effusion s/p bilateral pigtail chest tube. Severe pulmonary edema COPD Tobacco abuse PRVC/AC with TV 0.67 inspiratory time 1.5 seconds, PEEP 15, FiO2 100% His severe hypoxemia most likely secondary to cardiogenic pulmonary edema, I do not think he will benefit from prone therapy Start hemodialysis for fluid removal 12/29 Broad spectrum antibiotics and completed tamiflu (given due to known exposure to Influenza A) Bilateral pigtail catheters with 3.5 L output Duoneb q4 hours. Albuterol q2 hours prn wheezing. Ventilator bundle CV: NSTEMI Asystolic cardiac arrest Cardiogenic shock Cardiogenic pulmonary edema Essential HTN at baseline Peripheral arterial disease Hyperlipidemia Asystolic cardiac arrest could be secondary to respiratory acidosis, versus non- ST elevation ME Limited bedside Echo performed by Dr. Drummond on dopamine 20 mcg/kg/min demonstrates decompressed RV. The LVEF grossly appears ~45%-50% with decreased contractility of apex Received 3 L NS bolus in the ED and then Lasix but remained anuric with poor peripheral perfusion. CVP is 8 with PEEP of 12 and collapsed RV so appears patient needs volume resuscitation. Given additional 1 L NS bolus and then will remain on MIVF at 50/hr. Follow lactic acid for clearance. On dopamine 10 mcg/kg/min, vasopressin 0.04 international units to maintain MAP >65. Stress dose hydrocortisone EKG sinus rhythm 95, hyperacute T waves in V3 and V4 with ST dep V4-V5. Followup EKG did not show any ST elevations. Troponin 0.09, followed serial troponins, elevated to 25.5 ASA 81 mg daily, continue plavix 75 daily. Heparin drip started after r chest tube inserted. Cardiology consulted. Echo 03/26/17 - EF 50-55%, mild LVH, finding c/w hypertrophic cardiomyopathy. 12/24/17 Echo The left ventricular systolic function is low normal with an estimated ejection fraction of 50%. Moderate mitral valve regurgitation. Stress 02/01/16 suspected mild inferior lateral ischemia. Cardiac catheterization 02/01/16 - normal coronaries. 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 GI: tube feeds FEN/RENAL: NICKO- worsening. Noonan in place, monitor I/O and electrolytes. Now lactic acid cleared and he is making urine 80 ml per hour on Lasix 20 mg per hour infusion. Patient remained severely hypoxemic with creatinine 4.1. Start hemodialysis today discussed with Dr. Lloyd Hypocalcemia Received calcium chloride 1 gram IV. Follow serial labs Severe acute intravascular volume overload Acute CHF Exacerbation, systolic type start continuous albumin drip. serial bmps. ID: Possible Viral vs Atypical pneumonia Known exposure to close household contact with confirmed Influenza A. Influenza screen negative. finished full 5 day course of tamiflu. Cover for superimposed bacterial pneumonia with Zosyn, vancomycin and Levaquin. blood culture, sputum culture negative to date, urine Legionella antigen, urine pneumococcal antigen-negative ID-following HEME: Chronic macrocytic anemia likely secondary to EtOH abuse. Vitamin supplementation as per above. Monitor CBC ENDO: Acute stress hyperglycemia Monitor bedside glucose every 6 hours. Administer low-dose insulin sliding scale as indicated. Hydrocortisone 50 mg IV every 6 hours as per above. PROPH: Heparin drip will provide DVT prophylaxis. Famotidine 10 mg IV q12 hours for stress ulcer prophylaxis. ACCESS: RIJ CVL placed 12/23 #7. Left radial art line placed 12/24 #6 Patient is critically ill with profound hypoxemia and shock requiring resuscitation, vasopressor management and titration, ventilator management`. He is critically ill and at high risk for further decompensation or . Start HD today my billing statement This patient remains critically ill with one or more organ systems which are or may become a threat to life. I have spent in excess of 42 minutes discontinuously in the care and management of this patient. This time is exclusive of procedures, and includes, but is not limited to, evaluation of the patient, review of the medical record, discussions with family, consultants, nursing staff, or respiratory therapy, and documentation in the medical record. Tiffany Plata MD December 29, 2017 10:32
[2017-12-29] MEDS ORDERED: MIDAZOLAM HCL 5 MG/ML VIAL (1 ML) ONE (13:04)
[2017-12-29] MEDS: SODIUM BICARBONATE 8.4% INJ 150 MEQ in DEXTROSE 5% IN WATE 1000ML INJ 1,000 ML IV SCH ×2 (13:06)
[2017-12-29] MEDS ORDERED: ROCURONIUM INJ 50 MG/5 ML VIAL ONE (13:22)
[2017-12-29] MEDS ORDERED: HEPARIN SODIUM - IV 10,000 UNITS/10 ML VIAL IV FLUSH PRN (14:00)
[2017-12-29] MEDS ORDERED: SODIUM CHLOR 0.9% 1000 ML INJ 1,000 ML OTHER PRN ×2 (14:00→16:00)
[2017-12-29] MEDS ORDERED: NITROGLYCERIN 0.4 MG SL 25 TABS/BTL SL PRN (14:00)
[2017-12-29] MEDS ORDERED: ONDANSETRON HCL 4 MG/2 ML VIAL IV PUSH PRN (14:00)
[2017-12-29] MEDS ORDERED: ALBUMIN 25% INJ 100 ML IV PRN (14:00)
[2017-12-29] MEDS ORDERED: SODIUM CHLORIDE 0.9% FLUSH 10 ML FLUSH IV FLUSH PRN (14:00)
[2017-12-29] MEDS ORDERED: EPOETIN ALFA 10,000 UNITS/ML VIAL IV PUSH PRN (14:00)
[2017-12-29] MEDS ORDERED: GELATIN 12 MM/7 MM FOAM TOP PRN (14:00)
[2017-12-29] MEDS ORDERED: diphenhydrAMINE HCL 25 MG CAP PO PRN (14:00)
[2017-12-29] MEDS ORDERED: cloNIDine HCL 0.1 MG TAB PO PRN (14:00)
[2017-12-29] MEDS ORDERED: ACETAMINOPHEN 325 MG TAB PO PRN (14:00)
[2017-12-29] MEDS ORDERED: MANNITOL 12.5 GM/50 ML VIAL IV PRN (14:00)
--- NOTE | 2017-12-29 14:25 | HHI.NPPN ---
Subjective History of Present Illness This is a 62-year-old male with a history of hypertension, dyslipidemia, peripheral arterial disease and heavy alcohol use. The patient apparently presented after he had left-sided chest pains and confusion. He was apparently found to be in respiratory distress with EVAC. He came to the hospital here and was intubated and developed an asystole cardiac event. He was resuscitated and the patient remains intubated at this time on multiple pressors. He is being followed with critical care. The patient overnight has had ongoing pressor support with some ongoing urine output with 600 mL of urine output in the last 24 hours. Regarding his renal function, his creatinine was 0.8 on admission and over the last 2 days, the creatinine was elevated from 2.0 to 2.6 now. At this time, the patient remains intubated on multiple pressors in the ICU. He is being treated for possible infection with Zosyn as well as vancomycin with a white count of 14.6. Nephrology was consulted for further evaluation of renal failure. Additional Remarks Remains intubated. Creatinine slightly increased at 2.75. On vasopressin and dopamine. (Tatyana Montanez) Review of Systems General General Remarks Unable to do ROS as patient is intubated (Tatyana Montanez) Objective Data Data 12/29/17 12/30/17 19:00 07:00 Intake Total 555 ml Balance 555 ml Intake IV Total 555 ml Vital Signs Date Time Temp Pulse Resp B/P (MAP) Pulse Ox O2 Delivery O2 Flow Rate FiO2 12/29/17 12:30 95 80 12/29/17 12:00 98.7 109 16 96/65 (75) 94 103/49 (67) 12/29/17 12:00 80 12/29/17 12:00 109 12/29/17 10:00 108 12/29/17 08:00 104 12/29/17 08:00 97.5 104 16 95/65 (75) 89 104/49 (67) 12/29/17 08:00 70 12/29/17 07:42 92 75 12/29/17 06:00 102 12/29/17 06:00 95 120/56 (77) 109/66 (80) 12/29/17 06:00 101 113/54 12/29/17 04:00 100 12/29/17 04:00 97.3 100 16 107/70 (82) 91 118/55 (76) 12/29/17 04:00 70 12/29/17 04:00 100 118/55 12/29/17 04:00 107/70 12/29/17 03:40 100 118/56 12/29/17 03:40 100 118/56 12/29/17 03:31 94 70 12/29/17 03:00 97.2 102 16 115/53 (73) 91 12/29/17 02:00 97.3 115 22 115/52 (73) 94 12/29/17 02:00 100 12/29/17 01:30 100 116/57 12/29/17 01:30 100 116/57 12/29/17 01:00 97.3 104 16 115/58 (77) 92 12/29/17 00:00 70 12/29/17 00:00 97.2 100 16 112/74 (87) 93 117/55 (75) 12/29/17 00:00 101 12/28/17 23:53 100 70 12/28/17 23:00 98.0 100 16 119/54 (75) 92 18 22:14 105 119/56 12/28/17 22:00 97.5 97 16 111/54 (73) 90 12/28/17 22:00 97 12/28/17 22:00 97 111/54 12/28/17 22:00 97 111/54 12/28/17 21:00 97.7 99 17 106/53 (70) 94 12/28/17 20:39 96 121/54 12/28/17 20:14 97 70 12/28/17 20:00 70 12/28/17 20:00 98.1 94 16 114/76 (89) 92 124/54 (77) 12/28/17 20:00 94 18 19:00 95 119/56 18 18:00 94 120/56 18 18:00 94 120/56 12/28/18 18:00 95 18 18:00 95 120/56 (77) 109/66 (80) 12/28/17 16:00 97 12/28/17 16:00 98.9 97 25 109/66 (80) 100 117/52 (73) 12/28/17 16:00 70 12/28/17 15:36 100 70 (Tatyana Montanez) -: 12/28/17 0543 12/29/17 0300 Microbiology 12/28/17 Aerobic Blood Culture - Preliminary, Resulted NO GROWTH IN 1 DAY 12/28/17 Anaerobic Blood Culture - Preliminary, Resulted NO GROWTH IN 1 DAY 12/28/17 Aerobic Blood Culture - Preliminary, Resulted NO GROWTH IN 1 DAY 12/28/17 Anaerobic Blood Culture - Preliminary, Resulted NO GROWTH IN 1 DAY 12/28/17 Gram Stain - Final, Resulted 12/28/17 Sputum Culture - Preliminary, Resulted NO GROWTH IN 24 HOURS. (Tatyana Montanez) Physical Exam General Appearance: No Acute Distress (Tatyana Montanez) Neck Neck Exam: Neck Supple (Tatyana Montanez) Pulmonary Resp Exam: Decreased Bases, Diminished Breath Sounds (Tatyana Montanez) Cardiology CV Exam: Regular (Tatyana Montanez) Gastrointestinal/Abdomen GI Exam: Soft, Non-Tender (Tatyana Montanez) Genitourinary Exam: Clear Urine (Tatyana Montanez) Musculoskeletal MS Exam: Joints Intact (Tatyana Montanez) Integumentary Skin Exam: Dry, Intact, Cool (Tatyana Montanez) Extremeties Extremities Exam: Trace Edema (Tatyana Montanez) Neurologic Neuro Exam: Sedated (Tatyana Montanez) Assessment/Plan Problem List: (1) NICKO (acute kidney injury) ICD Codes: N17.9 - Acute kidney failure, unspecified Plan: Creatinine of 0.8 at time of admission. History of etoh abuse and tobacco use. NICKO with apparent ATN post cardiac arrest and asystole. FeNa 0.2% - likely pre-renal appearance due to pressors and vasoconstriction. Continues on vasopressin and dopamine Creatinine 3.68 ->3.75-> 4.10 today 3.0 L UOP/ 24 hours Continue Lasix gtt Continues with IVFs Continue to closely monitor UOP and volume status Avoid nephrotoxins. Patient is requiring more FiO2 and despite lasix gtt is fluid overloaded will start hemodialysis. Orders placed and dialysis contacted. (2) NSTEMI (non-ST elevated myocardial infarction) ICD Codes: I21.4 - Non-ST elevation (NSTEMI) myocardial infarction Status: Acute Plan: Cardiac arrest and non-ST elevation myocardial infarction. The patient is being followed up with cardiology. Consideration is for cardiac catheterization when stable. Of note, avoid any contrast for now as possible in setting of NICKO. (3) Respiratory failure with hypoxia and hypercapnia ICD Codes: J96.91 - Respiratory failure, unspecified with hypoxia; J96.92 - Respiratory failure, unspecified with hypercapnia Status: Acute Plan: The patient remains intubated at this point Follow with critical care team. (4) Metabolic acidosis ICD Codes: E87.2 - Acidosis Plan: will continue with HCO3 in IVFs - improving (Tatyana Montanez) Problem List: (1) NICKO (acute kidney injury) ICD Codes: N17.9 - Acute kidney failure, unspecified Plan: Creatinine of 0.8 at time of admission. History of etoh abuse and tobacco use. NICKO with apparent ATN post cardiac arrest and asystole. FeNa 0.2% - likely pre-renal appearance due to pressors and vasoconstriction. Continues on vasopressin and dopamine Creatinine 3.68 ->3.75-> 4.10 today 3.0 L UOP/ 24 hours Continue Lasix gtt Continues with IVFs Continue to closely monitor UOP and volume status Avoid nephrotoxins. Patient is requiring more FiO2 and despite Lasix gtt is fluid overloaded will start hemodialysis. Orders placed and dialysis contacted. Patient seen and examined, agree with above. Has fluid overload, to start HD. D/W Order Detailer. (2) NSTEMI (non-ST elevated myocardial infarction) ICD Codes: I21.4 - Non-ST elevation (NSTEMI) myocardial infarction Status: Acute Plan: Cardiac arrest and non-ST elevation myocardial infarction. The patient is being followed up with cardiology. Consideration is for cardiac catheterization when stable. Of note, avoid any contrast for now as possible in setting of NICKO. (3) Respiratory failure with hypoxia and hypercapnia ICD Codes: J96.91 - Respiratory failure, unspecified with hypoxia; J96.92 - Respiratory failure, unspecified with hypercapnia Status: Acute Plan: The patient remains intubated at this point Follow with critical care team. (4) Metabolic acidosis ICD Codes: E87.2 - Acidosis Plan: will continue with HCO3 in IVFs - improving (Crescencio Lloyd MD) Tatyana Montanez December 29, 2017 14:25 Crescencio Lloyd MD December 31, 2017 00:08
--- NOTE | 2017-12-29 14:37 | RADRPT ---
EXAM DATE: 12/29/2017 2:33 PM EDT AGE/SEX: 62 years / Male INDICATIONS: Post vascath placement. CLINICAL DATA: This is the patient's subsequent encounter. Patient reports that signs and symptoms h ave been present for 1 week and indicates a pain score of Nonresponsive. MEDICAL/SURGICAL HISTORY: . Hypertension. Hypercholesterolemia. None. COMPARISON: C, CHEST SINGLE AP, 12/29/2017. . FINDINGS: Endotracheal tube nasogastric tube and right neck central line are stable. There is been p lacement of a left neck Vas-Cath which is present in good position. No evidence of pneumothorax or ot her complication of placement. A left chest pigtail thoracostomy tube is present in the medial left a pex and a right lateral base pigtail thoracostomy tube is present. Diffuse bilateral parenchymal opac ity is roughly stable. Cardiac contours are unchanged. CONCLUSION: Satisfactory Vas-Cath positioning. No pneumothorax. Otherwise stable chest. Electronically signed by: Boni Messer MD 12/29/2017 2:35 PM EDT
[2017-12-29] MEDS: VASOPRESSIN INJ 40 UNITS in DEXTROSE 5% IN WATER 100ML INJ 98 ML IV SCH ×2 (14:56)
[2017-12-29] MEDS ORDERED: SODIUM CHLOR 0.9% 1000 ML INJ 1,000 ML IV PRN (15:00)
[2017-12-29] MEDS: GENTAMICIN SULFATE 20 MG/2 ML VIAL OTHER PRN (15:20)
[2017-12-29] MEDS: HEPARIN SODIUM - IV 10,000 UNITS/10 ML VIAL PRN (15:21)
[2017-12-29 16:01] LABS: CALCIUM 7.6 MG/DL (8.5-10.1); CREATININE 3.25 MG/DL (0.60-1.30); MAGNESIUM 2.3 MG/DL (1.5-2.5)
--- NOTE | 2017-12-29 16:10 | HHI.HCPN ---
Reason for visit a. To assist with evaluation and management of symptoms including: Dyspnea, pain b. To assist medical decision maker(s) with: better understanding of current medical conditions; weighing benefits/burdens of medical treatment options; making medical treatment decisions. Subjective/Interval History Patient seen today to follow-up on symptoms of dyspnea and pain. He remains sedated on a ventilator with worsening respiratory status. In spite of aggressive diuresis, bilateral chest tube placement, maximum ventilator support he remains severely hypoxemic on 75% FiO2 with increased PEEP at 14. ABG showed pH 7.46, PCO2 38, PaO2 83, bicarbonate 26, base excess +2.4 on 100% FiO2 during Vas-Cath placement. He is scheduled for dialysis today. In spite of receiving Lasix 20 mg/h via IV drip concomitantly with albumin 25% at 12.5 mL an hour, urine output was only 3082 mL in 24 hours. Chest x-ray showed diffuse bilateral interstitial and airspace patchy infiltrate throughout both lung mccormick. Vent remains at PRVC/AC 16/700/75%, PEEP 14. He is undergoing dialysis today for fluid removal and filtration to attempt to stabilize his respiratory status. He has multiple invasive lines, tubes, catheters and wrist restraints increasing his risk for painful stimuli. He remains on fentanyl 250 mcg/h for pain and sedation management. He withdraws to pain in all 4 extremities and when awake, does follow commands. . Family/friend interactions Spoke with patient's brother from [place], Jared, for 30 minutes giving a clinical update and answering questions. Discussed upcoming decisions to include tracheostomy, PEG placement, dialysis. Reviewed [place] statutes regarding decision-makers. He is aware that his niece, Andra, would be the legal decision maker but wishes to offer his support as he recognizes the difficulty of these decisions. . Advance Directives Living Will: Never completed Health Care Surrogate: Never completed Durable Power of Transportation Planner: Never completed Advance Directive Specifics Date completed: Not completed. . Health Care Surrogate(s): None completed. . Documented care wishes: No living will completed. . Objective Vital Signs Date Time Temp Pulse Resp B/P (MAP) Pulse Ox O2 Delivery O2 Flow Rate FiO2 12/29/17 14:56 101 104/51 12/29/17 14:43 101 102/50 12/29/17 14:00 111 12/29/17 12:30 95 80 12/29/17 12:00 98.7 109 16 96/65 (75) 94 103/49 (67) 12/29/17 12:00 80 12/29/17 12:00 109 12/29/17 10:00 108 12/29/17 08:00 104 12/29/17 08:00 97.5 104 16 95/65 (75) 89 104/49 (67) 12/29/17 08:00 70 12/29/17 07:42 92 75 12/29/17 06:00 102 12/29/17 06:00 95 120/56 (77) 109/66 (80) 12/29/17 06:00 101 113/54 12/29/17 04:00 100 12/29/17 04:00 97.3 100 16 107/70 (82) 91 118/55 (76) 12/29/17 04:00 70 12/29/17 04:00 100 118/55 12/29/17 04:00 107/70 12/29/17 03:40 100 118/56 12/29/17 03:40 100 118/56 12/29/17 03:31 94 70 12/29/17 03:00 97.2 102 16 115/53 (73) 91 12/29/17 02:00 97.3 115 22 115/52 (73) 94 12/29/17 02:00 100 12/29/17 01:30 100 116/57 12/29/17 01:30 100 116/57 12/29/17 01:00 97.3 104 16 115/58 (77) 92 12/29/17 00:00 70 12/29/17 00:00 97.2 100 16 112/74 (87) 93 117/55 (75) 12/29/17 00:00 101 12/28/17 23:53 100 70 12/28/17 23:00 98.0 100 16 119/54 (75) 92 12/28/17 22:14 105 119/56 12/28/17 22:00 97.5 97 16 111/54 (73) 90 12/28/17 22:00 97 12/28/17 22:00 97 111/54 12/28/17 22:00 97 111/54 12/28/17 21:00 97.7 99 17 106/53 (70) 94 12/28/17 20:39 96 121/54 12/28/17 20:14 97 70 12/28/17 20:00 70 12/28/17 20:00 98.1 94 16 114/76 (89) 92 124/54 (77) 12/28/17 20:00 94 12/28/17 19:00 95 119/56 12/28/17 18:00 94 120/56 12/28/17 18:00 94 120/56 12/28/17 18:00 95 12/28/17 18:00 95 120/56 (77) 109/66 (80) 12/28/17 16:00 97 12/28/17 16:00 98.9 97 25 109/66 (80) 100 117/52 (73) 12/28/17 16:00 70 12/28/17 15:36 100 70 Intake & Output 12/29/17 12/29/17 07:00 19:00 Intake Total 2391 ml 1025 ml Output Total 2555 ml Balance -164 ml 1025 ml Intake IV Total 2391 ml 1025 ml Output Urine Total 1505 ml Gastric Drainage Total 200 ml Chest Tube Drainage Total 850 ml # Bowel Movements 0 Physical Exam CONSTITUTIONAL/GENERAL: This is an adequately nourished patient, intubated, sedated, in no apparent distress. TUBES/LINES/DRAINS: Left radial art line, ETT, Noonan, NG tube to right nare RIJ CVL, left IJ Vas-Cath SKIN: No jaundice, rashes, or lesions. Ecchymoses on upper extremities. No wounds seen anteriorly. Skin temperature cool. Not diaphoretic. HEAD: Atraumatic. Normocephalic. EYES: Pupils equal and round and sluggishly reactive. No scleral icterus. No injection or drainage. Fundi not examined. ENT: Nose without bleeding or purulent drainage. NECK: Trachea midline. Supple, nontender. No palpable thyroid enlargement or nodularity. CARDIOVASCULAR: S1, S2, regular rate and rhythm with 2/6 holosystolic murmur, no rub no gallop RESPIRATORY/CHEST: Symmetric, unlabored respirations. Clear to auscultation, diminished bases with faint bibasilar crackles, scattered expiratory wheezes. GASTROINTESTINAL: Abdomen soft, nondistended. No hepato-splenomegaly, or palpable masses. No guarding. Bowel sounds present. GENITOURINARY: Without palpable bladder distension. Noonan catheter in place draining clear, light yellow urine. MUSCULOSKELETAL: Extremities without clubbing, cyanosis, or edema. No joint tenderness or effusion noted. No mottling or clubbing. LYMPHATICS: No palpable cervical or supraclavicular adenopathy. NEUROLOGICAL: Intubated, sedated, follows commands when sedation lifted. PSYCHIATRIC: Sedated. . Diagnostic Tests Laboratory Laboratory Tests Test 12/26/17 16:40 12/26/17 21:27 12/27/17 03:40 12/27/17 04:10 Urine Random Creatinine 100.8 MG/DL Urine Random Sodium 8 MEQ/L Urine Eosinophils NONE SEEN /HPF (NONE SEEN) Adenovirus (PCR) NOT DETECTED (NOT DETECT) Bordetella holmesii (PCR) NOT DETECTED (NOT DETECT) Bordetella pertussis DNA (PCR) NOT DETECTED (NOT DETECT) B. parapertussis/bronchi (PCR) NOT DETECTED (NOT DETECT) Human Metapneumovirus (PCR) NOT DETECTED (NOT DETECT) Influenza Type A (RT-PCR) NOT DETECTED (NOT DETECT) Influenza Type A (H1) (PCR) NOT DETECTED (NOT DETECT) Influenza Type A (H3) (PCR) NOT DETECTED (NOT DETECT) Influenza Type B (RT-PCR) NOT DETECTED (NOT DETECT) Parainfluenza Type 1 (PCR) NOT DETECTED (NOT DETECT) Parainfluenza Type 2 (PCR) NOT DETECTED (NOT DETECT) Parainfluenza Type 3 (PCR) NOT DETECTED (NOT DETECT) Parainfluenza Type 4 (PCR) NOT DETECTED (NOT DETECT) Resp Syncytial Virus Type A (PCR) NOT DETECTED (NOT DETECT) Resp Syncytial Virus Type B (PCR) NOT DETECTED (NOT DETECT) Rhinovirus (PCR) NOT DETECTED (NOT DETECT) White Blood Count 15.7 TH/MM3 (4.0-11.0) Red Blood Count 2.99 MIL/MM3 (4.50-5.90) Hemoglobin 11.2 GM/DL (13.0-17.0) Hematocrit 31.4 % (39.0-51.0) Mean Corpuscular Volume 104.8 FL (80.0-100.0) Mean Corpuscular Hemoglobin 37.4 PG (27.0-34.0) Mean Corpuscular Hemoglobin Concent 35.7 % (32.0-36.0) Red Cell Distribution Width 13.2 % (11.6-17.2) Platelet Count 138 TH/MM3 (150-450) Mean Platelet Volume 8.2 FL (7.0-11.0) Neutrophils (%) (Auto) 90.0 % (16.0-70.0) Lymphocytes (%) (Auto) 1.9 % (9.0-44.0) Monocytes (%) (Auto) 8.0 % (0.0-8.0) Eosinophils (%) (Auto) 0.0 % (0.0-4.0) Basophils (%) (Auto) 0.1 % (0.0-2.0) Neutrophils # (Auto) 14.1 TH/MM3 (1.8-7.7) Lymphocytes # (Auto) 0.3 TH/MM3 (1.0-4.8) Monocytes # (Auto) 1.3 TH/MM3 (0-0.9) Eosinophils # (Auto) 0.0 TH/MM3 (0-0.4) Basophils # (Auto) 0.0 TH/MM3 (0-0.2) CBC Comment AUTO DIFF Differential Comment AUTO DIFF CONFIRMED Activated Partial Thromboplast Time 46.2 SEC (24.3-30.1) Blood Urea Nitrogen 39 MG/DL (7-18) Creatinine 3.10 MG/DL (0.60-1.30) Random Glucose 133 MG/DL (74-106) Total Protein 5.9 GM/DL (6.4-8.2) Albumin 2.0 GM/DL (3.4-5.0) Calcium Level 6.7 MG/DL (8.5-10.1) Phosphorus Level 6.6 MG/DL (2.5-4.9) Magnesium Level 1.8 MG/DL (1.5-2.5) Alkaline Phosphatase 48 U/L (45-117) Aspartate Amino Transf (AST/SGOT) 137 U/L (15-37) Alanine Aminotransferase (ALT/SGPT) 59 U/L (12-78) Total Bilirubin 1.0 MG/DL (0.2-1.0) Sodium Level 127 MEQ/L (136-145) Potassium Level 4.3 MEQ/L (3.5-5.1) Chloride Level 92 MEQ/L (98-107) Carbon Dioxide Level 19.3 MEQ/L (21.0-32.0) Anion Gap 16 MEQ/L (5-15) Estimat Glomerular Filtration Rate 20 ML/MIN (>89) Lactic Acid Level 1.4 mmol/L (0.4-2.0) Protein Corrected Calcium 7.3 MG/DL (8.5-10.1) B-Type Natriuretic Peptide 1223 PG/ML (0-100) Thyroid Stimulating Hormone 3rd Gen 0.250 uIU/ML (0.358-3.740) Random Vancomycin Level 23.4 COMMENT Test 12/27/17 19:27 12/27/17 23:51 12/28/17 05:43 12/28/17 11:45 Blood Urea Nitrogen 51 MG/DL (7-18) 50 MG/DL (7-18) 56 MG/DL (7-18) 58 MG/DL (7-18) Creatinine 3.68 MG/DL (0.60-1.30) 3.68 MG/DL (0.60-1.30) 3.75 MG/DL (0.60-1.30) 3.85 MG/DL (0.60-1.30) Random Glucose 141 MG/DL (74-106) 173 MG/DL (74-106) 152 MG/DL (74-106) 150 MG/DL (74-106) Total Protein 5.9 GM/DL (6.4-8.2) 5.6 GM/DL (6.4-8.2) 5.5 GM/DL (6.4-8.2) 5.6 GM/DL (6.4-8.2) Calcium Level 7.0 MG/DL (8.5-10.1) 7.0 MG/DL (8.5-10.1) 6.9 MG/DL (8.5-10.1) 6.8 MG/DL (8.5-10.1) Magnesium Level 1.9 MG/DL (1.5-2.5) 2.7 MG/DL (1.5-2.5) 2.5 MG/DL (1.5-2.5) 2.5 MG/DL (1.5-2.5) Sodium Level 127 MEQ/L (136-145) 128 MEQ/L (136-145) 129 MEQ/L (136-145) 129 MEQ/L (136-145) Potassium Level 4.0 MEQ/L (3.5-5.1) 3.7 MEQ/L (3.5-5.1) 3.7 MEQ/L (3.5-5.1) 3.8 MEQ/L (3.5-5.1) Chloride Level 92 MEQ/L (98-107) 90 MEQ/L (98-107) 91 MEQ/L (98-107) 90 MEQ/L (98-107) Carbon Dioxide Level 21.8 MEQ/L (21.0-32.0) 21.8 MEQ/L (21.0-32.0) 22.7 MEQ/L (21.0-32.0) 22.7 MEQ/L (21.0-32.0) Anion Gap 13 MEQ/L (5-15) 16 MEQ/L (5-15) 15 MEQ/L (5-15) 16 MEQ/L (5-15) Estimat Glomerular Filtration Rate 17 ML/MIN (>89) 17 ML/MIN (>89) 16 ML/MIN (>89) 16 ML/MIN (>89) Protein Corrected Calcium 7.6 MG/DL (8.5-10.1) 7.8 MG/DL (8.5-10.1) 7.7 MG/DL (8.5-10.1) 7.6 MG/DL (8.5-10.1) White Blood Count 10.6 TH/MM3 (4.0-11.0) Red Blood Count 2.73 MIL/MM3 (4.50-5.90) Hemoglobin 10.3 GM/DL (13.0-17.0) Hematocrit 27.9 % (39.0-51.0) Mean Corpuscular Volume 102.3 FL (80.0-100.0) Mean Corpuscular Hemoglobin 37.8 PG (27.0-34.0) Mean Corpuscular Hemoglobin Concent 36.9 % (32.0-36.0) Red Cell Distribution Width 13.3 % (11.6-17.2) Platelet Count 116 TH/MM3 (150-450) Mean Platelet Volume 8.0 FL (7.0-11.0) Neutrophils (%) (Auto) 83.3 % (16.0-70.0) Lymphocytes (%) (Auto) 2.9 % (9.0-44.0) Monocytes (%) (Auto) 13.6 % (0.0-8.0) Eosinophils (%) (Auto) 0.0 % (0.0-4.0) Basophils (%) (Auto) 0.2 % (0.0-2.0) Neutrophils # (Auto) 8.8 TH/MM3 (1.8-7.7) Lymphocytes # (Auto) 0.3 TH/MM3 (1.0-4.8) Monocytes # (Auto) 1.4 TH/MM3 (0-0.9) Eosinophils # (Auto) 0.0 TH/MM3 (0-0.4) Basophils # (Auto) 0.0 TH/MM3 (0-0.2) CBC Comment AUTO DIFF Differential Comment AUTO DIFF CONFIRMED Platelet Estimate LOW (NORMAL) Platelet Morphology Comment NORMAL (NORMAL) Basophilic Stippling FAINT (NORMAL) Activated Partial Thromboplast Time 26.1 SEC (24.3-30.1) 28.4 SEC (24.3-30.1) Phosphorus Level 7.0 MG/DL (2.5-4.9) Test 12/28/17 19:45 12/28/17 20:00 12/29/17 00:20 12/29/17 03:00 Blood Urea Nitrogen 62 MG/DL (7-18) 64 MG/DL (7-18) 64 MG/DL (7-18) Creatinine 4.09 MG/DL (0.60-1.30) 4.06 MG/DL (0.60-1.30) 4.10 MG/DL (0.60-1.30) Random Glucose 156 MG/DL (74-106) 161 MG/DL (74-106) 155 MG/DL (74-106) Total Protein 5.8 GM/DL (6.4-8.2) 5.7 GM/DL (6.4-8.2) 5.6 GM/DL (6.4-8.2) Albumin 2.5 GM/DL (3.4-5.0) Calcium Level 7.2 MG/DL (8.5-10.1) 7.1 MG/DL (8.5-10.1) 7.0 MG/DL (8.5-10.1) Magnesium Level 2.5 MG/DL (1.5-2.5) 2.5 MG/DL (1.5-2.5) 2.5 MG/DL (1.5-2.5) Alkaline Phosphatase 32 U/L (45-117) Aspartate Amino Transf (AST/SGOT) 55 U/L (15-37) Alanine Aminotransferase (ALT/SGPT) 35 U/L (12-78) Total Bilirubin 0.9 MG/DL (0.2-1.0) Sodium Level 130 MEQ/L (136-145) 130 MEQ/L (136-145) 130 MEQ/L (136-145) Potassium Level 3.3 MEQ/L (3.5-5.1) 3.5 MEQ/L (3.5-5.1) 3.3 MEQ/L (3.5-5.1) Chloride Level 88 MEQ/L (98-107) 88 MEQ/L (98-107) 88 MEQ/L (98-107) Carbon Dioxide Level 25.9 MEQ/L (21.0-32.0) 26.7 MEQ/L (21.0-32.0) 26.2 MEQ/L (21.0-32.0) Anion Gap 16 MEQ/L (5-15) 15 MEQ/L (5-15) 16 MEQ/L (5-15) Estimat Glomerular Filtration Rate 15 ML/MIN (>89) 15 ML/MIN (>89) 15 ML/MIN (>89) Protein Corrected Calcium 7.9 MG/DL (8.5-10.1) 7.8 MG/DL (8.5-10.1) 7.8 MG/DL (8.5-10.1) Activated Partial Thromboplast Time 35.9 SEC (24.3-30.1) 38.3 SEC (24.3-30.1) Test 12/29/17 09:12 12/29/17 12:00 12/29/17 14:36 Blood Gas Puncture Site ART LINE Blood Gas Patient Temperature 98.6 Blood Gas HCO3 26 mmol/L (22-26) Blood Gas Base Excess 2.4 mmol/L (-2-2) Blood Gas Oxygen Saturation 92 % (90-100) Arterial Blood pH 7.46 (7.380-7.420) Arterial Blood Partial Pressure CO2 38 mmHg (38-42) Arterial Blood Partial Pressure O2 83 mmHg (61-120) Arterial Blood Oxygen Content 13.9 Vol % (12.0-20.0) Arterial Blood Carboxyhemoglobin 1.3 % (0-4) Arterial Blood Methemoglobin 1.3 % (0-2) Blood Gas Hemoglobin 10.7 G/DL (12.0-16.0) Oxygen Delivery Device VENTILATOR Blood Gas Ventilator Setting 16/670/PEEP12 Blood Gas Inspired Oxygen 100 % Activated Partial Thromboplast Time 31.3 SEC (24.3-30.1) Result Diagram: 12/28/17 0543 12/29/17 0300 Microbiology Microbiology Date/Time Source Procedure Growth Status 12/28/17 16:13 Blood Peripheral Aerobic Blood Culture - Preliminary NO GROWTH IN 1 DAY Resulted 12/28/17 16:13 Blood Peripheral Anaerobic Blood Culture - Preliminary NO GROWTH IN 1 DAY Resulted 12/28/17 15:52 Blood Peripheral Aerobic Blood Culture - Preliminary NO GROWTH IN 1 DAY Resulted 12/28/17 15:52 Blood Peripheral Anaerobic Blood Culture - Preliminary NO GROWTH IN 1 DAY Resulted 12/28/17 16:07 Sputum Endotracheal Gram Stain - Final Resulted 12/28/17 16:07 Sputum Endotracheal Sputum Culture - Preliminary NO GROWTH IN 24 HOURS. Resulted Imaging Last Impressions Chest X-Ray 12/29/17 0000 Signed Impressions: CONCLUSION: Satisfactory Vas-Cath positioning. No pneumothorax. Otherwise stabl e chest. Abdomen X-Ray 12/28/17 0000 Signed Impressions: Service Date/Time: Thursday, December 28, 2017 16:28 - CONCLUSION: NG tube in the stomach. Nonspecific gas pattern Boni Messer MD Renal Ultrasound 12/25/17 0000 Signed Impressions: Service Date/Time: Monday, December 25, 2017 17:32 - CONCLUSION: Negative renal ultrasound examination. Boni Obregon MD Head CT 12/23/17 0000 Signed Impressions: Service Date/Time: December 00:39 - CONCLUSION: No acute disease. Raji Matos Jr., MD Chest CT 12/23/17 0000 Signed Impressions: Service Date/Time: December 00:39 - CONCLUSION: 1. Moderate-sized bilateral pleural effusions. 2. Diffuse bilateral pulmonary infiltrates. This may relate to pulmonary edema. 3. Coronary artery atherosclerotic calcifications. Raji Matos Jr., MD Procedures 12/23: Right IJ central line placement 12/23: Field intubation by [facility]AC 12/23: Reintubation by ED physician 12/24: Left radial art line placement 12/24: Right pigtail chest tube placement 12/27: Left chest tube placement 12/29: Left IJ Vas-Cath placement . Assessment and Plan Disease Oriented Problem List: (1) PVD (peripheral vascular disease) (2) Cardiac arrest (3) NICKO (acute kidney injury) (4) Metabolic acidosis (5) NSTEMI (non-ST elevated myocardial infarction) (6) Respiratory failure with hypoxia and hypercapnia (7) Tobacco abuse (8) Pulmonary edema Symptom Scale: (1) Dyspnea and respiratory abnormalities 0-10 Scale: Unable to quantify (Mechanically ventilated, sedated) (2) Pain, generalized 0-10 Scale: Unable to quantify (Sedated) Pertinent Non-Medical Issues Psychosocial:He was born at [facility] and has lived in [place] all of his life. 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 He was an avid fisherman. Never in the service. He has 1 daughter, Andra, with whom he lives. Spiritual: Not an important concept to the patient, however, family has requested human resources advisor support for themselves. Legal:No noted issues. Ethical issues impacting care:No noted issues. . Important Contacts Daughter: Andra Newby Sister: Kaylyn Carvajal Brother: Jared Powell . Prognosis His prognosis is guarded. He has known coronary artery disease and appears to have had an NSTEMI. At this time no catheterization is planned due to his hemodynamic and respiratory instability, as well as his acute kidney injury. He also has a long history of tobacco abuse and may be difficult to extubate. Given his complex cardiovascular history, he is at significant risk for continued complications, decline and hospitalizations. . Code Status: Full Code Plan PLAN: Legal decision maker: At this time the patient is not capacitated for decision-making as he is intubated and sedated. He is not and has only one child, his daughter Andra, with whom he lives. Per [place] statutes, Andra would be the proxy decision-maker. She is both readily available and willing to serve in that capacity. She is being supported by her aunt, Kaylyn Carvajal, the patient's sister. Goals: Aggressive at this time. CODE STATUS: FULL CODE SYMPTOMS: * Dyspnea: He was both dyspneic and orthopneic at baseline, likely multifactorial to include his long history of tobacco use, compromised cardiac function and bilateral pleural effusions. He is currently mechanically ventilated on a high level FiO2 at 75% with PEEP support at 14. He has bilateral chest tubes and due to his hemodynamic instability, no spontaneous breathing trials have been initiated at this time. He is still grossly fluid overloaded and has worsening renal indices. Hemodialysis will be started today for fluid removal. It is questionable how well he will tolerate this given his hypotension, already requiring vasopressor and inotropic support. His prognosis is guarded at this time. * Pain: He complained prior to coming in, primarily located in his left chest around the rib area that he struck when he fell recently. His daughter stated that he complained of some vague chest discomfort over the last 2 weeks. It is unclear whether this related to his recent fall or underlying cardiac disease. He is also at risk for pain from invasive lines, tubes, catheters, bedbound status and medical illness. He remains on a fentanyl drip for vent synchrony, pain management and sedation at this time. Palliative care will continue to follow the patient during hospital course as condition evolves, to assist patient/decision-maker with understanding of their medical conditions, weighing benefits/burdens of treatment options, for clarification of goals of treatment. Additionally will assist with any symptoms of palliative concern. . Attestation To help prompt me to consider important information that might be impacting today's encounter and assessment, information from prior notes written by myself or my colleagues may have been "brought forward" into today's note. My signature on this note, however, is an attestation that I personally performed the exam, history, and/or decision-making noted today, and, unless otherwise indicated, the interactions with patient, family, and staff as well as the review of records all occurred today. I also attest that the listed assessment and stated plan reflect my best clinical judgment today based on the combination of historical information, prior notes, and today's exam/ interactions. When time spent is documented, it refers only to time spent today by the signer, or if indicated, combined time spent today by collaborating physician/nurse practitioner. . Sharron Meza December 29, 2017 4:10 pm
--- NOTE | 2017-12-29 18:00 | PD.PROCEDR ---
Central Line Procedure REASON FOR PROCEDURE Central venous access PROCEDURE PERFORMED Central line placement: US guided LIJ Vascath CONSENT Informed consent for procedure was obtained and time out performed. The risks and benefits of the procedure were discussed to include but limited to bleeding , clot formation, infection, and even . ANESTHESIA Local injection of 1% Lidocaine DESCRIPTION OF THE PROCEDURE The patient was placed in supine, mild Trendelenburg position. The area was exposed and cleansed with ChloraPrep, times two. Large sterile drape was used to cover the patient, with the site exposed, under sterile conditions including cap, face mask, sterile gown, and sterile gloves. On single attempt, the introducer needle was inserted with negative pressure in syringe and venous flash was obtained. The guide wire was then advanced without any restriction and the needle was removed. The dilator was used without any complications. Using Seldinger technique the 20 CM 14 F double lumen vascular catheter was advanced over the guide wire to a depth of 18 centimeters. The guide wire was removed. All ports were aspirated with dark venous blood return and flushed easily with sterile saline. All ports were capped. Antibiotic disc was placed around central line at puncture site. The central line was secured to the skin with two interrupted 2.0 silk sutures. The area was bandaged with sterile see- through central line bandage. RADIOLOGICAL DATA Ultrasound guidance was used to locate LIJ. Doppler/color flow was used to confirm venous flow. COMPLICATIONS: No apparent complications ESTIMATED BLOOD LOSS: Less than 1 cc. Tiffany Plata MD December 29, 2017 18:00
[2017-12-29 18:34] LABS: BICARBONATE 26.3 MEQ/L (21.0-32.0); CALCIUM 8.1 MG/DL (8.5-10.1); CREATININE 3.28 MG/DL (0.60-1.30); MAGNESIUM 2.3 MG/DL (1.5-2.5)
--- NOTE | 2017-12-29 19:57 | HHI.IDPN ---
Subjective Subjective Remarks remains on dopamine, vasopressin on vent FiO2 up to 75, PEEP 14 non hypothermic NPO Antibiotics zosyn Allergies: Coded Allergies: cefaclor (Unverified Allergy, Unknown, Doesn't remember , 04/10/17) Objective . Vital Signs Date Time Temp Pulse Resp B/P (MAP) Pulse Ox O2 Delivery O2 Flow Rate FiO2 12/29/17 18:00 112 12/29/17 18:00 112 117/59 12/29/17 18:00 112 117/59 12/29/17 18:00 95 98/67 (77) 121/66 (84) 12/29/17 16:00 75 12/29/17 16:00 98.4 100 16 98/67 (77) 97 103/55 (71) 12/29/17 16:00 100 12/29/17 15:28 95 75 12/29/17 15:00 103 109/53 12/29/17 14:56 101 104/51 12/29/17 14:43 101 102/50 12/29/17 14:00 111 12/29/17 12:30 95 80 12/29/17 12:00 98.7 109 16 96/65 (75) 94 103/49 (67) 12/29/17 12:00 80 12/29/17 12:00 109 12/29/17 10:00 108 12/29/17 08:00 104 12/29/17 08:00 97.5 104 16 95/65 (75) 89 104/49 (67) 12/29/17 08:00 70 12/29/17 07:42 92 75 12/29/17 06:00 102 12/29/17 06:00 95 120/56 (77) 109/66 (80) 12/29/17 06:00 101 113/54 12/29/17 04:00 100 12/29/17 04:00 97.3 100 16 107/70 (82) 91 118/55 (76) 12/29/17 04:00 70 12/29/17 04:00 100 118/55 12/29/17 04:00 107/70 12/29/17 03:40 100 118/56 12/29/17 03:40 100 118/56 12/29/17 03:31 94 70 12/29/17 03:00 97.2 102 16 115/53 (73) 91 12/29/17 02:00 97.3 115 22 115/52 (73) 94 12/29/17 02:00 100 12/29/17 01:30 100 116/57 12/29/17 01:30 100 116/57 12/29/17 01:00 97.3 104 16 115/58 (77) 92 12/29/17 00:00 70 12/29/17 00:00 97.2 100 16 112/74 (87) 93 117/55 (75) 12/29/17 00:00 101 12/28/17 23:53 100 70 12/28/17 23:00 98.0 100 16 119/54 (75) 92 12/28/17 22:14 105 119/56 12/28/17 22:00 97.5 97 16 111/54 (73) 90 12/28/17 22:00 97 12/28/17 22:00 97 111/54 12/28/17 22:00 97 111/54 12/28/17 21:00 97.7 99 17 106/53 (70) 94 12/28/17 20:39 96 121/54 12/28/17 20:14 97 70 12/28/17 20:00 70 12/28/17 20:00 98.1 94 16 114/76 (89) 92 124/54 (77) 12/28/17 20:00 94 12/29/17 12/29/17 12/30/17 15:00 23:00 07:00 Intake Total 684 ml 1466 ml Output Total 482 ml 3090 ml Balance 202 ml -1624 ml Intake IV Total 684 ml 1466 ml Output Urine Total 482 ml 120 ml Chest Tube Drainage Total 470 ml Hemodialysis 2500 ml . Laboratory Tests Test 12/28/17 05:43 White Blood Count 10.6 TH/MM3 Red Blood Count 2.73 MIL/MM3 Hemoglobin 10.3 GM/DL Hematocrit 27.9 % Mean Corpuscular Volume 102.3 FL Mean Corpuscular Hemoglobin 37.8 PG Mean Corpuscular Hemoglobin Concent 36.9 % Red Cell Distribution Width 13.3 % Platelet Count 116 TH/MM3 Mean Platelet Volume 8.0 FL Neutrophils (%) (Auto) 83.3 % Lymphocytes (%) (Auto) 2.9 % Monocytes (%) (Auto) 13.6 % Eosinophils (%) (Auto) 0.0 % Basophils (%) (Auto) 0.2 % Neutrophils # (Auto) 8.8 TH/MM3 Lymphocytes # (Auto) 0.3 TH/MM3 Monocytes # (Auto) 1.4 TH/MM3 Eosinophils # (Auto) 0.0 TH/MM3 Basophils # (Auto) 0.0 TH/MM3 CBC Comment AUTO DIFF Differential Comment AUTO DIFF CONFIRMED Platelet Estimate LOW Platelet Morphology Comment NORMAL Basophilic Stippling FAINT Laboratory Tests Test 12/27/17 23:51 12/28/17 05:43 12/28/17 11:45 12/28/17 19:45 Blood Urea Nitrogen 50 MG/DL 56 MG/DL 58 MG/DL 62 MG/DL Creatinine 3.68 MG/DL 3.75 MG/DL 3.85 MG/DL 4.09 MG/DL Random Glucose 173 MG/DL 152 MG/DL 150 MG/DL 156 MG/DL Total Protein 5.6 GM/DL 5.5 GM/DL 5.6 GM/DL 5.8 GM/DL Calcium Level 7.0 MG/DL 6.9 MG/DL 6.8 MG/DL 7.2 MG/DL Magnesium Level 2.7 MG/DL 2.5 MG/DL 2.5 MG/DL 2.5 MG/DL Sodium Level 128 MEQ/L 129 MEQ/L 129 MEQ/L 130 MEQ/L Potassium Level 3.7 MEQ/L 3.7 MEQ/L 3.8 MEQ/L 3.3 MEQ/L Chloride Level 90 MEQ/L 91 MEQ/L 90 MEQ/L 88 MEQ/L Carbon Dioxide Level 21.8 MEQ/L 22.7 MEQ/L 22.7 MEQ/L 25.9 MEQ/L Anion Gap 16 MEQ/L 15 MEQ/L 16 MEQ/L 16 MEQ/L Estimat Glomerular Filtration Rate 17 ML/MIN 16 ML/MIN 16 ML/MIN 15 ML/MIN Protein Corrected Calcium 7.8 MG/DL 7.7 MG/DL 7.6 MG/DL 7.9 MG/DL Phosphorus Level 7.0 MG/DL Albumin 2.5 GM/DL Alkaline Phosphatase 32 U/L Aspartate Amino Transf (AST/SGOT) 55 U/L Alanine Aminotransferase (ALT/SGPT) 35 U/L Total Bilirubin 0.9 MG/DL Test 12/29/17 00:20 12/29/17 03:00 12/29/17 14:36 12/29/17 17:55 Blood Urea Nitrogen 64 MG/DL 64 MG/DL 53 MG/DL 50 MG/DL Creatinine 4.06 MG/DL 4.10 MG/DL 3.25 MG/DL 3.28 MG/DL Random Glucose 161 MG/DL 155 MG/DL 120 MG/DL 157 MG/DL Total Protein 5.7 GM/DL 5.6 GM/DL Calcium Level 7.1 MG/DL 7.0 MG/DL 7.6 MG/DL 8.1 MG/DL Magnesium Level 2.5 MG/DL 2.5 MG/DL 2.3 MG/DL 2.3 MG/DL Sodium Level 130 MEQ/L 130 MEQ/L 136 MEQ/L 133 MEQ/L Potassium Level 3.5 MEQ/L 3.3 MEQ/L 3.3 MEQ/L 3.3 MEQ/L Chloride Level 88 MEQ/L 88 MEQ/L 92 MEQ/L 91 MEQ/L Carbon Dioxide Level 26.7 MEQ/L 26.2 MEQ/L 31.0 MEQ/L 26.3 MEQ/L Anion Gap 15 MEQ/L 16 MEQ/L 13 MEQ/L 16 MEQ/L Estimat Glomerular Filtration Rate 15 ML/MIN 15 ML/MIN 19 ML/MIN 19 ML/MIN Protein Corrected Calcium 7.8 MG/DL 7.8 MG/DL Microbiology Date/Time Source Procedure Growth Status 12/28/17 16:13 Blood Peripheral Aerobic Blood Culture - Preliminary NO GROWTH IN 1 DAY Resulted 12/28/17 16:13 Blood Peripheral Anaerobic Blood Culture - Preliminary NO GROWTH IN 1 DAY Resulted 12/28/17 15:52 Blood Peripheral Aerobic Blood Culture - Preliminary NO GROWTH IN 1 DAY Resulted 12/28/17 15:52 Blood Peripheral Anaerobic Blood Culture - Preliminary NO GROWTH IN 1 DAY Resulted 12/28/17 16:07 Sputum Endotracheal Gram Stain - Final Resulted 12/28/17 16:07 Sputum Endotracheal Sputum Culture - Preliminary NO GROWTH IN 24 HOURS. Resulted Imaging Last Impressions Chest X-Ray 12/29/17 0000 Signed Impressions: CONCLUSION: Satisfactory Vas-Cath positioning. No pneumothorax. Otherwise stabl e chest. Abdomen X-Ray 12/28/17 0000 Signed Impressions: Service Date/Time: Thursday, December 28, 2017 16:28 - CONCLUSION: NG tube in the stomach. Nonspecific gas pattern Boni Messer MD Renal Ultrasound 12/25/17 0000 Signed Impressions: Service Date/Time: Monday, December 25, 2017 17:32 - CONCLUSION: Negative renal ultrasound examination. Boni Obregon MD Head CT 12/23/17 0000 Signed Impressions: Service Date/Time: December 00:39 - CONCLUSION: No acute disease. Raji Matos Jr., MD Chest CT 12/23/17 0000 Signed Impressions: Service Date/Time: December 00:39 - CONCLUSION: 1. Moderate-sized bilateral pleural effusions. 2. Diffuse bilateral pulmonary infiltrates. This may relate to pulmonary edema. 3. Coronary artery atherosclerotic calcifications. Raji Matos Jr., MD Physical Exam CONSTITUTIONAL/GENERAL: This is an adequately nourished patient, in no apparent distress. TUBES/LINES/DRAINS: SKIN: No jaundice, rashes, or lesions. Skin temperature appropriate. Not diaphoretic. EYES: Pupils equal and round and reactive. Extraocular motions intact. No scleral icterus. No injection or drainage. Fundi not examined. CARDIOVASCULAR: Regular rate and rhythm without murmurs, gallops, or rubs. No JVD. Peripheral pulses BUE symmetric. Pedal pulses non palpable, but dopplerable RESPIRATORY/CHEST: Symmetric, unlabored respirations. Clear to auscultation. Breath sounds equal bilaterally. No wheezes, rales, or rhonchi. b/l CTs in place GASTROINTESTINAL: Abdomen soft, non-tender, nondistended. No hepato-splenomegaly , or palpable masses. No guarding. Bowel sounds present. GENITOURINARY: Without palpable bladder distension. Noonan catheter in place. MUSCULOSKELETAL: Extremities without clubbing, Feet with prominent cyanosis,cold to touch. Refill delayed but present No edema. No joint tenderness or effusion noted. No calf tenderness. + feet mottling NEUROLOGICAL: Unreposnsivce PSYCHIATRIC: unable to assess Assessment & Plan Remarks B/L PNA, clx negative vs pneumonitis confirmed known flu exposure, resp panel negative - diffuse pulm infiltrates R pleural effusion sp CT placement Sp cardiac arrest Hemodynaically unstable, on pressors Acute VDRF\ - worsening resp status, requires more vent supoprt Leukocytosis: improving - probaly 2/2 PNA ARF -Adjust abx Hypothermia REC's: chk blood, sputum clx change zosyn to levaquine cont laura kyle tamiflu after 5 days completed consider non infectious ethiology for pulmonary infiltrtates Payton Quintero MD December 29, 2017 19:57
[2017-12-29] MEDS: LEVOFLOXACIN 500 MG PREMIX INJ 100 ML IV SCH (20:43)
[2017-12-29] MEDS: DOPamine 800 MG/500 ML INJ 500 ML IV PRN (20:46)
[2017-12-29] MEDS: AZITHROMYCIN INJ 500 MG in SODIUM CHLOR 0.9% 250 ML INJ 250 ML IV SCH (22:02)
[2017-12-30] VITALS (20 sets, daily range): BP systolic 97–131; BP diastolic 53–72; PULSE 108–126; RESP 16; TEMP 98.6–99.6; O2SAT 93–99
[2017-12-30] MEDS: RESP: ALBUTEROL 2.5 MG/IPRATROPIUM 0.5 MG NEB (SCH) NEB ×7 (00:17→23:36)
[2017-12-30 00:35] LABS: BICARBONATE 28.8 MEQ/L (21.0-32.0); CALCIUM 7.7 MG/DL (8.5-10.1); CREATININE 3.55 MG/DL (0.60-1.30); MAGNESIUM 2.3 MG/DL (1.5-2.5)
[2017-12-30] MEDS: fentaNYL DRIP 250 ML IV PRN ×3 (01:16→21:15)
[2017-12-30] MEDS: FUROSEMIDE INJ 100 MG in SODIUM CHLORIDE 0.9% INJ 90 ML IV SCH (03:00)
[2017-12-30] MEDS: CHLORHEXIDINE GLUCONATE 2 % 1 PACK (2 CLOTHS) TOP SCH (03:01)
[2017-12-30] MEDS: SODIUM BICARBONATE 8.4% INJ 150 MEQ in DEXTROSE 5% IN WATE 1000ML INJ 1,000 ML IV SCH ×2 (03:05)
[2017-12-30 04:55] LABS: HEMATOCRIT 25.7 % (39.0-51.0); HEMOGLOBIN 9.2 GM/DL (13.0-17.0); MEAN CELL VOLUME 103.1 FL (80.0-100.0); MEAN CORPUSCULAR HEMOGLOBIN 37.1 PG (27.0-34.0); MEAN PLATELET VOLUME 8.3 FL (7.0-11.0); PLATELET COUNT 111 TH/MM3 (150-450); RED BLOOD COUNT 2.49 MIL/MM3 (4.50-5.90); RED CELL DISTRIBUTION WIDTH 13.6 % (11.6-17.2); WHITE BLOOD COUNT 11.2 TH/MM3 (4.0-11.0)
[2017-12-30 05:17] LABS: BICARBONATE 29.6 MEQ/L (21.0-32.0); CREATININE 3.66 MG/DL (0.60-1.30); MAGNESIUM 2.4 MG/DL (1.5-2.5)
[2017-12-30] MEDS: INSULIN ASPART SUPPLEMENTAL SCALE SQ SCH ×3 (06:00→17:59)
[2017-12-30] MEDS: HYDROCORTISONE SOD SUCCINATE 100 MG VIAL IV PUSH SCH ×3 (06:23→17:59)
[2017-12-30] MEDS: ALBUMIN 25% INJ 100 ML IV SCH ×4 (06:25→19:40)
[2017-12-30] MEDS: HEPARIN SODIUM - IV 10,000 UNITS/10 ML VIAL PRN (08:49)
[2017-12-30] MEDS: GENTAMICIN SULFATE 20 MG/2 ML VIAL OTHER PRN (08:49)
[2017-12-30] MEDS ORDERED: POTASSIUM CHLOR 20 MEQ PREMIX 100 ML IV ONE ×2 (09:30→15:00)
[2017-12-30] MEDS: DOPamine 800 MG/500 ML INJ 500 ML IV PRN ×2 (09:32→20:05)
--- NOTE | 2017-12-30 09:32 | HHI.NPPN ---
Subjective History of Present Illness This is a 62-year-old male with a history of hypertension, dyslipidemia, peripheral arterial disease and heavy alcohol use. The patient apparently presented after he had left-sided chest pains and confusion. He was apparently found to be in respiratory distress with EVAC. He came to the hospital here and was intubated and developed an asystole cardiac event. He was resuscitated and the patient remains intubated at this time on multiple pressors. He is being followed with critical care. The patient overnight has had ongoing pressor support with some ongoing urine output with 600 mL of urine output in the last 24 hours. Regarding his renal function, his creatinine was 0.8 on admission and over the last 2 days, the creatinine was elevated from 2.0 to 2.6 now. At this time, the patient remains intubated on multiple pressors in the ICU. He is being treated for possible infection with Zosyn as well as vancomycin with a white count of 14.6. Nephrology was consulted for further evaluation of renal failure. Additional Remarks Remains intubated. Hemodialysis started yesterday tolerated well. On vasopressin and dopamine. (Tatyana Montanez) Review of Systems General General Remarks Unable to do ROS as patient is intubated (Tatyana Montanez) Objective Data Data 12/30/17 12/31/17 19:00 07:00 Intake Total 100 ml Output Total 70 ml Balance 30 ml Intake IV Total 100 ml Output Urine Total 70 ml Vital Signs Date Time Temp Pulse Resp B/P (MAP) Pulse Ox O2 Delivery O2 Flow Rate FiO2 12/30/17 08:00 75 12/30/17 08:00 112 12/30/17 08:00 99.1 112 16 108/72 (84) 93 127/60 (82) 12/30/17 07:50 93 75 12/30/17 07:00 109 130/63 (85) 12/30/17 07:00 109 130/63 12/30/17 07:00 109 130/63 12/30/17 06:00 113 109/67 (81) 131/63 (85) 12/30/17 06:00 114 12/30/17 04:04 94 75 12/30/17 04:00 109 12/30/17 04:00 98.9 109 16 109/67 (81) 95 129/59 (82) 12/30/17 04:00 75 12/30/17 02:00 108 12/30/17 01:35 112 127/63 12/30/17 00:18 94 75 12/30/17 00:00 98.6 110 16 114/72 (86) 96 111/59 (76) 12/30/17 00:00 110 12/30/17 00:00 75 12/29/17 23:15 109 109/58 12/29/17 23:00 91 71/49 12/29/17 22:00 114 12/29/17 20:46 112 119/61 12/29/17 20:00 75 12/29/17 20:00 98.7 112 16 98/68 (78) 95 119/62 (81) 12/29/17 20:00 112 12/29/17 19:29 95 75 12/29/17 18:00 112 12/29/17 18:00 112 117/59 12/29/17 18:00 112 117/59 12/29/17 18:00 95 98/67 (77) 121/66 (84) 12/29/17 16:00 75 12/29/17 16:00 98.4 100 16 98/67 (77) 97 103/55 (71) 12/29/17 16:00 100 12/29/17 15:28 95 75 12/29/17 15:00 103 109/53 12/29/17 14:56 101 104/51 12/29/17 14:43 101 102/50 12/29/17 14:00 111 12/29/17 12:30 95 80 12/29/17 12:00 98.7 109 16 96/65 (75) 94 103/49 (67) 12/29/17 12:00 80 12/29/17 12:00 109 12/29/17 10:00 108 (Tatyana Montanez) -: 12/30/17 0400 12/30/17 0400 Imaging Last Impressions Chest X-Ray 12/29/17 0000 Signed Impressions: CONCLUSION: Satisfactory Vas-Cath positioning. No pneumothorax. Otherwise stabl e chest. Abdomen X-Ray 12/28/17 0000 Signed Impressions: Service Date/Time: Thursday, December 28, 2017 16:28 - CONCLUSION: NG tube in the stomach. Nonspecific gas pattern Boni Messer MD Renal Ultrasound 12/25/17 0000 Signed Impressions: Service Date/Time: Monday, December 25, 2017 17:32 - CONCLUSION: Negative renal ultrasound examination. Boni Obregon MD Head CT 12/23/17 0000 Signed Impressions: Service Date/Time: December 00:39 - CONCLUSION: No acute disease. Raji Matos Jr., MD Chest CT 12/23/17 0000 Signed Impressions: Service Date/Time: December 00:39 - CONCLUSION: 1. Moderate-sized bilateral pleural effusions. 2. Diffuse bilateral pulmonary infiltrates. This may relate to pulmonary edema. 3. Coronary artery atherosclerotic calcifications. Raji Matos Jr., MD (GellerTatyana qureshi [employer]) Physical Exam General Appearance: No Acute Distress (GellermannRoxiTatyana [employer]) Neck Neck Exam: Neck Supple (GellerRoxi qureshine [employer]) Pulmonary Resp Exam: Decreased Bases, Diminished Breath Sounds (GellerRoxi qureshine [employer]) Cardiology CV Exam: Regular (GellermannRoxiTatyana [employer]) Gastrointestinal/Abdomen GI Exam: Soft, Non-Tender (GellerRoxi qureshine [employer]) Genitourinary Exam: Clear Urine (EdlerRoxi qureshine [employer]) Musculoskeletal MS Exam: Joints Intact (GellertitusTatyana [employer]) Integumentary Skin Exam: Dry, Intact, Cool (GellermannTatyana [employer]) Extremeties Extremities Exam: Trace Edema (GellertitusTatyana [employer]) Neurologic Neuro Exam: Sedated (GellertitusTatyana [employer]) Assessment/Plan Problem List: (1) NICKO (acute kidney injury) ICD Codes: N17.9 - Acute kidney failure, unspecified Plan: Creatinine of 0.8 at time of admission. History of etoh abuse and tobacco use. NICKO with apparent ATN post cardiac arrest and asystole. FeNa 0.2% - likely pre-renal appearance due to pressors and vasoconstriction. Continues on vasopressin and dopamine Creatinine trend 3.68 ->3.75-> 4.10 -> 3.25 -> 3.28 - > 3.55 ->3.66 today 1.3 L UOP/ 24 hours Discontinue Lasix gtt started hemodialysis yesterday 12/29 and patient is hypokalemic today at 2.9 Bicarbonate gtt discontinued CO2 at 29 Continue to closely monitor UOP and volume status Avoid nephrotoxins. Hemodialysis yesterday with a UF of 2.5 Seen during hemodialysis today, 4 K bath and plan to remove 4 liters if tolerates. (2) NSTEMI (non-ST elevated myocardial infarction) ICD Codes: I21.4 - Non-ST elevation (NSTEMI) myocardial infarction Status: Acute Plan: Cardiac arrest and non-ST elevation myocardial infarction. The patient is being followed up with cardiology. Consideration is for cardiac catheterization when stable. Of note, avoid any contrast for now as possible in setting of NICKO. (3) Respiratory failure with hypoxia and hypercapnia ICD Codes: J96.91 - Respiratory failure, unspecified with hypoxia; J96.92 - Respiratory failure, unspecified with hypercapnia Status: Acute Plan: The patient remains intubated at this point Follow with critical care team. (4) Metabolic acidosis ICD Codes: E87.2 - Acidosis Plan: improving IVF discontinued (Tatyana Montanez) Problem List: (1) NICKO (acute kidney injury) ICD Codes: N17.9 - Acute kidney failure, unspecified Plan: Creatinine of 0.8 at time of admission. History of etoh abuse and tobacco use. NICKO with apparent ATN post cardiac arrest and asystole. FeNa 0.2% - likely pre-renal appearance due to pressors and vasoconstriction. Continues on vasopressin and dopamine Creatinine trend 3.68 ->3.75-> 4.10 -> 3.25 -> 3.28 - > 3.55 ->3.66 today 1.3 L UOP/ 24 hours Discontinue Lasix gtt started hemodialysis yesterday 12/29 and patient is hypokalemic today at 2.9 Bicarbonate gtt discontinued CO2 at 29 Continue to closely monitor UOP and volume status Avoid nephrotoxins. Hemodialysis yesterday with a UF of 2.5 Seen during hemodialysis today, 4 K bath and plan to remove 4 liters if tolerates. Started on HD. BP is stable, HR increased. Follow the urine out put and BMP. (2) NSTEMI (non-ST elevated myocardial infarction) ICD Codes: I21.4 - Non-ST elevation (NSTEMI) myocardial infarction Status: Acute Plan: Cardiac arrest and non-ST elevation myocardial infarction. The patient is being followed up with cardiology. Consideration is for cardiac catheterization when stable. Of note, avoid any contrast for now as possible in setting of NICKO. (3) Respiratory failure with hypoxia and hypercapnia ICD Codes: J96.91 - Respiratory failure, unspecified with hypoxia; J96.92 - Respiratory failure, unspecified with hypercapnia Status: Acute Plan: The patient remains intubated at this point Follow with critical care team. (4) Metabolic acidosis ICD Codes: E87.2 - Acidosis Plan: improving IVF discontinued (Crescencio Lloyd MD) Tatyana Montanez December 30, 2017 09:32 Crescencio Lloyd MD December 31, 2017 00:14
--- NOTE | 2017-12-30 10:21 | HHI.CCPN ---
Subjective Remarks/Hospital Course Patient is unable to provide history because he is intubated. History was obtained by discussion with his daughter and information relayed by the emergency department physician. 62-year-old male with past medical history of hypertension, hyperlipidemia, peripheral arterial disease, daily alcohol use, tobacco abuse. Patient's daughter states that for the last 1-1/2 weeks he has been complaining of orthopnea and has had difficulty sleeping at night because of this; waking up with severe SOB. She states he is also intermittently complained of non- pleuritic left-sided chest pain which he attributed to the fact that he had fallen on his left side a couple of weeks ago. He has had a lot of coughing but to her knowledge it has been nonproductive. He has had generalized weakness over the last couple of days and this morning he was "out of it". He has not been aware of any fever. He has had contact with his grandson who tested positive for influenza A 3 days ago on 12/21. This evening he was in the bathroom and his daughter heard him groaning and seemed to be in respiratory distress and indicated that she needed to call [facility]. He was initially responsive but upon arrival to the ED he was unresponsive, staring straight ahead, being bagged by [facility].. He became bradycardic. He underwent RSI with etomidate and succinylcholine and was intubated. During intubation he went into asystole. He was given epinephrine 1 mg and 2 amps of sodium bicarbonate in addition to CPR. His heart rate then came up into the 160s. He was started on dopamine due to hypotension and is currently running at 20 mcg/kg/ min. ABG demonstrated acute hypercapnic and hypoxic respiratory failure with pH 7.15/PCO2 of 62/PaO2 of 58/bicarb 21. Chest x-ray demonstrates bibasilar opacities. White blood cell count is 12. He is hypothermic. He received empiric vancomycin and Zosyn in the emergency department and Lasix 40 mg IV. He was started on propofol and fentanyl drips. Propofol was subsequently discontinued and he was started on a Versed drip and given vecuronium to facilitate vent synchrony and oxygenation.. Initial post intubation chest x-ray demonstrated ET tube and NG tube in high position. These were reportedly advanced but remained in high position.. Patient then had notable cuff leak and sats were in the 70s. He was reintubated by the emergency department physician. I have placed right IJ central venous line. Follow-up chest x-ray demonstrates satisfactory position of endotracheal tube and right IJ. The OG has been removed and will be replaced. Noonan has been placed but he has been anuric for the last 3.5 hours in the ED. SUBJECTIVE: 12/24: Patient reevaluated multiple times as he remains critical on multiple pressors. Currently on Levophed at 12 mcg/min, dopamine at 10 mcg/kg/min and vasopressin at 0.04 units. FiO2 currently at 60% with PEEP of 12 I will attempt weaning PEEP due to persistent hypotension. IV heparin started for troponin elevation to 25.5. Aspirin 81 mg daily started. Cardiology consulted. I will also start Flowtrack monitoring and maintenance IV fluids. Starting to make some urine. 12/25: Afebrile urine output slightly increased, however creatinine continues to increase. Nephrology consulted, renal ultrasound pending. The patient continues on vasopressor support, 30 at output trending 3.5, cardiac index 1.7. Patient continues to have persistent leukocytosis blood cultures negative growth today ID has been consulted.PEEP continues at 10 okay to maintain O2 saturation of 92% 12/26: The patient has been weaned off levo fed currently remains on dopamine and vasopressin. Nephrology following no plans for dialysis at this time. WBC downtrending 12/27: encephalopathy persists. NICKO persists. severely volume overloaded with elevated BNP. on vasopressors. left chest with pleural effusion, largest area ~ 3cm around 6th intercostal space. fio2 remains elevated. 12/28: no meaningful diuresis with aggressive diuretic attempts. organ failure persists. encephalopathy persists. high fio2 persists. heparin on hold for left chest tube today. 12/29: Remains severely hypoxemic despite aggressive diuresis and bilateral chest tubes. Urine output 3 L on Lasix infusion and albumin infusion. Chest tube output 3.5 L in the last 24 hours from bilateral chest tubes. Despite all this patient remains severely hypoxemic currently PEEP at 15 FiO2 at 100% which gives a PO2 of 83. Discussed with Dr. Lloyd with increasing creatinine to 4.1 will start Hemodialysis today. Currently on vasopressin 0.04 U/min, dopamine 8 mcg/kg/min 12/30: no improvements in hypoxemia or shock on vasopressors. IHD again today and removal of significant fluid. hypokalemia persists. starting to arouse and follow commands, but no other improvements in end-organ function. Objective Vital Signs Date Time Temp Pulse Resp B/P (MAP) Pulse Ox O2 Delivery O2 Flow Rate FiO2 12/30/17 09:32 122 105/59 12/30/17 08:00 75 12/30/17 08:00 99.1 16 93 Intake and Output 12/30/17 12/30/17 12/30/17 07:59 15:59 23:59 Intake Total 1590 ml 798 ml Output Total 1775 ml 106 ml Balance -185 ml 692 ml Result Diagram: 12/30/17 0400 12/30/17 0400 Other Results Microbiology Date/Time Source Procedure Growth Status 12/28/17 16:07 Sputum Endotracheal Gram Stain - Final Complete 12/28/17 16:07 Sputum Endotracheal Sputum Culture - Final NO GROWTH IN 48 HOURS. Complete Imaging Last Impressions Chest X-Ray 12/26/17 0600 Signed Impressions: Service Date/Time: Tuesday, December 26, 2017 02:56 - CONCLUSION: 1. Left basilar airspace disease slightly increased from December 24. Small caliber right chest tube without pneumothorax. Endotracheal tube and nasogastric tube and right central line in good position. Rian Mccarty MD Renal Ultrasound 12/25/17 0000 Signed Impressions: Service Date/Time: Monday, December 25, 2017 17:32 - CONCLUSION: Negative renal ultrasound examination. Boni Obregon MD Head CT 12/23/17 0000 Signed Impressions: Service Date/Time: December 00:39 - CONCLUSION: No acute disease. Raji Matos Jr., MD Chest CT 12/23/17 0000 Signed Impressions: Service Date/Time: December 00:39 - CONCLUSION: 1. Moderate-sized bilateral pleural effusions. 2. Diffuse bilateral pulmonary infiltrates. This may relate to pulmonary edema. 3. Coronary artery atherosclerotic calcifications. Raji Matos Jr., MD Objective Remarks GENERAL: Ill appearing male who is orotracheally intubated critically ill on vasopressors. SKIN: Peripherally cool, diaphoretic. HEAD: Atraumatic. Normocephalic. EYES: Pupils are round, 5 mm ENT: No nasal bleeding or discharge. orotracheally intubated NECK: Trachea midline. No JVD. CARDIOVASCULAR: Tachycardic, regular, sinus tachycardia. On vasopressin and dopamine. RESPIRATORY: Orotracheally intubated, coarse breath sounds bilaterally. Bilateral chest tubes with serous output. PEEP 14. fio2 75%. GASTROINTESTINAL: Abdomen soft, non-tender, nondistended. : Noonan in place with minimal light padmaja in the tubing only. MUSCULOSKELETAL: Extremities without clubbing, cyanosis. NEUROLOGICAL: Pupils reactive and he has +corneal reflexes, He requires ongoing sedation due to hypoxemia and vent dyssynchrony, but he does wake up and follows commands weakly 4 A/P Problem List: (1) Asystole ICD Code: I46.9 - Cardiac arrest, cause unspecified Status: Acute (2) NSTEMI (non-ST elevated myocardial infarction) ICD Code: I21.4 - Non-ST elevation (NSTEMI) myocardial infarction Status: Acute (3) Respiratory failure with hypoxia and hypercapnia ICD Code: J96.91 - Respiratory failure, unspecified with hypoxia; J96.92 - Respiratory failure, unspecified with hypercapnia Status: Acute (4) Pleural effusion ICD Code: J90 - Pleural effusion, not elsewhere classified Status: Acute (5) Tobacco abuse ICD Code: Z72.0 - Tobacco use Status: Chronic (6) ETOH abuse ICD Code: F10.10 - Alcohol abuse, uncomplicated Status: Chronic (7) Pulmonary edema ICD Code: J81.1 - Chronic pulmonary edema Status: Acute (8) Shock ICD Code: R57.9 - Shock, unspecified Status: Acute (9) Macrocytic anemia ICD Code: D53.9 - Nutritional anemia, unspecified (10) Hypocalcemia ICD Code: E83.51 - Hypocalcemia (11) Lactic acid acidosis ICD Code: E87.2 - Acidosis Assessment and Plan Assessment: 62yM s/p PEA arrest with ongoing encephalopathy, hypoxic respiratory failure, NICKO, and acute CHF (systolic) exacerbation. s/p bilateral chest tubes but with persistent hypoxia, resp failure. remains volume overloaded with severely elevated BNP. On forced diuresis despite NICKO for severe CHF exacerbation. remains on IHD and still volume overloaded. also remains in cardiogenic shock despite therapy. will add milrinone and inhaled flolan. Remains critically ill- prognosis guarded at this time due to multiorgan failure NEURO: Acute metabolic encephalopathy On sedation hold patient moves all extremities opens eyes and follows commands today EtOH abuse Fentanyl and propofol for sedation, wean as tolerated, may need continued sedation for ventilator synchrony Monitor for evidence of EtOH withdrawal Thiamine/folic acid/mvi supplementation Seizure precautions RESP: Acute hypoxemic and hypercapnic respiratory failure Bilateral pleural effusion s/p bilateral pigtail chest tube. Severe pulmonary edema COPD Tobacco abuse His severe hypoxemia most likely secondary to cardiogenic pulmonary edema, I do not think he will benefit from prone therapy Started hemodialysis for fluid removal 12/29 Broad spectrum antibiotics and completed tamiflu (given due to known exposure to Influenza A) Bilateral pigtail catheters. keep today while still putting out significant serous output. Duoneb q4 hours. Albuterol q2 hours prn wheezing. Ventilator bundle CV: NSTEMI Asystolic cardiac arrest Cardiogenic shock- persistent Cardiogenic pulmonary edema Essential HTN at baseline Peripheral arterial disease Hyperlipidemia Asystolic cardiac arrest could be secondary to respiratory acidosis, versus non- ST elevation PA Limited bedside Echo performed by Dr. Drummond on dopamine 20 mcg/kg/min demonstrates decompressed RV. The LVEF grossly appears ~45%-50% with decreased contractility of apex EKG sinus rhythm 95, hyperacute T waves in V3 and V4 with ST dep V4-V5. Followup EKG did not show any ST elevations. Troponin 0.09, followed serial troponins, elevated to 25.5 Echo 03/26/17 - EF 50-55%, mild LVH, finding c/w hypertrophic cardiomyopathy. 12/24/17 Echo The left ventricular systolic function is low normal with an estimated ejection fraction of 50%. Moderate mitral valve regurgitation. Stress 02/01/16 suspected mild inferior lateral ischemia. Cardiac catheterization 02/01/16 - normal coronaries. ASA 81 mg daily, continue plavix 75 daily. Heparin drip. Cardiology consulted. 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 On dopamine and vasopressin 0.04 to maintain MAP >65. Stress dose hydrocortisone start milrinone 0.25 mcg/kg/min. add inhaled flolan. GI: tube feeds on hold while in shock. FEN/RENAL: NICKO- worsening. Noonan in place, monitor I/O and electrolytes. Now lactic acid cleared and he is making urine 80 ml per hour on Lasix 20 mg per hour infusion. Patient remained severely hypoxemic with creatinine 4.1. continue hemodialysis today Hypocalcemia Received calcium chloride 1 gram IV. Follow serial labs Severe acute intravascular volume overload Acute CHF Exacerbation, systolic type continuous albumin drip. serial bmps. ID: Possible Viral vs Atypical pneumonia Known exposure to close household contact with confirmed Influenza A. Influenza screen negative. finished full 5 day course of tamiflu. Cover for superimposed bacterial pneumonia with Zosyn, vancomycin and Levaquin. blood culture, sputum culture negative to date, urine Legionella antigen, urine pneumococcal antigen-negative ID-following HEME: Chronic macrocytic anemia likely secondary to EtOH abuse. Vitamin supplementation as per above. Monitor CBC ENDO: Acute stress hyperglycemia Monitor bedside glucose every 6 hours. Administer low-dose insulin sliding scale as indicated. Hydrocortisone 50 mg IV every 6 hours as per above. PROPH: Heparin drip will provide DVT prophylaxis. Famotidine 10 mg IV q12 hours for stress ulcer prophylaxis. ACCESS: RIJ CVL placed 12/23 #8. Left radial art line placed 12/24 #7 Patient is critically ill with profound hypoxemia and shock requiring resuscitation, vasopressor management and titration, ventilator management. He is critically ill and at high risk for further decompensation or . my billing statement This patient remains critically ill with one or more organ systems which are or may become a threat to life. I have spent in excess of 36 minutes discontinuously in the care and management of this patient. This time is exclusive of procedures, and includes, but is not limited to, evaluation of the patient, review of the medical record, discussions with family, consultants, nursing staff, or respiratory therapy, and documentation in the medical record. Russ Faust MD December 30, 2017 10:21
[2017-12-30] MEDS: FOLIC ACID 1 MG TAB OG-TUBE SCH (10:49)
[2017-12-30] MEDS: POTASSIUM CHLORIDE 20 MEQ CONTROLLED RELEASE TAB PO SCH ×2 (10:49→20:42)
[2017-12-30] MEDS: CLOPIDOGREL 75 MG TAB PO SCH (10:49)
[2017-12-30] MEDS: ASPIRIN 81 MG CHEW TAB CHEW SCH (10:49)
[2017-12-30] MEDS: FAMOTIDINE 20 MG TAB PO SCH ×2 (10:49→20:42)
[2017-12-30] MEDS: MULTIVITAMIN TAB OG-TUBE SCH (10:49)
[2017-12-30] MEDS: VASOPRESSIN INJ 40 UNITS in DEXTROSE 5% IN WATER 100ML INJ 98 ML IV SCH ×2 (10:50)
[2017-12-30] MEDS: CHLORHEXIDINE 0.12% (ORAL KIT) 15 ML CUP MT SCH ×2 (10:50→20:00)
[2017-12-30] MEDS: SODIUM CHLORIDE 0.9% FLUSH 10 ML FLUSH IV FLUSH SCH ×2 (10:50→20:42)
[2017-12-30] MEDS: DOCUSATE SODIUM 50 MG/SENNA 8.6 MG TAB PO SCH ×2 (10:50→20:42)
[2017-12-30] MEDS: THIAMINE INJ 100 MG in SODIUM CHLORIDE 0.9% INJ 100 ML IV SCH (10:51)
[2017-12-30] MEDS ORDERED: POTASSIUM CHLOR 40 MEQ PREMIX 100 ML IV ONE (11:00)
[2017-12-30] MEDS: MILRINONE INJ 20 MG in SODIUM CHLORIDE 0.9% INJ 80 ML IV SCH (11:05)
[2017-12-30] MEDS: EPOPROSTENOL NEB SOLUTION 50 NG/KG/MIN 100 ML NEB SCH ×2 (13:00)
[2017-12-30 13:47] LABS: CALCIUM 8.6 MG/DL (8.5-10.1); CREATININE 2.84 MG/DL (0.60-1.30); MAGNESIUM 2.4 MG/DL (1.5-2.5)
--- NOTE | 2017-12-30 20:03 | HHI.PR ---
Addendum to Inpatient Note Additional Information Pt seen around 1900 full note to follow Payton Quintero MD December 30, 2017 20:03
[2017-12-30] MEDS: AZITHROMYCIN INJ 500 MG in SODIUM CHLOR 0.9% 250 ML INJ 250 ML IV SCH (21:10)
--- NOTE | 2017-12-30 23:39 | HHI.IDPN ---
Subjective Subjective Remarks remains on dopamine, vasopressin, low dose on vent FiO2 down to 55, PEEP 14 non hypothermic NPO sp HD, 3.5 L off Antibiotics levaquine azithro Allergies: Coded Allergies: cefaclor (Unverified Allergy, Unknown, Doesn't remember , 04/10/17) Objective . Vital Signs Date Time Temp Pulse Resp B/P (MAP) Pulse Ox O2 Delivery O2 Flow Rate FiO2 12/30/17 22:00 126 12/30/17 20:05 127 111/51 12/30/17 20:00 125 12/30/17 20:00 55 12/30/17 20:00 99.6 125 16 110/71 (84) 96 111/56 (74) 12/30/17 19:19 99 55 12/30/17 18:00 120 12/30/17 18:00 120 102/69 (80) 125/53 (77) 12/30/17 17:00 95 55 12/30/17 16:00 100.0 122 16 97/66 (76) 94 114/56 (75) 12/30/17 16:00 122 12/30/17 16:00 55 12/30/17 14:00 121 12/30/17 12:00 121 12/30/17 12:00 99.7 121 16 100/64 (76) 97 113/54 (73) 12/30/17 12:00 55 12/30/17 11:34 98 55 12/30/17 11:17 123 107/64 12/30/17 11:05 123 108/63 12/30/17 10:50 122 112/61 12/30/17 10:00 113 12/30/17 09:32 122 105/59 12/30/17 09:30 60 12/30/17 09:00 65 12/30/17 08:00 75 12/30/17 08:00 112 12/30/17 08:00 99.1 112 16 108/72 (84) 93 127/60 (82) 12/30/17 07:50 93 75 12/30/17 07:00 109 130/63 (85) 12/30/17 07:00 109 130/63 12/30/17 07:00 109 130/63 12/30/17 06:00 113 109/67 (81) 131/63 (85) 12/30/17 06:00 114 12/30/17 04:04 94 75 12/30/17 04:00 109 12/30/17 04:00 98.9 109 16 109/67 (81) 95 129/59 (82) 12/30/17 04:00 75 12/30/17 02:00 108 12/30/17 01:35 112 127/63 12/30/17 00:18 94 75 12/30/17 00:00 98.6 110 16 114/72 (86) 96 111/59 (76) 12/30/17 00:00 110 12/30/17 00:00 75 12/30/17 12/30/17 12/31/17 15:00 23:00 07:00 Intake Total 1250 ml 2135 ml Output Total 3663 ml 647 ml Balance -2413 ml 1488 ml Intake IV Total 1250 ml 2135 ml Output Urine Total 163 ml 127 ml Gastric Drainage Total 100 ml Chest Tube Drainage Total 420 ml Hemodialysis 3500 ml # Bowel Movements 0 . Laboratory Tests Test 12/30/17 04:00 White Blood Count 11.2 TH/MM3 Red Blood Count 2.49 MIL/MM3 Hemoglobin 9.2 GM/DL Hematocrit 25.7 % Mean Corpuscular Volume 103.1 FL Mean Corpuscular Hemoglobin 37.1 PG Mean Corpuscular Hemoglobin Concent 36.0 % Red Cell Distribution Width 13.6 % Platelet Count 111 TH/MM3 Mean Platelet Volume 8.3 FL Laboratory Tests Test 12/29/17 00:20 12/29/17 03:00 12/29/17 14:36 12/29/17 17:55 Blood Urea Nitrogen 64 MG/DL 64 MG/DL 53 MG/DL 50 MG/DL Creatinine 4.06 MG/DL 4.10 MG/DL 3.25 MG/DL 3.28 MG/DL Random Glucose 161 MG/DL 155 MG/DL 120 MG/DL 157 MG/DL Total Protein 5.7 GM/DL 5.6 GM/DL Calcium Level 7.1 MG/DL 7.0 MG/DL 7.6 MG/DL 8.1 MG/DL Magnesium Level 2.5 MG/DL 2.5 MG/DL 2.3 MG/DL 2.3 MG/DL Sodium Level 130 MEQ/L 130 MEQ/L 136 MEQ/L 133 MEQ/L Potassium Level 3.5 MEQ/L 3.3 MEQ/L 3.3 MEQ/L 3.3 MEQ/L Chloride Level 88 MEQ/L 88 MEQ/L 92 MEQ/L 91 MEQ/L Carbon Dioxide Level 26.7 MEQ/L 26.2 MEQ/L 31.0 MEQ/L 26.3 MEQ/L Anion Gap 15 MEQ/L 16 MEQ/L 13 MEQ/L 16 MEQ/L Estimat Glomerular Filtration Rate 15 ML/MIN 15 ML/MIN 19 ML/MIN 19 ML/MIN Protein Corrected Calcium 7.8 MG/DL 7.8 MG/DL Test 12/29/17 23:20 12/30/17 04:00 12/30/17 12:25 12/30/17 21:00 Blood Urea Nitrogen 57 MG/DL 60 MG/DL 40 MG/DL Creatinine 3.55 MG/DL 3.66 MG/DL 2.84 MG/DL Random Glucose 171 MG/DL 157 MG/DL 100 MG/DL Calcium Level 7.7 MG/DL 8.0 MG/DL 8.6 MG/DL Magnesium Level 2.3 MG/DL 2.4 MG/DL 2.4 MG/DL Sodium Level 134 MEQ/L 133 MEQ/L 138 MEQ/L Potassium Level 3.3 MEQ/L 2.9 MEQ/L 3.3 MEQ/L 3.9 MEQ/L Chloride Level 90 MEQ/L 88 MEQ/L 96 MEQ/L Carbon Dioxide Level 28.8 MEQ/L 29.6 MEQ/L 29.0 MEQ/L Anion Gap 15 MEQ/L 15 MEQ/L 13 MEQ/L Estimat Glomerular Filtration Rate 17 ML/MIN 17 ML/MIN 23 ML/MIN Microbiology Date/Time Source Procedure Growth Status 12/28/17 16:13 Blood Peripheral Aerobic Blood Culture - Preliminary NO GROWTH IN 2 DAYS Resulted 12/28/17 16:13 Blood Peripheral Anaerobic Blood Culture - Preliminary NO GROWTH IN 2 DAYS Resulted 12/28/17 15:52 Blood Peripheral Aerobic Blood Culture - Preliminary NO GROWTH IN 2 DAYS Resulted 12/28/17 15:52 Blood Peripheral Anaerobic Blood Culture - Preliminary NO GROWTH IN 2 DAYS Resulted 12/28/17 16:07 Sputum Endotracheal Gram Stain - Final Complete 12/28/17 16:07 Sputum Endotracheal Sputum Culture - Final NO GROWTH IN 48 HOURS. Complete Imaging 1. There is diffuse bilateral interstitial and airspace patchy infiltrate throughout both lung mccormick. 2. No evidence of pneumothorax Last Impressions Chest X-Ray 12/29/17 0000 Signed Impressions: CONCLUSION: Satisfactory Vas-Cath positioning. No pneumothorax. Otherwise stabl e chest. Abdomen X-Ray 12/28/17 Signed Impressions: Service Date/Time: Thursday, December 28, 2017 16:28 - CONCLUSION: NG tube in the stomach. Nonspecific gas pattern Boni Messer MD Renal Ultrasound 12/25/17 Signed Impressions: Service Date/Time: Monday, December 25, 2017 17:32 - CONCLUSION: Negative renal ultrasound examination. Boni Obregon MD Head CT 12/23/17 Signed Impressions: Service Date/Time: December 00:39 - CONCLUSION: No acute disease. Raji Matos Jr., MD Chest CT 12/23/17 Signed Impressions: Service Date/Time: December 00:39 - CONCLUSION: 1. Moderate-sized bilateral pleural effusions. 2. Diffuse bilateral pulmonary infiltrates. This may relate to pulmonary edema. 3. Coronary artery atherosclerotic calcifications. Raji Matos Jr., MD Physical Exam CONSTITUTIONAL/GENERAL: This is an adequately nourished patient, in no apparent distress. TUBES/LINES/DRAINS: SKIN: No jaundice, rashes, or lesions. Skin temperature appropriate. Not diaphoretic. EYES: Pupils equal and round and reactive. Extraocular motions intact. No scleral icterus. No injection or drainage. Fundi not examined. CARDIOVASCULAR: Regular rate and rhythm without murmurs, gallops, or rubs. No JVD. Peripheral pulses BUE symmetric. Pedal pulses non palpable, but dopplerable RESPIRATORY/CHEST: Symmetric, unlabored respirations. Clear to auscultation. Breath sounds equal bilaterally. No wheezes, rales, or rhonchi. b/l CTs in place GASTROINTESTINAL: Abdomen soft, non-tender, nondistended. No hepato-splenomegaly , or palpable masses. No guarding. Bowel sounds present. GENITOURINARY: Without palpable bladder distension. Noonan catheter in place. MUSCULOSKELETAL: Extremities without clubbing, Feet with prominent cyanosis,cold to touch. Refill delayed but present No edema. No joint tenderness or effusion noted. No calf tenderness. + feet mottling NEUROLOGICAL: Unreposnsivce PSYCHIATRIC: unable to assess Assessment & Plan Remarks B/L PNA, clx negative vs pneumonitis confirmed known flu exposure, resp panel negative - diffuse pulm infiltrates R pleural effusion sp CT placement Sp cardiac arrest Hemodynaically unstable, on pressors Acute VDRF\ - worsening resp status, requires more vent supoprt Leukocytosis: improving - probaly 2/2 PNA ARF -Adjust abx Hypothermia; resolved; bl clx neg REC's: cont levaquine cont azithro dc tamiflu after 5 days completed consider non infectious ethiology for pulmonary infiltrtates Payton Cordova RN, MD December 30, 2017 23:39
[2017-12-31] VITALS (44 sets, daily range): BP systolic 69–127; BP diastolic 47–77; PULSE 110–137; RESP 16–53; TEMP 99.5–99.7; O2SAT 92–100
[2017-12-31] MEDS: HYDROCORTISONE SOD SUCCINATE 100 MG VIAL IV PUSH SCH ×5 (00:06→23:31)
[2017-12-31] MEDS: EPOPROSTENOL NEB SOLUTION 50 NG/KG/MIN 100 ML NEB SCH ×8 (00:07→19:37)
[2017-12-31] MEDS: MILRINONE INJ 20 MG in SODIUM CHLORIDE 0.9% INJ 80 ML IV SCH ×2 (01:10→18:12)
[2017-12-31] MEDS: RESP: ALBUTEROL 2.5 MG/IPRATROPIUM 0.5 MG NEB (SCH) NEB ×5 (03:13→20:00)
[2017-12-31] MEDS: CHLORHEXIDINE GLUCONATE 2 % 1 PACK (2 CLOTHS) TOP SCH (04:00)
[2017-12-31] MEDS: ALBUMIN 25% INJ 100 ML IV SCH ×3 (04:21→21:45)
[2017-12-31 04:35] LABS: AUTOMATED NEUTROPHIL # 11.9 TH/MM3 (1.8-7.7); BASOPHIL % 0.1 % (0.0-2.0); HEMATOCRIT 23.2 % (39.0-51.0); HEMOGLOBIN 8.1 GM/DL (13.0-17.0); LYMPH % 3.6 % (9.0-44.0); LYMPHOCYTE # 0.5 TH/MM3 (1.0-4.8); MEAN CELL VOLUME 104.7 FL (80.0-100.0); MEAN CORPUSCULAR HEMOGLOBIN 36.7 PG (27.0-34.0); MEAN PLATELET VOLUME 8.3 FL (7.0-11.0); MONO % 9.4 % (0.0-8.0); MONOCYTE # 1.3 TH/MM3 (0-0.9); NEUT % 86.9 % (16.0-70.0); PLATELET COUNT 123 TH/MM3 (150-450); RED BLOOD COUNT 2.22 MIL/MM3 (4.50-5.90); RED CELL DISTRIBUTION WIDTH 13.6 % (11.6-17.2); WHITE BLOOD COUNT 13.7 TH/MM3 (4.0-11.0)
[2017-12-31] MEDS ORDERED: MIDAZOLAM HCL 2 MG/2 ML VIAL IV PUSH ONE (04:45)
[2017-12-31 05:06] LABS: BICARBONATE 25.6 MEQ/L (21.0-32.0); CALCIUM 8.3 MG/DL (8.5-10.1); CREATININE 3.94 MG/DL (0.60-1.30); PHOSPHORUS 4.1 MG/DL (2.5-4.9)
[2017-12-31] MEDS: INSULIN ASPART SUPPLEMENTAL SCALE SQ SCH ×5 (05:06→23:39)
[2017-12-31] MEDS: HEPARIN-D5W 25,000 U/250 ML 250 ML IV PRN (05:28)
[2017-12-31] MEDS: VASOPRESSIN INJ 40 UNITS in DEXTROSE 5% IN WATER 100ML INJ 98 ML IV SCH ×4 (06:14→21:00)
[2017-12-31] MEDS: DOPamine 800 MG/500 ML INJ 500 ML IV PRN (06:47)
[2017-12-31] MEDS: ASPIRIN 81 MG CHEW TAB CHEW SCH (07:55)
[2017-12-31] MEDS: CLOPIDOGREL 75 MG TAB PO SCH (08:03)
[2017-12-31] MEDS: THIAMINE INJ 100 MG in SODIUM CHLORIDE 0.9% INJ 100 ML IV SCH (08:03)
[2017-12-31] MEDS: DOCUSATE SODIUM 50 MG/SENNA 8.6 MG TAB PO SCH ×2 (08:03→20:01)
[2017-12-31] MEDS: MULTIVITAMIN TAB OG-TUBE SCH (08:03)
[2017-12-31] MEDS: FOLIC ACID 1 MG TAB OG-TUBE SCH (08:03)
[2017-12-31] MEDS: FAMOTIDINE 20 MG TAB PO SCH ×2 (08:03→20:00)
[2017-12-31] MEDS: fentaNYL DRIP 250 ML IV PRN (08:04)
[2017-12-31] MEDS: CHLORHEXIDINE 0.12% (ORAL KIT) 15 ML CUP MT SCH ×2 (08:05→20:01)
[2017-12-31] MEDS: POTASSIUM CHLORIDE 25 MEQ EFFERVESCENT TAB G-TUBE SCH ×2 (08:37→20:00)
[2017-12-31] MEDS: SODIUM CHLORIDE 0.9% FLUSH 10 ML FLUSH IV FLUSH SCH ×2 (09:00→20:01)
--- NOTE | 2017-12-31 09:31 | HHI.NPPN ---
Subjective General Problems: Anemia History of Present Illness This is a 62-year-old male with a history of hypertension, dyslipidemia, peripheral arterial disease and heavy alcohol use. The patient apparently presented after he had left-sided chest pains and confusion. He was apparently found to be in respiratory distress with EVAC. He came to the hospital here and was intubated and developed an asystole cardiac event. He was resuscitated and the patient remains intubated at this time on multiple pressors. He is being followed with critical care. The patient overnight has had ongoing pressor support with some ongoing urine output with 600 mL of urine output in the last 24 hours. Regarding his renal function, his creatinine was 0.8 on admission and over the last 2 days, the creatinine was elevated from 2.0 to 2.6 now. At this time, the patient remains intubated on multiple pressors in the ICU. He is being treated for possible infection with Zosyn as well as vancomycin with a white count of 14.6. Nephrology was consulted for further evaluation of renal failure. Additional Remarks Remains intubated. Opens eyes to commands. Hemodialysis yesterday tolerated well. (Tatyana Montanez) Review of Systems General General Remarks Unable to do ROS as patient is intubated (Tatyana Montanez) Objective Data Data Vital Signs Date Time Temp Pulse Resp B/P (MAP) Pulse Ox O2 Delivery O2 Flow Rate FiO2 12/31/17 07:34 96 55 12/31/17 06:47 126 119/53 12/31/17 06:14 127 118/52 12/31/17 06:00 120 105/70 (82) 118/52 (74) 12/31/17 06:00 123 12/31/17 05:49 16 12/31/17 04:20 124 110/46 12/31/17 04:02 97 55 12/31/17 04:00 55 12/31/17 04:00 125 12/31/17 04:00 99.7 125 17 105/70 (82) 98 120/50 (73) 12/31/17 02:45 127 120/50 12/31/17 02:00 124 12/31/17 01:13 100 55 12/31/17 01:10 128 127/55 12/31/17 00:00 55 12/31/17 00:00 124 12/31/17 00:00 99.5 125 16 104/68 (80) 96 127/53 (77) 12/30/17 22:12 96 55 12/30/17 22:00 126 12/30/17 20:05 127 111/51 12/30/17 20:00 125 12/30/17 20:00 55 12/30/17 20:00 99.6 125 16 110/71 (84) 96 111/56 (74) 12/30/17 19:19 99 55 12/30/17 18:00 120 12/30/17 18:00 120 102/69 (80) 125/53 (77) 12/30/17 17:00 95 55 12/30/17 16:00 100.0 122 16 97/66 (76) 94 114/56 (75) 12/30/17 16:00 122 12/30/17 16:00 55 12/30/17 14:00 121 12/30/17 12:00 121 12/30/17 12:00 99.7 121 16 100/64 (76) 97 113/54 (73) 12/30/17 12:00 55 12/30/17 11:34 98 55 12/30/17 11:17 123 107/64 12/30/17 11:05 123 108/63 12/30/17 10:50 122 112/61 12/30/17 10:00 113 12/30/17 09:32 122 105/59 12/30/17 09:30 60 (Tatyana Montanez) -: 12/31/17 0410 12/31/17 0410 Imaging Last Impressions Chest X-Ray 12/29/17 0000 Signed Impressions: CONCLUSION: Satisfactory Vas-Cath positioning. No pneumothorax. Otherwise stabl e chest. Abdomen X-Ray 12/28/17 0000 Signed Impressions: Service Date/Time: Thursday, December 28, 2017 16:28 - CONCLUSION: NG tube in the stomach. Nonspecific gas pattern Boni Messer MD Renal Ultrasound 12/25/17 0000 Signed Impressions: Service Date/Time: Monday, December 25, 2017 17:32 - CONCLUSION: Negative renal ultrasound examination. Boni Obregon MD Head CT 12/23/17 0000 Signed Impressions: Service Date/Time: December 00:39 - CONCLUSION: No acute disease. Raji Matos Jr., MD Chest CT 12/23/17 0000 Signed Impressions: Service Date/Time: December 00:39 - CONCLUSION: 1. Moderate-sized bilateral pleural effusions. 2. Diffuse bilateral pulmonary infiltrates. This may relate to pulmonary edema. 3. Coronary artery atherosclerotic calcifications. Raji Matos Jr., MD (Tatyana Montanez) Physical Exam General Appearance: No Acute Distress (Tatyana Montanez CLOTH EXAMINER HAND) Neck Neck Exam: Neck Supple (Tatyana Montanez CLOTH EXAMINER HAND) Pulmonary Resp Exam: Rhonchi, Decreased Bases, Diminished Breath Sounds (Tatyana Montanez. CLOTH EXAMINER HAND) Cardiology CV Exam: Regular (Tatyana Montanez CLOTH EXAMINER HAND) Gastrointestinal/Abdomen GI Exam: Soft, Non-Tender, Bowel Sounds Present (Tatyana MontanezP) Genitourinary Exam: Clear Urine (Tatyana MontanezP) Musculoskeletal MS Exam: Joints Intact (Tatyana Montanez CLOTH EXAMINER HAND) Integumentary Skin Exam: Dry, Intact, Cool (Tatyana Montanez. CLOTH EXAMINER HAND) Extremeties Extremities Exam: Moderate Edema, Dependent Edema (Tatyana Montanez. CLOTH EXAMINER HAND) Neurologic Neuro Exam: Sedated (Tatyana Montanez. CLOTH EXAMINER HAND) Assessment/Plan Problem List: (1) NICKO (acute kidney injury) ICD Codes: N17.9 - Acute kidney failure, unspecified Plan: Creatinine of 0.8 at time of admission. History of etoh abuse and tobacco use. NICKO with apparent ATN post cardiac arrest and asystole. FeNa 0.2% - likely pre-renal appearance due to pressors and vasoconstriction. Continues on vasopressin and dopamine Creatinine trend 3.25 -> 3.28 - > 3.55 ->3.66 ->2.84->3.94 today 567 cc UOP/ 24 hours Vas cath placed 12/29 Hemodialysis started on 12/29 Continue to closely monitor UOP, volume status, and BMP Avoid nephrotoxins. Anemia at 8.1 Epogen increased with dialysis Hemodialysis yesterday with a UF of 3.0 liters Hemodialysis tomorrow. (2) NSTEMI (non-ST elevated myocardial infarction) ICD Codes: I21.4 - Non-ST elevation (NSTEMI) myocardial infarction Status: Acute Plan: Cardiac arrest and non-ST elevation myocardial infarction. The patient is being followed up with cardiology. Consideration is for cardiac catheterization when stable. Of note, avoid any contrast for now as possible in setting of NICKO. (3) Respiratory failure with hypoxia and hypercapnia ICD Codes: J96.91 - Respiratory failure, unspecified with hypoxia; J96.92 - Respiratory failure, unspecified with hypercapnia Status: Acute Plan: The patient remains intubated at this point Follow with critical care team. (4) Metabolic acidosis ICD Codes: E87.2 - Acidosis Plan: improving IVF discontinued (5) Anemia ICD Codes: D64.9 - Anemia, unspecified Plan: Epogen with dialysis (Tatyana Montanez) Problem List: (1) NICKO (acute kidney injury) ICD Codes: N17.9 - Acute kidney failure, unspecified Plan: Creatinine of 0.8 at time of admission. History of etoh abuse and tobacco use. NICKO with apparent ATN post cardiac arrest and asystole. FeNa 0.2% - likely pre-renal appearance due to pressors and vasoconstriction. Continues on vasopressin and dopamine Creatinine trend 3.25 -> 3.28 - > 3.55 ->3.66 ->2.84->3.94 today 567 cc UOP/ 24 hours Vas cath placed 12/29 Hemodialysis started on 12/29 Continue to closely monitor UOP, volume status, and BMP Avoid nephrotoxins. Anemia at 8.1 Epogen increased with dialysis Hemodialysis yesterday with a UF of 3.0 liters Hemodialysis tomorrow. Patient seen and examine, agree with above. HD tomorrow. D/W the family at bed side. (2) NSTEMI (non-ST elevated myocardial infarction) ICD Codes: I21.4 - Non-ST elevation (NSTEMI) myocardial infarction Status: Acute Plan: Cardiac arrest and non-ST elevation myocardial infarction. The patient is being followed up with cardiology. Consideration is for cardiac catheterization when stable. Of note, avoid any contrast for now as possible in setting of NICKO. (3) Respiratory failure with hypoxia and hypercapnia ICD Codes: J96.91 - Respiratory failure, unspecified with hypoxia; J96.92 - Respiratory failure, unspecified with hypercapnia Status: Acute Plan: The patient remains intubated at this point Follow with critical care team. (4) Metabolic acidosis ICD Codes: E87.2 - Acidosis Plan: improving IVF discontinued (5) Anemia ICD Codes: D64.9 - Anemia, unspecified Plan: Epogen with dialysis (Crescencio Lloyd MD) Tatyana Montanez December 31, 2017 09:31 Crescencio Lloyd MD January 01, 2018 00:17
[2017-12-31] MEDS ORDERED: EPOETIN ALFA 10,000 UNITS/ML VIAL IV PUSH PRN (10:00)
[2017-12-31] MEDS ORDERED: TERBUTALINE INJ 1 MG/ML AMP SQ PRN ×2 (11:15→21:30)
--- NOTE | 2017-12-31 11:20 | HHI.CCPN ---
Subjective Remarks/Hospital Course Patient is unable to provide history because he is intubated. History was obtained by discussion with his daughter and information relayed by the emergency department physician. 62-year-old male with past medical history of hypertension, hyperlipidemia, peripheral arterial disease, daily alcohol use, tobacco abuse. Patient's daughter states that for the last 1-1/2 weeks he has been complaining of orthopnea and has had difficulty sleeping at night because of this; waking up with severe SOB. She states he is also intermittently complained of non- pleuritic left-sided chest pain which he attributed to the fact that he had fallen on his left side a couple of weeks ago. He has had a lot of coughing but to her knowledge it has been nonproductive. He has had generalized weakness over the last couple of days and this morning he was "out of it". He has not been aware of any fever. He has had contact with his grandson who tested positive for influenza A 3 days ago on 12/21. This evening he was in the bathroom and his daughter heard him groaning and seemed to be in respiratory distress and indicated that she needed to call EVAC. He was initially responsive but upon arrival to the ED he was unresponsive, staring straight ahead, being bagged by EVAC.. He became bradycardic. He underwent RSI with etomidate and succinylcholine and was intubated. During intubation he went into asystole. He was given epinephrine 1 mg and 2 amps of sodium bicarbonate in addition to CPR. His heart rate then came up into the 160s. He was started on dopamine due to hypotension and is currently running at 20 mcg/kg/ min. ABG demonstrated acute hypercapnic and hypoxic respiratory failure with pH 7.15/PCO2 of 62/PaO2 of 58/bicarb 21. Chest x-ray demonstrates bibasilar opacities. White blood cell count is 12. He is hypothermic. He received empiric vancomycin and Zosyn in the emergency department and Lasix 40 mg IV. He was started on propofol and fentanyl drips. Propofol was subsequently discontinued and he was started on a Versed drip and given vecuronium to facilitate vent synchrony and oxygenation.. Initial post intubation chest x-ray demonstrated ET tube and NG tube in high position. These were reportedly advanced but remained in high position.. Patient then had notable cuff leak and sats were in the 70s. He was reintubated by the emergency department physician. I have placed right IJ central venous line. Follow-up chest x-ray demonstrates satisfactory position of endotracheal tube and right IJ. The OG has been removed and will be replaced. Noonan has been placed but he has been anuric for the last 3.5 hours in the ED. SUBJECTIVE: 12/24: Patient reevaluated multiple times as he remains critical on multiple pressors. Currently on Levophed at 12 mcg/min, dopamine at 10 mcg/kg/min and vasopressin at 0.04 units. FiO2 currently at 60% with PEEP of 12 I will attempt weaning PEEP due to persistent hypotension. IV heparin started for troponin elevation to 25.5. Aspirin 81 mg daily started. Cardiology consulted. I will also start Flowtrack monitoring and maintenance IV fluids. Starting to make some urine. 12/25: Afebrile urine output slightly increased, however creatinine continues to increase. Nephrology consulted, renal ultrasound pending. The patient continues on vasopressor support, 30 at output trending 3.5, cardiac index 1.7. Patient continues to have persistent leukocytosis blood cultures negative growth today ID has been consulted.PEEP continues at 10 okay to maintain O2 saturation of 92% 12/26: The patient has been weaned off levo fed currently remains on dopamine and vasopressin. Nephrology following no plans for dialysis at this time. WBC downtrending 12/27: encephalopathy persists. NICKO persists. severely volume overloaded with elevated BNP. on vasopressors. left chest with pleural effusion, largest area ~ 3cm around 6th intercostal space. fio2 remains elevated. 12/28: no meaningful diuresis with aggressive diuretic attempts. organ failure persists. encephalopathy persists. high fio2 persists. heparin on hold for left chest tube today. 12/29: Remains severely hypoxemic despite aggressive diuresis and bilateral chest tubes. Urine output 3 L on Lasix infusion and albumin infusion. Chest tube output 3.5 L in the last 24 hours from bilateral chest tubes. Despite all this patient remains severely hypoxemic currently PEEP at 15 FiO2 at 100% which gives a PO2 of 83. Discussed with Dr. Lloyd with increasing creatinine to 4.1 will start Hemodialysis today. Currently on vasopressin 0.04 U/min, dopamine 8 mcg/kg/min 12/30: no improvements in hypoxemia or shock on vasopressors. IHD again today and removal of significant fluid. hypokalemia persists. starting to arouse and follow commands, but no other improvements in end-organ function. 12/31: Remains critically ill on multiple vasopressors and inotropes including dopamine, vasopressin, milrinone. Urine output approximately 600 mL, hemodialysis with 3.5 L removed yesterday. Chest tubes bilaterally with 980 mL output. BUN/creat 64/3.9 Objective Vital Signs Date Time Temp Pulse Resp B/P (MAP) Pulse Ox O2 Delivery O2 Flow Rate FiO2 12/31/17 07:34 96 55 12/31/17 06:47 126 119/53 12/31/17 05:49 16 12/31/17 04:00 99.7 Intake and Output 12/31/17 12/31/17 01/01/18 08:00 16:00 00:00 Intake Total 1150 ml Output Total 747 ml Balance 403 ml Result Diagram: 12/31/17 0410 12/31/17 0410 Other Results Microbiology Date/Time Source Procedure Growth Status 12/28/17 16:07 Sputum Endotracheal Gram Stain - Final Complete 12/28/17 16:07 Sputum Endotracheal Sputum Culture - Final NO GROWTH IN 48 HOURS. Complete Imaging Last Impressions Chest X-Ray 12/26/17 0600 Signed Impressions: Service Date/Time: Tuesday, December 26, 2017 02:56 - CONCLUSION: 1. Left basilar airspace disease slightly increased from December 24. Small caliber right chest tube without pneumothorax. Endotracheal tube and nasogastric tube and right central line in good position. Rian Mccarty MD Renal Ultrasound 12/25/17 0000 Signed Impressions: Service Date/Time: Monday, December 25, 2017 17:32 - CONCLUSION: Negative renal ultrasound examination. Boni Obregon MD Head CT 12/23/17 0000 Signed Impressions: Service Date/Time: December 00:39 - CONCLUSION: No acute disease. Raji Matos Jr., MD Chest CT 12/23/17 0000 Signed Impressions: Service Date/Time: December 00:39 - CONCLUSION: 1. Moderate-sized bilateral pleural effusions. 2. Diffuse bilateral pulmonary infiltrates. This may relate to pulmonary edema. 3. Coronary artery atherosclerotic calcifications. Raji Matos Jr., MD Objective Remarks GENERAL: Ill appearing male who is orotracheally intubated critically ill on multiple vasopressors. SKIN: Peripherally cool, diaphoretic. HEAD: Atraumatic. Normocephalic. EYES: Pupils are round, 5 mm ENT: No nasal bleeding or discharge. orotracheally intubated NECK: Trachea midline. No JVD. CARDIOVASCULAR: Tachycardic, regular, sinus tachycardia. On Milrinone vasopressin and dopamine. RESPIRATORY: Orotracheally intubated, coarse breath sounds bilaterally. Bilateral chest tubes with serous output 980 ml in 24 hours. PEEP 14. fio2 55%. GASTROINTESTINAL: Abdomen soft, non-tender, nondistended. : Noonan in place with minimal light padmaja in the tubing only. MUSCULOSKELETAL: Extremities without clubbing, cyanosis. NEUROLOGICAL: Pupils reactive and he has +corneal reflexes, He requires ongoing sedation due to hypoxemia and vent dyssynchrony, but he does wake up and moves all extremities, not following commands today A/P Problem List: (1) Asystole ICD Code: I46.9 - Cardiac arrest, cause unspecified Status: Acute (2) NSTEMI (non-ST elevated myocardial infarction) ICD Code: I21.4 - Non-ST elevation (NSTEMI) myocardial infarction Status: Acute (3) Respiratory failure with hypoxia and hypercapnia ICD Code: J96.91 - Respiratory failure, unspecified with hypoxia; J96.92 - Respiratory failure, unspecified with hypercapnia Status: Acute (4) Pleural effusion ICD Code: J90 - Pleural effusion, not elsewhere classified Status: Acute (5) Tobacco abuse ICD Code: Z72.0 - Tobacco use Status: Chronic (6) ETOH abuse ICD Code: F10.10 - Alcohol abuse, uncomplicated Status: Chronic (7) Pulmonary edema ICD Code: J81.1 - Chronic pulmonary edema Status: Acute (8) Shock ICD Code: R57.9 - Shock, unspecified Status: Acute (9) Macrocytic anemia ICD Code: D53.9 - Nutritional anemia, unspecified (10) Hypocalcemia ICD Code: E83.51 - Hypocalcemia (11) Lactic acid acidosis ICD Code: E87.2 - Acidosis Assessment and Plan Assessment: 62yM s/p PEA arrest with encephalopathy, severe hypoxic respiratory failure, refractory multifactorial shock, NICKO, and acute CHF (systolic) exacerbation. s/p bilateral chest tubes but with persistent hypoxia, resp failure. remains volume overloaded with severely elevated BNP. Remains on IHD and still volume overloaded. also remains in cardiogenic shock despite therapy. Continue milrinone and inhaled flolan. Remains critically ill- prognosis guarded at this time due to multiorgan failure NEURO: Acute metabolic encephalopathy On sedation hold patient moves all extremities opens eyes and not following commands today but was following before EtOH abuse Fentanyl and propofol for sedation, wean as tolerated, may need continued sedation for ventilator synchrony Monitor for evidence of EtOH withdrawal Thiamine/folic acid/mvi supplementation Seizure precautions RESP: Acute hypoxemic and hypercapnic respiratory failure Bilateral pleural effusion s/p bilateral pigtail chest tube. Severe pulmonary edema COPD Tobacco abuse His severe hypoxemia most likely secondary to cardiogenic pulmonary edema, he will not benefit from prone therapy Started hemodialysis for fluid removal 12/29 Broad spectrum antibiotics and completed tamiflu (given due to known exposure to Influenza A) Bilateral pigtail catheters. keep today while still putting out significant serous output. Duoneb q4 hours. Albuterol q2 hours prn wheezing. Ventilator bundle, head of bed elevation to 30 CV: NSTEMI Asystolic cardiac arrest Cardiogenic shock- persistent Cardiogenic pulmonary edema Essential HTN at baseline Peripheral arterial disease Hyperlipidemia Asystolic cardiac arrest could be secondary to respiratory acidosis, versus non- ST elevation DE Limited bedside Echo performed by Dr. Drummond on dopamine demonstrated decompressed RV. The LVEF grossly appears ~45%-50% with decreased contractility of apex EKG sinus rhythm 95, hyperacute T waves in V3 and V4 with ST dep V4-V5. Followup EKG did not show any ST elevations. Troponin 0.09, followed serial troponins, elevated to 25.5 Echo 03/26/17 - EF 50-55%, mild LVH, finding c/w hypertrophic cardiomyopathy. 12/24/17 Echo The left ventricular systolic function is low normal with an estimated ejection fraction of 50%. Moderate mitral valve regurgitation. Stress 02/01/16 suspected mild inferior lateral ischemia. Cardiac catheterization 02/01/16 - normal coronaries. ASA 81 mg daily, continue plavix 75 daily. Heparin drip. Cardiology following. 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 On dopamine and vasopressin 0.04 to maintain MAP >65. Stress dose hydrocortisone Continue milrinone 0.25 mcg/kg/min, continue inhaled flolan. GI: tube feeds on hold while in shock. FEN/RENAL: NICKO- worsening. Noonan in place, monitor I/O and electrolytes. IHD to remove fluid started 12/29/17, creatinine 3.9 today Hypocalcemia Received calcium chloride 1 gram IV. Follow serial labs Severe acute intravascular volume overload Acute CHF Exacerbation, systolic type Change albumin drip to 25 GM q12 serial bmps. ID: Possible Viral vs Atypical pneumonia Known exposure to close household contact with confirmed Influenza A. Influenza screen negative. finished full 5 day course of tamiflu. Cover for superimposed bacterial pneumonia with Zosyn, vancomycin and Levaquin. blood culture, sputum culture negative to date, urine Legionella antigen, urine pneumococcal antigen-negative ID-following HEME: Chronic macrocytic anemia likely secondary to EtOH abuse. Vitamin supplementation as per above. Monitor CBC ENDO: Acute stress hyperglycemia Monitor bedside glucose every 6 hours. Administer low-dose insulin sliding scale as indicated. Hydrocortisone 50 mg IV every 6 hours as per above. PROPH: Heparin drip will provide DVT prophylaxis. Famotidine 10 mg IV q12 hours for stress ulcer prophylaxis. ACCESS: RIJ CVL placed 12/23 #9, LIJ HD catheter 12/29. Left radial art line placed 12/24 #8 Patient is critically ill with profound hypoxemia and shock requiring resuscitation, vasopressor management and titration, ventilator management. He is critically ill and at high risk for further decompensation or . my billing statement This patient remains critically ill with one or more organ systems which are or may become a threat to life. I have spent in excess of 34 minutes discontinuously in the care and management of this patient. This time is exclusive of procedures, and includes, but is not limited to, evaluation of the patient, review of the medical record, discussions with family, consultants, nursing staff, or respiratory therapy, and documentation in the medical record. Tiffany Plata MD December 31, 2017 11:20
[2017-12-31] MEDS: NOREPINEPHRINE INJ 4 MG in SODIUM CHLOR 0.9% 250 ML INJ 246 ML IV PRN ×2 (12:15→18:14)
--- NOTE | 2017-12-31 14:49 | HHI.HCPN ---
Reason for visit a. To assist with evaluation and management of symptoms including: Dyspnea, pain b. To assist medical decision maker(s) with: better understanding of current medical conditions; weighing benefits/burdens of medical treatment options; making medical treatment decisions. Subjective/Interval History Patient seen today to follow-up on symptoms of dyspnea and pain. He remains mechanically ventilated on 55% FiO2, PEEP 14. His oxygen demands are still too high to consider spontaneous breathing trials, however he is spontaneously breathing over the vent rate of 16 bpm. Spontaneous breaths are noted to be shallow, with some accessory muscle use. He is coughing up pink, frothy fluid from his ET tube and requires frequent suctioning. Hemodialysis removed 3500 mL yesterday. No chest x-ray was done today . Patient is unable to verbalize symptoms due to intubation. He is currently off fentanyl for sedation vacation and grimaces with movement and coughing. He withdraws to noxious stimuli in all 4 extremities. He has multiple invasive lines, tubes and catheters. His eyes are open but does not focus or track at this time. He weakly responds to commands . Family/friend interactions No family at bedside today. . Advance Directives Living Will: Never completed Health Care Surrogate: Never completed Durable Power of Fibreglass Laminator: Never completed Advance Directive Specifics Date completed: Not completed. . Health Care Surrogate(s): None completed. . Documented care wishes: No living will completed. . Objective Vital Signs Date Time Temp Pulse Resp B/P (MAP) Pulse Ox O2 Delivery O2 Flow Rate FiO2 12/31/17 07:34 96 55 12/31/17 06:47 126 119/53 12/31/17 06:14 127 118/52 12/31/17 06:00 120 105/70 (82) 118/52 (74) 12/31/17 06:00 123 12/31/17 05:49 16 12/31/17 04:20 124 110/46 12/31/17 04:02 97 55 12/31/17 04:00 55 12/31/17 04:00 125 12/31/17 04:00 99.7 125 17 105/70 (82) 98 120/50 (73) 12/31/17 02:45 127 120/50 12/31/17 02:00 124 12/31/17 01:13 100 55 12/31/17 01:10 128 127/55 12/31/17 00:00 55 12/31/17 00:00 124 12/31/17 00:00 99.5 125 16 104/68 (80) 96 127/53 (77) 12/30/17 22:12 96 55 12/30/17 22:00 126 12/30/17 20:05 127 111/51 12/30/17 20:00 125 12/30/17 20:00 55 12/30/17 20:00 99.6 125 16 110/71 (84) 96 111/56 (74) 12/30/17 19:19 99 55 12/30/17 18:00 120 12/30/17 18:00 120 102/69 (80) 125/53 (77) 12/30/17 17:00 95 55 12/30/17 16:00 100.0 122 16 97/66 (76) 94 114/56 (75) 12/30/17 16:00 122 12/30/17 16:00 55 12/30/17 14:00 121 Intake & Output 12/31/17 12/31/17 07:00 19:00 Intake Total 2150 ml Output Total 803 ml Balance 1347 ml Intake IV Total 2150 ml Output Urine Total 243 ml Chest Tube Drainage Total 560 ml Physical Exam CONSTITUTIONAL/GENERAL: This is an adequately nourished patient, intubated, sedated, in no apparent distress. TUBES/LINES/DRAINS: Left radial art line, ETT, Noonan, NG tube to right nare RIJ CVL, left IJ Vas-Cath SKIN: No jaundice, rashes, or lesions. No wounds seen anteriorly. Skin temperature cool. Not diaphoretic. HEAD: Atraumatic. Normocephalic. EYES: Pupils equal and round and sluggishly reactive. No scleral icterus. No injection or drainage. Fundi not examined. ENT: Nose without bleeding or purulent drainage. NECK: Trachea midline. Supple, nontender. No palpable thyroid enlargement or nodularity. CARDIOVASCULAR: S1, S2, tachycardic rate and regular rhythm with 2/6 holosystolic murmur, no rub no gallop RESPIRATORY/CHEST: Coarse breath sounds throughout, coughing up pink frothy fluid. Some accessory muscle use with spontaneous breaths. GASTROINTESTINAL: Abdomen soft, nondistended. No hepato-splenomegaly, or palpable masses. No guarding. Bowel sounds present. GENITOURINARY: Without palpable bladder distension. Noonan catheter in place draining clear, light yellow urine. MUSCULOSKELETAL: Extremities without clubbing, cyanosis, or edema. No joint tenderness or effusion noted. No mottling or clubbing. LYMPHATICS: No palpable cervical or supraclavicular adenopathy. NEUROLOGICAL: Intubated, on sedation vacation, follows commands weakly, does not focus or track. PSYCHIATRIC: Lethargic. . Diagnostic Tests Laboratory Laboratory Tests Test 12/28/17 19:45 12/28/17 20:00 12/29/17 00:20 12/29/17 03:00 Blood Urea Nitrogen 62 MG/DL (7-18) 64 MG/DL (7-18) 64 MG/DL (7-18) Creatinine 4.09 MG/DL (0.60-1.30) 4.06 MG/DL (0.60-1.30) 4.10 MG/DL (0.60-1.30) Random Glucose 156 MG/DL (74-106) 161 MG/DL (74-106) 155 MG/DL (74-106) Total Protein 5.8 GM/DL (6.4-8.2) 5.7 GM/DL (6.4-8.2) 5.6 GM/DL (6.4-8.2) Albumin 2.5 GM/DL (3.4-5.0) Calcium Level 7.2 MG/DL (8.5-10.1) 7.1 MG/DL (8.5-10.1) 7.0 MG/DL (8.5-10.1) Magnesium Level 2.5 MG/DL (1.5-2.5) 2.5 MG/DL (1.5-2.5) 2.5 MG/DL (1.5-2.5) Alkaline Phosphatase 32 U/L (45-117) Aspartate Amino Transf (AST/SGOT) 55 U/L (15-37) Alanine Aminotransferase (ALT/SGPT) 35 U/L (12-78) Total Bilirubin 0.9 MG/DL (0.2-1.0) Sodium Level 130 MEQ/L (136-145) 130 MEQ/L (136-145) 130 MEQ/L (136-145) Potassium Level 3.3 MEQ/L (3.5-5.1) 3.5 MEQ/L (3.5-5.1) 3.3 MEQ/L (3.5-5.1) Chloride Level 88 MEQ/L (98-107) 88 MEQ/L (98-107) 88 MEQ/L (98-107) Carbon Dioxide Level 25.9 MEQ/L (21.0-32.0) 26.7 MEQ/L (21.0-32.0) 26.2 MEQ/L (21.0-32.0) Anion Gap 16 MEQ/L (5-15) 15 MEQ/L (5-15) 16 MEQ/L (5-15) Estimat Glomerular Filtration Rate 15 ML/MIN (>89) 15 ML/MIN (>89) 15 ML/MIN (>89) Protein Corrected Calcium 7.9 MG/DL (8.5-10.1) 7.8 MG/DL (8.5-10.1) 7.8 MG/DL (8.5-10.1) Activated Partial Thromboplast Time 35.9 SEC (24.3-30.1) 38.3 SEC (24.3-30.1) Test 12/29/17 09:12 12/29/17 12:00 12/29/17 14:36 12/29/17 17:55 Blood Gas Puncture Site ART LINE Blood Gas Patient Temperature 98.6 Blood Gas HCO3 26 mmol/L (22-26) Blood Gas Base Excess 2.4 mmol/L (-2-2) Blood Gas Oxygen Saturation 92 % (90-100) Arterial Blood pH 7.46 (7.380-7.420) Arterial Blood Partial Pressure CO2 38 mmHg (38-42) Arterial Blood Partial Pressure O2 83 mmHg (61-120) Arterial Blood Oxygen Content 13.9 Vol % (12.0-20.0) Arterial Blood Carboxyhemoglobin 1.3 % (0-4) Arterial Blood Methemoglobin 1.3 % (0-2) Blood Gas Hemoglobin 10.7 G/DL (12.0-16.0) Oxygen Delivery Device VENTILATOR Blood Gas Ventilator Setting [id number] Blood Gas Inspired Oxygen 100 % Activated Partial Thromboplast Time 31.3 SEC (24.3-30.1) Blood Urea Nitrogen 53 MG/DL (7-18) 50 MG/DL (7-18) Creatinine 3.25 MG/DL (0.60-1.30) 3.28 MG/DL (0.60-1.30) Random Glucose 120 MG/DL (74-106) 157 MG/DL (74-106) Calcium Level 7.6 MG/DL (8.5-10.1) 8.1 MG/DL (8.5-10.1) Magnesium Level 2.3 MG/DL (1.5-2.5) 2.3 MG/DL (1.5-2.5) Sodium Level 136 MEQ/L (136-145) 133 MEQ/L (136-145) Potassium Level 3.3 MEQ/L (3.5-5.1) 3.3 MEQ/L (3.5-5.1) Chloride Level 92 MEQ/L (98-107) 91 MEQ/L (98-107) Carbon Dioxide Level 31.0 MEQ/L (21.0-32.0) 26.3 MEQ/L (21.0-32.0) Anion Gap 13 MEQ/L (5-15) 16 MEQ/L (5-15) Estimat Glomerular Filtration Rate 19 ML/MIN (>89) 19 ML/MIN (>89) Test 12/29/17 23:20 12/30/17 04:00 12/30/17 06:00 12/30/17 08:30 Activated Partial Thromboplast Time 48.0 SEC (24.3-30.1) 45.7 SEC (24.3-30.1) Blood Urea Nitrogen 57 MG/DL (7-18) 60 MG/DL (7-18) Creatinine 3.55 MG/DL (0.60-1.30) 3.66 MG/DL (0.60-1.30) Random Glucose 171 MG/DL (74-106) 157 MG/DL (74-106) Calcium Level 7.7 MG/DL (8.5-10.1) 8.0 MG/DL (8.5-10.1) Magnesium Level 2.3 MG/DL (1.5-2.5) 2.4 MG/DL (1.5-2.5) Sodium Level 134 MEQ/L (136-145) 133 MEQ/L (136-145) Potassium Level 3.3 MEQ/L (3.5-5.1) 2.9 MEQ/L (3.5-5.1) Chloride Level 90 MEQ/L (98-107) 88 MEQ/L (98-107) Carbon Dioxide Level 28.8 MEQ/L (21.0-32.0) 29.6 MEQ/L (21.0-32.0) Anion Gap 15 MEQ/L (5-15) 15 MEQ/L (5-15) Estimat Glomerular Filtration Rate 17 ML/MIN (>89) 17 ML/MIN (>89) White Blood Count 11.2 TH/MM3 (4.0-11.0) Red Blood Count 2.49 MIL/MM3 (4.50-5.90) Hemoglobin 9.2 GM/DL (13.0-17.0) Hematocrit 25.7 % (39.0-51.0) Mean Corpuscular Volume 103.1 FL (80.0-100.0) Mean Corpuscular Hemoglobin 37.1 PG (27.0-34.0) Mean Corpuscular Hemoglobin Concent 36.0 % (32.0-36.0) Red Cell Distribution Width 13.6 % (11.6-17.2) Platelet Count 111 TH/MM3 (150-450) Mean Platelet Volume 8.3 FL (7.0-11.0) Hepatitis A IgM Antibody NONREACTIVE (NONREACTIVE) Hepatitis B Surface Antigen NONREACTIVE (NONREACTIVE) Hepatitis B Core IgM Antibody NONREACTIVE (NONREACTIVE) Hepatitis C IgG Antibody NONREACTIVE (NONREACTIVE) Test 12/30/17 12:25 12/30/17 21:00 12/31/17 04:10 Blood Urea Nitrogen 40 MG/DL (7-18) 64 MG/DL (7-18) Creatinine 2.84 MG/DL (0.60-1.30) 3.94 MG/DL (0.60-1.30) Random Glucose 100 MG/DL (74-106) 126 MG/DL (74-106) Calcium Level 8.6 MG/DL (8.5-10.1) 8.3 MG/DL (8.5-10.1) Magnesium Level 2.4 MG/DL (1.5-2.5) Sodium Level 138 MEQ/L (136-145) 137 MEQ/L (136-145) Potassium Level 3.3 MEQ/L (3.5-5.1) 3.9 MEQ/L (3.5-5.1) 3.8 MEQ/L (3.5-5.1) Chloride Level 96 MEQ/L (98-107) 97 MEQ/L (98-107) Carbon Dioxide Level 29.0 MEQ/L (21.0-32.0) 25.6 MEQ/L (21.0-32.0) Anion Gap 13 MEQ/L (5-15) 14 MEQ/L (5-15) Estimat Glomerular Filtration Rate 23 ML/MIN (>89) 16 ML/MIN (>89) White Blood Count 13.7 TH/MM3 (4.0-11.0) Red Blood Count 2.22 MIL/MM3 (4.50-5.90) Hemoglobin 8.1 GM/DL (13.0-17.0) Hematocrit 23.2 % (39.0-51.0) Mean Corpuscular Volume 104.7 FL (80.0-100.0) Mean Corpuscular Hemoglobin 36.7 PG (27.0-34.0) Mean Corpuscular Hemoglobin Concent 35.0 % (32.0-36.0) Red Cell Distribution Width 13.6 % (11.6-17.2) Platelet Count 123 TH/MM3 (150-450) Mean Platelet Volume 8.3 FL (7.0-11.0) Neutrophils (%) (Auto) 86.9 % (16.0-70.0) Lymphocytes (%) (Auto) 3.6 % (9.0-44.0) Monocytes (%) (Auto) 9.4 % (0.0-8.0) Eosinophils (%) (Auto) 0.0 % (0.0-4.0) Basophils (%) (Auto) 0.1 % (0.0-2.0) Neutrophils # (Auto) 11.9 TH/MM3 (1.8-7.7) Lymphocytes # (Auto) 0.5 TH/MM3 (1.0-4.8) Monocytes # (Auto) 1.3 TH/MM3 (0-0.9) Eosinophils # (Auto) 0.0 TH/MM3 (0-0.4) Basophils # (Auto) 0.0 TH/MM3 (0-0.2) CBC Comment DIFF FINAL Differential Comment Activated Partial Thromboplast Time 55.3 SEC (24.3-30.1) Phosphorus Level 4.1 MG/DL (2.5-4.9) Result Diagram: 12/31/1740912/31/17409 Microbiology Microbiology Date/Time Source Procedure Growth Status 12/28/17 16:13 Blood Peripheral Aerobic Blood Culture - Preliminary NO GROWTH IN 3 DAYS Resulted 12/28/17 16:13 Blood Peripheral Anaerobic Blood Culture - Preliminary NO GROWTH IN 3 DAYS Resulted 12/28/17 15:52 Blood Peripheral Aerobic Blood Culture - Preliminary NO GROWTH IN 3 DAYS Resulted 12/28/17 15:52 Blood Peripheral Anaerobic Blood Culture - Preliminary NO GROWTH IN 3 DAYS Resulted 12/28/17 16:07 Sputum Endotracheal Gram Stain - Final Complete 12/28/17 16:07 Sputum Endotracheal Sputum Culture - Final NO GROWTH IN 48 HOURS. Complete Imaging Last Impressions Chest X-Ray 12/29/17 0000 Signed Impressions: CONCLUSION: Satisfactory Vas-Cath positioning. No pneumothorax. Otherwise stabl e chest. Abdomen X-Ray 12/28/17 0000 Signed Impressions: Service Date/Time: Thursday, December 28, 2017 16:28 - CONCLUSION: NG tube in the stomach. Nonspecific gas pattern Boni Messer MD Renal Ultrasound 12/25/17 0000 Signed Impressions: Service Date/Time: Monday, December 25, 2017 17:32 - CONCLUSION: Negative renal ultrasound examination. Boni Obregon MD Head CT 12/23/17 0000 Signed Impressions: Service Date/Time: December 00:39 - CONCLUSION: No acute disease. Raji Matos Jr., MD Chest CT 12/23/17 0000 Signed Impressions: Service Date/Time: December 00:39 - CONCLUSION: 1. Moderate-sized bilateral pleural effusions. 2. Diffuse bilateral pulmonary infiltrates. This may relate to pulmonary edema. 3. Coronary artery atherosclerotic calcifications. Raji Matos Jr., MD Procedures 12/23: Right IJ central line placement 12/23: Field intubation by EVAC 12/23: Reintubation by ED physician 12/24: Left radial art line placement 12/24: Right pigtail chest tube placement 12/27: Left chest tube placement 12/29: Left IJ Vas-Cath placement . Assessment and Plan Disease Oriented Problem List: (1) PVD (peripheral vascular disease) (2) Cardiac arrest (3) NICKO (acute kidney injury) (4) Metabolic acidosis (5) NSTEMI (non-ST elevated myocardial infarction) (6) Respiratory failure with hypoxia and hypercapnia (7) Tobacco abuse (8) Pulmonary edema Symptom Scale: (1) Dyspnea and respiratory abnormalities 0-10 Scale: Unable to quantify (Mechanically ventilated, sedated) (2) Pain, generalized 0-10 Scale: Unable to quantify (Sedated) Pertinent Non-Medical Issues Psychosocial:He was born at [facility] and has lived in [place] all of his life. 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 He was an avid fisherman. Never in the service. He has 1 daughter, Andra, with whom he lives. Spiritual: Not an important concept to the patient, however, family has requested career transition specialist support for themselves. Legal:No noted issues. Ethical issues impacting care:No noted issues. . Important Contacts Daughter: Andra Newby Sister: Kaylyn Carvajal Brother: Jared Powell . Prognosis His prognosis is guarded. He has known coronary artery disease and appears to have had an NSTEMI. At this time no catheterization is planned due to his hemodynamic and respiratory instability, as well as his acute kidney injury. He also has a long history of tobacco abuse and may be difficult to extubate. Given his complex cardiovascular history, he is at significant risk for continued complications, decline and hospitalizations. . Code Status: Full Code Plan PLAN: Legal decision maker: At this time the patient is not capacitated for decision-making as he is intubated and sedated. He is not and has only one child, his daughter Andra, with whom he lives. Per [place] statutes, Andra would be the proxy decision-maker. She is both readily available and willing to serve in that capacity. She is being supported by her aunt, Kaylyn Carvajal, the patient's sister. Goals: Aggressive at this time. CODE STATUS: FULL CODE SYMPTOMS: * Dyspnea: He was both dyspneic and orthopneic at baseline, likely multifactorial to include his long history of tobacco use, compromised cardiac function and bilateral pleural effusions. He is currently mechanically ventilated on a high level FiO2 at 75% with PEEP support at 14. He has bilateral chest tubes and due to his High oxygen requirement and hemodynamic instability, no spontaneous breathing trials have been initiated at this time. He is still grossly fluid overloaded and has worsening renal indices. Hemodialysis is ongoing for fluid removal. * Pain: He complained prior to coming in, primarily located in his left chest around the rib area that he struck when he fell recently. His daughter stated that he complained of some vague chest discomfort over the last 2 weeks. It is unclear whether this related to his recent fall or underlying cardiac disease. He is also at risk for pain from invasive lines, tubes, catheters, bedbound status and medical illness. He is currently on a sedation vacation and is seen to grimace with movement and repositioning. Plan is to resume fentanyl drip for sedation and comfort later today. Palliative care will continue to follow the patient during hospital course as condition evolves, to assist patient/decision-maker with understanding of their medical conditions, weighing benefits/burdens of treatment options, for clarification of goals of treatment. Additionally will assist with any symptoms of palliative concern. . Attestation To help prompt me to consider important information that might be impacting today's encounter and assessment, information from prior notes written by myself or my colleagues may have been "brought forward" into today's note. My signature on this note, however, is an attestation that I personally performed the exam, history, and/or decision-making noted today, and, unless otherwise indicated, the interactions with patient, family, and staff as well as the review of records all occurred today. I also attest that the listed assessment and stated plan reflect my best clinical judgment today based on the combination of historical information, prior notes, and today's exam/ interactions. When time spent is documented, it refers only to time spent today by the signer, or if indicated, combined time spent today by collaborating physician/nurse practitioner. . Sharron Meza December 31, 2017 2:49 pm
--- NOTE | 2017-12-31 17:27 | PD.PROCEDR ---
Procedure Note Procedure DATE: 12/31/17 PROCEDURE: Right radial arterial catheter placement INDICATION: Severe shock, multiple pressors and inotrope DETAILS OF PROCEDURE The patient was placed in supine position. The skin was cleansed with Chloraprep x2. Additional barrier precautions included sterile towel, sterile gloves, sterile gown, face mask, and hat. On the first attempt, the artery was accessed. The guide wire was advanced. Using Seldinger technique 20 gauge 16 cm arterial catheter was advanced over the wire. The needle and guide wire were removed. The catheter was connected to a transducer line and flushed with saline. Monitor displayed normal arterial wave forms. The catheter was secured with 2-0 silk. A sterile dressing with antibiotic disc was applied. ESTIMATED BLOOD LOSS: minimal COMPLICATIONS: None Tiffany Plata MD December 31, 2017 17:27
[2017-12-31] MEDS ORDERED: MIDAZOLAM HCL 5 MG/ML VIAL (1 ML) ONE (17:54)
[2017-12-31] MEDS ORDERED: ALBUMIN 25% INJ 100 ML IV ONE (18:45)
[2017-12-31] MEDS ORDERED: MIDAZOLAM HCL 2 MG/2 ML VIAL IV ONE (18:45)
[2017-12-31] MEDS ORDERED: MIDAZOLAM HCL 5 MG/5 ML VIAL IV ONE (18:45)
[2017-12-31] MEDS: LEVOFLOXACIN 500 MG PREMIX INJ 100 ML IV SCH (19:48)
[2017-12-31] MEDS ORDERED: SODIUM CHLOR 0.9% 1000 ML INJ 1,000 ML IV ONE ×2 (21:00→21:30)
[2017-12-31] MEDS ORDERED: PHENYLEPHRINE HCL 10 MG/ML VIAL ONE ×2 (21:00→21:02)
[2017-12-31] MEDS: NOREPINEPHRINE INJ 8 MG in SODIUM CHLOR 0.9% 250 ML INJ 242 ML IV PRN (21:02)
[2017-12-31] MEDS: AZITHROMYCIN INJ 500 MG in SODIUM CHLOR 0.9% 250 ML INJ 250 ML IV SCH (21:43)
[2017-12-31] MEDS: PHENYLEPHRINE INJ 40 MG in DEXTROSE 5% IN WATE 500 ML INJ 496 ML IV PRN ×2 (21:48)
[2017-12-31] MEDS ORDERED: ALBUMIN 5% INJ 500 ML IV SCH (22:00)
[2018-01-01] VITALS (11 sets, daily range): BP systolic 75–110; BP diastolic 49–70; PULSE 120–127; RESP 17–58; TEMP 99.2–99.5; O2SAT 95–99
[2018-01-01] MEDS: NOREPINEPHRINE INJ 8 MG in SODIUM CHLOR 0.9% 250 ML INJ 242 ML IV PRN ×2 (01:59→06:42)
[2018-01-01] MEDS: fentaNYL DRIP 250 ML IV PRN (02:30)
[2018-01-01] MEDS: VASOPRESSIN INJ 40 UNITS in DEXTROSE 5% IN WATER 100ML INJ 98 ML IV SCH ×2 (02:40)
[2018-01-01] MEDS: CHLORHEXIDINE GLUCONATE 2 % 1 PACK (2 CLOTHS) TOP SCH (04:00)
[2018-01-01] MEDS: RESP: ALBUTEROL 2.5 MG/IPRATROPIUM 0.5 MG NEB (SCH) NEB ×4 (04:00→10:53)
[2018-01-01 04:28] LABS: AUTOMATED NEUTROPHIL # 14.2 TH/MM3 (1.8-7.7); BASOPHIL % 0.1 % (0.0-2.0); HEMATOCRIT 21.2 % (39.0-51.0); HEMOGLOBIN 7.1 GM/DL (13.0-17.0); LYMPH % 2.5 % (9.0-44.0); LYMPHOCYTE # 0.4 TH/MM3 (1.0-4.8); MEAN CELL VOLUME 107.8 FL (80.0-100.0); MEAN CORPUSCULAR HEMOGLOBIN 36.1 PG (27.0-34.0); MEAN CORPUSCULAR HGB CONC 33.5 % (32.0-36.0); MEAN PLATELET VOLUME 8.7 FL (7.0-11.0); MONO % 11.9 % (0.0-8.0); NEUT % 85.5 % (16.0-70.0); PLATELET COUNT 158 TH/MM3 (150-450); RED BLOOD COUNT 1.97 MIL/MM3 (4.50-5.90); RED CELL DISTRIBUTION WIDTH 13.7 % (11.6-17.2); WHITE BLOOD COUNT 16.6 TH/MM3 (4.0-11.0)
[2018-01-01] MEDS: PHENYLEPHRINE INJ 40 MG in DEXTROSE 5% IN WATE 500 ML INJ 496 ML IV PRN ×2 (04:40)
[2018-01-01 04:57] LABS: ALBUMIN 4.3 GM/DL (3.4-5.0); ALKALINE PHOSPHATASE 46 U/L (45-117); ALT (GPT) 163 U/L (12-78); AST (GOT) 361 U/L (15-37); BICARBONATE 16.4 MEQ/L (21.0-32.0); BLOOD UREA NITROGEN 84 MG/DL (7-18); CALCIUM 8.4 MG/DL (8.5-10.1); CHLORIDE 97 MEQ/L (98-107); CREATININE 4.88 MG/DL (0.60-1.30); GLOMERULAR FILTRATION RATE 12 ML/MIN (>89); GLUCOSE,RANDOM 104 MG/DL (74-106); MAGNESIUM 2.5 MG/DL (1.5-2.5); PHOSPHORUS 7.5 MG/DL (2.5-4.9); SODIUM (NA) 135 MEQ/L (136-145); TOTAL BILIRUBIN ADULT 2.6 MG/DL (0.2-1.0); TOTAL PROTEIN 6.1 GM/DL (6.4-8.2)
[2018-01-01] MEDS: HYDROCORTISONE SOD SUCCINATE 100 MG VIAL IV PUSH SCH (05:22)
[2018-01-01] MEDS: INSULIN ASPART SUPPLEMENTAL SCALE SQ SCH (05:24)
--- NOTE | 2018-01-01 06:28 | RADRPT ---
EXAM DATE: 01/01/2018 6:19 AM EDT AGE/SEX: 62 years / Male INDICATIONS: Shortness of breath. CLINICAL DATA: This is the patient's subsequent encounter. Patient reports that signs and symptoms h ave been present for 1 week and indicates a pain score of Nonresponsive. MEDICAL/SURGICAL HISTORY: Hypertension. Hypercholesterolemia. None. [place] [facility] [place]. . FINDINGS: The ET tube, NG tube, left internal jugular central line, and right internal jugular central line are all well placed. The heart size is normal. There is increased density at the mid and lower lungs stewart aterally. There is diffuse prominence of the interstitium. CONCLUSION: Mixed interstitial and alveolar consolidation throughout the lungs likely related to underlying proce ss such as edema with alveolar filling. Superimposed areas of inflammatory alveolar consolidation cou ld also be considered. Electronically signed by: Boni Obregon MD 01/01/2018 6:27 AM EDT
[2018-01-01] MEDS ORDERED: PHENYLEPHRINE INJ 160 MG in DEXTROSE 5% IN WATE 500 ML INJ 484 ML IV PRN ×2 (08:45)
[2018-01-01] MEDS: POTASSIUM CHLORIDE 25 MEQ EFFERVESCENT TAB G-TUBE SCH (09:00)
[2018-01-01] MEDS: DOCUSATE SODIUM 50 MG/SENNA 8.6 MG TAB PO SCH (09:12)
[2018-01-01] MEDS: ASPIRIN 81 MG CHEW TAB CHEW SCH (09:12)
[2018-01-01] MEDS: FAMOTIDINE 20 MG TAB PO SCH (09:12)
[2018-01-01] MEDS: FOLIC ACID 1 MG TAB OG-TUBE SCH (09:12)
[2018-01-01] MEDS: MULTIVITAMIN TAB OG-TUBE SCH (09:13)
[2018-01-01] MEDS: CLOPIDOGREL 75 MG TAB PO SCH (09:13)
[2018-01-01] MEDS: SODIUM CHLORIDE 0.9% FLUSH 10 ML FLUSH IV FLUSH SCH (09:13)
[2018-01-01] MEDS: THIAMINE INJ 100 MG in SODIUM CHLORIDE 0.9% INJ 100 ML IV SCH (09:14)
[2018-01-01] MEDS: EPOPROSTENOL NEB SOLUTION 50 NG/KG/MIN 100 ML NEB SCH ×2 (09:14)
[2018-01-01] MEDS: CHLORHEXIDINE 0.12% (ORAL KIT) 15 ML CUP MT SCH (09:14)
--- NOTE | 2018-01-01 10:10 | HHI.CCPN ---
Subjective Remarks/Hospital Course Patient is unable to provide history because he is intubated. History was obtained by discussion with his daughter and information relayed by the emergency department physician. 62-year-old male with past medical history of hypertension, hyperlipidemia, peripheral arterial disease, daily alcohol use, tobacco abuse. Patient's daughter states that for the last 1-1/2 weeks he has been complaining of orthopnea and has had difficulty sleeping at night because of this; waking up with severe SOB. She states he is also intermittently complained of non- pleuritic left-sided chest pain which he attributed to the fact that he had fallen on his left side a couple of weeks ago. He has had a lot of coughing but to her knowledge it has been nonproductive. He has had generalized weakness over the last couple of days and this morning he was "out of it". He has not been aware of any fever. He has had contact with his grandson who tested positive for influenza A 3 days ago on 12/21. This evening he was in the bathroom and his daughter heard him groaning and seemed to be in respiratory distress and indicated that she needed to call [facility]. He was initially responsive but upon arrival to the ED he was unresponsive, staring straight ahead, being bagged by EVAC.. He became bradycardic. He underwent RSI with etomidate and succinylcholine and was intubated. During intubation he went into asystole. He was given epinephrine 1 mg and 2 amps of sodium bicarbonate in addition to CPR. His heart rate then came up into the 160s. He was started on dopamine due to hypotension and is currently running at 20 mcg/kg/ min. ABG demonstrated acute hypercapnic and hypoxic respiratory failure with pH 7.15/PCO2 of 62/PaO2 of 58/bicarb 21. Chest x-ray demonstrates bibasilar opacities. White blood cell count is 12. He is hypothermic. He received empiric vancomycin and Zosyn in the emergency department and Lasix 40 mg IV. He was started on propofol and fentanyl drips. Propofol was subsequently discontinued and he was started on a Versed drip and given vecuronium to facilitate vent synchrony and oxygenation.. Initial post intubation chest x-ray demonstrated ET tube and NG tube in high position. These were reportedly advanced but remained in high position.. Patient then had notable cuff leak and sats were in the 70s. He was reintubated by the emergency department physician. I have placed right IJ central venous line. Follow-up chest x-ray demonstrates satisfactory position of endotracheal tube and right IJ. The OG has been removed and will be replaced. Noonan has been placed but he has been anuric for the last 3.5 hours in the ED. SUBJECTIVE: 12/24: Patient reevaluated multiple times as he remains critical on multiple pressors. Currently on Levophed at 12 mcg/min, dopamine at 10 mcg/kg/min and vasopressin at 0.04 units. FiO2 currently at 60% with PEEP of 12 I will attempt weaning PEEP due to persistent hypotension. IV heparin started for troponin elevation to 25.5. Aspirin 81 mg daily started. Cardiology consulted. I will also start Flowtrack monitoring and maintenance IV fluids. Starting to make some urine. 12/25: Afebrile urine output slightly increased, however creatinine continues to increase. Nephrology consulted, renal ultrasound pending. The patient continues on vasopressor support, 30 at output trending 3.5, cardiac index 1.7. Patient continues to have persistent leukocytosis blood cultures negative growth today ID has been consulted.PEEP continues at 10 okay to maintain O2 saturation of 92% 12/26: The patient has been weaned off levo fed currently remains on dopamine and vasopressin. Nephrology following no plans for dialysis at this time. WBC downtrending 12/27: encephalopathy persists. NICKO persists. severely volume overloaded with elevated BNP. on vasopressors. left chest with pleural effusion, largest area ~ 3cm around 6th intercostal space. fio2 remains elevated. 12/28: no meaningful diuresis with aggressive diuretic attempts. organ failure persists. encephalopathy persists. high fio2 persists. heparin on hold for left chest tube today. 12/29: Remains severely hypoxemic despite aggressive diuresis and bilateral chest tubes. Urine output 3 L on Lasix infusion and albumin infusion. Chest tube output 3.5 L in the last 24 hours from bilateral chest tubes. Despite all this patient remains severely hypoxemic currently PEEP at 15 FiO2 at 100% which gives a PO2 of 83. Discussed with Dr. Lloyd with increasing creatinine to 4.1 will start Hemodialysis today. Currently on vasopressin 0.04 U/min, dopamine 8 mcg/kg/min 12/30: no improvements in hypoxemia or shock on vasopressors. IHD again today and removal of significant fluid. hypokalemia persists. starting to arouse and follow commands, but no other improvements in end-organ function. 12/31: Remains critically ill on multiple vasopressors and inotropes including dopamine, vasopressin, milrinone. Urine output approximately 600 mL, hemodialysis with 3.5 L removed yesterday. Chest tubes bilaterally with 980 mL output. BUN/creat 64/3.9 01/01: all organ systems worse. shock is worsening on more vasopressors. did not dialyze yesterday. now 2 liters +. urine output poor, almost anuric. chest tubes still putting out significant serous output. may not tolerate IHD. given age and significant critical illness, very poor prognosis. unlikely to survive. family pushes for aggressive care. Objective Vital Signs Date Time Temp Pulse Resp B/P (MAP) Pulse Ox O2 Delivery O2 Flow Rate FiO2 01/01/18 08:49 123 71/50 01/01/18 08:33 96 50 01/01/18 04:00 99.2 17 Intake and Output 01/01/18 01/01/18 01/01/18 07:59 15:59 23:59 Intake Total 1600 ml Output Total 105 ml Balance 1495 ml Result Diagram: 01/01/18 0330 01/01/18 0330 Imaging Last Impressions Chest X-Ray 12/26/17 0600 Signed Impressions: Service Date/Time: Tuesday, December 26, 2017 02:56 - CONCLUSION: 1. Left basilar airspace disease slightly increased from December 24. Small caliber right chest tube without pneumothorax. Endotracheal tube and nasogastric tube and right central line in good position. Rian Mccarty MD Renal Ultrasound 12/25/17 0000 Signed Impressions: Service Date/Time: Monday, December 25, 2017 17:32 - CONCLUSION: Negative renal ultrasound examination. Boni Obregon MD Head CT 12/23/17 0000 Signed Impressions: Service Date/Time: December 00:39 - CONCLUSION: No acute disease. Raji Matos Jr., MD Chest CT 12/23/17 0000 Signed Impressions: Service Date/Time: December 00:39 - CONCLUSION: 1. Moderate-sized bilateral pleural effusions. 2. Diffuse bilateral pulmonary infiltrates. This may relate to pulmonary edema. 3. Coronary artery atherosclerotic calcifications. Raji Matos Jr., MD Objective Remarks GENERAL: Ill appearing male who is orotracheally intubated critically ill on multiple vasopressors. SKIN: Peripherally cool, diaphoretic. HEAD: Atraumatic. Normocephalic. EYES: Pupils are round, 5 mm ENT: No nasal bleeding or discharge. orotracheally intubated NECK: Trachea midline. No JVD. CARDIOVASCULAR: Tachycardic, regular, sinus tachycardia. On Milrinone vasopressin, levophed, phenylephrine. RESPIRATORY: Orotracheally intubated, coarse breath sounds bilaterally. Bilateral chest tubes with serous output. PEEP 14. fio 75%. GASTROINTESTINAL: Abdomen soft, non-tender, nondistended. : Noonan in place with minimal light padmaja in the tubing only. MUSCULOSKELETAL: Extremities without clubbing, cyanosis. NEUROLOGICAL: Pupils reactive and he has +corneal reflexes, He requires ongoing sedation due to hypoxemia and vent dyssynchrony, but he does wake up and moves all extremities, not following commands today A/P Problem List: (1) Asystole ICD Code: I46.9 - Cardiac arrest, cause unspecified Status: Acute (2) NSTEMI (non-ST elevated myocardial infarction) ICD Code: I21.4 - Non-ST elevation (NSTEMI) myocardial infarction Status: Acute (3) Respiratory failure with hypoxia and hypercapnia ICD Code: J96.91 - Respiratory failure, unspecified with hypoxia; J96.92 - Respiratory failure, unspecified with hypercapnia Status: Acute (4) Pleural effusion ICD Code: J90 - Pleural effusion, not elsewhere classified Status: Acute (5) Tobacco abuse ICD Code: Z72.0 - Tobacco use Status: Chronic (6) ETOH abuse ICD Code: F10.10 - Alcohol abuse, uncomplicated Status: Chronic (7) Pulmonary edema ICD Code: J81.1 - Chronic pulmonary edema Status: Acute (8) Shock ICD Code: R57.9 - Shock, unspecified Status: Acute (9) Macrocytic anemia ICD Code: D53.9 - Nutritional anemia, unspecified (10) Hypocalcemia ICD Code: E83.51 - Hypocalcemia (11) Lactic acid acidosis ICD Code: E87.2 - Acidosis Assessment and Plan Assessment: 62yM s/p PEA arrest with encephalopathy, severe hypoxic respiratory failure, refractory multifactorial shock, NICKO, and acute CHF (systolic) exacerbation. s/p bilateral chest tubes but with persistent hypoxia, resp failure. remains volume overloaded with severely elevated BNP. Remains on IHD and still volume overloaded. also remains in cardiogenic shock despite therapy. Continue milrinone and inhaled flolan. Remains critically ill- prognosis guarded at this time due to multiorgan failure. we continue to worsen despite maximal therapy. ongoing discussion with family, but for now remains full code with aggressive measures. NEURO: Acute metabolic encephalopathy On sedation hold patient moves all extremities opens eyes and not following commands today but was following before EtOH abuse Fentanyl and propofol for sedation, wean as tolerated, may need continued sedation for ventilator synchrony Monitor for evidence of EtOH withdrawal Thiamine/folic acid/mvi supplementation Seizure precautions RESP: Acute hypoxemic and hypercapnic respiratory failure Bilateral pleural effusion s/p bilateral pigtail chest tube. Severe pulmonary edema COPD Tobacco abuse His severe hypoxemia most likely secondary to cardiogenic pulmonary edema, he will not benefit from prone therapy Started hemodialysis for fluid removal 12/29. would recommend fluid removal today , but may not be able to accomplish due to severe hemodynamic instability. Broad spectrum antibiotics and completed tamiflu (given due to known exposure to Influenza A) Bilateral pigtail catheters. keep today while still putting out significant serous output. Duoneb q4 hours. Albuterol q2 hours prn wheezing. Ventilator bundle, head of bed elevation to 30 CV: NSTEMI Asystolic cardiac arrest Cardiogenic shock- persistent and worsening Cardiogenic pulmonary edema Essential HTN at baseline Peripheral arterial disease Hyperlipidemia Asystolic cardiac arrest could be secondary to respiratory acidosis, versus non- ST elevation TX Limited bedside Echo performed by Dr. Drummond on dopamine demonstrated decompressed RV. The LVEF grossly appears ~45%-50% with decreased contractility of apex EKG sinus rhythm 95, hyperacute T waves in V3 and V4 with ST dep V4-V5. Followup EKG did not show any ST elevations. Troponin 0.09, followed serial troponins, elevated to 25.5 Echo 03/26/17 - EF 50-55%, mild LVH, finding c/w hypertrophic cardiomyopathy. 12/24/17 Echo The left ventricular systolic function is low normal with an estimated ejection fraction of 50%. Moderate mitral valve regurgitation. Stress 02/01/16 suspected mild inferior lateral ischemia. Cardiac catheterization 02/01/16 - normal coronaries. ASA 81 mg daily, continue plavix 75 daily. Heparin drip. Cardiology following. Prior cath by Dr Coronel, daughter states he is not followed by facilities assistant outpatient Hemodynamically significant PE appears unlikely and risk of IV contrast is significant at this time in the setting of anuria. On dopamine and vasopressin 0.04 to maintain MAP >65. Stress dose hydrocortisone Continue milrinone 0.25 mcg/kg/min, continue inhaled flolan. GI: tube feeds on hold while in shock. FEN/RENAL: NICKO- worsening. Noonan in place, monitor I/O and electrolytes. IHD to remove fluid started 12/29/17, needs volume removal today, but may not tolerate it hemodynamically. Hypocalcemia Received calcium chloride 1 gram IV. Follow serial labs Severe acute intravascular volume overload Acute CHF Exacerbation, systolic type Change albumin drip to 25 GM q12 serial bmps. ID: Possible Viral vs Atypical pneumonia Known exposure to close household contact with confirmed Influenza A. Influenza screen negative. finished full 5 day course of tamiflu. Cover for superimposed bacterial pneumonia with Zosyn, vancomycin and Levaquin. blood culture, sputum culture negative to date, urine Legionella antigen, urine pneumococcal antigen-negative ID-following HEME: Chronic macrocytic anemia likely secondary to EtOH abuse. Vitamin supplementation as per above. Monitor CBC ENDO: Acute stress hyperglycemia Monitor bedside glucose every 6 hours. Administer low-dose insulin sliding scale as indicated. Hydrocortisone 50 mg IV every 6 hours as per above. PROPH: Heparin drip will provide DVT prophylaxis. Famotidine 10 mg IV q12 hours for stress ulcer prophylaxis. ACCESS: RIJ CVL placed 12/23 #10, LIJ HD catheter 12/29. Left radial art line placed 12/24 #9 Patient is critically ill with profound hypoxemia and shock requiring resuscitation, vasopressor management and titration, ventilator management. He is critically ill and at high risk for further decompensation or . my billing statement This patient remains critically ill with one or more organ systems which are or may become a threat to life. I have spent in excess of 41 minutes discontinuously in the care and management of this patient. This time is exclusive of procedures, and includes, but is not limited to, evaluation of the patient, review of the medical record, discussions with family, consultants, nursing staff, or respiratory therapy, and documentation in the medical record. Russ Faust MD January 01, 2018 10:10
[2018-01-01] MEDS: MILRINONE INJ 20 MG in SODIUM CHLORIDE 0.9% INJ 80 ML IV SCH (10:11)
--- NOTE | 2018-01-01 11:40 | HHI.NPPN ---
Subjective General Problems: Anemia History of Present Illness This is a 62-year-old male with a history of hypertension, dyslipidemia, peripheral arterial disease and heavy alcohol use. The patient apparently presented after he had left-sided chest pains and confusion. He was apparently found to be in respiratory distress with [facility]. He came to the hospital here and was intubated and developed an asystole cardiac event. He was resuscitated and the patient remains intubated at this time on multiple pressors. He is being followed with critical care. The patient overnight has had ongoing pressor support with some ongoing urine output with 600 mL of urine output in the last 24 hours. Regarding his renal function, his creatinine was 0.8 on admission and over the last 2 days, the creatinine was elevated from 2.0 to 2.6 now. At this time, the patient remains intubated on multiple pressors in the ICU. He is being treated for possible infection with Zosyn as well as vancomycin with a white count of 14.6. Nephrology was consulted for further evaluation of renal failure. Additional Remarks Remains intubated. Status has worsened and patient is now requiring three pressor for blood pressure support and blood pressure still remains low with SBP in the 70's Review of Systems General General Remarks Unable to do ROS as patient is intubated Objective Data Data Vital Signs Date Time Temp Pulse Resp B/P (MAP) Pulse Ox O2 Delivery O2 Flow Rate FiO2 01/01/18 10:11 124 80/52 01/01/18 10:00 99.3 124 42 75/52 (60) 97 78/54 (62) 01/01/18 09:00 99.5 123 58 79/49 (59) 99 90/59 (69) 01/01/18 08:49 123 71/50 01/01/18 08:33 96 50 01/01/18 08:00 99.7 121 47 83/55 (64) 96 01/01/18 08:00 55 01/01/18 06:42 127 91/60 01/01/18 06:00 126 01/01/18 06:00 124 108/53 (71) 105/64 (78) 01/01/18 04:50 124 75/51 01/01/18 04:40 128 89/62 01/01/18 04:19 99 50 01/01/18 04:00 127 01/01/18 04:00 99.2 127 17 92/62 (72) 99 110/70 (83) 01/01/18 04:00 55 01/01/18 03:50 133 99/61 01/01/18 03:35 130 79/51 01/01/18 02:40 124 91/62 01/01/18 02:00 127 01/01/18 01:59 126 94/60 01/01/18 01:02 95 50 01/01/18 00:00 99.5 120 17 102/66 (78) 99 84/59 (67) 01/01/18 00:00 120 01/01/18 00:00 55 12/31/17 22:30 127 82/59 12/31/17 22:00 137 12/31/17 21:48 137 85/56 12/31/17 21:30 98 50 12/31/17 21:02 134 80/55 12/31/17 21:00 124 91/60 12/31/17 20:00 55 12/31/17 20:00 99.6 132 17 116/76 (89) 100 74/60 (65) 12/31/17 20:00 131 12/31/17 19:15 99.7 132 17 119/61 (80) 100 82/60 (67) 12/31/17 19:01 99.7 130 16 117/74 (88) 100 85/58 (67) 12/31/17 19:00 99.5 131 16 85/60 (68) 100 12/31/17 18:45 99.5 133 16 111/77 (88) 100 81/60 (67) 12/31/17 18:30 99.7 122 16 94/62 (73) 100 73/53 (60) 12/31/17 18:15 99.7 121 16 91/62 (72) 100 74/53 (60) 12/31/17 18:14 119 77/54 12/31/17 18:12 120 72/51 12/31/17 18:00 130 95/67 (76) 81/55 (64) 12/31/17 18:00 99.7 130 16 95/67 (76) 100 81/55 (64) 12/31/17 17:45 99.7 126 17 92/61 (71) 100 83/57 (66) 12/31/17 17:35 99.5 119 16 86/58 (67) 99 69/47 (54) 12/31/17 17:31 99.5 121 16 95/62 (73) 99 73/52 (59) 12/31/17 17:16 99.5 124 16 96/58 (71) 100 86/55 (65) 12/31/17 17:14 96 50 12/31/17 17:00 99.5 121 16 92/54 (67) 100 12/31/17 16:45 99.3 118 16 84/52 (63) 100 77/55 (62) 12/31/17 16:30 99.3 119 16 93/61 (72) 100 12/31/17 16:15 99.3 117 16 95/61 (72) 99 12/31/17 16:00 55 12/31/17 16:00 99.3 114 16 79/53 (62) 100 12/31/17 15:30 99.3 116 16 82/57 (65) 100 12/31/17 15:20 99.3 115 16 79/52 (61) 100 12/31/17 15:15 99.3 114 16 79/54 (62) 100 12/31/17 15:11 99.5 110 16 80/48 (59) 100 12/31/17 15:00 99.5 115 16 79/50 (60) 100 12/31/17 14:45 99.3 119 27 90/59 (69) 99 12/31/17 14:30 99.3 123 53 106/69 (81) 100 12/31/17 14:15 99.3 120 21 93/63 (73) 100 12/31/17 14:00 99.5 120 17 86/59 (68) 99 12/31/17 13:47 99.5 125 22 96/62 (73) 100 12/31/17 13:36 99.5 124 23 93/64 (74) 98 115/54 (74) 12/31/17 13:00 99.7 127 21 110/50 (70) 97 12/31/17 12:15 126 115/54 12/31/17 12:00 99.9 128 20 87/56 (66) 95 107/52 (70) 12/31/17 12:00 55 -: 01/01/18 0330 01/01/18 0330 Imaging Last Impressions Chest X-Ray 01/01/18 0600 Signed Impressions: CONCLUSION: Mixed interstitial and alveolar consolidation throughout the lungs likely relat ed to underlying process such as edema with alveolar filling. Superimposed area s of inflammatory alveolar consolidation could also be considered. Abdomen X-Ray 12/28/17 0000 Signed Impressions: Service Date/Time: Thursday, December 28, 2017 16:28 - CONCLUSION: NG tube in the stomach. Nonspecific gas pattern Boni Messer MD Renal Ultrasound 12/25/17 0000 Signed Impressions: Service Date/Time: Monday, December 25, 2017 17:32 - CONCLUSION: Negative renal ultrasound examination. Boni Obregon MD Head CT 12/23/17 0000 Signed Impressions: Service Date/Time: December 00:39 - CONCLUSION: No acute disease. Raji Matos Jr., MD Chest CT 12/23/17 0000 Signed Impressions: Service Date/Time: December 00:39 - CONCLUSION: 1. Moderate-sized bilateral pleural effusions. 2. Diffuse bilateral pulmonary infiltrates. This may relate to pulmonary edema. 3. Coronary artery atherosclerotic calcifications. Raji Matos Jr., MD Tubes & Lines: Vas-Cath, Noonan Physical Exam Neck Neck Exam: Neck Supple Pulmonary Resp Exam: Rhonchi, Decreased Bases, Diminished Breath Sounds Cardiology CV Exam: Regular Gastrointestinal/Abdomen GI Exam: Soft, Non-Tender, Bowel Sounds Present Genitourinary Exam: Clear Urine Musculoskeletal MS Exam: Joints Intact Integumentary Skin Exam: Warm, Dry, Intact, Cool Extremeties Extremities Exam: Moderate Edema, Dependent Edema Assessment/Plan Problem List: (1) NICKO (acute kidney injury) ICD Codes: N17.9 - Acute kidney failure, unspecified Plan: Creatinine of 0.8 at time of admission. History of etoh abuse and tobacco use. NICKO with apparent ATN post cardiac arrest and asystole. FeNa 0.2% - likely pre-renal appearance due to pressors and vasoconstriction. Continues on vasopressin and dopamine Creatinine trend 3.25 -> 3.28 - > 3.55 ->3.66 ->2.84->3.94->4.88 522 cc UOP/ 24 hours Vas cath placed 12/29 Hemodialysis started on 12/29 Continue to closely monitor UOP, volume status, and BMP Avoid nephrotoxins. Condition has worsened and now is on three pressors for blood pressure support with a SBP in the 70's Urinary output is decreasing Unable to do hemodialysis today secondary to low blood pressure Family is meeting with palliative care and if aggressive care is still wanted than will need to continue with CRRT (2) NSTEMI (non-ST elevated myocardial infarction) ICD Codes: I21.4 - Non-ST elevation (NSTEMI) myocardial infarction Status: Acute Plan: Cardiac arrest and non-ST elevation myocardial infarction. The patient is being followed up with cardiology. Consideration is for cardiac catheterization when stable. Of note, avoid any contrast for now as possible in setting of NICKO. (3) Respiratory failure with hypoxia and hypercapnia ICD Codes: J96.91 - Respiratory failure, unspecified with hypoxia; J96.92 - Respiratory failure, unspecified with hypercapnia Status: Acute Plan: The patient remains intubated at this point Follow with critical care team. (4) Metabolic acidosis ICD Codes: E87.2 - Acidosis (5) Anemia ICD Codes: D64.9 - Anemia, unspecified Plan: Epogen with dialysis Tatyana Montanez January 01, 2018 11:39
[2018-01-01] MEDS ORDERED: MORPHINE SULFATE 8 MG/ML INJ IV PUSH ONE (12:00)
[2018-01-01] MEDS ORDERED: LORazepam 2 MG/ML VIAL IV PUSH ONE ×2 (12:00→12:15)
[2018-01-01] MEDS ORDERED: MORPHINE SULFATE 4 MG/ML INJ IV PUSH SCH (12:00)
[2018-01-01] MEDS ORDERED: fentaNYL DRIP 250 ML IV PRN ×2 (12:00→12:45)
[2018-01-01] MEDS ORDERED: RASS Change Order XX ONE (12:15)
[2018-01-01] MEDS ORDERED: MORPHINE SULFATE 4 MG/ML INJ IV PUSH ONE (12:15)
[2018-01-01] MEDS ORDERED: HYOSCYAMINE 0.5 MG/ML AMP IV PUSH PRN (12:30)
[2018-01-01] MEDS ORDERED: MORPHINE SULFATE 8 MG/ML INJ IV PUSH PRN (12:30)
[2018-01-01] MEDS ORDERED: BISACODYL 10 MG SUPP RECTAL PRN (12:30)
[2018-01-01] MEDS ORDERED: LORazepam 2 MG/ML VIAL IV PUSH PRN ×3 (12:30)
[2018-01-01] MEDS ORDERED: ACETAMINOPHEN 650 MG SUPP RECTAL PRN (12:30)
[2018-01-01] MEDS ORDERED: FUROSEMIDE 20 MG/2 ML VIAL IV PUSH PRN (12:30)
[2018-01-01] MEDS ORDERED: MORPHINE SULFATE 4 MG/ML INJ IV PUSH PRN (12:30)
--- NOTE | 2018-01-01 12:57 | HHI.HCPN ---
Reason for visit a. To assist with evaluation and management of symptoms including: Dyspnea, pain b. To assist medical decision maker(s) with: better understanding of current medical conditions; weighing benefits/burdens of medical treatment options; making medical treatment decisions. Subjective/Interval History Patient seen today to follow-up on symptoms of dyspnea and pain. He remains mechanically ventilated on 50% FiO2, PEEP 14. He is visibly dyspneic , using accessory muscles to breathe, tachypneic, eyes open, not tracking or focusing. Will weakly respond to tactile stimuli. He is hypotensive, requiring increased pressors and reduction in sedation to maintain mean arterial pressure rater than 60 mmHg. He is showing nonverbal signs of pain to include grimacing, muscle tenseness, frowning. He is on a fentanyl drip for sedation and pain management, however is quite hypotensive requiring a decrease from 250 mg an hour to 150 mg an hour. With this decrease, he eyes are open, however is not responding. He appears visibly uncomfortable, however he remains a FULL CODE pending arrival of the family and any further increase in pain medication is likely to cause further compromise . Family/friend interactions After evaluating the patient and speaking with Dr. Faust, I contacted the family to update them as to the patient's declining condition. In spite of maximal medical support, he continues to have worsening hypotension requiring maximum vasopressor support. Patient's daughter and sister came to the hospital and after seeing him and receiving medical update, determined that it would be the patient's wish to withdraw him from life support via compassionate withdrawal with comfort medications. This was again discussed with Dr. Faust, the attending, and Dr. Grider, the consulting physician for palliative care. After evaluation of the patient, they both agreed that his condition was terminal and that it was appropriate to allow the family to do a compassionate withdrawal. Consents were signed and witnessed with both physicians and patient 's daughter. Vent withdrawal orders were entered, family at bedside. [employer] contacted for support at the request of the family. . Advance Directives Living Will: Never completed Health Care Surrogate: Never completed Durable Power of Cathead Worker: Never completed Advance Directive Specifics Date completed: Not completed. . Health Care Surrogate(s): None completed. . Documented care wishes: No living will completed. . Objective Vital Signs Date Time Temp Pulse Resp B/P (MAP) Pulse Ox O2 Delivery O2 Flow Rate FiO2 5/25/18 10:11 124 80/52 01/01/18 10:00 99.3 124 42 75/52 (60) 97 78/54 (62) 01/01/18 09:00 99.5 123 58 79/49 (59) 99 90/59 (69) 01/01/18 08:49 123 71/50 01/01/18 08:33 96 50 01/01/18 08:00 99.7 121 47 83/55 (64) 96 01/01/18 08:00 55 01/01/18 06:42 127 91/60 01/01/18 06:00 126 01/01/18 06:00 124 108/53 (71) 105/64 (78) 01/01/18 04:50 124 75/51 01/01/18 04:40 128 89/62 01/01/18 04:19 99 50 01/01/18 04:00 127 01/01/18 04:00 99.2 127 17 92/62 (72) 99 110/70 (83) 01/01/18 04:00 55 01/01/18 03:50 133 99/61 01/01/18 03:35 130 79/51 01/01/18 02:40 124 91/62 01/01/18 02:00 127 01/01/18 01:59 126 94/60 01/01/18 01:02 95 50 01/01/18 00:00 99.5 120 17 102/66 (78) 99 84/59 (67) 01/01/18 00:00 120 01/01/18 00:00 55 12/31/17 22:30 127 82/59 12/31/17 22:00 137 12/31/17 21:48 137 85/56 12/31/17 21:30 98 50 12/31/17 21:02 134 80/55 12/31/17 21:00 124 91/60 12/31/17 20:00 55 12/31/17 20:00 99.6 132 17 116/76 (89) 100 74/60 (65) 12/31/17 20:00 131 12/31/17 19:15 99.7 132 17 119/61 (80) 100 82/60 (67) 12/31/17 19:01 99.7 130 16 117/74 (88) 100 85/58 (67) 12/31/17 19:00 99.5 131 16 85/60 (68) 100 12/31/17 18:45 99.5 133 16 111/77 (88) 100 81/60 (67) 12/31/17 18:30 99.7 122 16 94/62 (73) 100 73/53 (60) 12/31/17 18:15 99.7 121 16 91/62 (72) 100 74/53 (60) 12/31/17 18:14 119 77/54 12/31/17 18:12 120 72/51 12/31/17 18:00 130 95/67 (76) 81/55 (64) 12/31/17 18:00 99.7 130 16 95/67 (76) 100 81/55 (64) 12/31/17 17:45 99.7 126 17 92/61 (71) 100 83/57 (66) 12/31/17 17:35 99.5 119 16 86/58 (67) 99 69/47 (54) 12/31/17 17:31 99.5 121 16 95/62 (73) 99 73/52 (59) 12/31/17 17:16 99.5 124 16 96/58 (71) 100 86/55 (65) 12/31/17 17:14 96 50 12/31/17 17:00 99.5 121 16 92/54 (67) 100 12/31/17 16:45 99.3 118 16 84/52 (63) 100 77/55 (62) 12/31/17 16:30 99.3 119 16 93/61 (72) 100 12/31/17 16:15 99.3 117 16 95/61 (72) 99 12/31/17 16:00 55 12/31/17 16:00 99.3 114 16 79/53 (62) 100 12/31/17 15:30 99.3 116 16 82/57 (65) 100 12/31/17 15:20 99.3 115 16 79/52 (61) 100 12/31/17 15:15 99.3 114 16 79/54 (62) 100 12/31/17 15:11 99.5 110 16 80/48 (59) 100 5/24/18 15:00 99.5 115 16 79/50 (60) 100 12/31/17 14:45 99.3 119 27 90/59 (69) 99 12/31/17 14:30 99.3 123 53 106/69 (81) 100 12/31/17 14:15 99.3 120 21 93/63 (73) 100 12/31/17 14:00 99.5 120 17 86/59 (68) 99 12/31/17 13:47 99.5 125 22 96/62 (73) 100 12/31/17 13:36 99.5 124 23 93/64 (74) 98 115/54 (74) 12/31/17 13:00 99.7 127 21 110/50 (70) 97 Intake & Output 01/01/18 01/01/18 07:00 19:00 Intake Total 2400 ml Output Total 160 ml Balance 2240 ml Intake IV Total 2400 ml Output Urine Total 160 ml Physical Exam CONSTITUTIONAL/GENERAL: This is an adequately nourished patient, intubated, lightly sedated, in mild distress TUBES/LINES/DRAINS: Left radial art line, ETT, Noonan, NG tube to right nare RIJ CVL, left IJ Vas-Cath SKIN: No jaundice, rashes, or lesions. No wounds seen anteriorly. Skin temperature cool. Not diaphoretic. HEAD: Atraumatic. Normocephalic. EYES: Pupils equal and round and sluggishly reactive. No scleral icterus. No injection or drainage. Fundi not examined. ENT: Nose without bleeding or purulent drainage. NECK: Trachea midline. Supple, nontender. No palpable thyroid enlargement or nodularity. CARDIOVASCULAR: S1, S2, tachycardic rate and regular rhythm with 2/6 holosystolic murmur, no rub no gallop RESPIRATORY/CHEST: Coarse, wet breath sounds throughout. Accessory muscle use with spontaneous breaths. Tachypneic, breathing at 30 bpm. GASTROINTESTINAL: Abdomen soft, nondistended. No hepato-splenomegaly, or palpable masses. No guarding. Bowel sounds present. GENITOURINARY: Without palpable bladder distension. Noonan catheter in place draining clear, light yellow urine. MUSCULOSKELETAL: Extremities without clubbing, cyanosis, or edema. No joint tenderness or effusion noted. No mottling or clubbing. LYMPHATICS: No palpable cervical or supraclavicular adenopathy. NEUROLOGICAL: Intubated, lightly sedated, not responding to commands PSYCHIATRIC: Lethargic. . Diagnostic Tests Laboratory Laboratory Tests Test 12/29/17 14:36 12/29/17 17:55 12/29/17 23:20 12/30/17 04:00 Blood Urea Nitrogen 53 MG/DL (7-18) 50 MG/DL (7-18) 57 MG/DL (7-18) 60 MG/DL (7-18) Creatinine 3.25 MG/DL (0.60-1.30) 3.28 MG/DL (0.60-1.30) 3.55 MG/DL (0.60-1.30) 3.66 MG/DL (0.60-1.30) Random Glucose 120 MG/DL (74-106) 157 MG/DL (74-106) 171 MG/DL (74-106) 157 MG/DL (74-106) Calcium Level 7.6 MG/DL (8.5-10.1) 8.1 MG/DL (8.5-10.1) 7.7 MG/DL (8.5-10.1) 8.0 MG/DL (8.5-10.1) Magnesium Level 2.3 MG/DL (1.5-2.5) 2.3 MG/DL (1.5-2.5) 2.3 MG/DL (1.5-2.5) 2.4 MG/DL (1.5-2.5) Sodium Level 136 MEQ/L (136-145) 133 MEQ/L (136-145) 134 MEQ/L (136-145) 133 MEQ/L (136-145) Potassium Level 3.3 MEQ/L (3.5-5.1) 3.3 MEQ/L (3.5-5.1) 3.3 MEQ/L (3.5-5.1) 2.9 MEQ/L (3.5-5.1) Chloride Level 92 MEQ/L (98-107) 91 MEQ/L (98-107) 90 MEQ/L (98-107) 88 MEQ/L (98-107) Carbon Dioxide Level 31.0 MEQ/L (21.0-32.0) 26.3 MEQ/L (21.0-32.0) 28.8 MEQ/L (21.0-32.0) 29.6 MEQ/L (21.0-32.0) Anion Gap 13 MEQ/L (5-15) 16 MEQ/L (5-15) 15 MEQ/L (5-15) 15 MEQ/L (5-15) Estimat Glomerular Filtration Rate 19 ML/MIN (>89) 19 ML/MIN (>89) 17 ML/MIN (>89) 17 ML/MIN (>89) Activated Partial Thromboplast Time 48.0 SEC (24.3-30.1) White Blood Count 11.2 TH/MM3 (4.0-11.0) Red Blood Count 2.49 MIL/MM3 (4.50-5.90) Hemoglobin 9.2 GM/DL (13.0-17.0) Hematocrit 25.7 % (39.0-51.0) Mean Corpuscular Volume 103.1 FL (80.0-100.0) Mean Corpuscular Hemoglobin 37.1 PG (27.0-34.0) Mean Corpuscular Hemoglobin Concent 36.0 % (32.0-36.0) Red Cell Distribution Width 13.6 % (11.6-17.2) Platelet Count 111 TH/MM3 (150-450) Mean Platelet Volume 8.3 FL (7.0-11.0) Test 12/30/17 06:00 12/30/17 08:30 12/30/17 12:25 12/30/17 21:00 Activated Partial Thromboplast Time 45.7 SEC (24.3-30.1) Hepatitis A IgM Antibody NONREACTIVE (NONREACTIVE) Hepatitis B Surface Antigen NONREACTIVE (NONREACTIVE) Hepatitis B Core IgM Antibody NONREACTIVE (NONREACTIVE) Hepatitis C IgG Antibody NONREACTIVE (NONREACTIVE) Blood Urea Nitrogen 40 MG/DL (7-18) Creatinine 2.84 MG/DL (0.60-1.30) Random Glucose 100 MG/DL (74-106) Calcium Level 8.6 MG/DL (8.5-10.1) Magnesium Level 2.4 MG/DL (1.5-2.5) Sodium Level 138 MEQ/L (136-145) Potassium Level 3.3 MEQ/L (3.5-5.1) 3.9 MEQ/L (3.5-5.1) Chloride Level 96 MEQ/L (98-107) Carbon Dioxide Level 29.0 MEQ/L (21.0-32.0) Anion Gap 13 MEQ/L (5-15) Estimat Glomerular Filtration Rate 23 ML/MIN (>89) Test 12/31/17 04:10 01/01/18 03:30 01/01/18 05:00 White Blood Count 13.7 TH/MM3 (4.0-11.0) 16.6 TH/MM3 (4.0-11.0) Red Blood Count 2.22 MIL/MM3 (4.50-5.90) 1.97 MIL/MM3 (4.50-5.90) Hemoglobin 8.1 GM/DL (13.0-17.0) 7.1 GM/DL (13.0-17.0) Hematocrit 23.2 % (39.0-51.0) 21.2 % (39.0-51.0) Mean Corpuscular Volume 104.7 FL (80.0-100.0) 107.8 FL (80.0-100.0) Mean Corpuscular Hemoglobin 36.7 PG (27.0-34.0) 36.1 PG (27.0-34.0) Mean Corpuscular Hemoglobin Concent 35.0 % (32.0-36.0) 33.5 % (32.0-36.0) Red Cell Distribution Width 13.6 % (11.6-17.2) 13.7 % (11.6-17.2) Platelet Count 123 TH/MM3 (150-450) 158 TH/MM3 (150-450) Mean Platelet Volume 8.3 FL (7.0-11.0) 8.7 FL (7.0-11.0) Neutrophils (%) (Auto) 86.9 % (16.0-70.0) 85.5 % (16.0-70.0) Lymphocytes (%) (Auto) 3.6 % (9.0-44.0) 2.5 % (9.0-44.0) Monocytes (%) (Auto) 9.4 % (0.0-8.0) 11.9 % (0.0-8.0) Eosinophils (%) (Auto) 0.0 % (0.0-4.0) 0.0 % (0.0-4.0) Basophils (%) (Auto) 0.1 % (0.0-2.0) 0.1 % (0.0-2.0) Neutrophils # (Auto) 11.9 TH/MM3 (1.8-7.7) 14.2 TH/MM3 (1.8-7.7) Lymphocytes # (Auto) 0.5 TH/MM3 (1.0-4.8) 0.4 TH/MM3 (1.0-4.8) Monocytes # (Auto) 1.3 TH/MM3 (0-0.9) 2.0 TH/MM3 (0-0.9) Eosinophils # (Auto) 0.0 TH/MM3 (0-0.4) 0.0 TH/MM3 (0-0.4) Basophils # (Auto) 0.0 TH/MM3 (0-0.2) 0.0 TH/MM3 (0-0.2) CBC Comment DIFF FINAL DIFF FINAL Differential Comment Activated Partial Thromboplast Time 55.3 SEC (24.3-30.1) 87.2 SEC (24.3-30.1) Blood Urea Nitrogen 64 MG/DL (7-18) 84 MG/DL (7-18) Creatinine 3.94 MG/DL (0.60-1.30) 4.88 MG/DL (0.60-1.30) Random Glucose 126 MG/DL (74-106) 104 MG/DL (74-106) Calcium Level 8.3 MG/DL (8.5-10.1) 8.4 MG/DL (8.5-10.1) Phosphorus Level 4.1 MG/DL (2.5-4.9) 7.5 MG/DL (2.5-4.9) Sodium Level 137 MEQ/L (136-145) 135 MEQ/L (136-145) Potassium Level 3.8 MEQ/L (3.5-5.1) 4.8 MEQ/L (3.5-5.1) Chloride Level 97 MEQ/L (98-107) 97 MEQ/L (98-107) Carbon Dioxide Level 25.6 MEQ/L (21.0-32.0) 16.4 MEQ/L (21.0-32.0) Anion Gap 14 MEQ/L (5-15) 22 MEQ/L (5-15) Estimat Glomerular Filtration Rate 16 ML/MIN (>89) 12 ML/MIN (>89) Total Protein 6.1 GM/DL (6.4-8.2) Albumin 4.3 GM/DL (3.4-5.0) Magnesium Level 2.5 MG/DL (1.5-2.5) Alkaline Phosphatase 46 U/L (45-117) Aspartate Amino Transf (AST/SGOT) 361 U/L (15-37) Alanine Aminotransferase (ALT/SGPT) 163 U/L (12-78) Total Bilirubin 2.6 MG/DL (0.2-1.0) Result Diagram: 01/01/18 0330 01/01/18 0330 Imaging Last Impressions Chest X-Ray 01/01/18 0600 Signed Impressions: CONCLUSION: Mixed interstitial and alveolar consolidation throughout the lungs likely relat ed to underlying process such as edema with alveolar filling. Superimposed area s of inflammatory alveolar consolidation could also be considered. Abdomen X-Ray 12/28/17 0000 Signed Impressions: Service Date/Time: Thursday, December 28, 2017 16:28 - CONCLUSION: NG tube in the stomach. Nonspecific gas pattern Boni Messer MD Renal Ultrasound 12/25/17 0000 Signed Impressions: Service Date/Time: Monday, December 25, 2017 17:32 - CONCLUSION: Negative renal ultrasound examination. Boni Obregon MD Head CT 12/23/17 0000 Signed Impressions: Service Date/Time: December 00:39 - CONCLUSION: No acute disease. Raji Matos Jr., MD Chest CT 12/23/17 0000 Signed Impressions: Service Date/Time: December 00:39 - CONCLUSION: 1. Moderate-sized bilateral pleural effusions. 2. Diffuse bilateral pulmonary infiltrates. This may relate to pulmonary edema. 3. Coronary artery atherosclerotic calcifications. Raji Matos Jr., MD Procedures 12/23: Right IJ central line placement 12/23: Field intubation by EVAC 12/23: Reintubation by ED physician 12/24: Left radial art line placement 12/24: Right pigtail chest tube placement 12/27: Left chest tube placement 12/29: Left IJ Vas-Cath placement . Assessment and Plan Disease Oriented Problem List: (1) PVD (peripheral vascular disease) (2) Cardiac arrest (3) NICKO (acute kidney injury) (4) Metabolic acidosis (5) NSTEMI (non-ST elevated myocardial infarction) (6) Respiratory failure with hypoxia and hypercapnia (7) Tobacco abuse (8) Pulmonary edema Symptom Scale: (1) Dyspnea and respiratory abnormalities 0-10 Scale: Unable to quantify (Mechanically ventilated, sedated) (2) Pain, generalized 0-10 Scale: Unable to quantify (Sedated) Pertinent Non-Medical Issues Psychosocial:He was born at [facility] and has lived in [place] all of his life. 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 He was an avid fisherman. Never in the service. He has 1 daughter, Andra, with whom he lives. Spiritual: Not an important concept to the patient, however, family has requested pbx manager support for themselves. Legal:No noted issues. Ethical issues impacting care:No noted issues. . Important Contacts Daughter: Andra Newby Sister: Kaylyn Carvajal Brother: Jared Powell . Prognosis His prognosis is guarded. He has known coronary artery disease and appears to have had an NSTEMI. At this time no catheterization is planned due to his hemodynamic and respiratory instability, as well as his acute kidney injury. He also has a long history of tobacco abuse and may be difficult to extubate. Given his complex cardiovascular history, he is at significant risk for continued complications, decline and hospitalizations. . Code Status: No Code Plan PLAN: Legal decision maker: At this time the patient is not capacitated for decision-making as he is intubated and sedated. He is not and has only one child, his daughter Andra, with whom he lives. Per [place] statutes, Andra would be the proxy decision-maker. She is both readily available and willing to serve in that capacity. She is being supported by her aunt, Kaylyn Carvajal, the patient's sister. Goals: Comfort. CODE STATUS: DNR SYMPTOMS: * Dyspnea: He was both dyspneic and orthopneic at baseline, likely multifactorial to include his long history of tobacco use, compromised cardiac function and bilateral pleural effusions. He is currently mechanically ventilated on a high level FiO2 at 50% with PEEP support at 14. He has bilateral chest tubes and due to his High oxygen requirement and hemodynamic instability, no spontaneous breathing trials have been initiated at this time. He is still grossly fluid overloaded and has worsening renal indices. He developed significant hypotension today necessitating an increase in vasopressors with vasopressin at 6 mL/HR, Levophed 30 mcg/min, phenylephrine 230 mcg/min and blood pressure remains systolically 70-80. At this time, as patient is declining, family has determined that it would be his wishes to compassionately vent support withdraw. * Pain: He complained prior to coming in, primarily located in his left chest around the rib area that he struck when he fell recently. His daughter stated that he complained of some vague chest discomfort over the last 2 weeks. It is unclear whether this related to his recent fall or underlying cardiac disease. He is also at risk for pain from invasive lines, tubes, catheters, bedbound status and medical illness. He appears uncomfortable with grimacing and frowning. As the patient has been made a DO NOT RESUSCITATE and family's goals have transitioned to comfort. Fentanyl drip will be increased and morphine and Ativan added for comfort. Palliative care will continue to follow the patient during hospital course as condition evolves, to assist patient/decision-maker with understanding of their medical conditions, weighing benefits/burdens of treatment options, for clarification of goals of treatment. Additionally will assist with any symptoms of palliative concern. . Attestation To help prompt me to consider important information that might be impacting today's encounter and assessment, information from prior notes written by myself or my colleagues may have been "brought forward" into today's note. My signature on this note, however, is an attestation that I personally performed the exam, history, and/or decision-making noted today, and, unless otherwise indicated, the interactions with patient, family, and staff as well as the review of records all occurred today. I also attest that the listed assessment and stated plan reflect my best clinical judgment today based on the combination of historical information, prior notes, and today's exam/ interactions. When time spent is documented, it refers only to time spent today by the signer, or if indicated, combined time spent today by collaborating physician/nurse practitioner. . Sharron Meza January 01, 2018 12:57 pm
[2018-01-01] MEDS ORDERED: LORazepam 2 MG/ML VIAL IV PUSH SCH (14:00)
--- NOTE | 2018-01-01 17:50 | HHI.DS ---
Summary Note Date of : January 01, 2018 Time Of : 1311 Admission Date December 23, 2017 at 23:10 Admitting Diagnosis Resp failure CHF Diagnosis at Time of : Brief History Patient is unable to provide history because he is intubated. History was obtained by discussion with his daughter and information relayed by the emergency department physician. 62-year-old male with past medical history of hypertension, hyperlipidemia, peripheral arterial disease, daily alcohol use, tobacco abuse. Patient's daughter states that for the last 1-1/2 weeks he has been complaining of orthopnea and has had difficulty sleeping at night because of this; waking up with severe SOB. She states he is also intermittently complained of non- pleuritic left-sided chest pain which he attributed to the fact that he had fallen on his left side a couple of weeks ago. He has had a lot of coughing but to her knowledge it has been nonproductive. He has had generalized weakness over the last couple of days and this morning he was "out of it". He has not been aware of any fever. He has had contact with his grandson who tested positive for influenza A 3 days ago on 12/21. This evening he was in the bathroom and his daughter heard him groaning and seemed to be in respiratory distress and indicated that she needed to call [facility]. He was initially responsive but upon arrival to the ED he was unresponsive, staring straight ahead, being bagged by [facility].. He became bradycardic. He underwent RSI with etomidate and succinylcholine and was intubated. During intubation he went into asystole. He was given epinephrine 1 mg and 2 amps of sodium bicarbonate in addition to CPR. His heart rate then came up into the 160s. He was started on dopamine due to hypotension and is currently running at 20 mcg/kg/ min. ABG demonstrated acute hypercapnic and hypoxic respiratory failure with pH 7.15/PCO2 of 62/PaO2 of 58/bicarb 21. Chest x-ray demonstrates bibasilar opacities. White blood cell count is 12. He is hypothermic. He received empiric vancomycin and Zosyn in the emergency department and Lasix 40 mg IV. He was started on propofol and fentanyl drips. Propofol was subsequently discontinued and he was started on a Versed drip and given vecuronium to facilitate vent synchrony and oxygenation.. Initial post intubation chest x-ray demonstrated ET tube and NG tube in high position. These were reportedly advanced but remained in high position.. Patient then had notable cuff leak and sats were in the 70s. He was reintubated by the emergency department physician. I have placed right IJ central venous line. Follow-up chest x-ray demonstrates satisfactory position of endotracheal tube and right IJ. The OG has been removed and will be replaced. Noonan has been placed but he has been anuric for the last 3.5 hours in the ED. CBC/BMP: 01/01/18 0330 01/01/18 0330 Significant Findings Laboratory Tests Test 12/29/17 17:55 12/29/17 23:20 12/30/17 04:00 12/30/17 06:00 Blood Urea Nitrogen 50 MG/DL (7-18) 57 MG/DL (7-18) 60 MG/DL (7-18) Creatinine 3.28 MG/DL (0.60-1.30) 3.55 MG/DL (0.60-1.30) 3.66 MG/DL (0.60-1.30) Random Glucose 157 MG/DL (74-106) 171 MG/DL (74-106) 157 MG/DL (74-106) Calcium Level 8.1 MG/DL (8.5-10.1) 7.7 MG/DL (8.5-10.1) 8.0 MG/DL (8.5-10.1) Sodium Level 133 MEQ/L (136-145) 134 MEQ/L (136-145) 133 MEQ/L (136-145) Potassium Level 3.3 MEQ/L (3.5-5.1) 3.3 MEQ/L (3.5-5.1) 2.9 MEQ/L (3.5-5.1) Chloride Level 91 MEQ/L (98-107) 90 MEQ/L (98-107) 88 MEQ/L (98-107) Anion Gap 16 MEQ/L (5-15) Estimat Glomerular Filtration Rate 19 ML/MIN (>89) 17 ML/MIN (>89) 17 ML/MIN (>89) Activated Partial Thromboplast Time 48.0 SEC (24.3-30.1) 45.7 SEC (24.3-30.1) White Blood Count 11.2 TH/MM3 (4.0-11.0) Red Blood Count 2.49 MIL/MM3 (4.50-5.90) Hemoglobin 9.2 GM/DL (13.0-17.0) Hematocrit 25.7 % (39.0-51.0) Mean Corpuscular Volume 103.1 FL (80.0-100.0) Mean Corpuscular Hemoglobin 37.1 PG (27.0-34.0) Platelet Count 111 TH/MM3 (150-450) Test 12/30/17 08:30 12/30/17 12:25 12/30/17 21:00 12/31/17 04:10 Blood Urea Nitrogen 40 MG/DL (7-18) 64 MG/DL (7-18) Creatinine 2.84 MG/DL (0.60-1.30) 3.94 MG/DL (0.60-1.30) Potassium Level 3.3 MEQ/L (3.5-5.1) Chloride Level 96 MEQ/L (98-107) 97 MEQ/L (98-107) Estimat Glomerular Filtration Rate 23 ML/MIN (>89) 16 ML/MIN (>89) White Blood Count 13.7 TH/MM3 (4.0-11.0) Red Blood Count 2.22 MIL/MM3 (4.50-5.90) Hemoglobin 8.1 GM/DL (13.0-17.0) Hematocrit 23.2 % (39.0-51.0) Mean Corpuscular Volume 104.7 FL (80.0-100.0) Mean Corpuscular Hemoglobin 36.7 PG (27.0-34.0) Platelet Count 123 TH/MM3 (150-450) Neutrophils (%) (Auto) 86.9 % (16.0-70.0) Lymphocytes (%) (Auto) 3.6 % (9.0-44.0) Monocytes (%) (Auto) 9.4 % (0.0-8.0) Neutrophils # (Auto) 11.9 TH/MM3 (1.8-7.7) Lymphocytes # (Auto) 0.5 TH/MM3 (1.0-4.8) Monocytes # (Auto) 1.3 TH/MM3 (0-0.9) Activated Partial Thromboplast Time 55.3 SEC (24.3-30.1) Random Glucose 126 MG/DL (74-106) Calcium Level 8.3 MG/DL (8.5-10.1) Test 01/01/18 03:30 01/01/18 05:00 White Blood Count 16.6 TH/MM3 (4.0-11.0) Red Blood Count 1.97 MIL/MM3 (4.50-5.90) Hemoglobin 7.1 GM/DL (13.0-17.0) Hematocrit 21.2 % (39.0-51.0) Mean Corpuscular Volume 107.8 FL (80.0-100.0) Mean Corpuscular Hemoglobin 36.1 PG (27.0-34.0) Neutrophils (%) (Auto) 85.5 % (16.0-70.0) Lymphocytes (%) (Auto) 2.5 % (9.0-44.0) Monocytes (%) (Auto) 11.9 % (0.0-8.0) Neutrophils # (Auto) 14.2 TH/MM3 (1.8-7.7) Lymphocytes # (Auto) 0.4 TH/MM3 (1.0-4.8) Monocytes # (Auto) 2.0 TH/MM3 (0-0.9) Blood Urea Nitrogen 84 MG/DL (7-18) Creatinine 4.88 MG/DL (0.60-1.30) Total Protein 6.1 GM/DL (6.4-8.2) Calcium Level 8.4 MG/DL (8.5-10.1) Phosphorus Level 7.5 MG/DL (2.5-4.9) Aspartate Amino Transf (AST/SGOT) 361 U/L (15-37) Alanine Aminotransferase (ALT/SGPT) 163 U/L (12-78) Total Bilirubin 2.6 MG/DL (0.2-1.0) Sodium Level 135 MEQ/L (136-145) Chloride Level 97 MEQ/L (98-107) Carbon Dioxide Level 16.4 MEQ/L (21.0-32.0) Anion Gap 22 MEQ/L (5-15) Estimat Glomerular Filtration Rate 12 ML/MIN (>89) Activated Partial Thromboplast Time 87.2 SEC (24.3-30.1) Imaging Last Impressions Chest X-Ray 12/26/17 0600 Signed Impressions: Service Date/Time: Tuesday, December 26, 2017 02:56 - CONCLUSION: 1. Left basilar airspace disease slightly increased from December 24. Small caliber right chest tube without pneumothorax. Endotracheal tube and nasogastric tube and right central line in good position. Rian Mccarty MD Renal Ultrasound 12/25/17 0000 Signed Impressions: Service Date/Time: Monday, December 25, 2017 17:32 - CONCLUSION: Negative renal ultrasound examination. Boni Obregon MD Head CT 12/23/17 0000 Signed Impressions: Service Date/Time: December 00:39 - CONCLUSION: No acute disease. Raji Matos Jr., MD Chest CT 12/23/17 0000 Signed Impressions: Service Date/Time: December 00:39 - CONCLUSION: 1. Moderate-sized bilateral pleural effusions. 2. Diffuse bilateral pulmonary infiltrates. This may relate to pulmonary edema. 3. Coronary artery atherosclerotic calcifications. Raji Matos Jr., MD Hospital Course 62-year-old male with past medical history of hypertension, hyperlipidemia, peripheral arterial disease, daily alcohol use, tobacco abuse. Patient's daughter states that for the last 1-1/2 weeks he has been complaining of orthopnea and has had difficulty sleeping at night because of this; waking up with severe SOB. She states he is also intermittently complained of non- pleuritic left-sided chest pain which he attributed to the fact that he had fallen on his left side a couple of weeks ago. He has had a lot of coughing but to her knowledge it has been nonproductive. He has had generalized weakness over the last couple of days and this morning he was "out of it". He has not been aware of any fever. He has had contact with his grandson who tested positive for influenza A 3 days ago on 12/21. This evening he was in the bathroom and his daughter heard him groaning and seemed to be in respiratory distress and indicated that she needed to call [facility]. He was initially responsive but upon arrival to the ED he was unresponsive, staring straight ahead, being bagged by [facility].. He became bradycardic. He underwent RSI with etomidate and succinylcholine and was intubated. During intubation he went into asystole. He was given epinephrine 1 mg and 2 amps of sodium bicarbonate in addition to CPR. His heart rate then came up into the 160s. He was started on dopamine due to hypotension and is currently running at 20 mcg/kg/ min. ABG demonstrated acute hypercapnic and hypoxic respiratory failure with pH 7.15/PCO2 of 62/PaO2 of 58/bicarb 21. Chest x-ray demonstrates bibasilar opacities. White blood cell count is 12. He is hypothermic. He received empiric vancomycin and Zosyn in the emergency department and Lasix 40 mg IV. He was started on propofol and fentanyl drips. Propofol was subsequently discontinued and he was started on a Versed drip and given vecuronium to facilitate vent synchrony and oxygenation.. Initial post intubation chest x-ray demonstrated ET tube and NG tube in high position. These were reportedly advanced but remained in high position.. Patient then had notable cuff leak and sats were in the 70s. He was reintubated by the emergency department physician. I have placed right IJ central venous line. Follow-up chest x-ray demonstrates satisfactory position of endotracheal tube and right IJ. The OG has been removed and will be replaced. Noonan has been placed but he has been anuric for the last 3.5 hours in the ED. 12/24: Patient reevaluated multiple times as he remains critical on multiple pressors. Currently on Levophed at 12 mcg/min, dopamine at 10 mcg/kg/min and vasopressin at 0.04 units. FiO2 currently at 60% with PEEP of 12 I will attempt weaning PEEP due to persistent hypotension. IV heparin started for troponin elevation to 25.5. Aspirin 81 mg daily started. Cardiology consulted. I will also start Flowtrack monitoring and maintenance IV fluids. Starting to make some urine. 12/25: Afebrile urine output slightly increased, however creatinine continues to increase. Nephrology consulted, renal ultrasound pending. The patient continues on vasopressor support, 30 at output trending 3.5, cardiac index 1.7. Patient continues to have persistent leukocytosis blood cultures negative growth today ID has been consulted.PEEP continues at 10 okay to maintain O2 saturation of 92% 12/26: The patient has been weaned off levo fed currently remains on dopamine and vasopressin. Nephrology following no plans for dialysis at this time. WBC downtrending 12/27: encephalopathy persists. NICKO persists. severely volume overloaded with elevated BNP. on vasopressors. left chest with pleural effusion, largest area ~ 3cm around 6th intercostal space. fio2 remains elevated. 12/28: no meaningful diuresis with aggressive diuretic attempts. organ failure persists. encephalopathy persists. high fio2 persists. heparin on hold for left chest tube today. 12/29: Remains severely hypoxemic despite aggressive diuresis and bilateral chest tubes. Urine output 3 L on Lasix infusion and albumin infusion. Chest tube output 3.5 L in the last 24 hours from bilateral chest tubes. Despite all this patient remains severely hypoxemic currently PEEP at 15 FiO2 at 100% which gives a PO2 of 83. Discussed with Dr. Lloyd with increasing creatinine to 4.1 will start Hemodialysis today. Currently on vasopressin 0.04 U/min, dopamine 8 mcg/kg/min 12/30: no improvements in hypoxemia or shock on vasopressors. IHD again today and removal of significant fluid. hypokalemia persists. starting to arouse and follow commands, but no other improvements in end-organ function. 12/31: Remains critically ill on multiple vasopressors and inotropes including dopamine, vasopressin, milrinone. Urine output approximately 600 mL, hemodialysis with 3.5 L removed yesterday. Chest tubes bilaterally with 980 mL output. BUN/creat 64/3.9 01/01: all organ systems worse. shock is worsening on more vasopressors. did not dialyze yesterday. now 2 liters +. urine output poor, almost anuric. chest tubes still putting out significant serous output. may not tolerate IHD. given age and significant critical illness, very poor prognosis. unlikely to survive. family pushes for aggressive care. Family changed their goals of care as patient continues to decline despite maximal efforts. patient made DNR and comfort measures. terminally extubated and at 1311 on 01/01. Russ Faust MD January 01, 2018 17:49
== END 2018-01-01 13:11 | disposition expired | DRG 207 ==
LOC: NEPE 19:34 → NEDA 23:10 → HIMW 12-24 01:00
PROVIDERS: ADMIT Emergency Medicine; ATTEND Emergency Medicine
PROC: 5A1955Z Respiratory Ventilation, Greater than 96 Consecutive Hours (ICD-10-PCS; principal; 2017-12-23)
PROC: 0BH17EZ Insertion of Endotracheal Airway into Trachea, Via Natural or Artificial Opening (ICD-10-PCS; 2017-12-23)
PROC: 5A12012 Performance of Cardiac Output, Single, Manual (ICD-10-PCS; 2017-12-23)
PROC: 02HV33Z Insertion of Infusion Device into Superior Vena Cava, Percutaneous Approach (ICD-10-PCS; 2017-12-23)
PROC: 03HY32Z Insertion of Monitoring Device into Upper Artery, Percutaneous Approach (ICD-10-PCS; 2017-12-24)
PROC: 0W9930Z Drainage of Right Pleural Cavity with Drainage Device, Percutaneous Approach (ICD-10-PCS; 2017-12-24)
PROC: 0W9B30Z Drainage of Left Pleural Cavity with Drainage Device, Percutaneous Approach (ICD-10-PCS; 2017-12-28)
PROC: 05HN33Z Insertion of Infusion Device into Left Internal Jugular Vein, Percutaneous Approach (ICD-10-PCS; 2017-12-29)
PROC: 5A1D70Z Performance of Urinary Filtration, Intermittent, Less than 6 Hours Per Day (ICD-10-PCS; 2017-12-29)
PROC: 03HY32Z Insertion of Monitoring Device into Upper Artery, Percutaneous Approach (ICD-10-PCS; 2017-12-31)
DX: J96.01 Acute respiratory failure with hypoxia (principal); I21.4 Non-ST elevation (NSTEMI) myocardial infarction; R57.0 Cardiogenic shock; N17.0 Acute kidney failure with tubular necrosis; J90 Pleural effusion, not elsewhere classified; G93.41 Metabolic encephalopathy; G93.1 Anoxic brain damage, not elsewhere classified; I50.23 Acute on chronic systolic (congestive) heart failure; J18.9 Pneumonia, unspecified organism; J44.0 Chronic obstructive pulmonary disease with (acute) lower respiratory infection; E87.2 Acidosis; E87.1 Hypo-osmolality and hyponatremia; I42.2 Other hypertrophic cardiomyopathy; I11.0 Hypertensive heart disease with heart failure; J96.02 Acute respiratory failure with hypercapnia; I73.9 Peripheral vascular disease, unspecified; E83.51 Hypocalcemia; I25.10 Atherosclerotic heart disease of native coronary artery without angina pectoris; R00.1 Bradycardia, unspecified; E78.5 Hyperlipidemia, unspecified; F17.210 Nicotine dependence, cigarettes, uncomplicated; D53.9 Nutritional anemia, unspecified; F10.10 Alcohol abuse, uncomplicated; Y90.0 Blood alcohol level of less than 20 mg/100 ml; Z20.828 Contact with and (suspected) exposure to other viral communicable diseases; R73.09 Other abnormal glucose; E78.00 Pure hypercholesterolemia, unspecified; R68.0 Hypothermia, not associated with low environmental temperature; I34.0 Nonrheumatic mitral (valve) insufficiency; Z51.5 Encounter for palliative care; E87.6 Hypokalemia; Z66 Do not resuscitate; Z79.899 Other long term (current) drug therapy; Z79.02 Long term (current) use of antithrombotics/antiplatelets; Z79.82 Long term (current) use of aspirin; Z82.3 Family history of stroke; Z78.1 Physical restraint status
CPT/HCPCS: 32551; 36556; 36600; 51702; 70450; 71045; 71250; 74018; 76775; 76937; 80048; 80053; 80061; 80074; 80202; 80307; 81001; 82140; 82550; 82552; 82570; 82805; 82945; 82948; 83605; 83615; 83690; 83735; 83880; 83986; 84100; 84132; 84155; 84157; 84300; 84443; 84484; 85007; 85025; 85027; 85610; 85730; 87015; 87040; 87070; 87102; 87116; 87205; 87206; 87449; 87633; 87641; 87804; 89051; 90935; 93005; 93306; 94002; 94003; 94640; 94664; 94799; 96360; 96365; 96367; 96368; 96374; 96375; J0171; J0330; J0456; J0610; J1120; J1205; J1265; J1325; J1580; J1644; J1720; J1815; J1940; J1956; J2060; J2150; J2250; J2260; J2270; J2370; J2543; J3010; J3370; J3411; J3475; J3480; J7030; J7040; J7050; J7060; J7070; P9045; P9047; Q4081